=== PATIENT | male | born 1955 | race Caucasian/White ===

== ENCOUNTER 2022-06-20 06:06 | Day surgery (SDC) | payer OTHER, SELFPAY ==
[2022-06-07 12:28] VITALS: BP 114/60; PULSE 78; RESP 20; O2SAT 97; BMI 40.2
--- NOTE | 2022-06-07 12:41 | P.CONAN_ITS ---
Documented by User: Erin Bolden NP 06/19/22 09:32 HPI - Anesthesia Eval Consult details Narrative: 66yo M for Left AV Fistula Creation No dialysis yet Congenital singular kidney PMFSH Past Medical History Medical History Arthritis CKD (chronic kidney disease) Congenital single kidney COVID-19 vaccine series completed Diabetes Elevated cholesterol History of anesthesia complications HTN (hypertension) Localized edema Macular edema Peripheral neuropathy RBBB Family History Family history of problems with anesthesia: No Surgical History Surgical History H/O colonoscopy History of lumbar laminectomy Hx of cataract extraction Hx of cervical spine surgery History of Problems with Anesthesia: Yes (Long to wake even with IV sedation) Social History Social History Are you a primary home health care respiratory therapist to a significant other at home: No Do you presently have visiting nurse or other home services: No Patient Tobacco Use Status: Former Tobacco user Quit Date: 35 yr ago-smoked for only 1 year Tobacco use type: Cigarette Use of substances other than those prescribed or required for medical reasons: No Have you been hit, kicked, punched, or otherwise hurt by someone within the past year? If so, by whom?: No Are you DNR?: No Advance Directives Information Provided: Yes (will bring copy DOS) Advance Directives on File: No Recently lost weight without trying: No Nutrition Risks: No Nutritional Risk Poor oral hygiene: No (dental crowns) Narrative Narrative: No recent illness No CP. Mild EVANS r/t deconditioning. (Weight increased by 20lbs in past 6 months. 1+ LE edema) Meds Allergies Allergy/AdvReac Type Severity Reaction Status Date / Time No Known Allergies Allergy Verified 06/06/22 09:17 Home Medications Medication Instructions Recorded Confirmed Last Taken Type amlodipine 5 mg tablet 5 mg PO DAILY 06/06/22 06/20/22 06/20/22 History atorvastatin 20 mg tablet 20 mg PO DAILY 06/06/22 06/06/22 Unknown History cholecalciferol (vitamin D3) 25 50 mcg PO DAILY 06/06/22 06/07/22 Unknown History mcg (1,000 unit) capsule (Vitamin D3) losartan 100 mg tablet 100 mg PO DAILY 06/06/22 06/07/22 Unknown History multivitamin 1 tab PO DAILY 06/06/22 06/06/22 Unknown History sitagliptin 100 mg tablet 100 mg PO DAILY 06/06/22 06/06/22 Unknown History torsemide 20 mg tablet 60 mg PO DAILY 06/06/22 06/06/22 Unknown History vitamin B complex 1 tab PO DAILY 06/06/22 06/06/22 Unknown History calcium carbonate 600 mg calcium tab PO TID 06/07/22 Unknown History (1,500 mg) tablet Exam Exam Date and Time: June 07, 2022 1241 Height,Weight and Vital Signs: Height 5 ft 6 in Weight 113.162 kg Last Vital Signs Pulse 78 06/07/22 12:28 Resp 20 06/07/22 12:28 BP 114/60 06/07/22 12:28 Pulse Ox 97 06/07/22 12:28 O2 Del Method 06/07/22 12:28 Pertinent Lab Results Pertinent Lab Results: Labs at outside facility 05/24/22 K 5.0 Na 135 CO2 19 (H) Cl 104 BUN 90 (H) Creat 4.0 (H) WBC 6.6 Hgb 8.8 (L) Hct 27.5 (L) Plt 142 (L) Narrative Narrative: EKG 05/31/22 SR @77 RBBB Airway Mallampati Class: III TM Dist: >3cm Neck ROM: Poor (Post cervical disc surgery) Loose/Missing/Broken Teeth: No (Crowned molars) Heart: RRR Lungs: CTAB Assessment and Plan Assessment Anesthesia Assessment: Anesthesia Plan Discussed and PAT Visit Final Anesthetic Review Family History of Problems with Anesthesia: No History of Problems with Anesthesia: Yes (Long to wake even with IV sedation) Documented by User: Marky Byrnes MD 06/20/22 07:24 [facility] Past Medical History Medical History Arthritis CKD (chronic kidney disease) Congenital single kidney COVID-19 vaccine series completed Diabetes Elevated cholesterol History of anesthesia complications HTN (hypertension) Localized edema Macular edema Peripheral neuropathy RBBB Surgical History Surgical History H/O colonoscopy History of lumbar laminectomy Hx of cataract extraction Hx of cervical spine surgery Social History Social History Are you a primary home health care respiratory therapist to a significant other at home: No Do you presently have visiting nurse or other home services: No Patient Tobacco Use Status: Former Tobacco user Quit Date: 35 yr ago-smoked for only 1 year Tobacco use type: Cigarette Use of substances other than those prescribed or required for medical reasons: No Have you been hit, kicked, punched, or otherwise hurt by someone within the past year? If so, by whom?: No Are you DNR?: No Advance Directives Information Provided: Yes (will bring copy DOS) Advance Directives on File: No Recently lost weight without trying: No Nutrition Risks: No Nutritional Risk Poor oral hygiene: No (dental crowns) Meds Allergies Allergy/AdvReac Type Severity Reaction Status Date / Time No Known Allergies Allergy Verified 06/06/22 09:17 Home Medications Medication Instructions Recorded Confirmed Last Taken Type amlodipine 5 mg tablet 5 mg PO DAILY 06/06/22 06/20/22 06/20/22 History atorvastatin 20 mg tablet 20 mg PO DAILY 06/06/22 06/06/22 Unknown History cholecalciferol (vitamin D3) 25 50 mcg PO DAILY 06/06/22 06/07/22 Unknown History mcg (1,000 unit) capsule (Vitamin D3) losartan 100 mg tablet 100 mg PO DAILY 06/06/22 06/07/22 Unknown History multivitamin 1 tab PO DAILY 06/06/22 06/06/22 Unknown History sitagliptin 100 mg tablet 100 mg PO DAILY 06/06/22 06/06/22 Unknown History torsemide 20 mg tablet 60 mg PO DAILY 06/06/22 06/06/22 Unknown History vitamin B complex 1 tab PO DAILY 06/06/22 06/06/22 Unknown History calcium carbonate 600 mg calcium tab PO TID 06/07/22 Unknown History (1,500 mg) tablet Assessment and Plan Final Anesthetic Review NPO: Yes ASA Class: III Final Preanesthetic Review: No Changes in Pt Med Stat, Meds/Allgs Chart Reviewed, Consent Obtained/Reviewed and Anes Risks/Benef Reviewed Patient Risk: Intermediate Procedure Risk: Low Anesthetic Plan Anesthetic Plan: MAC: Disposition: Standard PACU
[2022-06-20] VITALS (7 sets, daily range): BP systolic 97–126; BP diastolic 43–64; PULSE 67–84; RESP 15–18; TEMP 36.6–36.8; O2SAT 95–98
[2022-06-20 06:42] LABS: Glucose, Whole Blood 106 mg/dL (60-115)
[2022-06-20 07:10] LABS: Anion Gap 14 (12-20); Carbon Dioxide 19 mmol/L (22-29); Chloride 109 mmol/L (96-108); Potassium 4.9 mmol/L (3.3-5.1); Sodium 137 mmol/L (135-145)
--- NOTE | 2022-06-20 13:00 | W.PM.OPN ---
Operative Note Operative Note Date of Service: 06/20/22 Narrative: Pre-op Diagnosis: Stage 4 CKD Post-op Diagnosis: Stage 4 CKD Operation: Creation of left arm distal radiocephalic AV fistula Surgeon: Cris Quick Anesthesia: MAC/local Procedure: The patient was placed on the OR table in a supine position. The left arm was prepped and draped in a sterile fashion. The anesthesiologist administered the pre-operative antibiotic. A surgical timeout was performed. Local anesthetic was applied. An incision was made at the wrist. The Bovie electrocauterty was used to dissect through the subcutaneous tissues. The cephalic vein was skeletonized. Branches were ligated and divided with 4-0 silk ties. The radial artery was dissected, skeletonized and fine branches were ligated with 4-0 silk ties. The vein was distended with hep-saline. The radial artery was clamped and an arteriotomy was made. The vein was anastomosed to the artery with 6-0 Prolene suture. The clamps were released. Hemostasis was maintained. The incision was closed in layers and surgical glue was applied. All instrument, sponge and needle counts were correct at the end of the case. The hand was well perfused at the end of the operation. Findings: Wea pulsatile thrill at end of case; palpable radial pulse at end of case. The radial artery was very calcified.
== END 2022-06-20 12:42 | disposition home or self-care (01) ==
PROVIDERS: Nurse Practitioner; PCP Internal Medicine; Visit Provider Transplant Surgery
PROC: (CPT 36818; principal; 2022-06-20 07:30)
DX: E11.22 Type 2 diabetes mellitus with diabetic chronic kidney disease (principal); I12.9 Hypertensive chronic kidney disease with stage 1 through stage 4 chronic kidney disease, or unspecified chronic kidney disease; E11.21 Type 2 diabetes mellitus with diabetic nephropathy; N18.4 Chronic kidney disease, stage 4 (severe); D63.1 Anemia in chronic kidney disease; Z79.84 Long term (current) use of oral hypoglycemic drugs; Q60.0 Renal agenesis, unilateral; R80.9 Proteinuria, unspecified; R60.0 Localized edema; E55.9 Vitamin D deficiency, unspecified; Z79.899 Other long term (current) drug therapy; Z87.891 Personal history of nicotine dependence
CPT/HCPCS: 36818; 36415; 80051; 82947; J0690; J2250; J3010; J3370

== ENCOUNTER → 2022-06-27 10:22 | Outpatient (REF) | payer OTHER, SELFPAY ==
--- NOTE | 2022-06-27 10:26 | CA_ITS ---
Transthoracic Echocardiogram Patient (Last, First, Middle): Giovanni Mcmullen W Gender: Male Date of : 1955 Age: 66 Procedure Date: 06/27/2022 Procedure Type: Transthoracic Echocardiogram Location: OP Height: 167.64 cm Weight: 111.13 kg BSA: 2.18 m2 Heart Rate: bpm BP: 118 / 52 mmHg Mailer: TO Referring MD: Damon Orta MD Symptoms: I45,10 RBBB CRI Study Quality: Fair ECG Rhythm: Sinus Conclusions: - The left ventricular systolic function is normal. The calculated ejection fraction is 62% by biplane method. - There is mild calcification of the aortic valve. - There is mild mitral annular calcification. - No obvious valvular pathology seen on this study. Findings Left Ventricle Normal left ventricular cavity size. The left ventricular systolic function is normal. The calculated ejection fraction is 62% by biplane method. There is no evidence of regional wall motion abnormalities. Diastolic function is normal for age. There is moderate septal and moderate basal asymmetric hypertrophy. Right Ventricle Mildly increased right ventricular cavity size. There is normal right ventricular systolic function. Atria Both atria are normal in size. Aortic Valve There is a normal trileaflet aortic valve. There is mild calcification of the aortic valve. There is no aortic valve stenosis. There is no aortic valve regurgitation. Mitral Valve There is mild mitral annular calcification. There is trace mitral valve regurgitation. There is no mitral valve stenosis. Pulmonic Valve The pulmonic valve is likely normal. Tricuspid Valve Normal tricuspid valve structure. There is trace tricuspid valve regurgitation. There is no evidence of pulmonary hypertension. Great Vessels The asc aorta is normal in size. Venous The inferior vena cava is normal in size and collapses greater than 50% with inspiration. Pericardium/Pleural There is no evidence of pericardial effusion. Prior Study Comparison No prior study available for comparison. Recommendations, Care & Conclusions No obvious valvular pathology seen on this study. Measurements 2D Linear Measurements IVSd: 1.33 0.6-0.9/0.6-1.0 cm LVIDd: 3.66 3.9-5.3/4.2-5.9 cm LVIDd Index: 1.68 2.4-3.2/2.2-3.1 cm/m2 LVIDs: 2.82 2.0-3.6 cm LVPWd: 1.29 0.7-1.1 cm LA Diam: 3.50 2.7-3.8/3.0-4.0 cm LAIDs Index: 1.61 1.5-2.3 cm/m2 LV Mass: 206.59 67-162/88-224 g LV Mass Index: 94.77 43-95/49-115 g/m2 LVOT Diam: 2.00 3.0+(-)1.3 cm 2D Systolic Function EF 4C: 63.10 >55% EF 2C: 59.60 >55% EF BiP: 61.90 >55% Mitral Valve MV Pk E: 0.90 MV PK A: 1.12 MV Decel Time: 199.00 E/A: 0.80 E'Lateral: 8.92 E'Medial: 6.42 E/E' Med: 14.00 E/E' Lat: 10.10 PHT: 58.00 MVA PHT: 3.79 Decel [place]: 4.53 Aortic Valve AoV Pk Floyd: 1.71 AoV Mn Floyd: 1.14 AoV VTI: 0.33 AoV Pk Grad: 12.00 Aov Mn Grad: 6.00 HONORIO Cont.VTI: 2.89 LVOT LVOT Pk Floyd: 1.32 LVOT Mn Floyd: 0.97 LVOT VTI: 0.30 LVOT Pk Grad: 7.00 LVOT Mn Grad: 4.00 LVOT Diam: 2.00 LVOT Area: 3.14 Diastolic Function MV Pk E: 0.90 MV Pk A: 1.12 E/A: 0.80 E'Medial: 6.42 E/E' Med: 14.00 E' Laterial: 8.92 E/E' Lat: 10.10 Right Ventricle TAPSE (mm): 29.50 TVS' Floyd: 13.10 Tricuspid Valve RA Press: 3.00 Great Vessels Aorta Sinus of Valsalva: 3.20 2.0-3.[address] [place]: 2.55 1.7-3.4 cm Ao Asc: 3.60 2.1-3.4 cm Updated in Other Vendor System with Status of Final Doug Weathers MD electronically signed on 06/28/2022 2:23:30 PM with status of Final
== END ==
LOC: HO.CARD 10:22
PROVIDERS: PCP Internal Medicine; Visit Provider Internal Medicine
DX: I45.10 Unspecified right bundle-branch block (principal)
CPT/HCPCS: 93306

== ENCOUNTER 2022-09-19 10:13 | Outpatient (REF) | payer OTHER, SELFPAY ==
[2022-09-19 13:37] LABS: MANUAL DIFF FLAG NO
[2022-09-19 13:40] LABS: Basophils Absolute Auto 0.1 X10*3/uL (0.0-0.2); Basophils Percent Auto 0.8 % (0-2); Eosinophils Absolute Auto 0.2 X10*3/uL (0.0-0.4); Eosinophils Percent Auto 3.2 % (0-4); Hematocrit 37.6 % (42.0-52.0); Imm Gran Abs Auto 0.06 X10*3/uL (0.00-0.03); Imm Gran Pct Auto 0.8 % (0.0-0.4); Lymphocytes Absolute Auto 1.6 X10*3/uL (1.2-4.9); Mean Corpuscular HGB Conc 31.9 g/dl (31.0-36.0); Mean Corpuscular Hemoglobin 29.1 pg (27.0-33.0); Mean Platelet Volume 10.5 fL (9.4-12.4); Monocytes Absolute Auto 0.6 X10*3/uL (0.1-1.2); Monocytes Percent Auto 8.1 % (2-11); Neutrophils Absolute Auto 4.8 x10*3/uL (2.0-8.3); Neutrophils Percent Auto 65.1 % (45-73); Platelet Count 187 X10*3/uL (160-400); Red Blood Count 4.13 X10*6/uL (4.60-5.80); Red Cell Distribution Width 13.8 % (11.0-16.0); White Blood Count 7.4 X10*3/uL (4.8-10.8)
[2022-09-19 13:50] LABS: Estimated Average Glucose 123 mg/dL; Hemoglobin A1c % 5.9 %
[2022-09-19 14:12] LABS: Alanine Aminotransferase 26 U/L (0-40); Alkaline Phosphatase 140 U/L (39-117); Anion Gap 15 (12-20); Aspartate Amino Transferase 32 U/L (5-37); Blood Urea Nitrogen 74 mg/dL (9-16); Calcium 8.8 mg/dL (8.4-10.2); Carbon Dioxide 23 mmol/L (22-29); Chloride 104 mmol/L (96-108); Cholesterol 139 mg/dL; Estimated Glomerular Filt Rate 17; Glucose Fasting 126 mg/dL (60-99); Potassium 5.3 mmol/L (3.3-5.1); Sodium 137 mmol/L (135-145); Total Protein 7.3 g/dL (6.5-8.0)
[2022-09-19 14:25] LABS: Free T4 (Free Thyroxine) 0.49 ng/dL (0.71-1.85); Prostate Specific Antigen Scr 0.63 ng/mL (<0.05-4.0)
[2022-09-19 14:26] LABS: Bilirubin Total 0.6 mg/dL (0.0-1.0)
[2022-09-19 14:28] LABS: Vitamin B12 1349 pg/mL (200-900)
[2022-09-19 15:01] LABS: Thyroid Stimulating Hormone > 100.00 uIU/mL (0.32-4.0)
== END 2022-09-19 10:14 | disposition home or self-care (01) ==
LOC: HO.10HDL 10:13
PROVIDERS: Visit Provider Internal Medicine
DX: E11.22 Type 2 diabetes mellitus with diabetic chronic kidney disease (principal); I12.9 Hypertensive chronic kidney disease with stage 1 through stage 4 chronic kidney disease, or unspecified chronic kidney disease; N18.9 Chronic kidney disease, unspecified; D63.1 Anemia in chronic kidney disease; Z12.5 Encounter for screening for malignant neoplasm of prostate
CPT/HCPCS: 36415; 80053; 82465; 82607; 83036; 84153; 84439; 84443; 85025

== ENCOUNTER 2022-11-19 16:15 | Outpatient (REF) | payer MEDICARE, SELFPAY ==
[2022-11-19 17:07] LABS: Influenza A PCR NEGATIVE (Negative); Influenza B PCR NEGATIVE (Negative); Resp Syncy Virus RNA Qual PCR NEGATIVE (Negative); SARS COV2 PCR INHOUSE NEGATIVE (Negative)
== END 2022-11-19 16:16 | disposition home or self-care (01) ==
LOC: HO.LNP 16:15
PROVIDERS: Visit Provider Internal Medicine
DX: Z20.822 Contact with and (suspected) exposure to COVID-19 (principal); R05.9 Cough, unspecified
CPT/HCPCS: 0241U; C9803

== ENCOUNTER 2022-11-19 16:20 | Outpatient (REF) | payer MEDICARE, OTHER, SELFPAY ==
--- NOTE | ~2022-11-19 | XR_ITS ---
EXAMINATION: XR CHEST CLINICAL INFORMATION: Cough. COMPARISON: None TECHNIQUE: 2 views of the chest were obtained. FINDINGS: The lungs are well-expanded and clear. The heart size and pulmonary vascularity is normal. There is mild spondylosis of dorsal spine. No aggressive lytic or sclerotic process seen. XR/XR chest 2V IMPRESSION: Unremarkable chest examination.
== END 2022-11-19 16:21 | disposition home or self-care (01) ==
LOC: HO.XRAY 16:20
PROVIDERS: PCP Internal Medicine; Visit Provider Internal Medicine
DX: R05.9 Cough, unspecified (principal); R09.89 Other specified symptoms and signs involving the circulatory and respiratory systems
CPT/HCPCS: 71046

== ENCOUNTER 2023-02-24 10:23 | Outpatient (REF) | payer MEDICARE, SELFPAY ==
[2023-02-24 14:10] LABS: Estimated Average Glucose 117 mg/dL; Hemoglobin A1c % 5.7 %
[2023-02-24 14:22] LABS: Iron 91 mcg/dL (45-160); Percent Iron Saturation 40 % (15-50); Total Iron Binding Capacity 226 mcg/dL (228-428); Unsaturated Iron Binding 135 ug/dL
[2023-02-24 14:42] LABS: Free T4 (Free Thyroxine) 1.04 ng/dL (0.71-1.85); Thyroid Stimulating Hormone 3.94 uIU/mL (0.32-4.0)
== END 2023-02-24 10:24 | disposition home or self-care (01) ==
LOC: HO.10HDL 10:23
PROVIDERS: Visit Provider Internal Medicine
DX: E11.22 Type 2 diabetes mellitus with diabetic chronic kidney disease (principal); E03.9 Hypothyroidism, unspecified; N18.9 Chronic kidney disease, unspecified
CPT/HCPCS: 36415; 83036; 83540; 84439; 84443

== ENCOUNTER 2023-05-22 10:51 | Outpatient (REF) | payer MEDICARE, SELFPAY ==
[2023-05-22 14:18] LABS: Anion Gap 12 (12-20); Blood Urea Nitrogen 89 mg/dL (9-16); Calcium 8.6 mg/dL (8.4-10.2); Carbon Dioxide 20 mmol/L (22-29); Chloride 111 mmol/L (96-108); Estimated Glomerular Filt Rate 14; Glucose Random 142 mg/dL (60-115); Potassium 4.9 mmol/L (3.3-5.1); Sodium 138 mmol/L (135-145)
== END 2023-05-22 10:52 | disposition home or self-care (01) ==
LOC: HO.10HDL 10:51
PROVIDERS: Visit Provider Internal Medicine
DX: I12.9 Hypertensive chronic kidney disease with stage 1 through stage 4 chronic kidney disease, or unspecified chronic kidney disease (principal); E11.22 Type 2 diabetes mellitus with diabetic chronic kidney disease; N18.9 Chronic kidney disease, unspecified; D64.9 Anemia, unspecified
CPT/HCPCS: 36415; 80048

== ENCOUNTER 2023-10-08 12:21 | Outpatient (REF) | payer MEDICARE, OTHER, SELFPAY ==
--- NOTE | ~2023-10-08 | XR_ITS ---
EXAMINATION: XR CHEST CLINICAL INFORMATION: Cough, shortness of breath COMPARISON: 11/27/2022 TECHNIQUE: 2 views of the chest were obtained. FINDINGS: There is no gross pneumothorax. Lung volumes are low. Heart size is normal. No pleural effusion. No new focal consolidation to suggest pneumonia. Advanced degenerative changes in the thoracic spine. XR/XR chest 2V IMPRESSION: No evidence of pneumonia.
== END 2023-10-08 12:22 | disposition home or self-care (01) ==
LOC: HO.XRAY 12:21
PROVIDERS: PCP Internal Medicine; Visit Provider Internal Medicine
DX: R05.9 Cough, unspecified (principal); R06.02 Shortness of breath
CPT/HCPCS: 71046

== ENCOUNTER → 2023-10-27 12:43 | Outpatient (REF) | payer MEDICARE, MEDICAID, SELFPAY ==
--- NOTE | 2023-10-27 12:52 | CA_ITS ---
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 Normal LV ejection fraction of 65-70% with mild LVH with impaired relaxation filling pattern 2. Moderately dilated left atrium 3. Moderate to severe aortic stenosis with mean gradient of 35 mmHg 4. No gross pericardial effusion Findings Left Ventricle Normal left ventricular size and systolic function. There is mildly increased left ventricular wall thickness. The visually estimated ejection fraction is between 65-70%. Spectral Doppler is indicative of an impaired relaxation filling pattern. E/E prime ratio is between 8 and 15 consistent with indeterminate filling pressures. Right Ventricle Normal right ventricular cavity size and systolic function. Atria The left atrium is moderately dilated. There is no evidence of interatrial shunt. The right atrium is normal in size. Aortic Valve The aortic valve was not well visualized. There is moderate calcification of the aortic valve. There is moderate to severe aortic valve stenosis. The peak aortic gradient is 57 mmHg.The mean gradient is 35 mmHg. The aortic valve area is 1.16 cm2. There is no aortic valve regurgitation. Mitral Valve There is mild anterior and moderate posterior mitral leaflet thickening. There is moderate mitral annular calcification. There is no mitral valve regurgitation. There is mild mitral valve stenosis. Tricuspid Valve Likely normal tricuspid valve structure and function. Tricuspid regurgitation envelope is inadequate for calculation of right ventricular systolic pressure. Normal right atrial pressure. Great Vessels All visible segments of the aorta are normal in size. The pulmonary artery was not well visualized. Venous The inferior vena cava is normal in size. Pericardium/Pleural There is no evidence of pericardial effusion. Prior Study Comparison Changes noted compared to prior study dated: 06/27/2022. moderately severe aortic stenosis is present Measurements 2D Linear Measurements IVSd: 1.35 0.6-0.9/0.6-1.0 cm LVIDd: 3.96 3.9-5.3/4.2-5.9 cm LVIDd Index: 1.87 2.4-3.2/2.2-3.1 cm/m2 LVIDs: 2.22 2.0-3.6 cm LVPWd: 1.31 0.7-1.1 cm LA Diam: 4.10 2.7-3.8/3.0-4.0 cm LAIDs Index: 1.93 1.5-2.3 cm/m2 LV Mass: 237.14 67-162/88-224 g LV Mass Index: 111.86 43-95/49-115 g/m2 LVOT Diam: 2.00 3.0+(-)1.3 cm 2D Systolic Function EF 4C: 69.10 >55% EF 2C: 71.00 >55% EF BiP: 70.50 >55% Mitral Valve MV VTI: 0.49 MV Pk Floyd: 1.73 MV Mn Floyd: 1.05 MV Pk Grad: 12.00 MV Mn Grad: 5.00 MV Pk E: 1.18 MV PK A: 1.55 MV Decel Time: 296.00 E/A: 0.80 E'Lateral: 6.09 E'Medial: 7.40 E/E' Med: 15.90 E/E' Lat: 19.40 PHT: 87.00 MVA PHT: 2.53 MVA Continuity: 2.08 Decel [place]: 3.98 Aortic Valve AoV Pk Floyd: 3.77 AoV Mn Floyd: 2.82 AoV VTI: 0.88 AoV Pk Grad: 57.00 Aov Mn Grad: 35.00 HONORIO Cont.VTI: 1.16 LVOT LVOT Pk Floyd: 1.40 LVOT Mn Floyd: 1.08 LVOT VTI: 0.33 LVOT Pk Grad: 8.00 LVOT Mn Grad: 5.00 LVOT Diam: 2.00 LVOT Area: 3.14 Diastolic Function MV Pk E: 1.18 MV Pk A: 1.55 E/A: 0.80 E'Medial: 7.40 E/E' Med: 15.90 E' Laterial: 6.09 E/E' Lat: 19.40 Right Ventricle TAPSE (mm): 32.00 TVS' Floyd: 17.50 Tricuspid Valve RA Press: 3.00 Great Vessels Aorta Sinus of Valsalva: 3.30 2.0-3.5 cm Updated in Other Vendor System with Status of Final Tahir Sejal MD electronically signed on 10/27/2023 2:44:44 PM with status of Final
== END ==
LOC: HO.CARD 12:43
PROVIDERS: PCP Internal Medicine; Visit Provider Internal Medicine Cardiovascular Disease
DX: I51.7 Cardiomegaly (principal)
CPT/HCPCS: 93306

== ENCOUNTER → 2023-10-27 12:52 | Outpatient (BNV) | payer MEDICARE, MEDICAID, SELFPAY | PROVIDERS: PCP Internal Medicine; Visit Provider Internal Medicine Cardiovascular Disease | DX: I35.0 Nonrheumatic aortic (valve) stenosis (principal); I34.81 Nonrheumatic mitral (valve) annulus calcification | CPT/HCPCS: 93306 ==

== ENCOUNTER 2024-07-29 14:27 | Outpatient (REF) | payer MEDICARE, MEDICAID, SELFPAY ==
--- NOTE | ~2024-07-29 | XR_ITS ---
EXAMINATION: XR CHEST CLINICAL INFORMATION: Diminished breath sounds on auscultation COMPARISON: Chest x-ray on 10/08/2030 TECHNIQUE: 2 views of the chest were obtained. FINDINGS: HEART & VASCULARITY: There are normal cardiac size and pulmonary vascularity. LUNGS: Lungs are hypoinflated. There is marked asymmetric elevation of left hemidiaphragm with underlying subdiaphragmatic air distended gastric fundus and splenic flexure. There is posterior left lung base compression plate like atelectasis. No pneumothorax is seen. BONES: Bony skeleton is intact. XR/XR chest 2V IMPRESSION: 1. Interval development of marked asymmetric elevation of left hemidiaphragm compatible with diaphragmatic eventration or paralysis. 2. Interval development of posterior left lung base compression atelectasis. Electronically signed by: Janeth Alcaraz MD 07/29/2024 04:44 PM EDT
== END 2024-07-29 14:28 | disposition home or self-care (01) ==
LOC: HO.XRAY 14:27
PROVIDERS: PCP Internal Medicine; Visit Provider Internal Medicine
DX: R06.89 Other abnormalities of breathing (principal)
CPT/HCPCS: 71046

== ENCOUNTER 2024-08-04 14:03 | Outpatient (AMB) | payer MEDICARE, MEDICAID, SELFPAY ==
--- NOTE | 2024-08-04 14:36 | A.OFFVIS_ITS ---
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 He was referred by PCP for preoperative pulmonary evaluation for upcoming cervical surgery with Dr. Maguire at [facility]. Patient was recently sent to CXR which revealed newly developed elevation of left hemidiaphragm compared to CXR 10/2023. He denies significant trauma although noted multiple falls due to BLE neuropathy. He currently ambulates with two canes. He denies any respiratory symptoms at this time. He does note fatiguing easily but attributes this to BLE weakness, not labored breathing. He denies prior h/o asthma. He has never required supplemental oxygen outpatient. He denies any respiratory infections in the last 3 months. He denies any occupational exposures. He denies any pertinent family history. Per chart, patient with noted h/o anesthesia complications however patient was not aware of any complications. 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 Recently stopped due to neuropathy. COUNTS INCLUDE 234 BEDS AT THE [facility] Medical History Arthritis CKD (chronic kidney disease) Congenital single kidney COVID-19 vaccine series completed Diabetes Elevated cholesterol History of anesthesia complications HTN (hypertension) Localized edema Macular edema Peripheral neuropathy RBBB Surgical History H/O colonoscopy History of lumbar laminectomy Hx of cataract extraction Hx of cervical spine surgery Social History Are you a primary palliative care nurse practitioner to a significant other at home: No Do you presently have visiting nurse or other home services: No Patient Tobacco Use Status: Former Tobacco user Tobacco use type: Cigarette Review of Systems Const Denies chills, Denies excessive sweating, Denies fever(s), Denies headache(s) and Denies night sweats Eyes Denies dry eyes, Denies irritation and Denies itchy eyes ENT Reports Normal hearing present and Denies headache(s) Card Denies chest pain, Denies chest pain at rest, Denies chest pain with activity, Denies claudication, Denies dyspnea, Denies dyspnea on exertion, Denies orthopnea and Denies paroxysmal nocturnal dyspnea Resp Denies chest congestion, Denies cough, Denies excessive phlegm production, Denies pain on inspiration, Denies pain with cough, Denies dyspnea, Denies dyspnea on exertion, Denies stridor and Denies wheezing Musc Denies myalgias Neuro Reports Normal hearing present and Denies headache(s) Endo Denies excessive sweating Rex/Lymph Denies lymphadenopathy Aller/Immun Denies itchy eyes, Denies seasonal rhinorrhea and Denies wheezing Physical Exam Vital Signs: Last Vital Signs Pulse 79 08/04/24 14:39 BP 104/70 08/04/24 14:39 Pulse Ox 98 08/04/24 14:39 Oxygen Delivery Method Room Air 08/04/24 14:39 BMI result Body Mass Index 37.0 Const General: cooperative, healthy appearing, comfortable, no acute distress, well developed and alert Nutritional Appearance: obese Orientation/consciousness: patient oriented x3 Limitations: ambulation with cane HEENT Head: Yes normal to inspection, Yes normocephalic and Yes atraumatic Ears: hearing grossly normal bilaterally and external ears normal Eyes General: appearance normal, both eyes and all related structures Eyelids: Yes eyelids normal Sclerae: sclerae normal EOM: EOMs intact bilaterally Neck Neck: Yes normal visual inspection and Yes no lymphadenopathy Lymphatic: no lymphadenopathy noted Chest Chest palpation & inspection: normal inspection of the chest Resp Effort & Inspection: normal respiratory effort, able to speak in complete sentences, no audible wheezes, no cough, no stridor, not tachypneic, no tripod positioning and no use of accessory muscles Auscultation: clear to auscultation bilaterally Cardio Jugular venous distension: no JVD Rate: regular rate Rhythm: regular rhythm Skin Other: warm, dry General skin exam: no rashes or lesions noted Neuro General: patient oriented x3 Cranial nerves: Yes Normal hearing present Cognition (Neuro): normal cognition Gait exam (Neuro): Assisted gait required Extrem General: Yes normal to inspection, Yes capillary refill normal, Yes no clubbing, cyanosis or edema and Yes no pedal edema Psych Appearance: grossly normal and well kempt Speech and movement: Normal speech and movement present and Clear speech present Affect: normal affect Attitude: cooperative Thought process: Normal thought process present Thought content: Normal thought content present Insight: Good insight present (Psych) Judgement: Good judgement present (Psych) Results Reviewed Results Reviewed: [address] [address] XRay Report Signed Patient: Giovanni Mcmullen Jr MR#: [id number] : 1955 Acct:[id number] Age/Sex: 68 / M ADM Date: 07/29/24 Loc: HO.XRAY Attending Dr: Damon Orta MD Ordering Physician: Damon Orta MD Date of Service: 07/29/24 Procedure(s): XR chest 2V Accession Number(s): [id number] cc: Damon Orta MD~ EXAMINATION: XR CHEST CLINICAL INFORMATION: Diminished breath sounds on auscultation COMPARISON: Chest x-ray on 10/08/2030 TECHNIQUE: 2 views of the chest were obtained. FINDINGS: HEART & VASCULARITY: There are normal cardiac size and pulmonary vascularity. LUNGS: Lungs are hypoinflated. There is marked asymmetric elevation of left hemidiaphragm with underlying subdiaphragmatic air distended gastric fundus and splenic flexure. There is posterior left lung base compression plate like atelectasis. No pneumothorax is seen. BONES: Bony skeleton is intact. XR/XR chest 2V IMPRESSION: 1. Interval development of marked asymmetric elevation of left hemidiaphragm compatible with diaphragmatic eventration or paralysis. 2. Interval development of posterior left lung base compression atelectasis. Electronically signed by: Janeth Alcaraz MD 07/29/2024 04:44 PM EDT RP Dictated By: Janeth Alcaraz Signed By: <Electronically signed by Janeth Alcaraz in OV> 07/29/24 1644 DD/ 1437 TD/TT: 07/29/24 1508 Dexigraph Operator: Assessment & Plan Assessment & Plan (1) Elevated hemidiaphragm: Code(s): J98.6 - Disorders of diaphragm Category: Medical (2) Abnormal chest xray: Code(s): R93.89 - Abnormal findings on diagnostic imaging of other specified body st ructures Category: Medical (3) Encounter for preoperative pulmonary examination: Code(s): Z01.811 - Encounter for preprocedural respiratory examination Category: Medical Plan Giovanni presents for preoperative pulmonary evaluation for proposed cervical surgery which was scheduled for tomorrow through [facility] with Dr. Maguire. Will need to further risk stratify with chest CT, PFT and SNIFF test. Once resulted, will review with patient and determine risk for perioperative pulmonary complications. All questions were answered and patient is in agreement of plan. Orders: Orders PFT pulmonary function test Today J98.6 - Disorders of diaphragm, Z01.811 - Encounter for preprocedural respiratory examination CT chest wo IV con Today J98.6 - Disorders of diaphragm, R93.89 - Abnormal findings on diagnostic imaging of other specified body structures Referrals Interventional Radiology Referral J98.6 - Disorders of diaphragm Coding Level of Care Code New Pt Level 4 (24310) Diagnoses Elevated hemidiaphragm J98.6 Abnormal chest xray R93.89 Encounter for preoperative pulmonary examination Z01.811
[2024-08-04 14:39] VITALS: BP 104/70; PULSE 79; O2SAT 98; BMI 37.0
== END 2024-08-04 15:35 | disposition home or self-care (01) ==
PROVIDERS: PCP Internal Medicine; Visit Provider Nurse Practitioner Family
DX: J98.6 Disorders of diaphragm (principal); R93.89 Abnormal findings on diagnostic imaging of other specified body structures; Z01.811 Encounter for preprocedural respiratory examination
CPT/HCPCS: 99204

== ENCOUNTER → 2024-08-04 14:03 | Outpatient (BNVA) | payer MEDICARE, OTHER, SELFPAY | PROVIDERS: PCP Internal Medicine; Visit Provider Nurse Practitioner Family | DX: Z01.811 Encounter for preprocedural respiratory examination (principal); J98.6 Disorders of diaphragm; R93.89 Abnormal findings on diagnostic imaging of other specified body structures | CPT/HCPCS: 99202 ==

== ENCOUNTER 2024-08-09 12:50 | Outpatient (REF) | payer MEDICARE, OTHER, SELFPAY ==
--- NOTE | ~2024-08-09 | FL_ITS ---
EXAMINATION: FL SNIFF TEST CLINICAL INFORMATION: Elevated left hemidiaphragm COMPARISON: Chest x-ray July 2024 TECHNIQUE: Cine loops were recorded during normal respirations and rapid inspirations (sniff) FINDINGS: There is an elevated left hemidiaphragm. With normal respiration and there is minimal movement of the left hemidiaphragm. Paradoxical motion is seen during the rapid inspirations (sniff) FLUOROSCOPY TIME: 0.3 minutes DOSE AREA PRODUCT: 553.2 uGy-m2 (microgray-meter squared) FL/FL fluoroscopy <1hr IMPRESSION: 1. Elevated left hemidiaphragm with paradoxical motion seen during sniff test. These findings are consistent with a left phrenic nerve dysfunction/paralyzed left hemidiaphragm. This procedure was performed by Larry Santos PA-C, and supervised by Dr. Piña Electronically signed by: Darvin Piña MD 08/11/2024 08:53 AM EDT
== END 2024-08-09 12:51 | disposition home or self-care (01) ==
LOC: HO.XRAY 12:50
PROVIDERS: PCP Internal Medicine; Visit Provider Nurse Practitioner Family
DX: J98.6 Disorders of diaphragm (principal)
CPT/HCPCS: 76000

== ENCOUNTER → 2024-08-09 14:00 | Outpatient (BNV) | payer MEDICARE, OTHER, SELFPAY | PROVIDERS: PCP Internal Medicine; Visit Provider Radiology Diagnostic Radiology | DX: J98.6 Disorders of diaphragm (principal) | CPT/HCPCS: 76000 ==

== ENCOUNTER 2024-08-27 15:00 | Outpatient (REF) | payer MEDICARE, OTHER, SELFPAY ==
--- NOTE | ~2024-08-27 | CT_ITS ---
EXAMINATION: CT CHEST WITHOUT CONTRAST CLINICAL INFORMATION: Follow-up elevated hemidiaphragm on the left and paradoxical motion during fluoroscopic evaluation left phrenic nerve dysfunction COMPARISON: CT abdomen from December 18, 2020 TECHNIQUE: Multidetector volumetric CT imaging of the chest was done. Axial MIP volume rendering provided. Sagittal and coronal reformatted images were obtained. This CT examination was performed using dose optimization techniques as appropriate, variously including the following: *Automated exposure control *Adjustment of mA and/or kV according to patient size (this includes techniques or standardized protocols for targeted exams where dose is matched to indication/reason for exam; i.e. extremities or head) *Use of iterative reconstruction technique DLP: 342 mGy-cm FINDINGS: PERMIT TECHNICIAN: There is elevation of left hemidiaphragm LUNGS: There is atelectasis at the left lung base air bronchogram. Lungs are clear, no evidence of nodules or mass. Central airways are patent MEDIASTINUM: Is no mediastinal or hilar lymphadenopathy. There is calcification of aortic valve and mitral valve. Is no pericardial effusion. CORONARY ARTERY CALCIFICATION: Coronary arteries are heavily calcified. PLEURA: There is no pleural effusion. No pleural mass or thickening. AXILLA: No lymphadenopathy. UPPER ABDOMEN: Visualized portions of liver, gallbladder, pancreas, spleen, adrenal glands and right kidney are unremarkable. OSSEOUS STRUCTURES: Mild changes of degenerative spondylosis in the thoracic spine and mild dextroscoliosis. CT/CT chest wo IV con IMPRESSION: Elevation of left hemidiaphragm with atelectasis at the left lung base. Fleischner guidelines were followed. Electronically signed by: Salavdor Nation MD 08/29/2024 01:08 PM EDT
== END 2024-08-27 15:01 | disposition home or self-care (01) ==
LOC: HO.CT 15:00
PROVIDERS: PCP Internal Medicine; Visit Provider Nurse Practitioner Family
DX: J98.6 Disorders of diaphragm (principal); R93.89 Abnormal findings on diagnostic imaging of other specified body structures
CPT/HCPCS: 71250

== ENCOUNTER 2024-09-01 13:50 | Outpatient (REF) | payer MEDICARE, OTHER, SELFPAY ==
--- NOTE | 2024-09-01 14:00 | PFT_ITS ---
Flows: FEV1: 73 % of predicted at 2.07 L FVC: 62 % of predicted at 2.26 L FEV1/FVC: 92 % Bronchodilator response: Present in small to medium airways only Volumes: Total lung capacity: 62 % of predicted at 3.77 L Residual volume: 64 % of predicted at 1.3 to L Slow vital capacity: 61 % of predicted at 2.45 L Expiratory reserve volume: 62 % of predicted at 0.60 L Diffusion capacity: Mildly decreased, corrects to normal after adjustment for alveolar ventilation. Impression: Moderate restrictive ventilatory defect with bronchodilator response in small to medium airways only. Combination of decreased diffusion capacity and restrictive ventilatory defect suggests underlying pulmonary parenchymal disease. MTDD
== END 2024-09-01 13:51 | disposition home or self-care (01) ==
LOC: HO.RESP 13:50
PROVIDERS: PCP Internal Medicine; Visit Provider Nurse Practitioner Family
DX: Z01.811 Encounter for preprocedural respiratory examination (principal); J98.6 Disorders of diaphragm
CPT/HCPCS: 94010; 94640; 94727; 94729

== ENCOUNTER → 2024-09-01 13:50 | Outpatient (BNV) | payer MEDICARE, OTHER, SELFPAY | PROVIDERS: PCP Internal Medicine; Visit Provider Internal Medicine Pulmonary Disease | DX: J98.4 Other disorders of lung (principal); J98.6 Disorders of diaphragm | CPT/HCPCS: 94060; 94727; 94729 ==

== ENCOUNTER 2024-09-10 10:56 | Outpatient (AMB) | payer MEDICARE, OTHER, SELFPAY ==
--- NOTE | 2024-09-10 11:00 | A.OFFVIS_ITS ---
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 He was referred by PCP after recent CXR revealed newly developed elevation of left hemidiaphragm compared to CXR 10/2023. He denies significant trauma although noted multiple falls due to BLE neuropathy. He currently ambulates with two canes. He continues to deny any respiratory symptoms. Today he presents to review results of SNIFF test, PFT and chest CT. [facility] Medical History Arthritis CKD (chronic kidney disease) Congenital single kidney COVID-19 vaccine series completed Diabetes Elevated cholesterol History of anesthesia complications HTN (hypertension) Localized edema Macular edema Peripheral neuropathy RBBB Surgical History H/O colonoscopy History of lumbar laminectomy Hx of cataract extraction Hx of cervical spine surgery Social History Are you a primary healthcare social worker to a significant other at home: No Do you presently have visiting nurse or other home services: No Patient Tobacco Use Status: Former Tobacco user Tobacco use type: Cigarette Review of Systems Const Denies chills, Denies excessive sweating, Denies fever(s), Denies headache(s) and Denies night sweats Eyes Denies dry eyes, Denies irritation and Denies itchy eyes ENT Reports Normal hearing present and Denies headache(s) Card Denies chest pain, Denies chest pain at rest, Denies chest pain with activity, Denies claudication, Denies dyspnea, Denies dyspnea on exertion, Denies orthopnea and Denies paroxysmal nocturnal dyspnea Resp Denies chest congestion, Denies cough, Denies excessive phlegm production, Denies pain on inspiration, Denies pain with cough, Denies dyspnea, Denies dyspnea on exertion, Denies stridor and Denies wheezing Musc Denies myalgias Neuro Reports Normal hearing present and Denies headache(s) Endo Denies excessive sweating Rex/Lymph Denies lymphadenopathy Aller/Immun Denies itchy eyes, Denies seasonal rhinorrhea and Denies wheezing Physical Exam Vital Signs: Last Vital Signs Pulse 83 09/10/24 11:01 BP 110/62 09/10/24 11:01 Pulse Ox 95 09/10/24 11:01 Oxygen Delivery Method Room Air 09/10/24 11:01 BMI result Body Mass Index 37.9 Const General: cooperative, healthy appearing, comfortable, no acute distress, well developed and alert Nutritional Appearance: obese Orientation/consciousness: patient oriented x3 Limitations: ambulation with cane HEENT Head: Yes normal to inspection, Yes normocephalic and Yes atraumatic Ears: hearing grossly normal bilaterally and external ears normal Eyes General: appearance normal, both eyes and all related structures Eyelids: Yes eyelids normal Sclerae: sclerae normal EOM: EOMs intact bilaterally Neck Neck: Yes normal visual inspection and Yes no lymphadenopathy Lymphatic: no lymphadenopathy noted Chest Chest palpation & inspection: normal inspection of the chest Resp Effort & Inspection: normal respiratory effort, able to speak in complete sentences, no audible wheezes, no cough, no stridor, not tachypneic, no tripod positioning and no use of accessory muscles Auscultation: clear to auscultation bilaterally Cardio Jugular venous distension: no JVD Rate: regular rate Rhythm: regular rhythm Skin Other: warm, dry General skin exam: no rashes or lesions noted Neuro General: patient oriented x3 Cranial nerves: Yes Normal hearing present Cognition (Neuro): normal cognition Gait exam (Neuro): Assisted gait required Extrem General: Yes normal to inspection, Yes capillary refill normal, Yes no clubbing, cyanosis or edema and Yes no pedal edema Psych Appearance: grossly normal and well kempt Speech and movement: Normal speech and movement present and Clear speech present Affect: normal affect Attitude: cooperative Thought process: Normal thought process present Thought content: Normal thought content present Insight: Good insight present (Psych) Judgement: Good judgement present (Psych) Office Procedures 6 Minute Walk Time:: 11:36 SPO2 % at rest: 98 Pulse at rest: 79 SPO2 % during excercise: 91 Pulse during excercise: 100 SPO2 % after excercise: 93 Pulse after excercise: 99 Henrik Score: 6 Performance Observations:: Patient walked on level ground using 2 canes slowly. Patient was able to complete the walk maintaining O2 saturation of 91% or greater with heart rate of 100. Patient reports he does have trouble with stairs. No respiratory distress. No supplemental O2 was required. [address] - 6 Minute Walk Results Reviewed Results Reviewed: [address] [address] Fluoroscopy Report Signed Patient: Giovanni Mcmullen Jr MR#: [id number] : 1955 Acct:[id number] Age/Sex: 68 / M ADM Date: 08/09/24 Loc: [facility] Attending Dr: Becky Jacob NP Ordering Physician: Becky Jacob NP Date of Service: 08/09/24 Procedure(s): FL fluoroscopy <1hr Accession Number(s): [id number] cc: Damon Orta MD; Becky Jacob NP~ EXAMINATION: FL SNIFF TEST CLINICAL INFORMATION: Elevated left hemidiaphragm COMPARISON: Chest x-ray July 2024 TECHNIQUE: Cine loops were recorded during normal respirations and rapid inspirations (sniff) FINDINGS: There is an elevated left hemidiaphragm. With normal respiration and there is minimal movement of the left hemidiaphragm. Paradoxical motion is seen during the rapid inspirations (sniff) FLUOROSCOPY TIME: 0.3 minutes DOSE AREA PRODUCT: 553.2 uGy-m2 (microgray-meter squared) FL/FL fluoroscopy <1hr IMPRESSION: 1. Elevated left hemidiaphragm with paradoxical motion seen during sniff test. These findings are consistent with a left phrenic nerve dysfunction/paralyzed left hemidiaphragm. This procedure was performed by Larry Santos PA-C, and supervised by Dr. Piña Electronically signed by: Darvin Piña MD 08/11/2024 08:53 AM EDT Dictated By: Darvin Piña MD Signed By: <Electronically signed by Larry Santos in OV> 08/11/24 0853 DD/ 1400 TD/TT: 08/09/24 1423 Skiver Machine: [address] [address] [address] Scan Report Signed Patient: Giovanni Mcmullen Jr MR#: [id number] : 1955 Acct:[id number] Age/Sex: 68 / M ADM Date: 08/27/24 Loc: .CT Attending Dr: Becky Jacob NP Ordering Physician: Becky Jacob NP Date of Service: 08/27/24 Procedure(s): CT chest wo IV con Accession Number(s): [id number] cc: Damon Orta MD; Becky Jacob NP~ EXAMINATION: CT CHEST WITHOUT CONTRAST CLINICAL INFORMATION: Follow-up elevated hemidiaphragm on the left and paradoxical motion during fluoroscopic evaluation left phrenic nerve dysfunction COMPARISON: CT abdomen from December 18, 2020 TECHNIQUE: Multidetector volumetric CT imaging of the chest was done. Axial MIP volume rendering provided. Sagittal and coronal reformatted images were obtained. This CT examination was performed using dose optimization techniques as appropriate, variously including the following: *Automated exposure control *Adjustment of mA and/or kV according to patient size (this includes techniques or standardized protocols for targeted exams where dose is matched to indication/reason for exam; i.e. extremities or head) *Use of iterative reconstruction technique DLP: 342 mGy-cm FINDINGS: FINANCE BUSINESS MANAGER: There is elevation of left hemidiaphragm LUNGS: There is atelectasis at the left lung base air bronchogram. Lungs are clear, no evidence of nodules or mass. Central airways are patent MEDIASTINUM: Is no mediastinal or hilar lymphadenopathy. There is calcification of aortic valve and mitral valve. Is no pericardial effusion. CORONARY ARTERY CALCIFICATION: Coronary arteries are heavily calcified. PLEURA: There is no pleural effusion. No pleural mass or thickening. AXILLA: No lymphadenopathy. UPPER ABDOMEN: Visualized portions of liver, gallbladder, pancreas, spleen, adrenal glands and right kidney are unremarkable. OSSEOUS STRUCTURES: Mild changes of degenerative spondylosis in the thoracic spine and mild dextroscoliosis. CT/CT chest wo IV con IMPRESSION: Elevation of left hemidiaphragm with atelectasis at the left lung base. Fleischner guidelines were followed. Electronically signed by: Salvador Nation MD 08/29/2024 01:08 PM EDT RP Dictated By: Salvador Nation MD Signed By: <Electronically signed by Salvador Nation MD in OV> 08/29/24 1308 DD/ 1543 TD/TT: 08/27/24 1553 Skiver Machine: Assessment & Plan Assessment & Plan (1) Restrictive ventilatory defect: Code(s): R94.2 - Abnormal results of pulmonary function studies Category: Medical (2) Elevated hemidiaphragm: Code(s): J98.6 - Disorders of diaphragm Category: Medical (3) Hemidiaphragm paralysis: Code(s): J98.6 - Disorders of diaphragm Category: Medical Plan PFT revealed moderate restrictive ventilatory defect with bronchodilator response in small to medium airways only. Combination of decreased diffusion capacity and restrictive ventilatory defect suggests underlying pulmonary parenchymal disease. Reviewed chest CT which revealed compressive atelectasis likely secondary to left hemidiaphragm dysfunction, which was confirmed with SNIFF test. However will send for repeat chest CT in 6 months to assess stability. We discussed a possible referral to thoracic surgery to discuss plication, however he declined at this time. We reviewed importance of weight loss contributing to restrictive defect. At this time, he denies any respiratory symptoms and is not interested in albuterol PRN. He denies any recent exacerbations and does not require supplemental oxygen, 6MWT performed today. Given findings, he would be considered intermediate risk for perioperative complications for proposed cervical surgery with Dr. Maguire. Consider bronchodilators in the perioperative period. All questions were answered and patient is in agreement of plan. Will follow up PRN. Orders: Orders AMB 6 minute walk 09/10/24 Z01.811 - Encounter for preprocedural respiratory examination CT chest wo IV con 6 Months J98.11 - Atelectasis Coding Level of Care Code Est Pt Level 4 (31399) Diagnoses Restrictive ventilatory defect R94.2 Elevated hemidiaphragm J98.6 Hemidiaphragm paralysis J98.6 CPT Codes Coding ([id number])
[2024-09-10 11:01] VITALS: BP 110/62; PULSE 83; O2SAT 95; BMI 37.9
[2024-09-10 12:03] VITALS: PULSE 79; O2SAT 98
== END 2024-09-10 12:07 | disposition home or self-care (01) ==
PROVIDERS: PCP Internal Medicine; Visit Provider Nurse Practitioner Family
DX: R94.2 Abnormal results of pulmonary function studies (principal); J98.6 Disorders of diaphragm
CPT/HCPCS: 94618; 99214

== ENCOUNTER → 2024-09-10 10:56 | Outpatient (BNVA) | payer MEDICARE, OTHER, SELFPAY | PROVIDERS: PCP Internal Medicine; Visit Provider Nurse Practitioner Family | DX: Z01.811 Encounter for preprocedural respiratory examination (principal); J98.11 Atelectasis; J98.6 Disorders of diaphragm; R94.2 Abnormal results of pulmonary function studies; Z87.891 Personal history of nicotine dependence | CPT/HCPCS: 94618; 99212 ==

== ENCOUNTER 2024-12-21 13:25 | Outpatient (AMB) | payer MEDICARE, OTHER, SELFPAY ==
[2024-12-21 13:37] VITALS: BP 112/64; PULSE 88; O2SAT 99
--- NOTE | 2024-12-21 13:37 | A.OFFVIS_ITS ---
Vital Signs 12/21/24 13:37 Height 5 ft 6 in BP 112/64 Blood Pressure Location Rt brachial Position Sitting Pulse 88 Pulse Source Pulse Oximeter Pulse Oximetry (%) 99 Oxygen Delivery Method Room Air Intake Visit Reasons: Elevated diaphragam/post-op visit Dowel Pin Man Required: No Accounting Analyst: Accounting Analyst offered & declined Accompanied by: Self / Same As Patient Allergies No Known Allergies Allergy (Verified 12/21/24 13:46) Medication List - Last Reconciled 12/21/24 by Nuvia Moon LPN atorvastatin 20 mg PO DAILY calcium carbonate tabs PO TID cholecalciferol (vitamin D3) (Vitamin D3) 50 mcg PO DAILY gabapentin 100 mg PO BEDTIME levothyroxine 100 mcg PO DAILY midodrine 5 mg PO ONCE midodrine 10 mg PO ONCE multivitamin 1 tab PO DAILY sitagliptin phosphate 100 mg PO DAILY torsemide 60 mg PO DAILY vitamin B complex 1 tab PO DAILY HPI HPI Elevated diaphragam/post-op visit: Details: Giovanni is a pleasant 69 year male, former minimal smoker with less than 5 pack year history, with underlying DMII, diabetic neuropathy, 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 At the last visit, he was seen for preoperative pulmonary evaluation and did undergo cervical surgery with Dr. Maguire with significant improvement in LUE paresthesias. He did for to SNF for 3 weeks post op, resulting in some deconditioning. He has also noted an increase in dry cough and dyspnea on exertion over the last few weeks. Prior PFT did reveal significant improvement in small to medium airways and is interested in trialing a daily inhaler. PFS Medical History Arthritis CKD (chronic kidney disease) Congenital single kidney COVID-19 vaccine series completed Diabetes Elevated cholesterol History of anesthesia complications HTN (hypertension) Localized edema Macular edema Peripheral neuropathy RBBB Surgical History H/O colonoscopy History of lumbar laminectomy Hx of cataract extraction Hx of cervical spine surgery Social History Are you a primary pediatric critical care nurse to a significant other at home: No Do you presently have visiting nurse or other home services: No Patient Tobacco Use Status: Former Tobacco user Tobacco use type: Cigarette Review of Systems Const Denies chills, Denies excessive sweating, Denies fever(s), Denies headache(s) and Denies night sweats Eyes Denies dry eyes, Denies irritation and Denies itchy eyes ENT Reports Normal hearing present and Denies headache(s) Card Denies chest pain, Denies chest pain at rest, Denies chest pain with activity, Denies claudication, Reports dyspnea, Reports dyspnea on exertion, Denies orthopnea and Denies paroxysmal nocturnal dyspnea Resp Denies chest congestion, Reports cough, Denies excessive phlegm production, Denies pain on inspiration, Denies pain with cough, Reports dyspnea, Reports dyspnea on exertion, Denies stridor and Denies wheezing Musc Denies myalgias Neuro Reports Normal hearing present and Denies headache(s) Endo Denies excessive sweating Rex/Lymph Denies lymphadenopathy Aller/Immun Denies itchy eyes, Denies seasonal rhinorrhea and Denies wheezing Physical Exam Vital Signs: Last Vital Signs Pulse 88 12/21/24 13:37 BP 112/64 12/21/24 13:37 Pulse Ox 99 12/21/24 13:37 Oxygen Delivery Method Room Air 12/21/24 13:37 Const General: cooperative, healthy appearing, comfortable, no acute distress, well developed and alert Nutritional Appearance: obese Orientation/consciousness: patient oriented x3 Limitations: ambulation with cane HEENT Head: Yes normal to inspection, Yes normocephalic and Yes atraumatic Ears: hearing grossly normal bilaterally and external ears normal Eyes General: appearance normal, both eyes and all related structures Eyelids: Yes eyelids normal Sclerae: sclerae normal EOM: EOMs intact bilaterally Neck Neck: Yes normal visual inspection and Yes no lymphadenopathy Lymphatic: no lymphadenopathy noted Chest Chest palpation & inspection: normal inspection of the chest Resp Effort & Inspection: normal respiratory effort, able to speak in complete sentences, no audible wheezes, no cough, no stridor, not tachypneic, no tripod positioning and no use of accessory muscles Auscultation: clear to auscultation bilaterally Cardio Jugular venous distension: no JVD Rate: regular rate Rhythm: regular rhythm Skin Other: warm, dry General skin exam: no rashes or lesions noted Neuro General: patient oriented x3 Cranial nerves: Yes Normal hearing present Cognition (Neuro): normal cognition Gait exam (Neuro): Assisted gait required Extrem General: Yes normal to inspection, Yes capillary refill normal, Yes no clubbing, cyanosis or edema and Yes no pedal edema Psych Appearance: grossly normal and well kempt Speech and movement: Normal speech and movement present and Clear speech present Affect: normal affect Attitude: cooperative Thought process: Normal thought process present Thought content: Normal thought content present Insight: Good insight present (Psych) Judgement: Good judgement present (Psych) Assessment & Plan Assessment & Plan (1) Restrictive ventilatory defect: Code(s): R94.2 - Abnormal results of pulmonary function studies Category: Medical (2) Elevated hemidiaphragm: Code(s): J98.6 - Disorders of diaphragm Category: Medical (3) Hemidiaphragm paralysis: Code(s): J98.6 - Disorders of diaphragm Category: Medical Plan Will empirically trial Breo, as patient with likely small airways disease. Discussed importance of good oral hygiene to prevent thrush. All questions were answered and patient is in agreement of plan. Will follow up in 6-8 weeks or sooner if needed. Coding Level of Care Code Est Pt Level 4 (17881) Diagnoses Restrictive ventilatory defect R94.2 Elevated hemidiaphragm J98.6 Hemidiaphragm paralysis J98.6
--- NOTE | 2024-12-21 13:50 | MHC.OFFVIS ---
Vital Signs 12/21/24 13:37 Height 5 ft 6 in BP 112/64 Blood Pressure Location Rt brachial Position Sitting Pulse 88 Pulse Source Pulse Oximeter Pulse Oximetry (%) 99 Oxygen Delivery Method Room Air Intake Visit Reasons: Elevated diaphragam/post-op visit Allergies No Known Allergies Allergy (Verified 12/21/24 13:46) Medication List - Last Reconciled 12/21/24 by Nuvia Moon LPN atorvastatin 20 mg PO DAILY calcium carbonate tabs PO TID cholecalciferol (vitamin D3) (Vitamin D3) 50 mcg PO DAILY gabapentin 100 mg PO BEDTIME levothyroxine 100 mcg PO DAILY midodrine 5 mg PO ONCE midodrine 10 mg PO ONCE multivitamin 1 tab PO DAILY sitagliptin phosphate 100 mg PO DAILY torsemide 60 mg PO DAILY vitamin B complex 1 tab PO DAILY PFSH Medical History Arthritis CKD (chronic kidney disease) Congenital single kidney COVID-19 vaccine series completed Diabetes Elevated cholesterol History of anesthesia complications HTN (hypertension) Localized edema Macular edema Peripheral neuropathy RBBB Surgical History H/O colonoscopy History of lumbar laminectomy Hx of cataract extraction Hx of cervical spine surgery Social History Are you a primary vehicle care specialist to a significant other at home: No Do you presently have visiting nurse or other home services: No Patient Tobacco Use Status: Former Tobacco user Tobacco use type: Cigarette Physical Exam Vital Signs: Last Vital Signs Pulse 88 12/21/24 13:37 BP 112/64 12/21/24 13:37 Pulse Ox 99 12/21/24 13:37 Oxygen Delivery Method Room Air 12/21/24 13:37 Assessment & Plan Assessment & Plan (1) Restrictive ventilatory defect: Code(s): R94.2 - Abnormal results of pulmonary function studies Category: Medical (2) Elevated hemidiaphragm: Code(s): J98.6 - Disorders of diaphragm Category: Medical (3) Hemidiaphragm paralysis: Code(s): J98.6 - Disorders of diaphragm Category: Medical Coding Diagnoses Restrictive ventilatory defect R94.2 Elevated hemidiaphragm J98.6 Hemidiaphragm paralysis J98.6
--- OUTSIDE RECORDS SUMMARY | 2024-12-21 15:10 | XMS_ITS | Continuity of Care Document ---
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 Role Phone Damon Orta MD Primary Care Physician Encounter [facility] Date(s): 11/24/24 - 11/25/[address] [address]- Encounter Diagnosis Forehead abrasion(Final) - 11/25/24 Fall(Final) - 11/25/24 Discharge Disposition: A-D/C Home Attending Physician: Bceky Hill DO Admitting Physician: Becky Hill DO Referring Physician: Not on Staff, Referring MD Encounter Type: Disch ES Allergies, Adverse Reactions, Alerts No Known Allergies Immunizations Given and Recorded Vaccine Date Status Refusal Reason SARS-CoV-2(COVID-19)mRNA-LNP vac([id number]) 08/21/24 Recorded SARS-CoV-2(COVID-19)mRNA-LNP vac([id number]) 09/05/23 Recorded zoster vaccine, inactivated 04/25/23 Recorded zoster vaccine, inactivated 08/23/22 Recorded [id number] bivalent booster vax 04/25/23 Recorded [id number] bivalent booster vax 08/23/22 Recorded hepatitis B adult vaccine 03/19/23 Given hepatitis B adult vaccine 02/19/23 Given tetanus/diphtheria/pertussis, acel(Tdap) 09/13/22 Recorded SARS-CoV-2 (COVID-19) mRNA-1273 vaccine 03/18/22 R ecorded SARS-CoV-2 (COVID-19) mRNA-1273 vaccine 10/31/21 R ecorded SARS-CoV-2 (COVID-19) mRNA-1273 vaccine 03/29/21 R ecorded SARS-CoV-2 (COVID-19) mRNA-1273 vaccine 03/01/21 R ecorded influenza virus vaccine, inactivated 09/30/20 Mazin rded influenza virus vaccine, inactivated 10/28/18 Mazin rded Medications atorvastatin 20 mg oral tablet 1 tablet = 20 mg, By Mouth, Daily, # 30 tablet, 0 Refills, Maintenance, 09/13/19 11:37:46 AM EDT, Tablet Start Date: 09/13/19 Status: Ordered Quantity: 30.0 Unit: tablet Repeat number: 1 B Complex 100 1 tablet, By Mouth, Daily in AM, 0 Refills, Maintenance, 09/13/19 11:38:36 AM EDT Start Date: 09/13/19 Status: Ordered Repeat number: 1 Calcium Carbonate 3 tablets, By Mouth, 3 times a day, with meals, 0 Refills, Maintenance, 01/01/23 2:26:00 PM EST, Partial fill upon patient request if the prescription is for a schedule II opioid drug. Start Date: 01/01/23 Status: Ordered Repeat number: 1 gabapentin 100 mg oral capsule 300 mg, 3, capsule, By Mouth, Daily, # 120 capsule, Refills 0, Maintenance, 04/22/24 12:46:00 PM EDT, Partial fill upon patient request if the prescription is for a schedule II opioid drug. Start Date: 04/22/24 Status: Ordered Quantity: 120.0 Unit: capsule Repeat number: 1 Januvia = 50 mg, By Mouth, Daily, 0 Refills, Maintenance, 09/13/19 11:22:13 AM EDT Start Date: 09/13/19 Status: Ordered Repeat number: 1 latanoprost 0.005% ophthalmic solution 1 drops, Eyes, Both, Daily at bedtime, 0 Refills, Maintenance, 08/03/24 1:08:00 PM EDT, Partial fill upon patient request if the prescription is for a schedule II opioid drug. Start Date: 08/03/24 Status: Ordered Repeat number: 1 levothyroxine 0.1 mg oral tablet 1 tablet = 100 mcg, By Mouth, sun, tues thurs and sat, # 30 tablet, 0 Refills, Maintenance, 10/11/22 7:57:00 AM EST, Tablet, Partial fill upon patient request if the prescription is for a schedule IIopioid drug. Start Date: 10/11/22 Status: Ordered Quantity: 30.0 Unit: tablet Repeat number: 1 midodrine 10 mg oral tablet 1 tablet = 10 mg, By Mouth, takes am mon, fri and fri, # 270 tablet, 0 Refills, Maintenance, 04/22/24 12:47:00 PM EDT, Tablet, Partial fill upon patient request if the prescription is for a schedule II opioid drug. Start Date: 04/22/24 Status: Ordered Quantity: 270.0 Unit: tablet Repeat number: 1 midodrine 5 mg oral tablet 5 mg, 1, tablet, By Mouth, sun, tues, thurs and sat am, Refills 0, Maintenance, 09/21/24 2:00:00 PMEDT, Partial fill upon patient request if the prescription is for a schedule II opioid drug. Start Date: 09/21/24 Status: Ordered Repeat number: 1 Multivitamin 1 tablet, By Mouth, Daily, 0 Refills, Maintenance, 09/13/19 11:39:01 AM EDT Start Date: 09/13/19 Status: Ordered Repeat number: 1 torsemide 20 mg oral tablet 3 tablet = 60 mg, By Mouth, Daily, 0 Refills, Maintenance, 10/17/23 3:46:00 PM EST, Partial fill upon patient request if the prescription is for a schedule II opioid drug. Start Date: 10/17/23 Status: Ordered Repeat number: 1 Vitamin D3 1000 intl units oral capsule 1 capsule = 25 mcg, By Mouth, Daily, # 100 capsule, 0 Refills, Maintenance, 01/01/23 2:26:00 PM EST, Capsule, Partial fill upon patient request if the prescription is for a schedule II opioid drug. Start Date: 01/01/23 Status: Ordered Quantity: 100.0 Unit: capsule Repeat number: 1 Problem List Condition Confirmation Course Effective Dates Status Health St atus Informant Obese class II Confirmed Active Results Radiology Reports * Exam Date Time Procedure Performing Provider Status 11/25/24 4:16 AM Chest 2 Views Frontal and Lat Rafiq Miranda; Auth (Verified) Notes: (Chest 2 Views Frontal and Lat) Reason For Exam: Chest Pain;Other: RESULT: Chest 2 Views Frontal and Lat Chest 2 Views Frontal and Lat Hx of Present Illness: Pt states he was putting things into his car when he slipped on an ice patchcausing him to fall and hit his head. Denies LOC. Bandage to forehead with bleeding controlled.; Reason: Other:; Chest Pain; Clinical Question(s): Other: COMPARISON: 09/28/2024 FINDINGS: LINES AND TUBES: None. LUNGS AND PLEURA: Chronic elevation left hemidiaphragm with chronic increased density overlying left hemidiaphragm inthe lower lung. Pulmonary vascularity appears increased, suggesting fluid overload or mild congestive heart failure. No pleural effusion. No pneumothorax. HEART, MEDIASTINUM AND SABINA: Heart is normal in size. Stable mediastinal and hilar contour. BONES AND SOFT TISSUES: No acute abnormality. Chronic kyphosis and loss of disc space at the thoracolumbar region. IMPRESSION: Chronic elevation left hemidiaphragm with chronic increased density overlying left hemidiaphragm inthe lower lung. Pulmonary vascularity appears increased, suggesting fluid overload or mild congestive heart failure. WSN: [id number] Ordering Physician: Joni Santiago Dictated By: Litzy Cruz MD, I Dictated Date/Time: 11/25/24 7:27 am Reviewed By: Litzy Cruz MD, I Signed By: Litzy Cruz MD, I Signed Date/Time: 11/25/24 7:27 am Transcribed By: ROSALINE Transcribed Date/Time: 11/25/24 7:23 am * Exam Date Time Procedure Performing Provider Status 11/25/24 6:[address] Cervical Spine W/O Contrast Natalie Roberson; Auth (Verified) Notes: (CT Cervical Spine W/O Contrast) Reason For Exam: Neck trauma, dangerous injury mechanism;Other: RESULT: CT Cervical Spine W/O Contrast CT Head/Brain W/O Contrast, CT Cervical Spine W/O Contrast INDICATION: Hx of Present Illness: Pt states he was putting things into his car when he slipped on an ice patch causing him to fall and hit his head. Denies LOC. Bandage to forehead with bleeding controlled.; Reason: Trauma; Clinical Question(s): Hematoma TECHNIQUE: Noncontrast head CT using axial technique was reconstructed in axial and coronal planes.Noncontrast spiral CT through the cervical spine was formatted in 3 planes. Automatic tube modulation was used for the cervical spine and iterative dose reconstruction was used for both the head and cervical spine to optimize scan parameters and image quality. CTDIvol Body: 29.92 mGy, DLP Body: 679 mGy*cm. CTDIvol Head: 50.61 mGy, DLP Head: 810 mGy*cm. 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 BRAIN AND EXTRA-AXIAL SPACES: No parenchymal hemorrhage, midline shift, or mass effect. Snyder-white matter differentiation is wellpreserved. No acute infarct. Negative insular ribbon sign. Atherosclerotic vascular calcification of the carotid arteries but negative hyperdense vessel sign. Mild prominence of the ventricles and sulci consistent with parenchymal volume loss. No white matter lesions. No subarachnoid hemorrhage. No subdural or epidural collection. CALVARIUM, SKULL BASE, AND SOFT TISSUES: No fractures or suspicious bony lesions. The paranasal sinuses and mastoid air cells are clear. Visualized orbits and globes are intact. The extracranial soft tissues are unremarkable. CERVICAL SPINE: Status post cervical decompression laminoplasty at C4-C7. Cervical hardware placed at the right laminectomy site with fracture at C4-C7 right lamina likely is related to surgery. Resection of C4-C7 spinous process. Status post ACDF at C4-C5 and C5-C6. Severe multilevel degenerative disc space narrowing and end plate irregularity. OTHER BONES: No acute abnormality. CERVICAL SOFT TISSUES AND LUNG APICES: Fluid density in the soft tissue posterior to C3-C7 vertebral body extending approximately 5.9 cm craniocaudally likely represents postsurgical seroma (series 608, image 34). Visualized lung apices are clear. Normal thyroid. IMPRESSION: 1. No acute traumatic injury in the head and cervical spine. 2. Postsurgical changes at C4-C7 level status post laminectomy and spinous process resection. 3. 2.1 cm soft tissue fluid collection adjacent to the resected spinous process extending approximately 5.9 cm craniocaudally from C3 to C7 level without surrounding inflammatory changes likely represents postsurgical seroma. I have personally reviewed the images and I agree with this report. WSN: [id number] Ordering Physician: Britt Little Dictated By: Cindi Mack MD Dictated Date/Time: 11/25/24 7:19 am Reviewed By: Darian Real MD Signed By: Darian Real MD Signed Date/Time: 11/25/24 7:24 am Transcribed By: ROSALINE Transcribed Date/Time: 11/25/24 7:15 am * Exam Date Time Procedure Performing Provider Status 11/25/24 6:[address] Head/Brain W/O Contrast Syd Roberson; Auth (Verified) Notes: (CT Head/Brain W/O Contrast) Reason For Exam: Trauma RESULT: CT Head/Brain W/O Contrast CT Head/Brain W/O Contrast, CT Cervical Spine W/O Contrast INDICATION: Hx of Present Illness: Pt states he was putting things into his car when he slipped on an ice patch causing him to fall and hit his head. Denies LOC. Bandage to forehead with bleeding controlled.; Reason: Trauma; Clinical Question(s): Hematoma TECHNIQUE: Noncontrast head CT using axial technique was reconstructed in axial and coronal planes.Noncontrast spiral CT through the cervical spine was formatted in 3 planes. Automatic tube modulation was used for the cervical spine and iterative dose reconstruction was used for both the head and cervical spine to optimize scan parameters and image quality. CTDIvol Body: 29.92 mGy, DLP Body: 679 mGy*cm. CTDIvol Head: 50.61 mGy, DLP Head: 810 mGy*cm. 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 BRAIN AND EXTRA-AXIAL SPACES: No parenchymal hemorrhage, midline shift, or mass effect. Snyder-white matter differentiation is wellpreserved. No acute infarct. Negative insular ribbon sign. Atherosclerotic vascular calcification of the carotid arteries but negative hyperdense vessel sign. Mild prominence of the ventricles and sulci consistent with parenchymal volume loss. No white matter lesions. No subarachnoid hemorrhage. No subdural or epidural collection. CALVARIUM, SKULL BASE, AND SOFT TISSUES: No fractures or suspicious bony lesions. The paranasal sinuses and mastoid air cells are clear. Visualized orbits and globes are intact. The extracranial soft tissues are unremarkable. CERVICAL SPINE: Status post cervical decompression laminoplasty at C4-C7. Cervical hardware placed at the right laminectomy site with fracture at C4-C7 right lamina likely is related to surgery. Resection of C4-C7 spinous process. Status post ACDF at C4-C5 and C5-C6. Severe multilevel degenerative disc space narrowing and end plate irregularity. OTHER BONES: No acute abnormality. CERVICAL SOFT TISSUES AND LUNG APICES: Fluid density in the soft tissue posterior to C3-C7 vertebral body extending approximately 5.9 cm craniocaudally likely represents postsurgical seroma (series 608, image 34). Visualized lung apices are clear. Normal thyroid. IMPRESSION: 1. No acute traumatic injury in the head and cervical spine. 2. Postsurgical changes at C4-C7 level status post laminectomy and spinous process resection. 3. 2.1 cm soft tissue fluid collection adjacent to the resected spinous process extending approximately 5.9 cm craniocaudally from C3 to C7 level without surrounding inflammatory changes likely represents postsurgical seroma. I have personally reviewed the images and I agree with this report. WSN: [id number] Ordering Physician: Britt Little Dictated By: Cindi Mack MD Dictated Date/Time: 11/25/24 7:19 am Reviewed By: Darian Real MD Signed By: Darian Real MD Signed Date/Time: 11/25/24 7:24 am Transcribed By: ROSALINE Transcribed Date/Time: 11/25/24 7:15 am Vital Signs Most recent to oldest [Reference Range]: 1 2 3 Height 165 cm (11/24/24 9:52 PM) Weight 102 kg (11/24/24 9:52 PM) Oxygen Saturation [94-100 %] 98 % (11/25/24 9:34 AM) 98 % (11/25/24 6:04 AM) 98 % (11/24/24 9:52 PM) Pulse Rate [55-90 bpm] 80 bpm (11/25/24 9:34 AM) 78 bpm (11/25/24 6:04 AM) 88 bpm (11/24/24 9:52 PM) Body Mass Index [18.5-24.99 kg/m2] 37.47 kg/m2 *>HHI* (11/24/24 9:52 PM) Blood Pressure [90-138/55-84 mm Hg] 135/81mm Hg (11/25/24 9:34 AM) 124/62mm Hg (11/25/24 6:04 AM) 137/62mm Hg (11/24/24 9:52 PM) Respiratory Rate [16-30 br/min] 18 br/min (11/25/24 9:34 AM) 17 br/min (11/25/24 6:04 AM) 17 br/min (11/24/24 9:52 PM) Temperature [96.8-100.4 DegF] 97.6 DegF (11/25/24 9:34 AM) 97.6 DegF (11/25/24 6:04 AM) 97.7 DegF (11/24/24 9:52 PM) Mode of Delivery (Oxygen) Room air (11/25/24 9:34 AM) Room air (11/25/24 6:04 AM) Room air (11/24/24 9:52 PM) Blood pressure sites Arm, left (11/25/24 9:34 AM) Arm, left (11/25/24 6:04 AM) Arm, left (11/24/24 9:52 PM) Temperature Route Oral (11/25/24 9:34 AM) Oral (11/25/24 6:04 AM) Oral (11/24/24 9:52 PM) Dry Weight 102 kg (11/24/24 9:52 PM) Weight Obtained Via Standing scale (11/24/24 9:52 PM) Dry Weight Obtained Via Standing scale (11/24/24 9:52 PM) Note * Juani Swann MD: PERFORM Event Display: Patient Education Leaflets Authored Date: [id number] Fall??Prevention ?? [id number] Fall??Prevention Falls often take place due to slipping, tripping, or losing your balance. Millions of people fall every year and injure themselves.??Among older adults in the [place] falls are the most common cause oftraumatic brain injuries. Every 20 minutes, an older adult dies from a fall. Here are ways to reduce your risk of falling again: ??? Think about your fall. Was there anything that caused your fall that can be fixed, removed, or replaced? Make your home safe by keeping walkways clear of objects you may trip over, such as electrical cords. ??? Use nonslip pads under rugs. Don't use area rugs orsmall throw rugs. ??? Use nonslip mats in bathtubs and showers. ??? Hang grab rails by the toilet and inside and outside the shower. ??? Install handrails and lights on staircases. The handrails should be on both sides of the stairs. ??? Use night lights. ??? Don't walk in poorly lit areas. ??? Don't stand on chairs or wobbly ladders. ??? Use care when reaching overhead or looking up.??This position can cause a loss of balance. ??? Be sure your shoes fit well, are in good condition, and have non slip bottoms.? Wear shoes both inside and outside of your home. Don't go barefoot or wear slippers. ??? Be cautious when going up and down stairs, curbs, and when walking on uneven sidewalks. ??? If your balance is poor, consider using a cane or walker. Talk with your healthcare provider abouthaving a balance assessment. ??? If your fall was related to alcohol use, stop or limit alcohol intake.??Ask your provider for help if you think you may overuse alcohol and can't stop. ??? If your fall was related to use of sleeping medicines, talk with your provider about this.??You may need to reduce your dosage at bedtime if you wake up during the night to go to the bathroom.? To reducethe need for nighttime bathroom trips: o Don't drink fluids for several hours before going to bed oEmpty your bladder before going to bed o Men can keep a urinal at the bedside ??? Stay as active asyou can. Balance, flexibility, strength, and endurance all come from exercise. They all play a rolein preventing falls. Ask your provider which types of activity are right for you. Try to do some type of exercise every day. ??? Get your eyes checked once a year or more often if your vision changes??? If you have pets, know where they are before you stand up or walk so you don't trip over them. ??? Go over all your medicines with a pharmacist or other provider. This is to see if any of them could make you more likely to fall. Have this type of medicine review at least once every year. ??? Ifyour provider advises a new medicine, ask if the side effects will affect your balance. ??? Don't move quickly from one position to another. For instance, don't stand up fast from sitting. This can cause dizziness and may lead to a fall. ??? Sit down when putting on pants, socks, and shoes. This will make you less likely to lose your balance and fall. ??? Always let your provider know if you havefallen since your last visit. ??? Contact your provider right away if you're having balance problems or falling more often. Last Reviewed Date: 2021 ?? [employer]. All rights reserved. This information is not intended as a substitute for professional medical care. Always follow your healthcare professional's instructions. ?? * Juani Swann MD: PERFORM Event Display: Patient Education Leaflets Authored Date: [id number] After a Fall ?? [id number] After a Fall You have had a fall today. That means that you slipped, tripped, or lost your balance. If your fallwas because of fainting or a seizure,??you might need other??tests. It is normal to feel sore and tight in your muscles and back the next day, and not just the musclesyou injured. Remember, all the parts of your body are connected, so while one area hurts now, the next day another may hurt. Also, when you injure yourself, it causes inflammation. This then causes the muscles to tighten up and hurt more. After the initial worsening symptoms, they should slowly improve over the next few days. Tell your healthcare provider if you have more severe pain. Even without a definite head injury, you can still get a concussion from your head suddenly jerkingforward, backward, or sideways when you fall. This is especially true if you have had concussions in the past. Concussions and even bleeding can still happen, especially if you had a recent injury ortake blood thinner medicine. It is not unusual to have a mild headache and feel tired and even nauseous or dizzy.?? Home care ??? Rest today and return to your normal activities when you are feeling back to normal. ??? If you were injured during the fall, follow the advice from your healthcare provider about how to care for your injury. ??? At first, don't try to stretch out the sore spots. If there is a strain,stretching may make it worse. Massage may help relax the muscles without stretching them. ??? Use an ice pack or cold compress on and off at the sore spots for 10 to 20 minutes at a time, as often asyou feel comfortable. This may help reduce the inflammation, swelling, and pain. ??? Know that if you have any scrapes (abrasions), they often heal within??10 days. Keep the scrapes clean while they start to heal. But an infection may happen even with correct care. So watch for early signs of infection (such as warmth, redness, or swelling). ?? Medicines ??? Talk with your healthcare provider before taking new medicines, especially if you have other health problems or are taking other medicines. ??? If you need anything for pain, use acetaminophen or ibuprofen, unless you were given a different pain medicine to use.??Talk with your healthcare provider before using these medicines if you: o Have chronic liver or kidney disease o Ever hada stomach ulcer or??gastrointestinal bleeding o Are taking blood-thinner medicines ??? Be careful if you are given prescription pain medicines, narcotics, or medicine for muscle spasms. They can makeyou sleepy and dizzy. And they can affect your coordination, reflexes, and judgment. Don't drive ordo work where you can hurt yourself when taking them. ?? Fall prevention ??? Fix, remove, or replace anything that caused your fall. ??? Make your home safeby keeping walkways clear of objects you could trip over. ??? Use nonslip pads under rugs. Don't use small??area rugs or throw rugs. ??? Don't walk in poorly lit areas. ??? Don't stand on chairs or wobbly ladders. ??? Be careful when reaching overhead or looking upward. This position can cause a loss of balance. ??? Be sure your shoes fit correctly, have nonslip bottoms, and are in good condition. ??? Be careful when going up and down curbs, and walking on uneven sidewalks. ??? If your balance is poor, think about using a cane or walker. ??? Stay as active as you can. Balance, flexibility, strength, and endurance all come from exercise. They all play a role in preventing falls. ??? If you have pets, know where they are before you stand up or walk so you don't trip over them. ??? Limit alcohol intake. Alcohol can cause balance problems and increase the risk for falls. ??? Use night-lights. ??? Have your eyes tested to be sure you are seeing well, even if you already wear glasses.? Follow-up Follow up with your healthcare provider, or as advised. If X-rays or CT scans were done, you will be told if there is a change in the reading, especially if it affects treatment. ?? Call 911 Call 911 if any of these happen: ??? Trouble breathing ??? Confusion ??? Trouble waking up ??? Fainting or loss of consciousness ??? Fast or very slow heart rate ??? Seizure ??? Trouble with speech or vision, weakness of an arm or leg ??? Trouble walking or talking, loss of balance, numbness or weakness on one side of your body, or facial droop ?? When to get medical advice Call your healthcare provider right away if any of these happen: ??? Repeated falls, including falls that seem to happen for no reason ??? Dizziness ??? Severe headache ??? Blood in vomit or stools (look black or red in color) ?? Last Reviewed Date: 2022 ?? 1978-1878 [employer]. All rights reserved. This information is not intended as a substitute for professional medical care. Always follow your healthcare professional's instructions. ?? Patient Care team information Care Team Personnel Name: Jaguar CORREA, Therese Santos Position: [facility] RN Member Role: Primary Care Nurse Name: Liberty Alaniz Position: [facility] Outreach Member Role: [employer] Consult[employer] Physician Name: Damon Orta MD Position: [facility] Outreach Member Role: PCP Address: [address] [place] [address]- [place] [employer]: Name: Mehnaz Carrero Position: [facility] Associate Professional Member Role: [employer] Provider Address: [address] [place] [address] [address] [place] [address]- Telecom: Name: Rusty Puentes MD Position: [facility] Renal MD Member Role: [employer]etime Consulting Physician Address: [address] [facility] [place] [place] [address]- [place] Tele[employer]: Name: Mignon Mcdonough RN Position: S RN Member Role: Lifetime Consulting Physician Name: Lilliana Vazquez NP Position: [facility] Associate Professional Member Role: Lifetime Consulting Provider Address: [address] [facility] [place] [place] [address]- [place] Tele[employer]: Name: Aysha Figueroa RN Position: [facility] RN Member Role: Primary Care Nurse Name: Maryam Martinez RN Position: [facility] RN Member Role: Primary Care Nurse Name: Maya Mcmahon RN Position: [facility] RN Member Role: Primary Care Nurse Name: Amarilis Colbert RN Position: [facility] RN Member Role: Primary Care Nurse Name: Fatou Brasher RN Position: [facility] RN Member Role: Primary Care Nurse Name: Fiorella Gusman RN Position: [facility] RN Member Role: Primary Care Nurse Name: Quentin Pineda RN Position: [facility] RN Member Role: Primary Care Nurse Care Team Related Persons Name: RENATO GHOTRA Insurance Providers Guarantor name: [employer] Health Plan Information #: 1 Payer: MEDICARE PART B OUTPT Member Number: [id number] Policy Number: NA Group Number: NA Health Plan Information #: 2 Payer: MEDICARE PART B OUTPT Member Number: [id number] Policy Number: NA Group Number: NA Health Plan Information #: 4 Payer: I10 MEDICARE SUPPL [id number] Member Number: [id number] Policy Number: NA Group Number: NA Health Plan Information #: 3 Payer: [facility] PLAN Member Number: [id number] Policy Number: NA Group Number: NA
--- OUTSIDE RECORDS SUMMARY | 2024-12-21 15:10 | XMS_ITS | Continuity of Care Document ---
Author Organization [facility] Address [address] [address]- Care Team Providers Care Improvement Leader Name Role Phone Damon Orta MD Primary Care Physician Encounter [facility] Date(s): 10/14/24 - 12/16/24 [facility] [address] [address]- Attending Physician: Arjun Murguia Admitting Physician: Arjun Murguia Referring Physician: Damon Orta MD Encounter Type: Pre Office Visit Allergies, Adverse Reactions, Alerts No Known Allergies Immunizations Given and Recorded Vaccine Date Status Refusal Reason SARS-CoV-2(COVID-19)mRNA-LNP vac([id number]) 08/21/24 Recorded SARS-CoV-2(COVID-19)mRNA-LNP vac([id number]) 09/05/23 Recorded zoster vaccine, inactivated 04/25/23 Recorded zoster vaccine, inactivated 08/23/22 Recorded [id number] bivalent booster vax 04/25/23 Recorded [id number] bivalent booster vax 08/23/22 Recorded hepatitis B [...] atus Informant Obese class II Confirmed Active Patient Care team information Care Team Personnel Name: Jaguar RN, Therese Santos Position: [facility] RN Member Role: Primary Care Nurse Name: Liberty Alaniz Position: [facility] Outreach Member Role: Lifetime Consulting Physician Name: Damon Orta MD Position: [facility] Outreach Member Role: PCP Address: [address] [place] [address]- Telecom: Name: Mehnaz Carrero Position: [facility] Associate Professional Member Role: Lifetime Consulting Provider Address: [address] [place] [address] [address] [facility] [place] [address]- Telecom: Name: Rusty Puentes MD Position: [facility] Renal MD Member Role: Lifetime Consulting Physician Address: [address] [facility] [place] [address]- [place] Telecom: Name: Mignon Mcdonough RN Position: S RN Member Role: Lifetime Consulting Physician Name: Lilliana Vazquez NP Position: [facility] Associate Professional Member Role: Lifetime Consulting Provider Address: [address] [facility] [place] [address]- Telecom: Name: Aysha Figueroa RN Position: [facility] RN Member Role: Primary Care Nurse Name: Maryam Martinez RN Position: [facility] RN Member Role: Primary Care Nurse Name: Maya Mcmahon RN Position: S RN Member Role: Primary Care Nurse Name: Amarilis Colbert RN Position: [facility] RN Member Role: Primary Care Nurse Name: Fatou Brasher RN Position: [facility] RN Member Role: Primary Care Nurse Name: Fiorella Gusman RN Position: [facility] RN Member Role: Primary Care Nurse Name: Quentin Pineda RN Position: [facility] RN Member Role: Primary Care Nurse Care Team Related Persons Name: RENATO GHOTRA Insurance Providers Guarantor name: [employer] [facility] Plan Information #: 3 Payer: [employer] PL[employer] Member Number: [id number] Policy Number: NA Group Number: NA Health Plan Information #: 1 Payer: MEDICARE PART B OUTPT Member Number: [id number] Policy Number: NA Group Number: NA Health Plan Information #: 2 Payer: I10 MEDICARE SUPPL [id number] Member Number: [id number] Policy Number: NA Group Number: NA
--- OUTSIDE RECORDS SUMMARY | 2024-12-21 15:11 | XMS_ITS | Clinical Summary ---
Author Organization [facility] Address [address] [place] [address] Phone Care Team Providers Care Technical Clerk Name Role Phone Damon Orta MD Primary Care Provider [phone] Allergies No known active allergies Medications Dexamethasone (Ozurdex) 0.7 MG implant Active losartan (COZAAR) 100 MG tablet Take 1 tablet by mouth 1 (one) time each day Active SITagliptin (JANUVIA) 100 MG tablet Take 50 mg by mouth 1 (one) time each day Active B Complex-Biotin -FA (Super B-100) tablet Take by mouth Active Multiple Vitamin (MULTIVITAMIN ADULT PO) Take by mouth Active atorvastatin (LIPITOR) 20 MG tablet Take 1 tablet (20 mg total) by mouth 1 (one) time each day 90 tablet 3 1 Active levothyroxine (SYNTHROID, LEVOTHROID) 100 MCG tablet Take 100 mcg by mouth 1 (one) time each day 2 Active Epoetin Rah-epbx (Retacrit) 48908 UNIT/ML solution Inject as directed Active amLODIPine (NORVASC) 5 MG tablet Take 1 tablet (5 mg total) by mouth 1 (one) time each day 90 tablet 3 3 Active torsemide (DEMADEX) 20 MG tablet Take 3 tablets (60 mg total) by mouth 1 (one) time each day 270 tablet 5 3 Active midodrine (PROAMATINE) 5 MG tablet Take 1 tablet (5 mg total) by mouth 4 (four) times a week: Tues, Thurs, Sat, Sun 48 tablet 3 4 Active calcium carbonate 1500 (600 Ca) MG tablet TAKE 2 TABLETS BY MOUTH 3 TIMES A DAY WITH MEALS 540 tablet 3 4 Active gabapentin (NEURONTIN) 300 MG capsule Take 1 capsule (300 mg total) by mouth 1 (one) time each day 90 capsule 2 4 025 Active D3-1000 25 MCG (1000 UT) capsule TAKE 2 CAPSULES (2,000 UNITS TOTAL) BY MOUTH 1 (ONE) TIME EACH DAY 60 capsule 11 5 Active cholecalcifero l (VITAMIN D-3) 250 MCG (91500 UT) capsule Take 1 capsule (10,000 Units total) by mouth in the morning and 1 capsule (10,000 Units total) in the evening. 180 capsule 3 4 Active cholecalcifero l (D3-1000) 25 MCG (1000 UT) capsule Take 2 capsules (2,000 Units total) by mouth 1 (one) time each day 180 capsule 3 3 025 Discontinued Hospital, Clinic, or Other Facility Administered Medication Ordered Dose Route Frequency Start Date End Date Status Epoetin Rah-epbx solution 10,000 UnitsIndications:Anemia in chronic kidney disease 42081 Units IJ Once 07/16/2022 A ctive Epoetin Rah-epbx solution 20,000 UnitsIndications:Chronic kidney disease, stage 4 (severe) ([facility]),Anemia in chronic kidney disease 48511 Units IJ Once 06/26/2023 A ctive Epoetin Rah-epbx solution 40,000 UnitsIndications:Chronic kidney disease, not otherwise specified,Anemia in chronic kidney disease 26011 Units IJ Once 07/31/2023 Active Active Problems Problem Noted Date Diagnosed Date Anemia in chronic kidney disease 08/28/2022 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 Vitamin D deficiency, not otherwise specified Dyslipidemia 05/01/2021 Localized edema 02/01/2021 Stage 5 chronic kidney disease 02/01/2021 Hypertension 01/31/2021 Proteinuria 01/31/2021 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 Resolved Problems Problem Noted Date Diagnosed Date Resolved Date Acute nontraumatic kidney injury 01/31/2021 02/01/2021 Chronic kidney disease stage 3 01/31/2021 02/01/2021 Decreased renal function 01/31/202103/2021 Encounters Date Type Department Care Team Description 12/15/2024 Treatment [facility] [address] [address] Emil Bauer MD 12/08/2024 Treatment [facility] [address] [address] Emil Bauer MD 11/23/2024 Treatment [facility] [address] [address] Emil Bauer MD 11/19/2024 Refill [facility] [address] [facility] [address] [place] [address] Rusty Milian MD 11/17/2024 Treatment [facility] [address] [address] Emil Bauer MD 11/10/2024 Treatment [facility] [address] [address] Emil Bauer MD 11/01/2024 Treatment [facility] [address] [address] Emil Bauer MD 09/22/2024 Treatment [facility] [address] [address] Emil Bauer MD from Last 3 Months Immunizations Name Administration Dates Next Due Hepatitis B 03/19/2023,02/19/2023 Influenza, Quadrivalent, Preservative Free 09/30 Shingrix 04/25/2023,08/23/2022 Tdap 09/13/2022 Family History Medical History Relation Comments Cancer Father esophageal Cancer Mother Diabetes Mother Heart disease Mother Hypertension Mother Kidney disease Mother mom had CKD from DM Kidney disease Sibling 1 bro has ESRD Diabetes Sibling 2 brother Hypertension Sibling 3 brother Relation Status Comments Father Mother Sibling 1 Sibling 2 Sibling 3 Social History Tobacco Use Types Packs/Day Years Used Date Smoking Tobacco: Never Smokeless Tobacco: Never Alcohol Use Standard Drinks/Week Comments No 0 (1 standard drink = 0.6 oz pur e alcohol) Sex and Gender Information Value Date Recorded Sex Assigned at Not on file Legal Sex Male 4:58 PM EST Gender Identity Not on file Sexual Orientation Not on file Last Filed Vital Signs Vital Sign Reading Time Taken Comments Blood Pressure 118/62 12/18/2023 3:21 PM EST Pulse 70 12/18/2023 8:35 AM EST Temperature 37.2 ??C (99 ??F) 07/16/2022 8:40 AM EDT Respiratory Rate 22 12/04/2023 9:00 AM EST Oxygen Saturation 99% 12/04/2023 9:00 AM EST Inhaled Oxygen Concentration - - Weight 103 kg (228 lb) 12/18/2023 8:33 AM EST Height 167.6 cm (5' 6 ) 09/01/2023 8:25 AM EDT Body Mass Index 36.8 09/01/2023 8:25 AM EDT Plan of Treatment Health Maintenance Due Date Last Done Comments Pneumococcal Vaccine: 65+ Ye ars (1 of 2 - PCV) 1963 Hepatitis B Vaccine (1 of 5 - Risk Dialysis 4-dose series) 1977 03/19/2023, 02/19/2023 Colorectal Cancer Screening: Annual FOBT 2006 Colorectal Cancer Screening: Colonoscopy 2006 Colorectal Cancer Screening: Sigmoidoscopy 2006 Diabetes: Ophthalmology Exam 12/31/2020 Diabetes: Pedal Pulse Checked 12/31/2020 Diabetes: Sensory Foot Exam 12/31/2020 Diabetes: Visual Foot Exam 12/31/2020 Influenza Vaccine (#1) 2024 09/30/2020 Diabetes: Hemoglobin A1C 03/08/2025 025, 05/15/2023, 11/14/2022, Additional history exists Procedures Procedure Name Priority Date/Time Associated Diagnosis Comments ALUMINUM LEVEL Routine 12/08/2024 3:00 AM EST CONFIRMATION TEST HCV Routine 12/08/2024 3:00 AM EST HEPATITIS C ABS W/REFLEX RNA DETECTR Routine 12/08/2024 3:00 AM EST HEPATITIS B SURFACE ANTIGEN W/REFL CONFIRM Routine 12/08/2024 3:00 AM EST URIC ACID Routine 12/08/2024 3:00 AM EST PROTEIN, TOTAL, SERUM Routine 12/08/2024 3:00 AM EST TRANSFERRIN SATURATION Routine 3:00 AM EST LIPID PANEL Routine 12/08/2024 3:00 AM EST MAGNESIUM Routine 12/08/2024 3:00 AM EST ELECTROLYTE PANEL Routine 12/08/2024 3:0 0 AM EST LIH (HC) Routine 12/08/2024 3:00 AM EST LACTATE DEHYDROGENASE Routine 12/08/2024 3:00 AM EST GLUCOSE, RANDOM Routine 12/08/2024 3:00 AM EST CREATININE, SERUM Routine 12/08/2024 3:0 0 AM EST AST Routine 12/08/2024 3:00 AM EST BILIRUBIN, TOTAL Routine 12/08/2024 3:00 AM EST ALT Routine 12/08/2024 3:00 AM EST CALCIUM PHOSPHORUS PRODUCT, ADJUSTED (HC) Routine 12/08/2024 3:00 AM EST ALKALINE PHOSPHATASE Routine 12/08/2024 3:00 AM EST FERRITIN Routine 12/08/2024 3:00 AM EST PTH, INTACT Routine 12/08/2024 3:00 AM EST HEPATITIS B SURFACE ANTIBODY QUANT Routine 12/08/2024 3:00 AM EST HEMOGLOBIN A1C Routine 12/08/2024 3:00 AM EST CBC AND DIFFERENTIAL Routine 12/08/2024 3:00 AM EST KT/V NATURAL LOG, URR (HC) Routine 12/08/2024 3:00 AM EST HEMOGLOBIN Routine 11/17/2024 3:00 AM EST HEPATITIS B SURFACE ANTIGEN W/REFL CONFIRM Routine 11/03/2024 3:00 AM EST TRANSFERRIN SATURATION Routine 3:00 AM EST PROTEIN, TOTAL, SERUM Routine 11/03/2024 3:00 AM EST MAGNESIUM Routine 11/03/2024 3:00 AM EST ELECTROLYTE PANEL Routine 11/03/2024 3:0 0 AM EST LIH (HC) Routine 11/03/2024 3:00 AM EST GLUCOSE, RANDOM Routine 11/03/2024 3:00 AM EST LACTATE DEHYDROGENASE Routine 11/03/2024 3:00 AM EST CREATININE, SERUM Routine 11/03/2024 3:0 0 AM EST BILIRUBIN, TOTAL Routine 11/03/2024 3:00 AM EST AST Routine 11/03/2024 3:00 AM EST ALT Routine 11/03/2024 3:00 AM EST ALKALINE PHOSPHATASE Routine 11/03/2024 3:00 AM EST CALCIUM PHOSPHORUS PRODUCT, ADJUSTED (HC) Routine 11/03/2024 3:00 AM EST FERRITIN Routine 11/03/2024 3:00 AM EST KT/V NATURAL LOG, URR (HC) Routine 11/03/2024 3:00 AM EST CBC AND DIFFERENTIAL Routine 11/03/2024 3:00 AM EST HEPATITIS B SURFACE ANTIGEN W/REFL CONFIRM Routine 2024 3:00 AM EST TRANSFERRIN SATURATION Routine 3:00 AM EST PROTEIN, TOTAL, SERUM Routine 2024 3:00 AM EST MAGNESIUM Routine 2024 3:00 AM EST KT/V NATURAL LOG, URR (HC) Routine 2024 3:00 AM EST LIH (HC) Routine 2024 3:00 AM EST ELECTROLYTE PANEL Routine 2024 3:0 0 AM EST LACTATE DEHYDROGENASE Routine 2024 3:00 AM EST GLUCOSE, RANDOM Routine 2024 3:00 AM EST CREATININE, SERUM Routine 2024 3:0 0 AM EST BILIRUBIN, TOTAL Routine 2024 3:00 AM EST ALT Routine 2024 3:00 AM EST AST Routine 2024 3:00 AM EST ALKALINE PHOSPHATASE Routine 2024 3:00 AM EST CALCIUM PHOSPHORUS PRODUCT, ADJUSTED (HC) Routine 2024 3:00 AM EST HEPATITIS B SURFACE ANTIBODY QUANT Routine 2024 3:00 AM EST FERRITIN Routine 2024 3:00 AM EST CBC AND DIFFERENTIAL Routine 2024 3:00 AM EST from Last 3 Months Results * Confirmation Test HCV (12/08/2024 3:00 AM EST) Pathologist [facility] Hep C Ab Confirmation Not needed [facility] 12/08/2024 3:00 AM EST 12/09/2024 3:52 PM EST us Emil Bauer MD LAB BLOOD ORDERABLES Final Resul t Performing Organization Address City/[facility]/ZIP Co de Phone Number [facility]PS [facility] [address] [place] [address] * LIH (12/08/2024 3:00 AM EST) Only the most recent of3 resultswithin the time period is included. [facility] Lipemia Normal Normal [facility] Icterus Normal Normal [facility] Hemolysis Normal Normal [facility] 12/08/2024 3:00 AM EST 12/09/2024 4:03 PM EST us Emil Bauer MD LAB [id number] ICITED RESULTS Final Result Performing Organization Address City/[facility] Co de Phone Number [facility] [address] [place] [address] * (ABNORMAL) Kt/V Natural Log, URR (12/08/2024 3:00 AM EST) Only the most recent of3 resultswithin the time period is included. Pathologist [facility] Treatment Time 220 min [facility] Pre-Weight, lb 103.8 kg [facility] Post-Weight, lb 102.3 kg [facility] Ultrafiltration Rate 4 <=13 mL/kg/hr [facility] Comment: Recommend achieving Ultrafiltration Rate (UFR) <=10 mL/kg/hr References: Eliu CALIX et al. Kidney Int. 2010; 79(2):250-257 BUN 52(H) 7 - 25 mg/dL [facility] BUN Post Dialysis 17 7 - 25 mg/dL [facility] UREA REDUCTION RATIO (%) 67 >=65 % [facility] Kt/V Natural Log 1.25 >=1.2 [facility] 12/08/2024 3:00 AM EST 12/09/2024 3:45 PM EST Emil Bauer MD LAB [id number] ICITED RESULTS Final Result Performing Organization Address City/[facility]/ZIP Co de Phone Number [facility] [address] [place] [address] * (ABNORMAL) Calcium Phosphorus Product, Adjusted (12/08/2024 3:00 AM EST) Only the most recent of3 resultswithin the time period is included. Pathologist [facility] Albumin 4.1 3.6 - 5.4 g/dL [facility] Calcium 9.1 8.6 - 10.3 mg/dL [facility] Phosphorus, Serum 5.5(H) 2.5 - 5.0 mg/dL [facility] Ca*PO4 50.0 <55.0 mg2/dL2 [facility] Calcium, Adjusted Total 9.1 8.6 - 10.3 mg/dL [facility] CA*PO4 CORRCTD 50.0 <55.0 mg2/dL2 [facility] 12/08/2024 3:00 AM EST 12/09/2024 4:03 PM EST Emil Bauer MD LAB [id number] ICITED RESULTS Final Result Performing Organization Address City/[facility]/ZIP Co de Phone Number [facility] [address] [place] [address] * HEPATITIS C ABS W/REFLEX RNA DETECTR (12/08/2024 3:00 AM EST) Hep C Virus Ab Non-Reacti ve Non-Reacti ve [facility] 12/08/2024 3:00 AM EST 12/09/2024 4:03 PM EST us Emil Bauer MD LAB [id number] ICITED RESULTS Final Result Performing Organization Address City/[facility] Co de Phone Number [facility] [address] [place] [address] * Hepatitis B Surface Ag w/Reflex Confirmation (12/08/2024 3:00 AM EST) Only the most recent of3 resultswithin the time period is included. Hep B Surface Antigen Negative Negative [facility] 12/08/2024 3:00 AM EST 12/09/2024 4:03 PM EST Emil Bauer MD LAB BLOOD ORDERABLES Final Resul t Performing Organization Address [facility] de Phone Number [facility] [address] [place] [address] * (ABNORMAL) TSAT (12/08/2024 3:00 AM EST) Only the most recent of3 resultswithin the time period is included. Iron 41(L) 65 - 175 ug/dL [facility] Transferrin 150(L) 215 - 365 mg/dL [facility] TIBC 210(L) 211 - 406 ug/dL [facility] Iron Saturation (TSat) 20(L) 22 - 52 % [facility] 12/08/2024 3:00 AM EST 12/09/2024 4:03 PM EST Emil Bauer MD LAB BLOOD ORDERABLES Final Resul t Performing Organization Address [facility] Co de Phone Number [facility] [address] [place] [address] * Aluminum level (12/08/2024 3:00 AM EST) Aluminum 4 1 - 20 ug/L [facility] 12/08/2024 3:00 AM EST 12/09/2024 4:05 PM EST Emil Bauer MD LAB BLOOD ORDERABLES Final Resul t Performing Organization Address City/[facility]/ZIP Co de Phone Number [facility] [address] [place] [address] * Hepatitis B Surface Antibody (12/08/2024 3:00 AM EST) Only the most recent of2 resultswithin the time period is included. [facility] Hep B Surface Antibody 83 mIU/mL [facility] Comment: Interpretation: <10: No Immunity >=10: Probable Immunity 12/08/2024 3:00 AM EST 12/09/2024 4:03 PM EST Emil Bauer MD LAB BLOOD ORDERABLES Final Resul t Performing Organization Address [facility] Co de Phone Number [facility] [address] [place] [address] * (ABNORMAL) CBC and Differential (12/08/2024 3:00 AM EST) Only the most recent of3 resultswithin the time period is included. [facility] DIFFERENTIAL MANUAL, 2 Not Indicated [facility] White Blood Cells 7.1 4.2 - 9.1 K/uL [facility] RBC 3.49(L) 4.63 - 6.08 M/uL [facility] Hgb 11.1(L) 13.7 - 17.5 g/dL [facility] Hemoglobin x 3 33.3(L) 41.1 - 52.5 g/dL [facility] Hematocrit 34.1(L) 40.1 - 51.0 % [facility] MCV 97.7(H) 79.0 - 92.2 fL [facility] MCH 31.8 25.7 - 32.2 pg [facility] MCHC 32.6 32.3 - 36.5 g/dL [facility] Platelets 159(L) 163 - 337 K/uL [facility] RDW 13.8 11.6 - 14.4 % [facility] Neutrophils Relative 70.3(H) 34.0 - 67.9 % [facility] Lymphocytes Relative 16.1(L) 21.8 - 53.1 % [facility] Monocytes 9.9 5.3 - 12.2 % [facility] Eosinophils Relative 2.9 0.8 - 7.0 % [facility] Basophils Relative 0.4 0.2 - 1.2 % [facility] Immature Granulocytes 0.4 0.0 - 1.0 % [facility] 12/08/2024 3:00 AM EST 12/09/2024 3:52 PM EST us Emil Bauer MD LAB BLOOD ORDERABLES Final Resul t Performing Organization Address [facility] de Phone Number [facility] [address] [place] [address] * Uric Acid (12/08/2024 3:00 AM EST) Uric Acid 5.3 4.4 - 7.6 mg/dL [facility] 12/08/2024 3:00 AM EST 12/09/2024 4:03 PM EST us Emil Bauer MD LAB BLOOD ORDERABLES Final Resul t Performing Organization Address [facility] Phone Number [facility] [address] [place] [address] * ALT (12/08/2024 3:00 AM EST) Only the most recent of3 resultswithin the time period is included. ALT (SGPT) 25 10 - 49 U/L [facility] 12/08/2024 3:00 AM EST 12/09/2024 4:03 PM EST us Emil Bauer MD LAB BLOOD ORDERABLES Final Resul t Performing Organization Address [facility] de Phone Number [facility] [address] [place] [address] * AST (12/08/2024 3:00 AM EST) Only the most recent of3 resultswithin the time period is included. AST (SGOT) 28 <34 U/L [facility] 12/08/2024 3:00 AM EST 12/09/2024 4:03 PM EST us Emil Bauer MD LAB BLOOD ORDERABLES Final Resul t Performing Organization Address [facility] de Phone Number [facility] [address] [place] [address] * Protein, total (12/08/2024 3:00 AM EST) Only the most recent of3 resultswithin the time period is included. Total Protein 7.1 6.4 - 8.9 g/dL [facility] 12/08/2024 3:00 AM EST 12/09/2024 4:03 PM EST us Emil Bauer MD LAB BLOOD ORDERABLES Final Resul t Performing Organization Address [facility] de Phone Number [facility] [address] [place] [address] * (ABNORMAL) Alkaline phosphatase (12/08/2024 3:00 AM EST) Only the most recent of3 resultswithin the time period is included. Alkaline Phosphatase 241(H) 46 - 116 U/L [facility] 12/08/2024 3:00 AM EST 12/09/2024 4:03 PM EST us Emil Bauer MD LAB BLOOD ORDERABLES Final Resul t Performing Organization Address [facility] de Phone Number [facility] [address] [place] [address] * (ABNORMAL) PTH, Intact (12/08/2024 3:00 AM EST) PTH, Intact 122(L) 160 - 721 pg/mL [facility] Comment: Suggested (KDIGO) ESRD maintenance range is two to nine times the upper normal limit (80.1 pg/mL) for the laboratory. 12/08/2024 3:00 AM EST 12/09/2024 4:03 PM EST us Emil Bauer MD LAB BLOOD ORDERABLES Final Resul t Performing Organization Address [facility] de Phone Number [facility] [address] [place] [address] * Magnesium (12/08/2024 3:00 AM EST) Only the most recent of3 resultswithin the time period is included. Magnesium 2.1 1.9 - 2.7 mg/dL [facility] 12/08/2024 3:00 AM EST 12/09/2024 4:03 PM EST us Emil Bauer MD LAB BLOOD ORDERABLES Final Resul t Performing Organization Address [facility] Phone Number [facility] [address] [place] [address] * Lactate dehydrogenase (12/08/2024 3:00 AM EST) Only the most recent of3 resultswithin the time period is included. LDH 242 120 - 246 U/L [facility] 12/08/2024 3:00 AM EST 12/09/2024 4:03 PM EST us Emil Bauer MD LAB BLOOD ORDERABLES Final Resul t Performing Organization Address [facility] Phone Number [address] [address] * Hemoglobin A1c (12/08/2024 3:00 AM EST) Hemoglobin A1C 5.2 <5.7 % [facility] Comment: Methodology: Enzymatic HbA1c (NGSP %) ?Suggested Diagnosis >6.4% ? Diabetic 5.7-6.4% ?Pre-Diabetic <5.7% ? Non-Diabetic Diabetic Glucose Control Evaluation: Therapeutic action suggested at >8.0% ADA recommends a glycemic goal of <7.0% 12/08/2024 3:00 AM EST 12/09/2024 3:52 PM EST us Emil Bauer MD LAB BLOOD ORDERABLES Final Resul t Performing Organization Address [facility] Phone Number [address] [address] * (ABNORMAL) Glucose, random (12/08/2024 3:00 AM EST) Only the most recent of3 resultswithin the time period is included. Glucose 149(H) 74 - 109 mg/dL [facility] 12/08/2024 3:00 AM EST 12/09/2024 4:03 PM EST us Emil Bauer MD LAB BLOOD ORDERABLES Final Resul t Performing Organization Address City/[facility] Co de Phone Number [facility] [address] [place] [address] * (ABNORMAL) Ferritin (12/08/2024 3:00 AM EST) Only the most recent of3 resultswithin the time period is included. Ferritin 890(H) 22 - 322 ng/mL [facility] 12/08/2024 3:00 AM EST 12/09/2024 4:03 PM EST us Emil Bauer MD LAB BLOOD ORDERABLES Final Resul t Performing Organization Address [facility] de Phone Number [facility] [address] [place] [address] * (ABNORMAL) Creatinine, serum (12/08/2024 3:00 AM EST) Only the most recent of3 resultswithin the time period is included. Creatinine 4.26(H) 0.70 - 1.30 mg/dL [facility] 12/08/2024 3:00 AM EST 12/09/2024 4:03 PM EST us Emil Bauer MD LAB BLOOD ORDERABLES Final Resul t Performing Organization Address [facility] de Phone Number [facility] [address] [place] [address] * Bilirubin, total (12/08/2024 3:00 AM EST) Only the most recent of3 resultswithin the time period is included. Total Bilirubin 0.5 0.3 - 1.2 mg/dL [facility] 12/08/2024 3:00 AM EST 12/09/2024 4:03 PM EST Emil Bauer MD LAB BLOOD ORDERABLES Final Resul t [facility] [address] [place] [address] * (ABNORMAL) Lipid panel (12/08/2024 3:00 AM EST) Cholesterol 117 <200 mg/dL [facility] Comment: Optimal: ?<200 Borderline: ? 200-239 Higher Risk: ?>239 Triglycerides 114 <150 mg/dL [facility] Comment: Optimal: ?<150 Borderline High: ??150-199 High: ? 200-499 Very High: ?>499 HDL 46(A) >59 mg/dL [facility] Comment: Desirable: ?>59 Higher Risk: ?<40 LDL-Calc 48 <100 mg/dL [facility] Comment: Optimal: ?<100 Above Optimal: ?100-129 Borderline High: ??130-159 High: ? 160-189 Very High: ?>189 VLDL Cholesterol Radhames 23 <30 mg/dL [facility] Comment: Optimal: ?<30 Borderline High: ??30-39 High: ? 40-99 Very High: ?>99 Chol/HDL Ratio 2.5 <3.3 [facility] Comment: Optimal: ?<3.3 Higher Risk: ?>6.2 12/08/2024 3:00 AM EST 12/09/2024 4:03 PM EST us Emil Fares MD LAB BLOOD ORDERABLES Final Resul t Performing Organization Address [facility] de Phone Number [facility] [address] [place] [address] * (ABNORMAL) Electrolyte panel (12/08/2024 3:00 AM EST) Only the most recent of3 resultswithin the time period is included. Sodium 134(L) 136 - 145 mEq/L [facility] Potassium 4.6 3.4 - 5.0 mEq/L [facility] Chloride 102 98 - 107 mEq/L [facility] Bicarbonate (CO2) 21 21 - 31 mEq/L [facility] Anion Gap 11 3 - 14 mEq/L [facility] 12/08/2024 3:00 AM EST 12/09/2024 4:03 PM EST us Emil Bauer MD LAB BLOOD ORDERABLES Final Resul t Performing Organization Address [facility] de Phone Number [facility] [address] [place] [address] * (ABNORMAL) Hemoglobin (11/17/2024 3:00 AM EST) Hgb 11.0(L) 13.7 - 17.5 g/dL [facility] Hemoglobin x 3 33.0(L) 41.1 - 52.5 g/dL [facility] 11/17/2024 3:00 AM EST 11/18/2024 2:07 PM EST us Emil Bauer MD LAB BLOOD ORDERABLES Final Resul t Performing Organization Address [facility] de Phone Number [facility] [address] [place] [address] from Last 3 Months Insurance MEDICARE [place] [phone] MEDICARE [facility] [place] [phone] MEDICARE [employer] Care Teams Technical Clerk Relationship Specialty Start Date End Date Damon Orta MD [address] [place] [address] DR[address] [place] PCP - General Internal Medicine 12/31/21
--- OUTSIDE RECORDS SUMMARY | 2024-12-21 15:11 | XMS_ITS | Encounter Summary ---
Author Organization [facility] Address [address] [address] Phone Care Team Providers Care Capital Project Engineer Name Role Phone Damon Orta MD Primary Care Provider [phone] Encounter Details Date Type Department Care Team ([facility] st Contact Info) Description 12/15/2024 Treatment [facility]. [address] [phone] Sebastián Franco MD [address] [phone] Social History Tobacco Use Types Packs/Day Years [...] on file documented as of this encounter Miscellaneous Notes * Dialysis Note - Sebastián Franco MD - 12/15/2024 12:00 AM EST Patient: Giovanni Mcmullen Jr : 1955 Note Type: Dialysis Rounds-Basic Service Date: 12/15/2024 This patient was personally seen for a basic visit as part of routine monthly dialysis care for end stage renal disease. Attending Director Of Media: SEBASTIÁN FRANCO MD Dialysis Location: [facility] Schedule: Shift: 1 HOME MEDICATIONS Current [facility] Outpatient Medications amLODIPine (NORVASC) 5 MG tablet Take 1 tablet (5 mg total) by mouth 1 (one) time each day Start Date: 11/20/2023 atorvastatin (LIPITOR) 20 MG tablet Take 1 tablet (20 mg total) by mouth 1 (one) time each day Start Date: 09/26/2021 calcium carbonate 1500 (600 Ca) MG tablet TAKE 2 TABLETS BY MOUTH 3 TIMES A DAY WITH MEALS Start Date: 08/11/2024 cholecalciferol (VITAMIN D-3) 250 MCG (55754 UT) capsule Take 1 capsule (10,000 Units total) by mouth in the morning and 1 capsule (10,000 Units total) in the evening. Start Date: 11/26/2024 D3-1000 25 MCG (1000 UT) capsule TAKE 2 CAPSULES (2,000 UNITS TOTAL) BY MOUTH 1 (ONE) TIME EACH DAY Start Date: 12/05/2024 gabapentin (NEURONTIN) 300 MG capsule Take 1 capsule (300 mg total) by mouth 1 (one) time each day Start Date: 09/16/2024 levothyroxine (SYNTHROID, LEVOTHROID) tablet Take 100 mcg by mouth 1 (one) time each day Start Date: 09/23/2022 losartan (COZAAR) tablet Take 1 tablet by mouth 1 (one) time each day Start Date: midodrine (PROAMATINE) 5 MG tablet Take 1 tablet (5 mg total) by mouth 4 (four) times a week: Jeremiah, Jessica, Ethan, Sun Start Date: 05/29/2024 MULTIVITAMIN ADULT PO Take by mouth Start Date: OZURDEX 0.7 MG IZ IMPL Start Date: RETACRIT 57705 UNIT/ML IJ SOLN Inject as directed Start Date: SITagliptin (JANUVIA) tablet Take 50 mg by mouth 1 (one) time each day Start Date: SUPER B-100 PO TABS Take by mouth Start Date: torsemide (DEMADEX) 20 MG tablet Take 3 tablets (60 mg total) by mouth 1 (one) time each day Start Date: 11/20/2023 Current [facility] Epic Allergies Allergen: No Known Allergies ADEQUACY ASSESSMENT Kt/V, Natural Log 1.25 (12/08/24) 1.42 (11/03/24) 1.27 (10/25/24) UREA REDUCTION RATIO (%) 67 (12/08/24) 70 (11/03/24) 68 (10/25/24) BUN 52 (12/08/24) 30 (11/03/24) 47 (10/25/24) BUN Post Dialysis 17 (12/08/24) 9 (11/03/24) 15 (10/25/24) Creatinine 4.26 (12/08/24) 3.85 (11/03/24) 4.52 (10/25/24) Bicarbonate (CO2) 21 (12/08/24) 26 (11/03/24) 21 (10/25/24) Sodium 134 (12/08/24) 130 (11/03/24) 136 (10/25/24) ANEMIA ASSESSMENT Hgb 11.1 (12/08/24) 11.0 (11/17/24) 9.9 (11/03/24) Iron Saturation (TSat) 20 (12/08/24) 22 (11/03/24) 18 (10/25/24) Ferritin 890 (12/08/24) 804 (11/03/24) 997 (10/25/24) Iron 41 (12/08/24) 54 (11/03/24) 45 (10/25/24) TIBC 210 (12/08/24) 241 (11/03/24) 245 (10/25/24) MCV 97.7 (12/08/24) 100.7 (11/03/24) 101.9 (10/25/24) Platelets 159 (12/08/24) 138 (11/03/24) 143 (10/25/24) BMM ASSESSMENT Calcium, Adjusted Total 9.1 12/08/24 9.0 11/03/24 9.0 10/25/24 Calcium 9.1 12/08/24 9.0 11/03/24 9.0 10/25/24 Phosphorus, Serum 5.5 12/08/24 3.7 11/03/24 3.8 10/25/24 Ca*PO4 50.0 12/08/24 33.3 11/03/24 34.2 10/25/24 PTH, Intact 122 12/08/24 229 12/16/23 Vitamin D, 25-Hydroxy 31.4 12/16/23 Magnesium 2.1 12/08/24 2.2 11/03/24 2.2 10/25/24 Alkaline Phosphatase 241 12/08/24 165 11/03/24 176 10/25/24 Aluminum 4 12/08/24 NUTRITION ASSESSMENT Albumin 4.1 12/08/24 4.1 11/03/24 4.0 10/25/24 Potassium 4.6 12/08/24 4.3 11/03/24 4.7 10/25/24 Hemoglobin A1C 5.2 12/08/24 ADDITIONAL LABS White Blood Cells 7.1 (12/08/24) 5.0 (11/03/24) 5.4 (10/25/24) Cholesterol 117 (12/08/24) HDL 46 (12/08/24) LDL-Calc 48 (12/08/24) Triglycerides 114 (12/08/24) Hep B Surface Antibody 83 (12/08/24) <4 (10/25/24) Uric Acid 5.3 (12/08/24) 7.3 (12/16/23) Signed by: SEBASTIÁN FRANCO MD on 12/15/2024 at 10:23:56 AM Transcribed by: SEBASTIÁN FRANCO MD on 12/15/2024 at 10:23:56 AM documented in this encounter Plan of Treatment Not on file documented as of this encounter Visit Diagnoses Not on filedocumented in this encounter Care Teams Capital Project Engineer Relationship Specialty Start Date End Date Damon Orta MD [address] [place] PCP - General Internal Medicine 12/31/21 documented as of this encounter
--- OUTSIDE RECORDS SUMMARY | 2024-12-21 15:11 | XMS_ITS | Encounter Summary ---
Author Organization [facility] Address [address] [address] Care Team Providers Care Customer Service Rep Name Role Phone Damon Orta MD Primary Care Provider [phone] Encounter Details Date Type Department Care Team (Latest Contact Info) Description 08/04/2024 Treatment Sebastián Franco MD [address] [phone] Social History Tobacco Use Types Packs/Day Years [...] Dialysis Note - Sebastián Franco MD - 08/04/2024 12:00 AM EDT Patient: Giovanni Mcmullen Jr : 1955 Note Type: Dialysis Rounds-Comp Service Date: 08/04/2024 This patient was personally seen for a complete visit as part of routine monthly dialysis care for end stage renal disease. Attending Tech Brazer Tester: SEBASTIÁN FRANCO MD Dialysis Location: [facility] Schedule: Shift: 1 OVERVIEW Patient is stable. HOME MEDICATIONS [facility]ations reviewed. [facility] Medications amLODIPine (NORVASC) 5 MG tablet Take 1 tablet (5 mg total) by mouth 1 (one) time each day Start Date: 11/20/2023 atorvastatin (LIPITOR) 20 MG tablet Take 1 tablet (20 mg total) by mouth 1 (one) time each day Start Date: 09/26/2021 calcium carbonate 1500 (600 Ca) MG tablet 2 tablets po tid with meals Start Date: 11/20/2023 cholecalciferol (D3-1000) 25 MCG (1000 UT) capsule Take 2 capsules (2,000 Units total) by mouth 1 (one) time each day Start Date: 11/20/2023 gabapentin (Neurontin) 100 MG capsule Take 1 capsule (100 mg total) by mouth 1 (one) time each day Start Date: 02/20/2024 levothyroxine (SYNTHROID, LEVOTHROID) tablet Take 100 mcg by mouth 1 (one) time each day Start Date: 09/23/2022 losartan (COZAAR) tablet Take 1 tablet by mouth 1 (one) time each day Start Date: midodrine (PROAMATINE) 5 MG tablet Take 1 tablet (5 mg total) by mouth 4 (four) times a week: Tues, Thurs, Sat, Sun Start Date: 05/29/2024 MULTIVITAMIN ADULT PO Take by mouth Start Date: OZURDEX 0.7 MG IZ IMPL Start Date: RETACRIT 30882 UNIT/ML IJ SOLN Inject as directed Start Date: SITagliptin (JANUVIA) tablet Take 50 mg by mouth 1 (one) time each day Start Date: SUPER B-100 PO TABS Take by mouth Start Date: torsemide (DEMADEX) 20 MG tablet Take 3 tablets (60 mg total) by mouth 1 (one) time each day Start Date: 11/20/2023 Current [facility] Allergies Allergen: No Known Allergies BP AND FLUID ASSESSMENT Acceptable blood pressure. Fluid status acceptable. ADEQUACY ASSESSMENT Target met. Prescription compliance acceptable. Continue with greater than 3x more frequent dialysis prescription. BUN 109 (12/16/23) 126 (11/12/23) 94 (08/25/23) Creatinine 4.8 (12/16/23) 5.4 (11/12/23) 4.4 (08/25/23) Sodium 140 (12/16/23) 140 (11/12/23) 141 (08/25/23) ACCESS ASSESSMENT Vascular access examined. ANEMIA ASSESSMENT JAZMÍN adjusted per protocol. Iron adjusted per protocol. Hgb 10.4 (12/16/23) 8.8 (11/12/23) 10.1 (08/25/23) Iron Saturation (TSat) 16 (11/12/23) Ferritin 443 (11/12/23) Iron 34 (11/12/23) TIBC 214 (11/12/23) MCV 97.5 (12/16/23) 95.9 (11/12/23) 94.4 (08/25/23) Platelets 195 (12/16/23) 172 (11/12/23) 160 (08/25/23) BMM ASSESSMENT Bone and mineral metabolism parameters reviewed. Calcium 8.6 12/16/23 8.5 11/12/23 9.4 08/25/23 Phosphorus, Serum 8.3 12/16/23 8.4 11/12/23 6.5 08/25/23 PTH, Intact 229 12/16/23 219 11/12/23 136 08/25/23 Vitamin D, 25-Hydroxy 31.4 12/16/23 24.9 11/12/23 32.5 08/25/23 Magnesium 2.1 12/16/23 2.0 11/12/23 2.2 08/25/23 Alkaline Phosphatase 188 12/16/23 175 11/12/23 173 08/25/23 NUTRITION ASSESSMENT Albumin at goal. Albumin 4.0 12/16/23 3.9 11/12/23 4.1 08/25/23 Potassium 5.5 12/16/23 5.2 11/12/23 5.3 08/25/23 PHYSICAL EXAM Exam performed. Vital Signs Reviewed. Lungs - Clear. CV - Blood pressure noted. CV - RRR. No edema. EXT - No ulcers. ADDITIONAL LABS White Blood Cells 7.7 (12/16/23) 10.7 (11/12/23) 8.1 (08/25/23) Cholesterol, Total 117 (08/25/23) HDL 51 (08/25/23) LDL Calculated 47 (08/25/23) Triglycerides 94 (08/25/23) Uric Acid 7.3 (12/16/23) 6.0 (11/12/23) 6.6 (08/25/23) Signed by: Sebastián Franco on 08/04/2024 at 12:24:21 PM Transcribed by: Sebastián Franco on 08/04/2024 at 12:24:21 PM documented in this encounter Plan of Treatment Not on file documented as of this encounter Visit Diagnoses Not on filedocumented in this encounter Care Teams Customer Service Rep Relationship Specialty Start Date End Date Damon Orta MD [address] [place] [address] [address] [place] PCP - General Internal Medicine 12/31/21 documented as of this encounter
--- OUTSIDE RECORDS SUMMARY | 2024-12-21 15:11 | XMS_ITS | Encounter Summary ---
Author Organization [facility] Address [address] [address] Phone Care Team Providers Care Corn Husker Machine Operator Name Role Phone Damon Orta MD Primary Care Provider [phone] Encounter Details Date Type Department Care Team ([facility] st Contact Info) Description 12/08/2024 Treatment [facility]. [address] [phone] Sebastián Franco MD [address] [phone] Social History Tobacco Use Types Packs/Day Years [...] Dialysis Note - Sebastián Franco MD - 12/08/2024 12:00 AM EST Patient: Giovanni Mcmullen Jr : 1955 Note Type: Dialysis Rounds-Comp Service Date: 12/08/2024 This patient was personally seen for a complete visit as part of routine monthly dialysis care for end stage renal disease. Attending Dean Of Admissions: SEBASTIÁN FRANCO MD Dialysis Location: [facility] Schedule: - Shift: 1 OVERVIEW Patient is stable. HOME MEDICATIONS Medications reviewed. Current [facility] Outpatient Medications amLODIPine (NORVASC) 5 [...] Date: 08/11/2024 cholecalciferol (VITAMIN D-3) 250 MCG (96023 UT) capsule Take 1 capsule (10,000 Units [...] by mouth 4 (four) times a week: , Thmonica, Sat, Sun Start Date: 05/29/2024 MULTIVITAMIN ADULT PO Take by mouth Start Date: OZURDEX 0.7 MG IZ IMPL Start Date: RETACRIT 95208 UNIT/ML IJ SOLN Inject as directed Start [...] greater than 3x more frequent dialysis prescription. Kt/V, Natural Log 1.42 (11/03/24) 1.27 (10/25/24) UREA REDUCTION RATIO (%) 70 (11/03/24) 68 (10/25/24) BUN 30 (11/03/24) 47 (10/25/24) 109 (12/16/23) BUN Post Dialysis 9 (11/03/24) 15 (10/25/24) Creatinine 3.85 (11/03/24) 4.52 (10/25/24) 4.8 (12/16/23) Bicarbonate (CO2) 26 (11/03/24) 21 (10/25/24) Sodium 130 (11/03/24) 136 (10/25/24) 140 (12/16/23) ACCESS ASSESSMENT Vascular access examined. ANEMIA ASSESSMENT JAZMÍN adjusted per protocol. Iron adjusted per protocol. Hgb 11.0 (11/17/24) 9.9 (11/03/24) 8.7 (10/25/24) Iron Saturation (TSat) 22 (11/03/24) 18 (10/25/24) Ferritin 804 (11/03/24) 997 (10/25/24) Iron 54 (11/03/24) 45 (10/25/24) TIBC 241 (11/03/24) 245 (10/25/24) MCV 100.7 (11/03/24) 101.9 (10/25/24) 97.5 (12/16/23) Platelets 138 (11/03/24) 143 (10/25/24) 195 (12/16/23) BMM ASSESSMENT Bone and mineral metabolism parameters reviewed. Calcium, Adjusted Total 9.0 11/03/24 9.0 10/25/24 Calcium 9.0 11/03/24 9.0 10/25/24 8.6 12/16/23 Phosphorus, Serum 3.7 11/03/24 3.8 10/25/24 8.3 12/16/23 Ca*PO4 33.3 11/03/24 34.2 10/25/24 PTH, Intact 229 12/16/23 Vitamin D, 25-Hydroxy 31.4 12/16/23 Magnesium 2.2 11/03/24 2.2 10/25/24 2.1 12/16/23 Alkaline Phosphatase 165 11/03/24 176 10/25/24 188 12/16/23 NUTRITION ASSESSMENT Albumin at goal. Albumin 4.1 11/03/24 4.0 10/25/24 4.0 12/16/23 Potassium 4.3 11/03/24 4.7 10/25/24 5.5 12/16/23 PHYSICAL EXAM Exam performed. Vital Signs Reviewed. Lungs - Clear. CV - Blood pressure noted. CV - RRR. No edema. EXT - No ulcers. ADDITIONAL LABS White Blood Cells 5.0 (11/03/24) 5.4 (10/25/24) 7.7 (12/16/23) Hep B Surface Antibody <4 (10/25/24) Uric Acid 7.3 (12/16/23) Signed by: SEBASTIÁN FRANCO MD on 12/08/2024 at 11:36:11 AM Transcribed by: SEBASTIÁN FRANCO MD on 12/08/2024 at 11:36:11 AM documented in this encounter Plan of Treatment Not on file documented as of this encounter Visit Diagnoses Not on filedocumented in this encounter Care Teams Corn Husker Machine Operator Relationship Specialty Start Date End Date Damon Orta MD [address] [place] [address] [address] [place], [place] PCP - General Internal Medicine 12/31/21 documented as of this encounter
--- OUTSIDE RECORDS SUMMARY | 2024-12-21 15:11 | XMS_ITS | Encounter Summary ---
Author Organization [facility] Address [address] [facility] [address] [place] [address] Phone Care Team Providers Care Trim Die Maker Name Role Phone Damno Orta MD Primary Care Provider [phone] Reason for Visit * Reason Comments Med Refill Encounter Details Date Type Department Care Team (Late st Contact Info) Description 11/19/2024 Refill [facility] [address] [facility] [address] [place] [phone] Rusty Milian MD [address] [facility] [address] [place] [phone] Social History Tobacco Use Types Packs/Day Years [...] Procedure Name Priority Date/Time Associated Diagnosis Comments HEMOGLOBIN Routine 11/17/2024 3:00 AM EST documented in this encounter Results * (ABNORMAL) Hemoglobin (11/17/2024 3:00 AM EST) Hgb 11.0(L) 13.7 - 17.5 g/dL [facility] Hemoglobin x 3 33.0(L) 41.1 - 52.5 g/dL [facility] 11/17/2024 3:00 AM EST 11/18/2024 2:07 PM EST us Emil Bauer MD LAB BLOOD ORDERABLES Final Resul t APS [facility] [address] [place] [address] documented in this encounter Visit Diagnoses Not on filedocumented in this encounter Care Teams Trim Die Maker Relationship Specialty Start Date End Date Damon Orta MD [address] [place] [address] DR[address] [place] PCP - General Internal Medicine 12/31/21 documented as of this encounter
--- OUTSIDE RECORDS SUMMARY | 2024-12-21 15:11 | XMS_ITS | Encounter Summary ---
Author Organization [facility] Address [address] [place] [address] Care Team Providers Care Habilitative Interventionist Name Role Phone Jim Lundberg MD Primary Care Provider [phone] Encounter Details Date Type Department Care Team (Late st Contact Info) Description 10/04/2024 Lab Requisition [facility] Lab [address] [facility] [place] [address] Logan Bautista MD [address] [place] [id number] Wedge compression fracture of unspecified thoracic vertebra, initial encounter for closed fracture (CMS/HCC); Spinal stenosis, site unspecified Social History Tobacco Use Types Packs/Day Years Used Date Smoking Tobacco: Never Assessed Sex and Gender Information Value Date Recorded Sex Assigned at Not on file Gender Identity Not on file Sexual Orientation Not on file documented as of this encounter Plan of Treatment Not on file documented as of this encounter Procedures Procedure Name Priority Date/Time Associated Diagnosis Comments COMPLETE BLOOD COUNT Routine 10/04/2024 6:35 AM EST Wedge compression fracture of unspecified thoracic vertebra, initial encounter for closed fracture (CMS/HCC) PHOSPHORUS Routine 10/04/2024 6:35 AM EST Wedge compression fracture of unspecified thoracic vertebra, initial encounter for closed fracture (CMS/HCC) Spinal stenosis, site unspecified BASIC METABOLIC PANEL Routine 10/04/2024 6:35 AM EST Wedge compression fracture of unspecified thoracic vertebra, initial encounter for closed fracture (CMS/HCC) documented in this encounter Results * Phosphorus (10/04/2024 6:35 AM EST) [facility] [address] Phosphorus 4.4 2.5 - 4.5 mg/dL LAB CHEMISTRY METHOD 10/04/2024 4:52 PM [facility] Blood Venous blood specimen / Unknown Venipuncture / Unknown 10/04/2024 6:35 AM EST 10/04/2024 12:01 PM EST Logan Bautista MD LAB BLOOD ORDERABLES [facility] [address] [place] [address], * (ABNORMAL) Complete blood count (10/04/2024 6:35 AM EST) [facility] [address] WBC 6.4 4.8 - 10.8 K/mcL LAB HEMETOLOGY METHOD 10/04/2024 12:48 PM [facility] RBC 2.40(L) 4.50 - 5.50 M/mcL LAB HEMETOLOGY METHOD 10/04/2024 12:48 PM [facility] Hemoglobin 7.8(L) 13.5 - 17.5 g/dL LAB HEMETOLOGY METHOD 10/04/2024 12:48 PM [facility] Hematocrit 24.6(L) 42.0 - 54.0 % LAB HEMETOLOGY METHOD 10/04/2024 12:48 PM [facility] MCV 100.8(H) 79.0 - 98.0 FL LAB HEMETOLOGY METHOD 10/04/2024 12:48 PM [facility] MCH 32.0 27.0 - 32.0 pcg LAB HEMETOLOGY METHOD 10/04/2024 12:48 PM [facility] MCHC 31.7(L) 32.0 - 37.0 g/dL LAB HEMETOLOGY METHOD 10/04/2024 12:48 PM [facility] RDW 13.2 11.0 - 15.0 % LAB HEMETOLOGY METHOD 10/04/2024 12:48 PM [facility] Platelets 256 130 - 400 K/mcL LAB HEMETOLOGY METHOD 10/04/2024 12:48 PM [facility] MPV 10.3 7.0 - 11.0 FL LAB HEMETOLOGY METHOD 10/04/2024 12:48 PM [facility] NRBC 0.0 <1.0 % LAB HEMETOLOGY METHOD 10/04/2024 12:48 PM [facility] NRBC Absolute 0.00 <0.10 K/mcL LAB HEMETOLOGY METHOD 10/04/2024 12:48 PM [facility] Blood Venous blood specimen / Unknown Venipuncture / Unknown 10/04/2024 6:35 AM EST 10/04/2024 12:01 PM EST Logan Bautista MD LAB BLOOD ORDERABLES [facility] [address] [place] [address], * (ABNORMAL) Basic metabolic panel (10/04/2024 6:35 AM EST) Sodium 129(L) 133 - 145 mmol/L LAB CHEMISTRY METHOD 10/04/2024 1:48 PM [facility] Potassium 4.0 3.5 - 5.5 mmol/L LAB CHEMISTRY METHOD 10/04/2024 1:48 PM [facility] Chloride 91(L) 96 - 110 mmol/L LAB CHEMISTRY METHOD 10/04/2024 1:48 PM [facility] CO2 28 21 - 32 mmol/L LAB CHEMISTRY METHOD 10/04/2024 1:48 PM [facility] Anion Gap 10 3 - 11 LAB CHEMISTRY METHOD 10/04/2024 1:48 PM [facility] Glucose 103(H) 70 - 100 mg/dL LAB CHEMISTRY METHOD 10/04/2024 1:[address] [facility] BUN 56(H) 5 - 25 mg/dL LAB CHEMISTRY METHOD 10/04/2024 1:48 PM [facility] Creatinine 5.64(H) 0.70 - 1.30 mg/dL LAB CHEMISTRY METHOD 10/04/2024 1:48 PM [facility] eGFR 10(L) >=60 mL/min/1. 73m2 LAB CHEMISTRY METHOD 10/04/2024 1:48 PM [facility] Comment:Calculation based on the??Chronic Kidney Disease Epidemiology Collaboration (CKD-EPI) equation refit??without adjustment for race. BUN/Creatinine Ratio 9.9 LAB CHEMISTRY METHOD 10/04/2024 1:48 PM [facility] Calcium 9.6 8.5 - 10.5 mg/dL LAB CHEMISTRY METHOD 10/04/2024 1:48 PM [facility] Blood Venous blood specimen / Unknown Venipuncture / Unknown 10/04/2024 6:35 AM EST 10/04/2024 12:01 PM EST Logan Bautista MD LAB BLOOD ORDERABLES [facility] [address] [place], [place] [address] [phone] documented in this encounter Visit Diagnoses Diagnosis Wedge compression fracture of unspecified thoracic vertebra, initial encounter for closed fracture (CMS/HCC) Spinal stenosis, site unspecified documented in this encounter Care Teams Habilitative Interventionist Relationship Specialty Start Date End Date Jim Lundberg MD [address] [facility] [address] [place], [place] PCP - General Pulmonary Disease 02/26/19 documented as of this encounter
--- OUTSIDE RECORDS SUMMARY | 2024-12-21 15:11 | XMS_ITS | Encounter Summary ---
Author Organization [facility] Address [address] [place] [address] Care Team Providers Care Child Nutrition Assistant Name Role Phone Jim Lundberg MD Primary Care Provider [phone] Encounter Details Date Type Department Care Team (Latest Contact Info) Description 10/08/2024 Lab Requisition [facility] - Main Lab [address] [place] [address] Logan Bautista MD [address] [place] [phone] Other cervical disc displacement, cervicothoracic region Social History Tobacco Use Types Packs/Day Years [...] Associated Diagnosis Comments COMPLETE BLOOD COUNT Routine 10/08/2024 5:46 AM EST Other cervical disc displacement, cervicothoracic region BASIC METABOLIC PANEL Routine 10/08/2024 5:46 AM EST Other cervical disc displacement, cervicothoracic region documented in this encounter Results * (ABNORMAL) Complete blood count (10/08/2024 5:46 AM EST) WBC 4.8 4.8 - 10.8 K/[facility] LAB HEMETOLOGY METHOD 10/08/2024 9:21 AM EST [facility] ([facility] LAB RBC 2.40(L) 4.50 - 5.50 M/[facility] LAB HEMETOLOGY METHOD 10/08/2024 9:21 AM [facility] LAB Hemoglobin 7.5(L) 13.5 - 17.5 g/dL LAB HEMETOLOGY METHOD 10/08/2024 9:21 AM [facility] LAB Hematocrit 23.5(L) 42.0 - 54.0 % LAB HEMETOLOGY METHOD 10/08/2024 9:21 AM [facility] LAB MCV 99.6(H) 79.0 - 98.0 FL LAB HEMETOLOGY METHOD 10/08/2024 9:21 AM [facility] LAB MCH 31.8 27.0 - 32.0 pcg LAB HEMETOLOGY METHOD 10/08/2024 9:21 AM [facility] LAB MCHC 31.9(L) 32.0 - 37.0 g/dL LAB HEMETOLOGY METHOD 10/08/2024 9:21 AM [facility] LAB RDW 13.3 11.0 - 15.0 % LAB HEMETOLOGY METHOD 10/08/2024 9:21 AM [facility] LAB Platelets 228 130 - 400 K/mcL LAB HEMETOLOGY METHOD 10/08/2024 9:21 AM [facility] LAB MPV 10.1 7.0 - 11.0 FL LAB HEMETOLOGY METHOD 10/08/2024 9:21 AM [facility] LAB NRBC 0.0 <1.0 % LAB HEMETOLOGY METHOD 10/08/2024 9:21 AM [facility] LAB NRBC Absolute 0.00 <0.10 K/mcL LAB HEMETOLOGY METHOD 10/08/2024 9:21 AM [facility] LAB Blood Venous blood specimen / Unknown Venipuncture / Unknown 10/08/2024 5:46 AM EST 10/08/2024 8:29 AM EST Logan Bautista MD LAB BLOOD ORDERABLES [facility] LAB [address] [place] [address], * (ABNORMAL) Basic metabolic panel (10/08/2024 5:46 AM EST) Sodium 130(L) 133 - 145 mmol/L LAB CHEMISTRY METHOD 10/08/2024 9:45 AM [facility] LAB Potassium 4.3 3.5 - 5.5 mmol/L LAB CHEMISTRY METHOD 10/08/2024 9:45 AM [facility] LAB Chloride 94(L) 96 - 110 mmol/L LAB CHEMISTRY METHOD 10/08/2024 9:45 AM [facility] LAB CO2 27 21 - 32 mmol/L LAB CHEMISTRY METHOD 10/08/2024 9:45 AM [facility] LAB Anion Gap 9 3 - 11 LAB CHEMISTRY METHOD 10/08/2024 9:45 AM [facility] LAB Glucose 98 70 - 100 mg/dL LAB CHEMISTRY METHOD 10/08/2024 9:45 AM [facility] LAB BUN 37(H) 5 - 25 mg/dL LAB CHEMISTRY METHOD 10/08/2024 9:45 AM [facility] LAB Creatinine 4.60(H) 0.70 - 1.30 mg/dL LAB CHEMISTRY METHOD 10/08/2024 9:45 AM [facility] LAB eGFR 13(L) >=60 mL/min/1. 73m2 LAB CHEMISTRY METHOD 10/08/2024 9:45 AM [facility] LAB Comment:Calculation based on the??Chronic Kidney Disease Epidemiology Collaboration (CKD-EPI) equation refit??without adjustment for race. BUN/Creatinine Ratio 8.0 LAB CHEMISTRY METHOD 10/08/2024 9:45 AM [facility] LAB Calcium 10.2 8.5 - 10.5 mg/dL LAB CHEMISTRY METHOD 10/08/2024 9:45 AM [facility] LAB Blood Venous blood specimen / Unknown Venipuncture / Unknown 10/08/2024 5:46 AM EST 10/08/2024 8:29 AM EST Logan Bautista MD LAB BLOOD ORDERABLES [facility] ([facility]) [facility] LAB [address] [place] [address], documented in this encounter Visit Diagnoses Diagnosis Other cervical disc displacement, cervicothoracic region documented in this encounter Care Teams Child Nutrition Assistant Relationship Specialty Start Date End Date Jim Lundberg MD [address] [facility] [address] Floor [place], [place] PCP - General Pulmonary Disease 02/26/19 documented as of this encounter
--- OUTSIDE RECORDS SUMMARY | 2024-12-21 15:11 | XMS_ITS | Encounter Summary ---
Author Organization [facility] Address [address] [facility] [address] [place] [address] Phone Care Team Providers Care Apple Picker Name Role Phone Damon Orta MD Primary Care Provider [phone] Encounter Details Date Type Department Care Team (Latest Contact Info) Description 05/04/2021 Orders Only [facility] [address] [facility] [address] [place] [phone] Rusty Milian MD [address] [facility] [address] [place] [phone] Chronic kidney disease, stage 4 (severe) (HCC); Diabetic glomerulonephritis (HCC); Localized edema; Proteinuria, not otherwise specified Social History Tobacco Use Types Packs/Day Years Used Date Smoking Tobacco: Never Smokeless Tobacco: Never Alcohol Use Standard Drinks/Week Comments No 0 (1 standard drink = 0.6 oz pur e alcohol) Sex and Gender Information Value Date Recorded Sex Assigned at Not on file Legal Sex Male 4:58 PM EST Gender Identity Not on file Sexual Orientation Not on file COVID-19 Exposure Response Date Recorded In the last month, have you been in contact with someone who was confirmed or suspected to have Coronavirus / COVID-19? No / Unsure 05/02/2021 11:00 AM EDT documented as of this encounter Plan of Treatment Not on file documented as of this encounter Procedures Procedure Name Priority Date/Time Associated Diagnosis Comments PROTEIN / CREATININE RATIO, URINE Routine 04/26/2021 10:01 AM EDT Chronic kidney disease, stage 4 (severe) (HCC) Diabetic glomerulonephritis (HCC) Localized edema Proteinuria, not otherwise specified VITAMIN D 25 HYDROXY Routine 04/26/2021 10:01 AM EDT Chronic kidney disease, stage 4 (severe) (HCC) Diabetic glomerulonephritis (HCC) Localized edema Proteinuria, not otherwise specified CBC AND DIFFERENTIAL Routine 04/26/2021 10:01 AM EDT Chronic kidney disease, stage 4 (severe) (HCC) Diabetic glomerulonephritis (HCC) Localized edema Proteinuria, not otherwise specified URIC ACID Routine 04/26/2021 10:01 AM EDT Chronic kidney disease, stage 4 (severe) (HCC) Diabetic glomerulonephritis (HCC) Localized edema Proteinuria, not otherwise specified PTH, INTACT Routine 04/26/2021 10:01 AM EDT Chronic kidney disease, stage 4 (severe) (HCC) Diabetic glomerulonephritis (HCC) Localized edema Proteinuria, not otherwise specified MAGNESIUM Routine 04/26/2021 10:01 AM EDT Chronic kidney disease, stage 4 (severe) (HCC) Diabetic glomerulonephritis (HCC) Localized edema Proteinuria, not otherwise specified HEMOGLOBIN A1C Routine 04/26/2021 10:01 AM EDT Chronic kidney disease, stage 4 (severe) (HCC) Diabetic glomerulonephritis (HCC) Localized edema Proteinuria, not otherwise specified RENAL FUNCTION PANEL Routine 04/26/2021 10:01 AM EDT Chronic kidney disease, stage 4 (severe) (HCC) Diabetic glomerulonephritis (HCC) Localized edema Proteinuria, not otherwise specified documented in this encounter Results * (ABNORMAL) Hemoglobin A1c (04/26/2021 10:01 AM EDT) Hemoglobin A1C 5.8(H) (4.0-5.6) % [facility] Comment: MONITORING: In known diabetic patients, hemoglobin A1c targets should be discussed with health care provider. DIAGNOSTIC USE: ??The [place] Diabetes Association (ADA) and the World Health Organization (WHO) recommend the use of HbA1c to diagnose diabetes using a threshold of 6.5%. Patients who have an HbA1c between 5.7% and 6.4% are considered at increased risk for developing diabetes in the future. CAUTION: Falsely low HbA1c results may be observed in patients with hemolytic anemia, homozygous forms of abnormal hemoglobin (e.g. SS, CC, SC), , recent blood loss or hemoglobin F greater than 7%. Fructosamine may be used as an alternate test in these cases. REFERENCE: ADA: Standards of Medical Care in Diabetes 2020, The Journal of Clinical and Applied Research and Education Volume 43, Supplement 1 Testing performed or reported by [facility], a Service of [address] [address] Melisa Lutz MD, Marketing Recruiter Blood (Blood, Venous) 04/26/2021 10:01 AM EDT 04/26/2021 10:03 AM EDT Rusty Milian MD LAB BLOOD ORDERABLES Final Re sult Performing Organization Address [facility] de Phone Number [facility] * Vitamin D 25 Hydroxy (04/26/2021 10:01 AM EDT) Vitamin D, 25-Hydroxy 24.4 (20-50) NG/ML [facility] Comment: Testing performed or reported by [facility], a Service of [address] [address] Melisa Lutz MD, Marketing Recruiter Blood (Blood, Venous) 04/26/2021 10:01 AM EDT 04/26/2021 10:03 AM EDT Rusty Milian MD LAB BLOOD ORDERABLES Final Re sult Performing Organization Address [facility] de Phone Number [facility] * (ABNORMAL) Protein, Total, Random Urine w/Creatinine (Protein/Creat Ratio) (04/26/2021 10:01 AM EDT) Protein/Creati ne Ratio 4.19(H) (0-0.2) [facility] Protein, Urine 136 MG/DL [facility] Creatinine, Urine 32.4 MG/DL [facility] Comment: Testing performed or reported by [facility], a Service of [facility] [address] [place] [id number] Melisa Lutz MD, Marketing Recruiter Urine (Urine, Clean Catch) 04/26/2021 10:01 AM EDT 04/26/2021 10:03 AM EDT Rusty Milian MD LAB URINE ORDERABLES Final Re sult Performing Organization Address [facility] de Phone Number [facility] * Uric Acid (04/26/2021 10:01 AM EDT) Uric Acid 6.7 (2.6-8.7) MG/DL [facility] Comment: Testing performed or reported by [facility], a Service of [facility], [address] [place] [phone] Melisa Lutz MD, Marketing Recruiter Blood (Blood, Venous) 04/26/2021 10:01 AM EDT 04/26/2021 10:03 AM EDT Rusty Milian MD LAB BLOOD ORDERABLES Final Re sult Performing Organization Address [facility] de Phone Number [facility] * (ABNORMAL) Renal Function Panel (04/26/2021 10:01 AM EDT) Glucose 105(H) (70-99) MG/DL [facility] BUN 56(H) (8-23) MG/DL [facility] Creatinine 2.5(H) (0.7-1.2) MG/DL [facility] Sodium 137 (133-145) MMOL/L [facility] Potassium 5.2 (3.6-5.2) MMOL/L [facility] Chloride 104 (98-107) MMOL/L [facility] Bicarbonate (CO2) 24 (22-29) MMOL/L [facility] Anion Gap 9 (4-17) [facility] Albumin 3.8 (3.4-4.8) GM/DL [facility] Calcium 8.9 (8.6-10.5) MG/DL [facility] Phosphorus, Serum 4.2 (2.5-4.5) MG/DL [facility] Est GFR Non 26 ML/MIN/1.7 3 M2 [facility] Comment: Creatinine based estimated glomerular filtration rate (eGFR) is calculated using the Chronic Kidney Disease Epidemiology Collaboration (CKD-EPI). The CKD-EPI creatinine equation has not been validated in children (<18 years), women or in some racial or ethnic subgroups other than Caucasians and Americans. EST GFR 30 ML/MIN/1.7 3 M2 [facility] Comment: Creatinine based estimated glomerular filtration rate (eGFR) is calculated using the Chronic Kidney Disease Epidemiology Collaboration (CKD-EPI). The CKD-EPI creatinine equation has not been validated in children (<18 years), women or in some racial or ethnic subgroups other than Caucasians and Americans. Testing performed or reported by [facility], a Service of [facility], [address] [place] [phone] Melisa Lutz MD, Marketing Recruiter Blood (Blood, Venous) 04/26/2021 10:01 AM EDT 04/26/2021 10:03 AM EDT Rusty Milian MD LAB BLOOD ORDERABLES Final Re sult Performing Organization Address [facility] de Phone Number [facility] * PTH, Intact (04/26/2021 10:01 AM EDT) PTH, Intact 54 (15-65) PG/ML [facility] Comment: Testing performed or reported by [facility], a Service of [facility], [address] [place] [phone] Melisa Lutz MD, Marketing Recruiter Blood (Blood, Venous) 04/26/2021 10:01 AM EDT 04/26/2021 10:03 AM EDT Rusty Milian MD LAB BLOOD ORDERABLES Final Re sult Performing Organization Address [facility] de Phone Number [facility] * Magnesium (04/26/2021 10:01 AM EDT) Magnesium 2.0 (1.6-2.3) mg/dL [facility] Comment: Testing performed or reported by [facility], a Service of [address] [place] [address] Melisa Lutz MD, Marketing Recruiter Blood (Blood, Venous) 04/26/2021 10:01 AM EDT 04/26/2021 10:03 AM EDT us Rusty Milian MD LAB BLOOD ORDERABLES Final Re sult [facility] * (ABNORMAL) CBC and Differential (04/26/2021 10:01 AM EDT) White Blood Cells 5.4 (4.0-11.0) K/MM3 [facility] RBC 3.51(L) (4.70-6.10 ) M/MM3 [facility] Hgb 10.6(L) (13.7-17.1 ) GM/DL [facility] Hematocrit 32.3(L) (40.5-50.0 ) % [facility] MCV 92.0 (80.0-94.0 ) FL [facility] MCH 30.2 (27.0-34.0 ) PG [facility] MCHC 32.8(L) (33.0-37.0 ) g/dL [facility] Platelets 157 (150-460) K/MM3 [facility] RDW-SD 44.7 (<47.0) FL [facility] MPV 10.2 (9.4-12.4) FL [facility] nRBC Count 0.0 #/100 WBC'S [facility] NRBC Absolute 0.0 K/MM3 [facility] Neutrophils Abs Auto 3.2 (1.3-7.0) K/MM3 [facility] Lymphocytes Relative 1.4 (0.8-3.1) K/MM3 [facility] Monocytes 0.5 (0.4-1.3) K/MM3 [facility] Eosinophils Relative 0.2 (0.0-0.4) K/MM3 [facility] Basophil ABS 0.0 (0.0-0.1) K/MM3 [facility] Granulocytes Absolute 0.1 K/MM3 [facility] Neutrophils % Auto 59.0 (44-76) % [facility] Lymphs 26.3 (15-43) % [facility] Monocytes Absolute 8.5 (4.5-10.5) % [facility] Eosinophils 4.4 (0-6) % [facility] Basophils Relative 0.7 (0-2) % [facility] Immature Granulocytes 1.1 % [facility] Comment: Testing performed or reported by [facility], a Service of [facility], [address] [place] [phone] Melisa Lutz MD, Marketing Recruiter Blood (Blood, Venous) 04/26/2021 10:01 AM EDT 04/26/2021 10:03 AM EDT us Rusty Milian MD LAB BLOOD ORDERABLES Final Re sult [facility] documented in this encounter Visit Diagnoses Diagnosis Chronic kidney disease, stage 4 (severe) (HCC) Diabetic glomerulonephritis (HCC) Localized edema Proteinuria, not otherwise specified documented in this encounter Care Teams Apple Picker Relationship Specialty Start Date End Date Damon Orta MD [address] [place], [place] PCP - General Internal Medicine 12/31/21 documented as of this encounter
--- OUTSIDE RECORDS SUMMARY | 2024-12-21 15:11 | XMS_ITS | Encounter Summary ---
Author Organization [facility] Address [address] [place] [address] Care Team Providers Care Fast Food Cashier Name Role Phone Jim Lundberg MD Primary Care Provider [phone] Encounter Details Date Type Department Care Team (Late st Contact Info) Description 10/15/2024 Lab Requisition [facility] - Main Lab [address] [place] [address] Logan Bautista MD [address] [place] [id number] Anemia, unspecified Social History Tobacco Use Types Packs/Day Years Used Date Smoking Tobacco: Never Assessed Sex and Gender Information Value Date Recorded Sex Assigned at Not on file Gender Identity Not on file Sexual Orientation Not on file documented as of this encounter Plan of Treatment Not on file documented as of this encounter Procedures Procedure Name Priority Date/Time Associated Diagnosis Comments CBC WITH AUTO DIFFERENTIAL Routine 10/15/2024 5:54 AM EST Anemia, unspecified CBC AND DIFFERENTIAL Routine 10/15/2024 5:54 AM EST Anemia, unspecified BASIC METABOLIC PANEL Routine 10/15/2024 5:54 AM EST Anemia, unspecified documented in this encounter Results * (ABNORMAL) CBC auto differential (10/15/2024 5:54 AM EST) WBC 4.6(L) 4.8 - 10.8 K/[facility] LAB HEMETOLOGY METHOD 10/15/2024 12:18 PM EST [facility] RBC 2.60(L) 4.50 - 5.50 M/mcL LAB HEMETOLOGY METHOD 10/15/2024 12:[address] [facility] Hemoglobin 8.1(L) 13.5 - 17.5 g/dL LAB HEMETOLOGY METHOD 10/15/2024 12:[address] [facility] Hematocrit 26.7(L) 42.0 - 54.0 % LAB HEMETOLOGY METHOD 10/15/2024 12:[address] [facility] MCV 104.3(H) 79.0 - 98.0 FL LAB HEMETOLOGY METHOD 10/15/2024 12:[address] [facility] MCH 31.6 27.0 - 32.0 pcg LAB HEMETOLOGY METHOD 10/15/2024 12:[address] [facility] MCHC 30.3(L) 32.0 - 37.0 g/dL LAB HEMETOLOGY METHOD 10/15/2024 12:[address] [facility] RDW 13.7 11.0 - 15.0 % LAB HEMETOLOGY METHOD 10/15/2024 12:[address] [facility] Platelets 185 130 - 400 K/mcL LAB HEMETOLOGY METHOD 10/15/2024 12:[address] [facility] LAB MPV 10.5 7.0 - 11.0 FL LAB HEMETOLOGY METHOD 10/15/2024 12:[address] [facility] NRBC 0.0 <1.0 % LAB HEMETOLOGY METHOD 10/15/2024 12:[address] [facility] NRBC Absolute 0.00 <0.10 K/mcL LAB HEMETOLOGY METHOD 10/15/2024 12:[address] [facility] Neutrophils Relative 64.8 % LAB HEMETOLOGY METHOD 10/15/2024 12:[address] [facility] Lymphocytes Relative 20.3 % LAB HEMETOLOGY METHOD 10/15/2024 12:[address] [facility] Monocytes Relative 9.3 % LAB HEMETOLOGY METHOD 10/15/2024 12:[address] [facility] Eosinophils Relative 3.7 % LAB HEMETOLOGY METHOD 10/15/2024 12:[address] [facility] Basophils Relative 0.6 % LAB HEMETOLOGY METHOD 10/15/2024 12:[address] [facility] Immature Granulocytes Relative 1.3 % LAB HEMETOLOGY METHOD 10/15/2024 12:[address] [facility] Neutrophils Absolute 3.00 1.50 - 7.00 K/mcL LAB HEMETOLOGY METHOD 10/15/2024 12:[address] [facility] Lymphocytes Absolute 0.94(L) 1.00 - 5.00 K/mcL LAB HEMETOLOGY METHOD 10/15/2024 12:[address] [facility] Monocytes Absolute 0.43 0.20 - 1.00 K/mcL LAB HEMETOLOGY METHOD 10/15/2024 12:[address] [facility] Eosinophils Absolute 0.17 0.00 - 0.50 K/mcL LAB HEMETOLOGY METHOD 10/15/2024 12:[address] [facility] Basophils Absolute 0.03 0.00 - 0.20 K/mcL LAB HEMETOLOGY METHOD 10/15/2024 12:[address] [facility] Immature Granulocytes Absolute 0.06(H) 0.00 - 0.03 K/mcL LAB HEMETOLOGY METHOD 10/15/2024 12:[address] [facility] Blood Venous blood specimen / Unknown 10/15/2024 5:54 AM EST 10/15/2024 12:02 PM EST Logan Bautista MD LAB BLOOD ORDERABLES [facility] [address] [place] [address], [place] [phone] * (ABNORMAL) Basic metabolic panel (10/15/2024 5:54 AM EST) Sodium 132(L) 133 - 145 mmol/L LAB CHEMISTRY METHOD 10/15/2024 12:[address] [facility] Potassium 3.9 3.5 - 5.5 mmol/L LAB CHEMISTRY METHOD 10/15/2024 12:[address] [facility] Chloride 96 96 - 110 mmol/L LAB CHEMISTRY METHOD 10/15/2024 12:[address] [facility] CO2 28 21 - 32 mmol/L LAB CHEMISTRY METHOD 10/15/2024 12:[address] [facility] Anion Gap 8 3 - 11 LAB CHEMISTRY METHOD 10/15/2024 12:[address] [facility] Glucose 119(H) 70 - 100 mg/dL LAB CHEMISTRY METHOD 10/15/2024 12:[address] [facility] BUN 42(H) 5 - 25 mg/dL LAB CHEMISTRY METHOD 10/15/2024 12:[address] [facility] Creatinine 5.06(H) 0.70 - 1.30 mg/dL LAB CHEMISTRY METHOD 10/15/2024 12:[address] [facility] LAB eGFR 12(L) >=60 mL/min/1. 73m2 LAB CHEMISTRY METHOD 10/15/2024 12:[address] [facility] Comment:Calculation based on the??Chronic Kidney Disease Epidemiology Collaboration (CKD-EPI) equation refit??without adjustment for race. BUN/Creatinine Ratio 8.3 LAB CHEMISTRY METHOD 10/15/2024 12:[address] [facility] Calcium 9.8 8.5 - 10.5 mg/dL LAB CHEMISTRY METHOD 10/15/2024 12:[address] [facility] Blood Venous blood specimen / Unknown Venipuncture / Unknown 10/15/2024 5:54 AM EST 10/15/2024 9:59 AM EST Logan Bautista MD LAB BLOOD ORDERABLES [facility] [address] [place] [address], documented in this encounter Visit Diagnoses Diagnosis Anemia, unspecified documented in this encounter Care Teams Fast Food Cashier Relationship Specialty Start Date End Date Jim Lundberg MD [address] [facility] 2Nd Floor [place], [place] PCP - General Pulmonary Disease 02/26/19 documented as of this encounter
--- OUTSIDE RECORDS SUMMARY | 2024-12-21 15:11 | XMS_ITS | Encounter Summary ---
Author Organization [facility] Address [address] [place] [address] Phone Care Team Providers Care Crew Dispatcher Name Role Phone Damon Orta MD Primary Care Provider [phone] Encounter Details Date Type Department Care Team (Late st Contact Info) Description 08/29/2022 Office Communication [facility] [address] [place] [id number] Sherry Villagomez Social History Tobacco Use Types Packs/Day Years [...] Exposure Response Date Recorded In the last 10 days, have yo u been in contact with someone who was confirmed or suspected to have Coronavirus/COVID-19? No / Unsure 08/12/2022 9:50 PM EDT documented as of this encounter Miscellaneous Notes * Telephone Encounter - Sherry Villagomez - 08/29/2022 9:28 AM EDT Pt wonders if you can add A1C test to bloodwork you ordered for him to do before next appt. documented in this encounter Plan of Treatment Not on file documented as of this encounter Visit Diagnoses Not on filedocumented in this encounter Care Teams Crew Dispatcher Relationship Specialty Start Date End Date Damon Orta MD [address] [place] PCP - General Internal Medicine 12/31/21 documented as of this encounter
--- OUTSIDE RECORDS SUMMARY | 2024-12-21 15:11 | XMS_ITS | Encounter Summary ---
Author Organization [facility] Address [address] [address] Phone Care Team Providers Care Commodity Trader Name Role Phone Damon Orta MD Primary Care Provider [phone] Encounter Details Date Type Department Care Team ([facility] st Contact Info) Description 11/23/2024 Treatment [facility]. [address] [phone] Sebastián Franco MD [address] [phone] Social History Tobacco Use Types Packs/Day Years [...] Dialysis Note - Sebastián Franco MD - 11/23/2024 12:00 AM EST Patient: Giovanni Mcmullen Jr : 1955 Note Type: Dialysis Rounds-Basic Service Date: 11/23/2024 This patient was personally seen for a basic visit as part of routine monthly dialysis care for end stage renal disease. Attending Machine Former: SEBASTIÁN FRANCO MD Dialysis Location: [facility] Schedule: Shift: 1 HOME MEDICATIONS Current [facility] Outpatient Medications amLODIPine (NORVASC) 5 [...] DAY WITH MEALS Start Date: 08/11/2024 cholecalciferol (D3-1000) 25 MCG (1000 UT) capsule Take 2 capsules (2,000 Units total) by mouth 1 (one) time each day Start Date: 11/20/2023 gabapentin (NEURONTIN) 300 MG capsule Take 1 [...] mouth 4 (four) times a week: , , Sat, Sun Start Date: 05/29/2024 MULTIVITAMIN ADULT PO Take by mouth Start Date: OZURDEX 0.7 MG IZ IMPL Start Date: RETACRIT 00004 UNIT/ML IJ SOLN Inject as directed Start [...] Known Allergies ADEQUACY ASSESSMENT Kt/V, Natural Log 1.42 (11/03/24) 1.27 (10/25/24) UREA REDUCTION RATIO (%) 70 (11/03/24) 68 (10/25/24) BUN 30 (11/03/24) 47 (10/25/24) 109 (12/16/23) BUN Post Dialysis 9 (11/03/24) 15 (10/25/24) Creatinine 3.85 (11/03/24) 4.52 (10/25/24) 4.8 (12/16/23) Bicarbonate (CO2) 26 (11/03/24) 21 (10/25/24) Sodium 130 (11/03/24) 136 (10/25/24) 140 (12/16/23) ANEMIA ASSESSMENT Hgb 11.0 (11/17/24) 9.9 (11/03/24) 8.7 (10/25/24) Iron Saturation (TSat) 22 (11/03/24) 18 (10/25/24) Ferritin 804 (11/03/24) 997 (10/25/24) Iron 54 (11/03/24) 45 (10/25/24) TIBC 241 (11/03/24) 245 (10/25/24) MCV 100.7 (11/03/24) 101.9 (10/25/24) 97.5 (12/16/23) Platelets 138 (11/03/24) 143 (10/25/24) 195 (12/16/23) BMM ASSESSMENT Calcium, Adjusted Total 9.0 11/03/24 9.0 10/25/24 Calcium 9.0 11/03/24 9.0 10/25/24 8.6 12/16/23 Phosphorus, Serum 3.7 11/03/24 3.8 10/25/24 8.3 12/16/23 Ca*PO4 33.3 11/03/24 34.2 10/25/24 PTH, Intact 229 12/16/23 Vitamin D, 25-Hydroxy 31.4 12/16/23 Magnesium 2.2 11/03/24 2.2 10/25/24 2.1 12/16/23 Alkaline Phosphatase 165 11/03/24 176 10/25/24 188 12/16/23 NUTRITION ASSESSMENT Albumin 4.1 11/03/24 4.0 10/25/24 4.0 12/16/23 Potassium 4.3 11/03/24 4.7 10/25/24 5.5 12/16/23 ADDITIONAL LABS White Blood Cells 5.0 (11/03/24) 5.4 (10/25/24) 7.7 (12/16/23) Hep B Surface Antibody <4 (10/25/24) Uric Acid 7.3 (12/16/23) Signed by: SEBASTIÁN FRANCO MD on 11/23/2024 at 08:36:23 AM Transcribed by: SEBASTIÁN FRANCO MD on 11/23/2024 at 08:36:23 AM documented in this encounter Plan of Treatment Not on file documented as of this encounter Visit Diagnoses Not on filedocumented in this encounter Care Teams Commodity Trader Relationship Specialty Start Date End Date Damon Orta MD [address] [place] [address] DR[address] JOSHJESSI [place] PCP - General Internal Medicine 12/31/21 documented as of this encounter
--- OUTSIDE RECORDS SUMMARY | 2024-12-21 15:11 | XMS_ITS | Encounter Summary ---
Author Organization [facility] Address [address] [facility] [address] [place] [address] Phone Care Team Providers Care Manufacturing Management Associate Name Role Phone Damon Orta MD Primary Care Provider [phone] Encounter Details Date Type Department Care Team (Late st Contact Info) Description 10/10/2022 Telephone [facility] [address] [facility] [address] [place] [phone] Rusty Milian MD [address] [facility] [address] [place] [phone] Social History Tobacco Use Types Packs/Day Years [...] encounter Miscellaneous Notes * Telephone Encounter - Lisa Huynh - 10/10/2022 1:55 PM EST [facility] called pts insurance in inactive and he will be listed as self pay for his upcoming appt. If he has any other active insurances please call them back at [phone]. Thank you documented in this encounter Plan of Treatment Not on file documented as of this encounter Visit Diagnoses Not on filedocumented in this encounter Care Teams Manufacturing Management Associate Relationship Specialty Start Date End Date Damon Orta MD [address] JOSE JAIMES PCP - General Internal Medicine 12/31/21 documented as of this encounter
--- OUTSIDE RECORDS SUMMARY | 2024-12-21 15:11 | XMS_ITS | Encounter Summary ---
Author Organization [facility] Address [address] [place] [address] Phone Care Team Providers Care Recorder Of Deeds Name Role Phone Damon Orta MD Primary Care Provider [phone] Encounter Details Date Type Department Care Team (Late st Contact Info) Description 12/18/2023 Office Communication [facility] [address] [place] [phone] Sherry Schuster, RN [address] [place] [phone] Social History Tobacco Use Types Packs/Day Years [...] on filedocumented in this encounter Care Teams Recorder Of Deeds Relationship Specialty Start Date End Date Damon Orta MD [address] [facility] P[facility] - General Internal Medicine 12/31/21 documented as of this encounter
--- OUTSIDE RECORDS SUMMARY | 2024-12-21 15:11 | XMS_ITS | Encounter Summary ---
Author Organization [facility] Address [address] [place] [address] Care Team Providers Care Plate Painter Apprentice Name Role Phone Jim Lundberg MD Primary Care Provider [phone] Encounter Details Date Type Department Care Team (Late st Contact Info) Description 10/02/2024 Lab Requisition [facility] - Main Lab [address] [place] [address] Logan Bautista MD [address] [place] [phone] Fusion of spine, cervical region Social History Tobacco Use Types Packs/Day Years Used Date Smoking Tobacco: Never Assessed Sex and Gender Information Value Date Recorded Sex Assigned at Not on file Gender Identity Not on file Sexual Orientation Not on file documented as of this encounter Plan of Treatment Not on file documented as of this encounter Procedures Procedure Name Priority Date/Time Associated Diagnosis Comments IRON Routine 10/02/2024 5:15 AM EDT Fusion of spine, cervical region FERRITIN Routine 10/02/2024 5:15 AM EDT Fusion of spine, cervical region BASIC METABOLIC PANEL Routine 10/02/2024 5:15 AM EDT Fusion of spine, cervical region documented in this encounter Results * (ABNORMAL) Iron (10/02/2024 5:15 AM EDT) Iron 31(L) 50 - 160 mcg/dL LAB CHEMISTRY METHOD 10/02/2024 11:20 AM EDT [facility] ([facility]) [facility] Blood Venous blood specimen / Unknown Venipuncture / Unknown 10/02/2024 5:15 AM EDT 10/02/2024 9:59 AM EDT Logan Bautista MD LAB BLOOD ORDERABLES [facility] [address] [place] [address], [place] [phone] * (ABNORMAL) Ferritin (10/02/2024 5:15 AM EDT) Pathologist [facility] Ferritin 965(H) 26 - 388 ng/mL LAB CHEMISTRY METHOD 10/02/2024 11:22 AM EDT [facility] Blood Venous blood specimen / Unknown Venipuncture / Unknown 10/02/2024 5:15 AM EDT 10/02/2024 9:59 AM EDT Logan Bautista MD LAB BLOOD ORDERABLES Performing Organization Address City/[facility]/ZIP Co de Phone Number [facility] [address] [place] [address], [place] [phone] * (ABNORMAL) Basic metabolic panel (10/02/2024 5:15 AM EDT) [facility] Sodium 131(L) 133 - 145 mmol/L LAB CHEMISTRY METHOD 10/02/2024 11:52 AM T [facility] Potassium 3.8 3.5 - 5.5 mmol/L LAB CHEMISTRY METHOD 10/02/2024 11:52 AM EDT [facility] Chloride 93(L) 96 - 110 mmol/L LAB CHEMISTRY METHOD 10/02/2024 11:52 AM EDT [facility] CO2 28 21 - 32 mmol/L LAB CHEMISTRY METHOD 10/02/2024 11:52 AM EDT [facility] Anion Gap 10 3 - 11 LAB CHEMISTRY METHOD 10/02/2024 11:52 AM EDT [facility] Glucose 80 70 - 100 mg/dL LAB CHEMISTRY METHOD 10/02/2024 11:52 AM EDT [facility] BUN 41(H) 5 - 25 mg/dL LAB CHEMISTRY METHOD 10/02/2024 11:52 AM [facility] Creatinine 3.97(H) 0.70 - 1.30 mg/dL LAB CHEMISTRY METHOD 10/02/2024 11:52 AM [facility] Comment:Results verified by repeat testing eGFR 16(L) >=60 mL/min/1. 73m2 LAB CHEMISTRY METHOD 10/02/2024 11:52 AM T [facility] Comment:Calculation based on the??Chronic Kidney Disease Epidemiology Collaboration (CKD-EPI) equation refit??without adjustment for race. BUN/Creatinine Ratio 10.3 LAB CHEMISTRY METHOD 10/02/2024 11:52 AM [facility] Calcium 9.0 8.5 - 10.5 mg/dL LAB CHEMISTRY METHOD 10/02/2024 11:52 AM T [facility] Blood Venous blood specimen / Unknown Venipuncture / Unknown 10/02/2024 5:15 AM EDT 10/02/2024 9:59 AM EDT Logan Bautista MD LAB BLOOD ORDERABLES [facility] [address] [place] [phone], documented in this encounter Visit Diagnoses Diagnosis Fusion of spine, cervical region documented in this encounter Care Teams Plate Painter Apprentice Relationship Specialty Start Date End Date Jim Lundberg MD [address] [facility] [address] [place], [place] PCP - General Pulmonary Disease 02/26/19 documented as of this encounter
--- OUTSIDE RECORDS SUMMARY | 2024-12-21 15:11 | XMS_ITS | Clinical Summary ---
Author Organization [address] Address [address] [place] [address] Phone Care Team Providers Care Car Lubricator Name Role Phone Jim Lundberg MD Primary Care Provider [phone] Encounters Date Type Department Care Team Description 10/21/2024 Lab Requisition [facility] Lab [address] [place] [phone] Logan Bautista MD Caisson disease (decompression sickness), initial encounter 10/18/2024 Lab Requisition [facility] [address] [place] [phone] Logan Bautista MD Type 2 diabetes mellitus without complications ([facility]/HCC) 10/15/2024 Lab Requisition [facility] Lab [address] [place] [phone] Logan Bautista MD Anemia, unspecified 10/11/2024 Lab Requisition [facility] Lab [address] [place] [phone] Logan Bautista MD Fusion of spine, cervical region 10/08/2024 Lab Requisition [facility] [address] [place] [phone] Logan Bautista MD Other cervical disc displacement, cervicothoracic region 10/04/2024 Lab Requisition [facility] [address] [place] [phone] Logan Bautista MD Wedge compression fracture of unspecified thoracic vertebra, initial encounter for closed fracture ([facility]); Spinal stenosis, site unspecified 10/02/2024 Lab Requisition [facility] - Main Lab [address] [place] [address] Logan Bautista MD Fusion of spine, cervical region from Last 3 Months Social History Tobacco Use Types Packs/Day Years Used Date Smoking Tobacco: Never Assessed Sex and Gender Information Value Date Recorded Sex Assigned at Not on file Gender Identity Not on file Sexual Orientation Not on file Plan of Treatment Health Maintenance Due Date Last Done Comments Pneumococcal Vaccine: 65+ Years (1 of 1 - PCV) 2022 Hepatitis B Vaccines (3 of 3 - 19+ 3-dose series) 08/22/2023 03/19/2023, 02/19/2023 COVID-19 Vaccine ( - 2023-2 5 season) 2024 Influenza Vaccine (#1) 2024 , 10/28/2018 DTaP,Tdap,and Td Vaccines (2 - Td or Tdap) 09/13/2032 09/13/2022 RSV Immunization Patients 60 + Years Old (1 - 1-dose 75+ series) 2032 Zoster Vaccines Completed 04/25/2023, 08/23/2022 HIB Vaccines Aged Out No longer eligi ble based on patient's age to complete this topic HPV Vaccines Aged Out No longer eligi ble based on patient's age to complete this topic Hepatitis A Vaccines Aged Out No long er eligible based on patient's age to complete this topic IPV Vaccines Aged Out No longer eligi ble based on patient's age to complete this topic MMR Vaccines Aged Out No longer eligi ble based on patient's age to complete this topic Meningococcal ACWY Vaccine Aged Out N o longer eligible based on patient's age to complete this topic RSV Immunization Patients Under 20 months Aged Out No longer eligible b ased on patient's age to complete this topic Varicella Vaccines Aged Out No longer eligible based on patient's age to complete this topic Procedures Procedure Name Priority Date/Time Associated Diagnosis Comments CBC WITH AUTO DIFFERENTIAL Routine 10/21/2024 6:38 AM EST Caisson disease (decompression sickness), initial encounter CBC AND DIFFERENTIAL Routine 10/21/2024 6:38 AM EST Caisson disease (decompression sickness), initial encounter BASIC METABOLIC PANEL Routine 10/21/2024 6:38 AM EST Caisson disease (decompression sickness), initial encounter CBC WITH AUTO DIFFERENTIAL Routine 10/18/2024 6:04 AM EST Type 2 diabetes mellitus without complications (CMS/HCC) CBC AND DIFFERENTIAL Routine 10/18/2024 6:04 AM EST Type 2 diabetes mellitus without complications (CMS/HCC) BASIC METABOLIC PANEL Routine 10/18/2024 6:04 AM EST Type 2 diabetes mellitus without complications (CMS/HCC) CBC WITH AUTO DIFFERENTIAL Routine 10/15/2024 5:54 AM EST Anemia, unspecified CBC AND DIFFERENTIAL Routine 10/15/2024 5:54 AM EST Anemia, unspecified BASIC METABOLIC PANEL Routine 10/15/2024 5:54 AM EST Anemia, unspecified CBC WITH AUTO DIFFERENTIAL Routine 10/11/2024 7:02 AM EST Fusion of spine, cervical region CBC AND DIFFERENTIAL Routine 10/11/2024 7:02 AM EST Fusion of spine, cervical region BASIC METABOLIC PANEL Routine 10/11/2024 7:02 AM EST Fusion of spine, cervical region COMPLETE BLOOD COUNT Routine 10/08/2024 5:46 AM EST Other cervical disc displacement, cervicothoracic region BASIC METABOLIC PANEL Routine 10/08/2024 5:46 AM EST Other cervical disc displacement, cervicothoracic region PHOSPHORUS Routine 10/04/2024 6:35 AM EST Wedge compression fracture of unspecified thoracic vertebra, initial encounter for closed fracture (CMS/HCC) Spinal stenosis, site unspecified COMPLETE BLOOD COUNT Routine 10/04/2024 6:35 AM EST Wedge compression fracture of unspecified thoracic vertebra, initial encounter for closed fracture (CMS/HCC) BASIC METABOLIC PANEL Routine 10/04/2024 6:35 AM EST Wedge compression fracture of unspecified thoracic vertebra, initial encounter for closed fracture (CMS/HCC) IRON Routine 10/02/2024 5:15 AM EDT Fusion of spine, cervical region FERRITIN Routine 10/02/2024 5:15 AM EDT Fusion of spine, cervical region BASIC METABOLIC PANEL Routine 10/02/2024 5:15 AM EDT Fusion of spine, cervical region from Last 3 Months Results * (ABNORMAL) CBC auto differential (10/21/2024 6:38 AM EST) Only the most recent of4 resultswithin the time period is included. WBC 4.7(L) 4.8 - 10.8 K/mcL LAB HEMETOLOGY METHOD 10/21/2024 10:02 AM [facility] RBC 2.50(L) 4.50 - 5.50 M/mcL LAB HEMETOLOGY METHOD 10/21/2024 10:02 AM [facility] Hemoglobin 7.8(L) 13.5 - 17.5 g/dL LAB HEMETOLOGY METHOD 10/21/2024 10:02 AM [facility] Hematocrit 25.0(L) 42.0 - 54.0 % LAB HEMETOLOGY METHOD 10/21/2024 10:02 AM [facility] MCV 101.2(H) 79.0 - 98.0 FL LAB HEMETOLOGY METHOD 10/21/2024 10:02 AM [facility] MCH 31.6 27.0 - 32.0 pcg LAB HEMETOLOGY METHOD 10/21/2024 10:02 AM [facility] MCHC 31.2(L) 32.0 - 37.0 g/dL LAB HEMETOLOGY METHOD 10/21/2024 10:02 AM [facility] RDW 13.9 11.0 - 15.0 % LAB HEMETOLOGY METHOD 10/21/2024 10:02 AM [facility] Platelets 133 130 - 400 K/mcL LAB HEMETOLOGY METHOD 10/21/2024 10:02 AM [facility] MPV 10.6 7.0 - 11.0 FL LAB HEMETOLOGY METHOD 10/21/2024 10:02 AM [facility] NRBC 0.0 <1.0 % LAB HEMETOLOGY METHOD 10/21/2024 10:02 AM [facility] NRBC Absolute 0.00 <0.10 K/mcL LAB HEMETOLOGY METHOD 10/21/2024 10:02 AM [facility] Neutrophils Relative 63.8 % LAB HEMETOLOGY METHOD 10/21/2024 10:02 AM [facility] Lymphocytes Relative 19.9 % LAB HEMETOLOGY METHOD 10/21/2024 10:02 AM [facility] Monocytes Relative 9.9 % LAB HEMETOLOGY METHOD 10/21/2024 10:02 AM [facility] Eosinophils Relative 4.9 % LAB HEMETOLOGY METHOD 10/21/2024 10:02 AM [facility] Basophils Relative 0.4 % LAB HEMETOLOGY METHOD 10/21/2024 10:02 AM [facility] Immature Granulocytes Relative 1.1 % LAB HEMETOLOGY METHOD 10/21/2024 10:02 AM [facility] Neutrophils Absolute 2.98 1.50 - 7.00 K/mcL LAB HEMETOLOGY METHOD 10/21/2024 10:02 AM [facility] Lymphocytes Absolute 0.93(L) 1.00 - 5.00 K/mcL LAB HEMETOLOGY METHOD 10/21/2024 10:02 AM EST [facility] Monocytes Absolute 0.46 0.20 - 1.00 K/mcL LAB HEMETOLOGY METHOD 10/21/2024 10:02 AM [facility] Eosinophils Absolute 0.23 0.00 - 0.50 K/[facility] LAB HEMETOLOGY METHOD 10/21/2024 10:02 AM EST [facility] Basophils Absolute 0.02 0.00 - 0.20 K/[facility] LAB HEMETOLOGY METHOD 10/21/2024 10:02 AM [facility] Immature Granulocytes Absolute 0.05(H) 0.00 - 0.03 K/mcL LAB HEMETOLOGY METHOD 10/21/2024 10:02 AM [facility] Blood Venous blood specimen / Unknown Venipuncture / Unknown 10/21/2024 6:38 AM EST 10/21/2024 8:43 AM EST Logan Bautista MD LAB BLOOD ORDERABLES [facility] [address] [place] [address], * (ABNORMAL) Basic metabolic panel (10/21/2024 6:38 AM EST) Only the most recent of7 resultswithin the time period is included. Sodium 133 133 - 145 mmol/L LAB CHEMISTRY METHOD 10/21/2024 10:38 AM EST [facility] Potassium 4.2 3.5 - 5.5 mmol/L LAB CHEMISTRY METHOD 10/21/2024 10:38 AM [facility] Chloride 101 96 - 110 mmol/L LAB CHEMISTRY METHOD 10/21/2024 10:38 AM EST [facility] CO2 24 21 - 32 mmol/L LAB CHEMISTRY METHOD 10/21/2024 10:38 AM [facility] Anion Gap 8 3 - 11 LAB CHEMISTRY METHOD 10/21/2024 10:38 AM [facility] Glucose 101(H) 70 - 100 mg/dL LAB CHEMISTRY METHOD 10/21/2024 10:38 AM [facility] BUN 47(H) 5 - 25 mg/dL LAB CHEMISTRY METHOD 10/21/2024 10:38 AM [facility] Creatinine 4.73(H) 0.70 - 1.30 mg/dL LAB CHEMISTRY METHOD 10/21/2024 10:38 AM [facility] eGFR 13(L) >=60 mL/min/1. 73m2 LAB CHEMISTRY METHOD 10/21/2024 10:38 AM [facility] Comment:Calculation based on the??Chronic Kidney Disease Epidemiology Collaboration (CKD-EPI) equation refit??without adjustment for race. BUN/Creatinine Ratio 9.9 LAB CHEMISTRY METHOD 10/21/2024 10:38 AM [facility] Calcium 9.3 8.5 - 10.5 mg/dL LAB CHEMISTRY METHOD 10/21/2024 10:38 AM [facility] Blood Venous blood specimen / Unknown Venipuncture / Unknown 10/21/2024 6:38 AM EST 10/21/2024 8:43 AM EST Logan Bautista MD LAB BLOOD ORDERABLES [facility] [address] [place] [address], * (ABNORMAL) Complete blood count (10/08/2024 5:46 AM EST) Only the most recent of2 resultswithin the time period is included. WBC 4.8 4.8 - 10.8 K/mcL LAB HEMETOLOGY METHOD 10/08/2024 9:21 AM EST [facility] RBC 2.40(L) 4.50 - 5.50 M/mcL LAB HEMETOLOGY METHOD 10/08/2024 9:21 AM [facility] Hemoglobin 7.5(L) 13.5 - 17.5 g/dL LAB HEMETOLOGY METHOD 10/08/2024 9:21 AM [facility] Hematocrit 23.5(L) 42.0 - 54.0 % LAB HEMETOLOGY METHOD 10/08/2024 9:21 AM [facility] MCV 99.6(H) 79.0 - 98.0 FL LAB HEMETOLOGY METHOD 10/08/2024 9:21 AM [facility] MCH 31.8 27.0 - 32.0 pcg LAB HEMETOLOGY METHOD 10/08/2024 9:21 AM [facility] MCHC 31.9(L) 32.0 - 37.0 g/dL LAB HEMETOLOGY METHOD 10/08/2024 9:21 AM [facility] RDW 13.3 11.0 - 15.0 % LAB HEMETOLOGY METHOD 10/08/2024 9:21 AM [facility] Platelets 228 130 - 400 K/mcL LAB HEMETOLOGY METHOD 10/08/2024 9:21 AM [facility] MPV 10.1 7.0 - 11.0 FL LAB HEMETOLOGY METHOD 10/08/2024 9:21 AM [facility] NRBC 0.0 <1.0 % LAB HEMETOLOGY METHOD 10/08/2024 9:21 AM [facility] NRBC Absolute 0.00 <0.10 K/mcL LAB HEMETOLOGY METHOD 10/08/2024 9:21 AM [facility] Blood Venous blood specimen / Unknown Venipuncture / Unknown 10/08/2024 5:46 AM EST 10/08/2024 8:29 AM EST Logan Bautista MD LAB BLOOD ORDERABLES Performing Organization Address [facility]/ZIP Co de Phone Number [facility] [address] [place] [address], * Phosphorus (10/04/2024 6:35 AM EST) Phosphorus 4.4 2.5 - 4.5 mg/dL LAB CHEMISTRY METHOD 10/04/2024 4:52 PM EST [facility] Blood Venous blood specimen / Unknown Venipuncture / Unknown 10/04/2024 6:35 AM EST 10/04/2024 12:01 PM EST Logan Bautista MD LAB BLOOD ORDERABLES Performing Organization Address [facility] de Phone Number [facility] [address] [place] [address], * (ABNORMAL) Iron (10/02/2024 5:15 AM EDT) Iron 31(L) 50 - 160 mcg/dL LAB CHEMISTRY METHOD 10/02/2024 11:20 AM EDT [facility] Blood Venous blood specimen / Unknown Venipuncture / Unknown 10/02/2024 5:15 AM EDT 10/02/2024 9:59 AM EDT Logan Bautista MD LAB BLOOD ORDERABLES Performing Organization Address City/[facility]/ZIP Co de Phone Number [facility] [address] [place] [address], [place] [phone] * (ABNORMAL) Ferritin (10/02/2024 5:15 AM EDT) Ferritin 965(H) 26 - 388 ng/mL LAB CHEMISTRY METHOD 10/02/2024 11:22 AM EDT [facility] Blood Venous blood specimen / Unknown Venipuncture / Unknown 10/02/2024 5:15 AM EDT 10/02/2024 9:59 AM EDT Logan Bautista MD LAB BLOOD ORDERABLES [facility] ([facility] H[facility] LAB [address] [place] [address], from Last 3 Months Care Teams Car Lubricator Relationship Specialty Start Date End Date Jim Lundberg MD [address] [facility] [address] [place], [place] PCP - General Pulmonary Disease 02/26/19
--- OUTSIDE RECORDS SUMMARY | 2024-12-21 15:11 | XMS_ITS | Encounter Summary ---
Author Organization [facility] Address [address] [place] [address] Care Team Providers Care Stope Miner Name Role Phone Jim Lundberg MD Primary Care Provider [phone] Encounter Details Date Type Department Care Team (Late st Contact Info) Description 10/21/2024 Lab Requisition [facility] - Main Lab [address] [place] [address] Logan Bautista MD [address] [place] [address] Caisson disease (decompression sickness), initial encounter Social History Tobacco Use Types Packs/Day Years [...] EST Caisson disease (decompression sickness), initial encounter documented in this encounter Results * (ABNORMAL) CBC auto differential (10/21/2024 6:38 AM EST) WBC 4.7(L) 4.8 - 10.8 K/mcL LAB HEMETOLOGY METHOD 10/21/2024 10:02 AM [facility] LAB RBC 2.50(L) 4.50 - 5.50 M/mcL LAB HEMETOLOGY METHOD 10/21/2024 10:02 AM [facility] LAB Hemoglobin 7.8(L) 13.5 - 17.5 g/dL LAB HEMETOLOGY METHOD 10/21/2024 10:02 AM [facility] LAB Hematocrit 25.0(L) 42.0 - 54.0 % LAB HEMETOLOGY METHOD 10/21/2024 10:02 AM [facility] LAB MCV 101.2(H) 79.0 - 98.0 FL LAB HEMETOLOGY METHOD 10/21/2024 10:02 AM [facility] LAB MCH 31.6 27.0 - 32.0 pcg LAB HEMETOLOGY METHOD 10/21/2024 10:02 AM [facility] LAB MCHC 31.2(L) 32.0 - 37.0 g/dL LAB HEMETOLOGY METHOD 10/21/2024 10:02 AM [facility] LAB RDW 13.9 11.0 - 15.0 % LAB HEMETOLOGY METHOD 10/21/2024 10:02 AM [facility] LAB Platelets 133 130 - 400 K/mcL LAB HEMETOLOGY METHOD 10/21/2024 10:02 AM [facility] LAB MPV 10.6 7.0 - 11.0 FL LAB HEMETOLOGY METHOD 10/21/2024 10:02 AM [facility] LAB NRBC 0.0 <1.0 % LAB HEMETOLOGY METHOD 10/21/2024 10:02 AM [facility] LAB NRBC Absolute 0.00 <0.10 K/mcL LAB HEMETOLOGY METHOD 10/21/2024 10:02 AM [facility] LAB Neutrophils Relative 63.8 % LAB HEMETOLOGY METHOD 10/21/2024 10:02 AM [facility] LAB Lymphocytes Relative 19.9 % LAB HEMETOLOGY METHOD 10/21/2024 10:02 AM [facility] LAB Monocytes Relative 9.9 % LAB HEMETOLOGY METHOD 10/21/2024 10:02 AM [facility] LAB Eosinophils Relative 4.9 % LAB HEMETOLOGY METHOD 10/21/2024 10:02 AM [facility] LAB Basophils Relative 0.4 % LAB HEMETOLOGY METHOD 10/21/2024 10:02 AM [facility] LAB Immature Granulocytes Relative 1.1 % LAB HEMETOLOGY METHOD 10/21/2024 10:02 AM [facility] LAB Neutrophils Absolute 2.98 1.50 - 7.00 K/mcL LAB HEMETOLOGY METHOD 10/21/2024 10:02 AM [facility] LAB Lymphocytes Absolute 0.93(L) 1.00 - 5.00 K/mcL LAB HEMETOLOGY METHOD 10/21/2024 10:02 AM [facility] LAB Monocytes Absolute 0.46 0.20 - 1.00 K/mcL LAB HEMETOLOGY METHOD 10/21/2024 10:02 AM [facility] LAB Eosinophils Absolute 0.23 0.00 - 0.50 K/mcL LAB HEMETOLOGY METHOD 10/21/2024 10:02 AM [facility] LAB Basophils Absolute 0.02 0.00 - 0.20 K/mcL LAB HEMETOLOGY METHOD 10/21/2024 10:02 AM [facility] LAB Immature Granulocytes Absolute 0.05(H) 0.00 - 0.03 K/mcL LAB HEMETOLOGY METHOD 10/21/2024 10:02 AM [facility] LAB Blood Venous blood specimen / Unknown Venipuncture / Unknown 10/21/2024 6:38 AM EST 10/21/2024 8:43 AM EST Logan Bautista MD LAB BLOOD ORDERABLES [facility] [address] [place] [address], * (ABNORMAL) Basic metabolic panel (10/21/2024 6:38 AM EST) Sodium 133 133 - 145 mmol/L LAB CHEMISTRY METHOD 10/21/2024 10:38 AM [facility] LAB Potassium 4.2 3.5 - 5.5 mmol/L LAB CHEMISTRY METHOD 10/21/2024 10:38 AM [facility] LAB Chloride 101 96 - 110 mmol/L LAB CHEMISTRY METHOD 10/21/2024 10:38 AM [facility] LAB CO2 24 21 - 32 mmol/L LAB CHEMISTRY METHOD 10/21/2024 10:38 AM [facility] LAB Anion Gap 8 3 - 11 LAB CHEMISTRY METHOD 10/21/2024 10:38 AM [facility] LAB Glucose 101(H) 70 - 100 mg/dL LAB CHEMISTRY METHOD 10/21/2024 10:38 AM [facility] LAB BUN 47(H) 5 - 25 mg/dL LAB CHEMISTRY METHOD 10/21/2024 10:38 AM [facility] LAB Creatinine 4.73(H) 0.70 - 1.30 mg/dL LAB CHEMISTRY METHOD 10/21/2024 10:38 AM [facility] LAB eGFR 13(L) >=60 mL/min/1. 73m2 LAB CHEMISTRY METHOD 10/21/2024 10:38 AM [facility] LAB Comment:Calculation based on the??Chronic Kidney Disease Epidemiology Collaboration (CKD-EPI) equation refit??without adjustment for race. BUN/Creatinine Ratio 9.9 LAB CHEMISTRY METHOD 10/21/2024 10:38 AM [facility] LAB Calcium 9.3 8.5 - 10.5 mg/dL LAB CHEMISTRY METHOD 10/21/2024 10:38 AM EST [facility] Blood Venous blood specimen / Unknown Venipuncture / Unknown 10/21/2024 6:38 AM EST 10/21/2024 8:43 AM EST Logan Bautista MD LAB BLOOD ORDERABLES Performing Organization Address City/State/[facility] Co de Phone Number [facility] [address] [place], [place] [address] [email or web address]] [phone] documented in this encounter Visit Diagnoses Diagnosis Caisson disease (decompression sickness), initial encounter documented in this encounter Care Teams Stope Miner Relationship Specialty Start Date End Date Jim Lundberg MD [address] [facility] [address] [place] [address] PCP - General Pulmonary Disease 02/26/19 documented as of this encounter
--- OUTSIDE RECORDS SUMMARY | 2024-12-21 15:11 | XMS_ITS | Encounter Summary ---
Author Organization [facility] Address [address] [place] [address] Care Team Providers Care Software Reverse Engineer Name Role Phone Jim Lundberg MD Primary Care Provider [phone] Encounter Details Date Type Department Care Team (Late st Contact Info) Description 10/11/2024 Lab Requisition [facility] - Main Lab [address] [place] [address] Logan Bautista MD [address] [place] [address] Fusion of spine, cervical region Social History [...] Diagnosis Comments CBC WITH AUTO DIFFERENTIAL Routine 10/11/2024 7:02 AM EST Fusion of spine, cervical region CBC AND DIFFERENTIAL Routine 10/11/2024 7:02 AM EST Fusion of spine, cervical region BASIC METABOLIC PANEL Routine 10/11/2024 7:02 AM EST Fusion of spine, cervical region documented in this encounter Results * (ABNORMAL) CBC auto differential (10/11/2024 7:02 AM EST) WBC 7.8 4.8 - 10.8 K/[facility] LAB HEMETOLOGY METHOD 10/11/2024 1:04 PM EST [facility] RBC 2.60(L) 4.50 - 5.50 M/mcL LAB HEMETOLOGY METHOD 10/11/2024 1:04 PM [facility] Hemoglobin 8.4(L) 13.5 - 17.5 g/dL LAB HEMETOLOGY METHOD 10/11/2024 1:04 PM [facility] LAB Hematocrit 26.5(L) 42.0 - 54.0 % LAB HEMETOLOGY METHOD 10/11/2024 1:04 PM [facility] LAB MCV 102.7(H) 79.0 - 98.0 FL LAB HEMETOLOGY METHOD 10/11/2024 1:04 PM [facility] LAB MCH 32.6(H) 27.0 - 32.0 pcg LAB HEMETOLOGY METHOD 10/11/2024 1:04 PM [facility] LAB MCHC 31.7(L) 32.0 - 37.0 g/dL LAB HEMETOLOGY METHOD 10/11/2024 1:04 PM [facility] LAB RDW 13.5 11.0 - 15.0 % LAB HEMETOLOGY METHOD 10/11/2024 1:04 PM [facility] LAB Platelets 234 130 - 400 K/mcL LAB HEMETOLOGY METHOD 10/11/2024 1:04 PM [facility] LAB MPV 10.0 7.0 - 11.0 FL LAB HEMETOLOGY METHOD 10/11/2024 1:04 PM [facility] LAB NRBC 0.0 <1.0 % LAB HEMETOLOGY METHOD 10/11/2024 1:04 PM [facility] LAB NRBC Absolute 0.00 <0.10 K/mcL LAB HEMETOLOGY METHOD 10/11/2024 1:04 PM [facility] LAB Neutrophils Relative 72.9 % LAB HEMETOLOGY METHOD 10/11/2024 1:04 PM [facility] LAB Lymphocytes Relative 14.0 % LAB HEMETOLOGY METHOD 10/11/2024 1:04 PM EST [facility] Monocytes Relative 9.0 % LAB HEMETOLOGY METHOD 10/11/2024 1:04 PM [facility] Eosinophils Relative 2.4 % LAB HEMETOLOGY METHOD 10/11/2024 1:04 PM [facility] LAB Basophils Relative 0.3 % LAB HEMETOLOGY METHOD 10/11/2024 1:04 PM [facility] LAB Immature Granulocytes Relative 1.4 % LAB HEMETOLOGY METHOD 10/11/2024 1:04 PM [facility] LAB Neutrophils Absolute 5.67 1.50 - 7.00 K/mcL LAB HEMETOLOGY METHOD 10/11/2024 1:04 PM [facility] LAB Lymphocytes Absolute 1.09 1.00 - 5.00 K/mcL LAB HEMETOLOGY METHOD 10/11/2024 1:04 PM [facility] LAB Monocytes Absolute 0.70 0.20 - 1.00 K/mcL LAB HEMETOLOGY METHOD 10/11/2024 1:04 PM [facility] LAB Eosinophils Absolute 0.19 0.00 - 0.50 K/mcL LAB HEMETOLOGY METHOD 10/11/2024 1:04 PM [facility] LAB Basophils Absolute 0.02 0.00 - 0.20 K/mcL LAB HEMETOLOGY METHOD 10/11/2024 1:04 PM [facility] LAB Immature Granulocytes Absolute 0.11(H) 0.00 - 0.03 K/mcL LAB HEMETOLOGY METHOD 10/11/2024 1:04 PM [facility] Blood Venous blood specimen / Unknown Venipuncture / Unknown 10/11/2024 7:02 AM EST 10/11/2024 12:28 PM EST Logan Bautista MD LAB BLOOD ORDERABLES [facility] [address] [place] [address], * (ABNORMAL) Basic metabolic panel (10/11/2024 7:02 AM EST) Sodium 129(L) 133 - 145 mmol/L LAB CHEMISTRY METHOD 10/11/2024 1:38 PM EST [facility] Potassium 4.2 3.5 - 5.5 mmol/L LAB CHEMISTRY METHOD 10/11/2024 1:38 PM [facility] Chloride 93(L) 96 - 110 mmol/L LAB CHEMISTRY METHOD 10/11/2024 1:38 PM [facility] LAB CO2 26 21 - 32 mmol/L LAB CHEMISTRY METHOD 10/11/2024 1:38 PM [facility] Anion Gap 10 3 - 11 LAB CHEMISTRY METHOD 10/11/2024 1:38 PM [facility] LAB Glucose 96 70 - 100 mg/dL LAB CHEMISTRY METHOD 10/11/2024 1:38 PM [facility] BUN 41(H) 5 - 25 mg/dL LAB CHEMISTRY METHOD 10/11/2024 1:38 PM [facility] LAB Creatinine 5.35(H) 0.70 - 1.30 mg/dL LAB CHEMISTRY METHOD 10/11/2024 1:38 PM [facility] LAB eGFR 11(L) >=60 mL/min/1. 73m2 LAB CHEMISTRY METHOD 10/11/2024 1:38 PM [facility] LAB Comment:Calculation based on the??Chronic Kidney Disease Epidemiology Collaboration (CKD-EPI) equation refit??without adjustment for race. BUN/Creatinine Ratio 7.7 LAB CHEMISTRY METHOD 10/11/2024 1:38 PM [facility] LAB Calcium 9.5 8.5 - 10.5 mg/dL LAB CHEMISTRY METHOD 10/11/2024 1:38 PM [facility] LAB Blood Venous blood specimen / Unknown Venipuncture / Unknown 10/11/2024 7:02 AM EST 10/11/2024 12:28 PM EST Logan Bautista MD LAB BLOOD ORDERABLES [facility] [address] [place] [address], documented in this encounter Visit Diagnoses Diagnosis Fusion of spine, cervical region documented in this encounter Care Teams Software Reverse Engineer Relationship Specialty Start Date End Date Jim Lundberg MD [address] [facility] [address] Floor [place], [place] PCP - General Pulmonary Disease 02/26/19 documented as of this encounter
--- OUTSIDE RECORDS SUMMARY | 2024-12-21 15:11 | XMS_ITS | Encounter Summary ---
Author Organization [facility] Address [address] [place] [address] Care Team Providers Care Tank Truck Driver Name Role Phone Jim Lundberg MD Primary Care Provider Encounter Details Date Type Department Care Team (Latest Contact Info) Description 10/18/2024 Lab Requisition [facility] - Main Lab [address] [facility] [place] [address] Logan Bautista MD [address] [place] [phone] Type 2 diabetes mellitus without complications (CMS/HCC) Social History Tobacco Use Types Packs/Day Years [...] Diagnosis Comments CBC WITH AUTO DIFFERENTIAL Routine 10/18/2024 6:04 AM EST Type 2 diabetes mellitus without complications (CMS/HCC) CBC AND DIFFERENTIAL Routine 10/18/2024 6:04 AM EST Type 2 diabetes mellitus without complications (CMS/HCC) BASIC METABOLIC PANEL Routine 10/18/2024 6:04 AM EST Type 2 diabetes mellitus without complications (CMS/HCC) documented in this encounter Results * (ABNORMAL) CBC auto differential (10/18/2024 6:04 AM EST) WBC 5.0 4.8 - 10.8 K/[facility] LAB HEMETOLOGY METHOD 10/18/2024 11:46 AM [facility] LAB RBC 2.50(L) 4.50 - 5.50 M/mcL LAB HEMETOLOGY METHOD 10/18/2024 11:46 AM [facility] LAB Hemoglobin 8.3(L) 13.5 - 17.5 g/dL LAB HEMETOLOGY METHOD 10/18/2024 11:46 AM [facility] LAB Hematocrit 26.2(L) 42.0 - 54.0 % LAB HEMETOLOGY METHOD 10/18/2024 11:46 AM [facility] LAB MCV 103.1(H) 79.0 - 98.0 FL LAB HEMETOLOGY METHOD 10/18/2024 11:46 AM [facility] LAB MCH 32.7(H) 27.0 - 32.0 pcg LAB HEMETOLOGY METHOD 10/18/2024 11:46 AM [facility] LAB MCHC 31.7(L) 32.0 - 37.0 g/dL LAB HEMETOLOGY METHOD 10/18/2024 11:46 AM [facility] LAB RDW 13.8 11.0 - 15.0 % LAB HEMETOLOGY METHOD 10/18/2024 11:46 AM [facility] LAB Platelets 152 130 - 400 K/mcL LAB HEMETOLOGY METHOD 10/18/2024 11:46 AM [facility] LAB MPV 10.5 7.0 - 11.0 FL LAB HEMETOLOGY METHOD 10/18/2024 11:46 AM [facility] LAB NRBC 0.0 <1.0 % LAB HEMETOLOGY METHOD 10/18/2024 11:46 AM [facility] LAB NRBC Absolute 0.00 <0.10 K/mcL LAB HEMETOLOGY METHOD 10/18/2024 11:46 AM [facility] LAB Neutrophils Relative 61.2 % LAB HEMETOLOGY METHOD 10/18/2024 11:46 AM [facility] LAB Lymphocytes Relative 22.1 % LAB HEMETOLOGY METHOD 10/18/2024 11:46 AM [facility] LAB Monocytes Relative 9.9 % LAB HEMETOLOGY METHOD 10/18/2024 11:46 AM [facility] LAB Eosinophils Relative 4.8 % LAB HEMETOLOGY METHOD 10/18/2024 11:46 AM [facility] LAB Basophils Relative 0.6 % LAB HEMETOLOGY METHOD 10/18/2024 11:46 AM [facility] LAB Immature Granulocytes Relative 1.4 % LAB HEMETOLOGY METHOD 10/18/2024 11:46 AM [facility] LAB Neutrophils Absolute 3.04 1.50 - 7.00 K/mcL LAB HEMETOLOGY METHOD 10/18/2024 11:46 AM [facility] LAB Lymphocytes Absolute 1.10 1.00 - 5.00 K/mcL LAB HEMETOLOGY METHOD 10/18/2024 11:46 AM [facility] LAB Monocytes Absolute 0.49 0.20 - 1.00 K/mcL LAB HEMETOLOGY METHOD 10/18/2024 11:46 AM [facility] LAB Eosinophils Absolute 0.24 0.00 - 0.50 K/mcL LAB HEMETOLOGY METHOD 10/18/2024 11:46 AM [facility] LAB Basophils Absolute 0.03 0.00 - 0.20 K/mcL LAB HEMETOLOGY METHOD 10/18/2024 11:46 AM [facility] LAB Immature Granulocytes Absolute 0.07(H) 0.00 - 0.03 K/mcL LAB HEMETOLOGY METHOD 10/18/2024 11:46 AM [facility] LAB Blood Venous blood specimen / Unknown Venipuncture / Unknown 10/18/2024 6:04 AM EST 10/18/2024 11:21 AM EST Logan Bautista MD LAB BLOOD ORDERABLES [facility] [address] [place] [address], * (ABNORMAL) Basic metabolic panel (10/18/2024 6:04 AM EST) Sodium 129(L) 133 - 145 mmol/L LAB CHEMISTRY METHOD 10/18/2024 3:22 PM [facility] Potassium 4.2 3.5 - 5.5 mmol/L LAB CHEMISTRY METHOD 10/18/2024 3:22 PM [facility] LAB Chloride 96 96 - 110 mmol/L LAB CHEMISTRY METHOD 10/18/2024 3:22 PM [facility] LAB CO2 25 21 - 32 mmol/L LAB CHEMISTRY METHOD 10/18/2024 3:22 PM [facility] LAB Anion Gap 8 3 - 11 LAB CHEMISTRY METHOD 10/18/2024 3:22 PM [facility] LAB Glucose 83 70 - 100 mg/dL LAB CHEMISTRY METHOD 10/18/2024 3:22 PM [facility] BUN 51(H) 5 - 25 mg/dL LAB CHEMISTRY METHOD 10/18/2024 3:22 PM [facility] LAB Creatinine 4.87(H) 0.70 - 1.30 mg/dL LAB CHEMISTRY METHOD 10/18/2024 3:22 PM [facility] LAB eGFR 12(L) >=60 mL/min/1. 73m2 LAB CHEMISTRY METHOD 10/18/2024 3:22 PM [facility] LAB Comment:Calculation based on the??Chronic Kidney Disease Epidemiology Collaboration (CKD-EPI) equation refit??without adjustment for race. BUN/Creatinine Ratio 10.5 LAB CHEMISTRY METHOD 10/18/2024 3:22 PM [facility] Calcium 9.7 8.5 - 10.5 mg/dL LAB CHEMISTRY METHOD 10/18/2024 3:22 PM [facility] Blood Venous blood specimen / Unknown Venipuncture / Unknown 10/18/2024 6:04 AM EST 10/18/2024 11:21 AM EST Logan Bautista MD LAB BLOOD ORDERABLES [facility] [address] [place], [place] [address] [phone] documented in this encounter Visit Diagnoses Diagnosis Type 2 diabetes mellitus without complications (CMS/HCC) documented in this encounter Care Teams Tank Truck Driver Relationship Specialty Start Date End Date Jim Lundberg MD 222 [facility] [address] [place], [place] PCP - General Pulmonary Disease 02/26/19 documented as of this encounter
== END 2024-12-21 14:33 | disposition home or self-care (01) ==
PROVIDERS: PCP Internal Medicine; Visit Provider Nurse Practitioner Family
DX: R94.2 Abnormal results of pulmonary function studies (principal); J98.6 Disorders of diaphragm
CPT/HCPCS: 99214

== ENCOUNTER → 2024-12-21 13:25 | Outpatient (BNVA) | payer MEDICARE, OTHER, SELFPAY | PROVIDERS: PCP Internal Medicine; Visit Provider Nurse Practitioner Family ==

== ENCOUNTER 2025-02-01 14:14 | Outpatient (AMB) | payer MEDICARE, OTHER, SELFPAY ==
[2025-02-01 14:26] VITALS: PULSE 76; O2SAT 99
--- NOTE | 2025-02-01 14:26 | MHC.OFFVIS ---
Vital Signs 02/01/25 14:26 Height 5 ft 6 in Pulse 76 Pulse Source Pulse Oximeter Pulse Oximetry (%) 99 Oxygen Delivery Method Room Air Intake Visit Reasons: Elevated diaphragam Popcorn Candy Maker Required: No Sales Training Representative: Sales Training Representative offered & declined Accompanied by: Self / Same As Patient Allergies No Known Allergies Allergy (Verified 02/01/25 14:29) Medication List - Last Reconciled 02/01/25 by Nuvia Moon LPN atorvastatin 20 mg PO DAILY budesonide-formoterol 80-4.5 mcg/actuation (Symbicort) 2 puffs inhalation Q12H calcium carbonate tabs PO TID cholecalciferol (vitamin D3) (Vitamin D3) 50 mcg PO DAILY gabapentin 100 mg PO BEDTIME levothyroxine 100 mcg PO DAILY midodrine 5 mg PO ONCE midodrine 10 mg PO ONCE multivitamin 1 tab PO DAILY sitagliptin phosphate 100 mg PO DAILY torsemide 60 mg PO DAILY vitamin B complex 1 tab PO DAILY HPI HPI Elevated diaphragam: Details: Giovanni is a pleasant 69 year male, former minimal smoker with less than 5 pack year history, with underlying DMII, diabetic neuropathy, 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 At the last visit, he noted an increase in dry cough and dyspnea on exertion Prior PFT did reveal significant improvement in small to medium airways suggestive of small airways disease and started on Breo. He reports improvement and complete resolution of previous coughing symptoms when the medication is regularly used. he denies dyspnea, chest tightness or wheezing. He does note affordability issues arose due to unmet insurance deductible and may need to consider an alternative to Breo. [facility] Medical History Arthritis CKD (chronic kidney disease) Congenital single kidney COVID-19 vaccine series completed Diabetes Elevated cholesterol History of anesthesia complications HTN (hypertension) Localized edema Macular edema Peripheral neuropathy RBBB Surgical History H/O colonoscopy History of lumbar laminectomy Hx of cataract extraction Hx of cervical spine surgery Social History Are you a primary medicare nurse to a significant other at home: No Do you presently have visiting nurse or other home services: No Patient Tobacco Use Status: Former Tobacco user Tobacco use type: Cigarette Review of Systems Const Denies chills, Denies excessive sweating, Denies fever(s), Denies headache(s) and Denies night sweats Eyes Denies dry eyes, Denies irritation and Denies itchy eyes ENT Reports Normal hearing present and Denies headache(s) Card Denies chest pain, Denies chest pain at rest, Denies chest pain with activity, Denies claudication, Denies dyspnea on exertion, Denies orthopnea and Denies paroxysmal nocturnal dyspnea Resp Denies chest congestion, Denies cough, Denies hemoptysis, Denies excessive phlegm production, Denies pain on inspiration, Denies pain with cough, Denies dyspnea on exertion, Denies stridor and Denies wheezing Musc Denies myalgias Neuro Reports Normal hearing present and Denies headache(s) Endo Denies excessive sweating Rex/Lymph Denies lymphadenopathy Aller/Immun Denies itchy eyes, Denies seasonal rhinorrhea and Denies wheezing Physical Exam Vital Signs: Last Vital Signs Pulse 76 02/01/25 14:26 Pulse Ox 99 02/01/25 14:26 Oxygen Delivery Method Room Air 02/01/25 14:26 Const General: cooperative, comfortable, no acute distress, well developed and alert Nutritional Appearance: obese Orientation/consciousness: patient oriented x3 Limitations: ambulation with cane and wheelchair HEENT Head: Yes normal to inspection, Yes normocephalic and Yes atraumatic Ears: hearing grossly normal bilaterally and external ears normal Eyes General: appearance normal, both eyes and all related structures Eyelids: Yes eyelids normal Sclerae: scleral abnormal (burst capillaries bilaterally s/p injection for macular edema) bilateral EOM: EOMs intact bilaterally Neck Neck: Yes normal visual inspection and Yes no lymphadenopathy Lymphatic: no lymphadenopathy noted Chest Chest palpation & inspection: normal inspection of the chest Resp Effort & Inspection: normal respiratory effort, able to speak in complete sentences, no audible wheezes, no cough, no stridor, not tachypneic, no tripod positioning and no use of accessory muscles Auscultation: clear to auscultation bilaterally Cardio Jugular venous distension: no JVD Rate: regular rate Rhythm: regular rhythm Skin Other: warm, dry General skin exam: no rashes or lesions noted Neuro General: patient oriented x3 Cranial nerves: Yes Normal hearing present Cognition (Neuro): normal cognition Gait exam (Neuro): Assisted gait required Extrem General: Yes normal to inspection, Yes capillary refill normal, Yes no clubbing, cyanosis or edema and Yes no pedal edema Psych Appearance: grossly normal and well kempt Speech and movement: Normal speech and movement present and Clear speech present Affect: normal affect Attitude: cooperative Thought process: Normal thought process present Thought content: Normal thought content present Insight: Good insight present (Psych) Judgement: Good judgement present (Psych) Assessment & Plan Assessment & Plan (1) Asthma: Code(s): J45.909 - Unspecified asthma, uncomplicated Category: Medical (2) Restrictive ventilatory defect: Code(s): R94.2 - Abnormal results of pulmonary function studies Category: Medical (3) Elevated hemidiaphragm: Code(s): J98.6 - Disorders of diaphragm Category: Medical (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 The patient expressed financial challenges, with unmet deductibles influencing medication access. We explored options between Breo and Symbicort and consent was given for Breo prescription continuation, with an invitation to revisit choices if Symbicort proves adequately affordable. All questions were answered and patient is in agreement of plan. Will follow up in 3-6 months or sooner if needed. Medications: Refilled fluticasone furoate-vilanterol 100-25 mcg/dose (Breo Ellipta) 1 inh inhalation DAILY 60 ea 3RF J45.909 - Unspecified asthma, uncomplicated Discontinued budesonide-formoterol 80-4.5 mcg/actuation (Symbicort) Discontinued Reason: Patient Completed Course 2 puffs inhalation Q12H 10.2 grams 3RF Coding Level of Care Code Est Pt Level 4 (13385) Diagnoses Asthma J45.909 Restrictive ventilatory defect R94.2 Elevated hemidiaphragm J98.6 Hemidiaphragm paralysis J98.6
--- OUTSIDE RECORDS SUMMARY | 2025-02-01 18:00 | XMS_ITS | Encounter Summary ---
Author Organization [facility] Address [address] [place] [address] Care Team Providers Care Physicians And Surgeons Name Role Phone Jim Lundberg MD Primary Care Provider [phone] Encounter Details Date Type Department Care Team (Late st Contact Info) Description 10/15/2024 Lab Requisition [facility] - Main Lab [address] [place] [address] Logan Bautista MD [address] [place] [address] Anemia, unspecified Social History Tobacco Use Types Packs/Day Years Used Date Smoking Tobacco: Never Assessed Sex and Gender Information Value Date Recorded Sex Assigned at Not on file Legal Sex Male 12:28 PM EST Gender Identity Not on file [...] AM EST) WBC 4.6(L) 4.8 - 10.8 K/mcL LAB HEMETOLOGY METHOD 10/15/2024 12:18 PM EST [facility] RBC 2.60(L) 4.50 - 5.50 M/mcL LAB HEMETOLOGY METHOD 10/15/2024 12:18 PM [facility] Hemoglobin 8.1(L) 13.5 - 17.5 g/dL LAB HEMETOLOGY METHOD 10/15/2024 12:18 PM [facility] LAB Hematocrit 26.7(L) 42.0 - 54.0 % LAB HEMETOLOGY METHOD 10/15/2024 12:18 PM [facility] LAB MCV 104.3(H) 79.0 - 98.0 FL LAB HEMETOLOGY METHOD 10/15/2024 12:18 PM [facility] LAB MCH 31.6 27.0 - 32.0 pcg LAB HEMETOLOGY METHOD 10/15/2024 12:18 PM [facility] LAB MCHC 30.3(L) 32.0 - 37.0 g/dL LAB HEMETOLOGY METHOD 10/15/2024 12:18 PM [facility] LAB RDW 13.7 11.0 - 15.0 % LAB HEMETOLOGY METHOD 10/15/2024 12:18 PM [facility] Platelets 185 130 - 400 K/mcL LAB HEMETOLOGY METHOD 10/15/2024 12:18 PM [facility] LAB MPV 10.5 7.0 - 11.0 FL LAB HEMETOLOGY METHOD 10/15/2024 12:18 PM [facility] LAB NRBC 0.0 <1.0 % LAB HEMETOLOGY METHOD 10/15/2024 12:18 PM [facility] LAB NRBC Absolute 0.00 <0.10 K/mcL LAB HEMETOLOGY METHOD 10/15/2024 12:18 PM [facility] Neutrophils Relative 64.8 % LAB HEMETOLOGY METHOD 10/15/2024 12:18 PM [facility] Lymphocytes Relative 20.3 % LAB HEMETOLOGY METHOD 10/15/2024 12:18 PM [facility] Monocytes Relative 9.3 % LAB HEMETOLOGY METHOD 10/15/2024 12:18 PM [facility] Eosinophils Relative 3.7 % LAB HEMETOLOGY METHOD 10/15/2024 12:18 PM [facility] Basophils Relative 0.6 % LAB HEMETOLOGY METHOD 10/15/2024 12:18 PM [facility] Immature Granulocytes Relative 1.3 % LAB HEMETOLOGY METHOD 10/15/2024 12:18 PM [facility] Neutrophils Absolute 3.00 1.50 - 7.00 K/mcL LAB HEMETOLOGY METHOD 10/15/2024 12:18 PM [facility] Lymphocytes Absolute 0.94(L) 1.00 - 5.00 K/mcL LAB HEMETOLOGY METHOD 10/15/2024 12:18 PM [facility] Monocytes Absolute 0.43 0.20 - 1.00 K/mcL LAB HEMETOLOGY METHOD 10/15/2024 12:18 PM [facility] Eosinophils Absolute 0.17 0.00 - 0.50 K/mcL LAB HEMETOLOGY METHOD 10/15/2024 12:18 PM [facility] Basophils Absolute 0.03 0.00 - 0.20 K/mcL LAB HEMETOLOGY METHOD 10/15/2024 12:18 PM [facility] Immature Granulocytes Absolute 0.06(H) 0.00 - 0.03 K/mcL LAB HEMETOLOGY METHOD 10/15/2024 12:18 PM [facility] Blood Venous blood specimen / Unknown 10/15/2024 5:54 AM EST 10/15/2024 12:02 PM EST us Logan Bautista MD LAB BLOOD ORDERABLES Final Res ult [facility] [address] [place] [address], * (ABNORMAL) Basic metabolic panel (10/15/2024 5:54 AM EST) Sodium 132(L) 133 - 145 mmol/L LAB CHEMISTRY METHOD 10/15/2024 12:38 PM EST [facility] Potassium 3.9 3.5 - 5.5 mmol/L LAB CHEMISTRY METHOD 10/15/2024 12:38 PM [facility] Chloride 96 96 - 110 mmol/L LAB CHEMISTRY METHOD 10/15/2024 12:38 PM [facility] CO2 28 21 - 32 mmol/L LAB CHEMISTRY METHOD 10/15/2024 12:38 PM [facility] Anion Gap 8 3 - 11 LAB CHEMISTRY METHOD 10/15/2024 12:38 PM [facility] Glucose 119(H) 70 - 100 mg/dL LAB CHEMISTRY METHOD 10/15/2024 12:38 PM [facility] BUN 42(H) 5 - 25 mg/dL LAB CHEMISTRY METHOD 10/15/2024 12:38 PM [facility] Creatinine 5.06(H) 0.70 - 1.30 mg/dL LAB CHEMISTRY METHOD 10/15/2024 12:38 PM [facility] eGFR 12(L) >=60 mL/min/1. 73m2 LAB CHEMISTRY METHOD 10/15/2024 12:38 PM [facility] Comment:Calculation based on the??Chronic Kidney Disease Epidemiology Collaboration (CKD-EPI) equation refit??without adjustment for race. BUN/Creatinine Ratio 8.3 LAB CHEMISTRY METHOD 10/15/2024 12:38 PM [facility] Calcium 9.8 8.5 - 10.5 mg/dL LAB CHEMISTRY METHOD 10/15/2024 12:38 PM EST [facility] Blood Venous blood specimen / Unknown Venipuncture / Unknown 10/15/2024 5:54 AM EST 10/15/2024 9:59 AM EST us Logan Bautista MD LAB BLOOD ORDERABLES Final Res ult Performing Organization Address City/State/RUST Co de Phone Number [facility] [address] [place] [address], documented in this encounter Visit Diagnoses Diagnosis Anemia, unspecified documented in this encounter Care Teams Physicians And Surgeons Relationship Specialty Start Date End Date Jim Lundberg MD [address] [facility] [address] Floor [place], [place] PCP - General Pulmonary Disease 02/26/19 documented as of this encounter
--- OUTSIDE RECORDS SUMMARY | 2025-02-01 18:00 | XMS_ITS | Encounter Summary ---
Author Organization [facility] Address [address] [address] Phone Care Team Providers Care Precision Lens Polisher Name Role Phone Damon Orta MD Primary Care Provider [phone] Encounter Details Date Type Department Care Team ([facility] st Contact Info) Description 01/31/2025 Treatment [facility] [address] [phone] Sebastián Franco MD [address] [phone] End stage renal disease; Dependence on renal dialysis Social History Tobacco Use Types Packs/Day Years [...] Dialysis Note - Sebastián Franco MD - 01/31/2025 12:00 AM EST Patient: Giovanni Mcmullen Jr : 1955 Note Type: Dialysis Rounds-Comp Service Date: 01/31/2025 This patient was personally seen for a complete visit as part of routine monthly dialysis care for end stage renal disease. Attending Composition Floor Setter: SEBASTIÁN FRANCO MD Dialysis Location: [facility] Schedule: Shift: 1 OVERVIEW Patient is stable. HOME MEDICATIONS Medications reviewed. Current [facility] Outpatient Medications amLODIPine (NORVASC) 5 MG tablet [...] Date: 08/11/2024 cholecalciferol (VITAMIN D-3) 250 MCG (88283 UT) capsule Take 1 capsule (10,000 Units [...] 0.7 MG IZ IMPL Start Date: RETACRIT [address]8360 UNIT/ML IJ SOLN Inject as directed Start [...] ADEQUACY ASSESSMENT Target met. Prescription compliance acceptable. Kt/V, Natural Log 1.23 (01/17/25) 1.25 (12/08/24) 1.42 (11/03/24) UREA REDUCTION RATIO (%) 66 (01/17/25) 67 (12/08/24) 70 (11/03/24) BUN 62 (01/17/25) 52 (12/08/24) 30 (11/03/24) BUN Post Dialysis 21 (01/17/25) 17 (12/08/24) 9 (11/03/24) Creatinine 5.05 (01/17/25) 4.26 (12/08/24) 3.85 (11/03/24) Bicarbonate (CO2) 23 (01/17/25) 21 (12/08/24) 26 (11/03/24) Sodium 138 (01/17/25) 134 (12/08/24) 130 (11/03/24) ACCESS ASSESSMENT Vascular access examined. ANEMIA ASSESSMENT JAZMÍN adjusted per protocol. Iron adjusted per protocol. Hgb 10.0 (01/17/25) 11.3 (12/22/24) 11.1 (12/08/24) Iron Saturation (TSat) 41 (01/17/25) 20 (12/08/24) 22 (11/03/24) Ferritin 1,587 (01/21/25) 890 (12/08/24) 804 (11/03/24) Iron 92 (01/17/25) 41 (12/08/24) 54 (11/03/24) TIBC 227 (01/17/25) 210 (12/08/24) 241 (11/03/24) MCV 96.6 (01/17/25) 97.7 (12/08/24) 100.7 (11/03/24) Platelets 174 (01/17/25) 159 (12/08/24) 138 (11/03/24) BMM ASSESSMENT Bone and mineral metabolism parameters reviewed. Calcium, Adjusted Total 9.1 01/17/25 9.1 12/08/24 9.0 11/03/24 Calcium 9.1 01/17/25 9.1 12/08/24 9.0 11/03/24 Phosphorus, Serum 5.4 01/17/25 5.5 12/08/24 3.7 11/03/24 Ca*PO4 49.1 01/17/25 50.0 12/08/24 33.3 11/03/24 PTH, Intact 93 01/17/25 122 12/08/24 Vitamin D, 25-Hydroxy 33 01/17/25 Magnesium 2.3 01/17/25 2.1 12/08/24 2.2 11/03/24 Alkaline Phosphatase 274 01/17/25 241 12/08/24 165 11/03/24 Aluminum 4 01/17/25 4 12/08/24 NUTRITION ASSESSMENT Albumin at goal. Albumin 4.1 01/17/25 4.1 12/08/24 4.1 11/03/24 Potassium 4.6 01/17/25 4.6 12/08/24 4.3 11/03/24 Hemoglobin A1C 5.6 01/17/25 5.2 12/08/24 PHYSICAL EXAM Exam not performed. ADDITIONAL LABS White Blood Cells 5.3 (01/17/25) 7.1 (12/08/24) 5.0 (11/03/24) Cholesterol 118 (01/17/25) 117 (12/08/24) HDL 51 (01/17/25) 46 (12/08/24) LDL-Calc 48 (01/17/25) 48 (12/08/24) Triglycerides 97 (01/17/25) 114 (12/08/24) Hep B Surface Antibody 164 (01/17/25) 83 (12/08/24) <4 (10/25/24) Uric Acid 6.2 (01/17/25) 5.3 (12/08/24) Signed by: SEBASTIÁN FRANCO MD on 01/31/2025 at 04:35:27 PM documented in this encounter Plan of Treatment Not on file documented as of this encounter Visit Diagnoses Diagnosis End stage renal disease Dependence on renal dialysis documented in this encounter Care Teams Precision Lens Polisher Relationship Specialty Start Date End Date Damon Orta MD [address] [place] [address] DR[address] [place], [place] PCP - General Internal Medicine 12/31/21 documented as of this encounter
--- OUTSIDE RECORDS SUMMARY | 2025-02-01 18:00 | XMS_ITS | Encounter Summary ---
Author Organization [facility] Address [address] [address] Phone Care Team Providers Care Appraiser Timber Name Role Phone Damon Orta MD Primary Care Provider [phone] Encounter Details Date Type Department Care Team ([facility] st Contact Info) Description 01/19/2025 Treatment [facility]. [address] [phone] Sebastián Franco MD [address] [phone] Social History Tobacco Use Types Packs/Day Years [...] Dialysis Note - Sebastián Franco MD - 01/19/2025 12:00 AM EST Patient: Giovanni Mcmullen Jr : 1955 Note Type: Dialysis Rounds-Comp Service Date: 01/19/2025 This patient was personally seen for a complete visit as part of routine monthly dialysis care for end stage renal disease. Attending Advisory Intern: SEBASTIÁN FRANCO MD Dialysis Location: [facility] Schedule: - Shift: 1 OVERVIEW Patient is stable. HOME MEDICATIONS Medications reviewed. Current [facility] Outpatient Medications amLODIPine (NORVASC) 5 MG tablet [...] Date: 08/11/2024 cholecalciferol (VITAMIN D-3) 250 MCG (50676 UT) capsule Take 1 capsule (10,000 Units [...] 0.7 MG IZ IMPL Start Date: RETACRIT 37761 UNIT/ML IJ SOLN Inject as directed Start [...] met. Prescription compliance acceptable. Kt/V, Natural Log 1.25 (12/08/24) 1.42 (11/03/24) 1.27 (10/25/24) UREA REDUCTION RATIO (%) 67 (12/08/24) 70 (11/03/24) 68 (10/25/24) BUN 52 (12/08/24) 30 (11/03/24) 47 (10/25/24) BUN Post Dialysis 17 (12/08/24) 9 (11/03/24) 15 (10/25/24) Creatinine 4.26 (12/08/24) 3.85 (11/03/24) 4.52 (10/25/24) Bicarbonate (CO2) 21 (12/08/24) 26 (11/03/24) 21 (10/25/24) Sodium 134 (12/08/24) 130 (11/03/24) 136 (10/25/24) ACCESS ASSESSMENT Vascular access examined. ANEMIA ASSESSMENT JAZMÍN adjusted per protocol. Iron adjusted per protocol. Hgb 11.3 (12/22/24) 11.1 (12/08/24) 11.0 (11/17/24) Iron Saturation (TSat) 20 (12/08/24) 22 (11/03/24) 18 (10/25/24) Ferritin 890 (12/08/24) 804 (11/03/24) 997 (10/25/24) Iron 41 (12/08/24) 54 (11/03/24) 45 (10/25/24) TIBC 210 (12/08/24) 241 (11/03/24) 245 (10/25/24) MCV 97.7 (12/08/24) 100.7 (11/03/24) 101.9 (10/25/24) Platelets 159 (12/08/24) 138 (11/03/24) 143 (10/25/24) BMM ASSESSMENT Bone and mineral metabolism parameters reviewed. Calcium, Adjusted Total 9.1 12/08/24 9.0 11/03/24 9.0 10/25/24 Calcium 9.1 12/08/24 9.0 11/03/24 9.0 10/25/24 Phosphorus, Serum 5.5 12/08/24 3.7 11/03/24 3.8 10/25/24 Ca*PO4 50.0 12/08/24 33.3 11/03/24 34.2 10/25/24 PTH, Intact 122 12/08/24 Magnesium 2.1 12/08/24 2.2 11/03/24 2.2 10/25/24 Alkaline Phosphatase 241 12/08/24 165 11/03/24 176 10/25/24 Aluminum 4 12/08/24 NUTRITION ASSESSMENT Albumin at goal. Albumin 4.1 12/08/24 4.1 11/03/24 4.0 10/25/24 Potassium 4.6 12/08/24 4.3 11/03/24 4.7 10/25/24 Hemoglobin A1C 5.2 12/08/24 PHYSICAL EXAM Exam performed. Vital Signs Reviewed. Lungs - Clear. CV - Blood pressure noted. CV - RRR. No edema. EXT - No ulcers. ADDITIONAL LABS White Blood Cells 7.1 (12/08/24) 5.0 (11/03/24) 5.4 (10/25/24) Cholesterol 117 (12/08/24) HDL 46 (12/08/24) LDL-Calc 48 (12/08/24) Triglycerides 114 (12/08/24) Hep B Surface Antibody 83 (12/08/24) <4 (10/25/24) Uric Acid 5.3 (12/08/24) Signed by: SEBASTIÁN FRANCO MD on 01/19/2025 at 09:19:14 AM documented in this encounter Plan of Treatment Not on file documented as of this encounter Visit Diagnoses Not on filedocumented in this encounter Care Teams Appraiser Timber Relationship Specialty Start Date End Date Damon Orta MD [address] JOSE JAIMES PCP - General Internal Medicine 12/31/21 documented as of this encounter
--- OUTSIDE RECORDS SUMMARY | 2025-02-01 18:00 | XMS_ITS | Encounter Summary ---
Author Organization [facility] Address [address] [place] [address] Care Team Providers Care Computer Science Instructor Name Role Phone Jim Lundberg MD Primary Care Provider [phone] Encounter Details Date Type Department Care Team (Late st Contact Info) Description 10/21/2024 Lab Requisition [facility] - Main Lab [address] [place] [address] Logan Bautista MD [address] [place] [address] Caisson disease (decompression sickness), initial encounter Social [...] AM EST) WBC 4.7(L) 4.8 - 10.8 K/[facility] LAB HEMETOLOGY METHOD 10/21/2024 10:[address] [facility] RBC 2.50(L) 4.50 - 5.50 M/mcL LAB HEMETOLOGY METHOD 10/21/2024 10:[address] [facility] Hemoglobin 7.8(L) 13.5 - 17.5 g/dL LAB HEMETOLOGY METHOD 10/21/2024 10:[address] [facility] Hematocrit 25.0(L) 42.0 - 54.0 % LAB HEMETOLOGY METHOD 10/21/2024 10:[address] [facility] MCV 101.2(H) 79.0 - 98.0 FL LAB HEMETOLOGY METHOD 10/21/2024 10:[address] [facility] MCH 31.6 27.0 - 32.0 pcg LAB HEMETOLOGY METHOD 10/21/2024 10:[address] [facility] MCHC 31.2(L) 32.0 - 37.0 g/dL LAB HEMETOLOGY METHOD 10/21/2024 10:[address] [facility] RDW 13.9 11.0 - 15.0 % LAB HEMETOLOGY METHOD 10/21/2024 10:[address] [facility] Platelets 133 130 - 400 K/mcL LAB HEMETOLOGY METHOD 10/21/2024 10:[address] [facility] MPV 10.6 7.0 - 11.0 FL LAB HEMETOLOGY METHOD 10/21/2024 10:[address] [facility] NRBC 0.0 <1.0 % LAB HEMETOLOGY METHOD 10/21/2024 10:[address] [facility] NRBC Absolute 0.00 <0.10 K/mcL LAB HEMETOLOGY METHOD 10/21/2024 10:[address] [facility] Neutrophils Relative 63.8 % LAB HEMETOLOGY METHOD 10/21/2024 10:[address] [facility] Lymphocytes Relative 19.9 % LAB HEMETOLOGY METHOD 10/21/2024 10:[address] [facility] Monocytes Relative 9.9 % LAB HEMETOLOGY METHOD 10/21/2024 10:[address] [facility] Eosinophils Relative 4.9 % LAB HEMETOLOGY METHOD 10/21/2024 10:[address] [facility] Basophils Relative 0.4 % LAB HEMETOLOGY METHOD 10/21/2024 10:[address] [facility] Immature Granulocytes Relative 1.1 % LAB HEMETOLOGY METHOD 10/21/2024 10:[address] [facility] Neutrophils Absolute 2.98 1.50 - 7.00 K/mcL LAB HEMETOLOGY METHOD 10/21/2024 10:[address] [facility] Lymphocytes Absolute 0.93(L) 1.00 - 5.00 K/mcL LAB HEMETOLOGY METHOD 10/21/2024 10:[address] [facility] Monocytes Absolute 0.46 0.20 - 1.00 K/mcL LAB HEMETOLOGY METHOD 10/21/2024 10:[address] [facility] Eosinophils Absolute 0.23 0.00 - 0.50 K/mcL LAB HEMETOLOGY METHOD 10/21/2024 10:[address] [facility] Basophils Absolute 0.02 0.00 - 0.20 K/mcL LAB HEMETOLOGY METHOD 10/21/2024 10:[address] [facility] Immature Granulocytes Absolute 0.05(H) 0.00 - 0.03 K/mcL LAB HEMETOLOGY METHOD 10/21/2024 10:[address] [facility] Blood Venous blood specimen / Unknown Venipuncture / Unknown 10/21/2024 6:38 AM EST 10/21/2024 8:43 AM EST us Logan Bautista MD LAB BLOOD ORDERABLES Final Res ult [facility] [address] [place] [address], * (ABNORMAL) Basic metabolic panel (10/21/2024 6:38 AM EST) Sodium 133 133 - 145 mmol/L LAB CHEMISTRY METHOD 10/21/2024 10:38 AM EST [facility] Potassium 4.2 3.5 - 5.5 mmol/L LAB CHEMISTRY METHOD 10/21/2024 10:[address] [facility] Chloride 101 96 - 110 mmol/L LAB CHEMISTRY METHOD 10/21/2024 10:[address] [facility] CO2 24 21 - 32 mmol/L LAB CHEMISTRY METHOD 10/21/2024 10:[address] [facility] Anion Gap 8 3 - 11 LAB CHEMISTRY METHOD 10/21/2024 10:[address] [facility] Glucose 101(H) 70 - 100 mg/dL LAB CHEMISTRY METHOD 10/21/2024 10:[address] [facility] BUN 47(H) 5 - 25 mg/dL LAB CHEMISTRY METHOD 10/21/2024 10:[address] [facility] Creatinine 4.73(H) 0.70 - 1.30 mg/dL LAB CHEMISTRY METHOD 10/21/2024 10:[address] [facility] eGFR 13(L) >=60 mL/min/1. 73m2 LAB CHEMISTRY METHOD 10/21/2024 10:[address] [facility] Comment:Calculation based on the??Chronic Kidney Disease Epidemiology Collaboration (CKD-EPI) equation refit??without adjustment for race. BUN/Creatinine Ratio 9.9 LAB CHEMISTRY METHOD 10/21/2024 10:[address] [facility] Calcium 9.3 8.5 - 10.5 mg/dL LAB CHEMISTRY METHOD 10/21/2024 10:38 AM EST [facility] Blood Venous blood specimen / Unknown Venipuncture / Unknown 10/21/2024 6:38 AM EST 10/21/2024 8:43 AM EST us Logan Bautista MD LAB BLOOD ORDERABLES Final Res ult [facility] [address] [place] [address], documented in this encounter Visit Diagnoses Diagnosis Caisson disease (decompression sickness), initial encounter documented in this encounter Care Teams Computer Science Instructor Relationship Specialty Start Date End Date Jim Lundberg MD [address] [facility] [address] [place], [place] PCP - General Pulmonary Disease 02/26/19 documented as of this encounter
--- OUTSIDE RECORDS SUMMARY | 2025-02-01 18:00 | XMS_ITS | Encounter Summary ---
Author Organization [facility] Address [address] [address] Phone Care Team Providers Care Aquatics Group Fitness Instructor Name Role Phone Damon Orta MD Primary Care Provider [phone] Encounter Details Date Type Department Care Team ([facility] st Contact Info) Description 01/26/2025 Treatment [facility]. [address] [phone] Sebastián Franco MD [address] [phone] Social History Tobacco Use Types Packs/Day Years [...] Dialysis Note - Sebastián Franco MD - 01/26/2025 12:00 AM EST Patient: Giovanni Mcmullen Jr : 1955 Note Type: Dialysis Rounds-Basic Service Date: 01/26/2025 This patient was personally seen for a basic visit as part of routine monthly dialysis care for end stage renal disease. Attending Chart Snatcher: SEBASTIÁN FRANCO MD Dialysis Location: [facility] Schedule: Shift: 1 HOME MEDICATIONS Current [...] Date: 08/11/2024 cholecalciferol (VITAMIN D-3) 250 MCG (28427 UT) capsule Take 1 capsule (10,000 Units [...] 0.7 MG IZ IMPL Start Date: RETACRIT [address]19 UNIT/ML IJ SOLN Inject as directed Start [...] Known Allergies ADEQUACY ASSESSMENT Kt/V, Natural Log 1.23 (01/17/25) 1.25 (12/08/24) 1.42 (11/03/24) UREA REDUCTION RATIO (%) 66 (01/17/25) 67 (12/08/24) 70 (11/03/24) BUN 62 (01/17/25) 52 (12/08/24) 30 (11/03/24) BUN Post Dialysis 21 (01/17/25) 17 (12/08/24) 9 (11/03/24) Creatinine 5.05 (01/17/25) 4.26 (12/08/24) 3.85 (11/03/24) Bicarbonate (CO2) 23 (01/17/25) 21 (12/08/24) 26 (11/03/24) Sodium 138 (01/17/25) 134 (12/08/24) 130 (11/03/24) ANEMIA ASSESSMENT Hgb 10.0 (01/17/25) 11.3 (12/22/24) 11.1 (12/08/24) Iron Saturation (TSat) 41 (01/17/25) 20 (12/08/24) 22 (11/03/24) Ferritin 1,587 (01/21/25) 890 (12/08/24) 804 (11/03/24) Iron 92 (01/17/25) 41 (12/08/24) 54 (11/03/24) TIBC 227 (01/17/25) 210 (12/08/24) 241 (11/03/24) MCV 96.6 (01/17/25) 97.7 (12/08/24) 100.7 (11/03/24) Platelets 174 (01/17/25) 159 (12/08/24) 138 (11/03/24) BMM ASSESSMENT Calcium, Adjusted Total 9.1 01/17/25 9.1 12/08/24 [...] 4 01/17/25 4 12/08/24 NUTRITION ASSESSMENT Albumin 4.1 01/17/25 4.1 12/08/24 4.1 11/03/24 Potassium 4.6 01/17/25 4.6 12/08/24 4.3 11/03/24 Hemoglobin A1C 5.6 01/17/25 5.2 12/08/24 ADDITIONAL LABS White Blood Cells 5.3 (01/17/25) 7.1 (12/08/24) 5.0 (11/03/24) Cholesterol 118 (01/17/25) 117 (12/08/24) HDL 51 (01/17/25) 46 (12/08/24) LDL-Calc 48 (01/17/25) 48 (12/08/24) Triglycerides 97 (01/17/25) 114 (12/08/24) Hep B Surface Antibody 164 (01/17/25) 83 (12/08/24) <4 (10/25/24) Uric Acid 6.2 (01/17/25) 5.3 (12/08/24) Signed by: SEBASTIÁN FRANCO MD on 01/26/2025 at 08:46:17 AM documented in this encounter Plan of Treatment Not on file documented as of this encounter Visit Diagnoses Not on filedocumented in this encounter Care Teams Aquatics Group Fitness Instructor Relationship Specialty Start Date End Date Damon Orta MD [address] [place] [address] [address] JOSE JAIMES PCP - General Internal Medicine 12/31/21 documented as of this encounter
--- OUTSIDE RECORDS SUMMARY | 2025-02-01 18:00 | XMS_ITS | Clinical Summary ---
Author Organization [facility] Address [address] [place] [address] Phone Care Team Providers Care Account Service Representative Name Role Phone Jim Lundberg MD Primary Care Provider [phone] Encounters Date Type Department Care Team Description 01/13/2025 Lab Requisition [facility] Lab [address] [place] [phone] Logan Bautista MD Encounter for other general examination 01/07/2025 Lab Requisition [facility] Lab [address] [place] [phone] Logan Bautista MD Encounter for other general examination 01/01/2025 Lab Requisition [facility] Lab [address] [place] [phone] Logan Bautista MD Encounter for other general examination from Last 3 Months Social History Tobacco Use Types Packs/Day Years Used Date Smoking Tobacco: Never Assessed Sex and Gender Information Value Date Recorded Sex Assigned at Not on file Legal Sex Male 12:28 PM EST Gender Identity Not on file Sexual Orientation Not on file Plan of Treatment Health Maintenance Due Date Last Done Comments Diabetes: Annual Foot Exam 1967 Diabetes: Annual Retina Eye Exam 1967 Pneumococcal Vaccine: 50+ Years (1 of 2 - PCV) 1976 RSV Immunization Patients 60+ Years Old (1 - Risk 60-74 years 1-dose series) 2017 Hepatitis B Vaccines (3 of 3 - 19+ 3-dose series) 08/22/2023 03/19/2023, 02/19/2023 Influenza Vaccine (#1) 2024 09/30/2020, 2017 Abdominal Aortic Aneurysm (AAA) Screen 01/01/2025 Colorectal Cancer Screening: Colonoscopy 01/01/2025 Depression Screening 01/01/2025 Diabetes: Annual Urine Albumin-Creatinine Ratio (uACR) 01/01/2025 Falls Risk Assessment 01/01/2025 Hepatitis C Screening 01/01/2025 Medicare Annual Wellness Visit 01/01/2025 Social Influencers of Health Screening 01/01/2025 Diabetes: Blood Sugar Control Test (HGBA1C) 06/07/2025 12/08/2024, 12/08/2024, 05/15/2023 Diabetes: Annual GFR (Glomerular Filtration Rate) 01/13/2026 01/13/2025, 01/07/2025, 01/01/2025, Additional history exists Hypertension/CHF/CAD Annual BMP Blood Test 01/13/2026 01/13/2025, 01/07/2025, 01/01/2025, Additional history exists Cholesterol Screening (Lipid Panel) 12/08/2029 12/08/2024 DTaP,Tdap,and Td Vaccines (2 - Td or Tdap) 09/13/2032 09/13/2022 Zoster Vaccines Completed 04/25/2023, 08/23/2022 COVID-19 Vaccine Completed 08/21/2024, 05/2023, 03/18/2022, Additional history exists HIB Vaccines Aged Out No longer eligi [...] patient's age to complete this topic Meningococcal B Vacine Aged Out No lo nger eligible based on patient's age to complete this topic RSV Immunization Patients Under 20 months Aged Out No longer eligible based on patient's age to complete this topic Varicella Vaccines Aged Out No longer eligible based on patient's age to complete this topic Procedures Procedure Name Priority Date/Time Associated Diagnosis Comments PHOSPHORUS Routine 01/13/2025 5:01 AM EST Encounter for other general examination COMPLETE BLOOD COUNT Routine 01/13/2025 5:01 AM EST Encounter for other general examination COMPREHENSIVE METABOLIC PANEL Routine 01/13/2025 5:01 AM EST Encounter for other general examination CBC WITH AUTO DIFFERENTIAL Routine 01/07/2025 4:45 AM EST Encounter for other general examination PHOSPHORUS Routine 01/07/2025 4:45 AM EST Encounter for other general examination CBC AND DIFFERENTIAL Routine 01/07/2025 4:45 AM EST Encounter for other general examination BASIC METABOLIC PANEL Routine 01/07/2025 4:45 AM EST Encounter for other general examination CBC WITH AUTO DIFFERENTIAL Routine 01/01/2025 5:42 AM EST Encounter for other general examination MAGNESIUM Routine 01/01/2025 5:42 AM EST Encounter for other general examination CBC AND DIFFERENTIAL Routine 01/01/2025 5:42 AM EST Encounter for other general examination COMPREHENSIVE METABOLIC PANEL Routine 01/01/2025 5:42 AM EST Encounter for other general examination from Last 3 Months Results * (ABNORMAL) Complete blood count (01/13/2025 5:01 AM EST) WBC 5.5 4.8 - 10.8 K/mcL LAB HEMETOLOGY METHOD 01/13/2025 8:02 AM EST [facility] RBC 3.10(L) 4.50 - 5.50 M/mcL LAB HEMETOLOGY METHOD 01/13/2025 8:02 AM EST [facility] Hemoglobin 9.6(L) 13.5 - 17.5 g/dL LAB HEMETOLOGY METHOD 01/13/2025 8:02 AM [facility] Hematocrit 30.3(L) 42.0 - 54.0 % LAB HEMETOLOGY METHOD 01/13/2025 8:02 AM [facility] MCV 96.8 79.0 - 98.0 FL LAB HEMETOLOGY METHOD 01/13/2025 8:02 AM [facility] MCH 30.7 27.0 - 32.0 pcg LAB HEMETOLOGY METHOD 01/13/2025 8:02 AM [facility] MCHC 31.7(L) 32.0 - 37.0 g/dL LAB HEMETOLOGY METHOD 01/13/2025 8:02 AM [facility] RDW 15.0 11.0 - 15.0 % LAB HEMETOLOGY METHOD 01/13/2025 8:02 AM [facility] Platelets 161 130 - 400 K/mcL LAB HEMETOLOGY METHOD 01/13/2025 8:02 AM [facility] MPV 10.2 7.0 - 11.0 FL LAB HEMETOLOGY METHOD 01/13/2025 8:02 AM [facility] NRBC 0.0 <1.0 % LAB HEMETOLOGY METHOD 01/13/2025 8:02 AM [facility] NRBC Absolute 0.00 <0.10 K/mcL LAB HEMETOLOGY METHOD 01/13/2025 8:02 AM [facility] Blood Venous blood specimen / Unknown Venipuncture / Unknown 01/13/2025 5:01 AM EST 01/13/2025 7:22 AM EST us Logan Bautista MD LAB BLOOD ORDERABLES Final Res ult [facility] [address] [place] [address], * Phosphorus (01/13/2025 5:01 AM EST) Only the most recent of2 resultswithin the time period is included. [facility] Phosphorus 4.2 2.5 - 4.5 mg/dL LAB CHEMISTRY METHOD 01/13/2025 8:35 AM [facility] Blood Venous blood specimen / Unknown Venipuncture / Unknown 01/13/2025 5:01 AM EST 01/13/2025 7:22 AM EST us Logan Bautista MD LAB BLOOD ORDERABLES Final Res ult [facility] [address] [place] [address], [place] [phone] * (ABNORMAL) Comprehensive metabolic panel (01/13/2025 5:01 AM EST) Only the most recent of2 resultswithin the time period is included. [facility] Sodium 134 133 - 145 mmol/L LAB CHEMISTRY METHOD 01/13/2025 8:35 AM [facility] Potassium 3.6 3.5 - 5.5 mmol/L LAB CHEMISTRY METHOD 01/13/2025 8:35 AM [facility] Chloride 97 96 - 110 mmol/L LAB CHEMISTRY METHOD 01/13/2025 8:35 AM [facility] CO2 29 21 - 32 mmol/L LAB CHEMISTRY METHOD 01/13/2025 8:35 AM [facility] Anion Gap 8 3 - 11 LAB CHEMISTRY METHOD 01/13/2025 8:35 AM [facility] Glucose 86 70 - 100 mg/dL LAB CHEMISTRY METHOD 01/13/2025 8:35 AM [facility] BUN 38(H) 5 - 25 mg/dL LAB CHEMISTRY METHOD 01/13/2025 8:35 AM [facility] Creatinine 3.35(H) 0.70 - 1.30 mg/dL LAB CHEMISTRY METHOD 01/13/2025 8:35 AM [facility] eGFR 19(L) >=60 mL/min/1. 73m2 LAB CHEMISTRY METHOD 01/13/2025 8:35 AM [facility] Comment:Calculation based on the??Chronic Kidney Disease Epidemiology Collaboration (CKD-EPI) equation refit??without adjustment for race. BUN/Creatinine Ratio 11.3 LAB CHEMISTRY METHOD 01/13/2025 8:35 AM [facility] Calcium 8.7 8.5 - 10.5 mg/dL LAB CHEMISTRY METHOD 01/13/2025 8:35 AM [facility] AST (SGOT) 22 10 - 42 unit/L LAB CHEMISTRY METHOD 01/13/2025 8:35 AM [facility] ALT (SGPT) 21 10 - 60 unit/L LAB CHEMISTRY METHOD 01/13/2025 8:35 AM [facility] Alkaline Phosphatase 260(H) 42 - 121 unit/L LAB CHEMISTRY METHOD 01/13/2025 8:35 AM [facility] Total Protein 6.8 6.0 - 8.0 g/dL LAB CHEMISTRY METHOD 01/13/2025 8:35 AM [facility] Albumin 3.0(L) 3.2 - 5.0 g/dL LAB CHEMISTRY METHOD 01/13/2025 8:35 AM [facility] Total Bilirubin 0.5 0.0 - 1.4 mg/dL LAB CHEMISTRY METHOD 01/13/2025 8:35 AM [facility] Blood Venous blood specimen / Unknown Venipuncture / Unknown 01/13/2025 5:01 AM EST 01/13/2025 7:22 AM EST us Logan Bautista MD LAB BLOOD ORDERABLES Final Res ult [facility] [address] [place] [address], [place] [phone] * (ABNORMAL) CBC auto differential (01/07/2025 4:45 AM EST) Only the most recent of2 resultswithin the time period is included. [facility] WBC 8.0 4.8 - 10.8 K/mcL LAB HEMETOLOGY METHOD 01/07/2025 11:37 AM [facility] RBC 3.30(L) 4.50 - 5.50 M/mcL LAB HEMETOLOGY METHOD 01/07/2025 11:37 AM [facility] Hemoglobin 10.2(L) 13.5 - 17.5 g/dL LAB HEMETOLOGY METHOD 01/07/2025 11:37 AM [facility] Hematocrit 32.0(L) 42.0 - 54.0 % LAB HEMETOLOGY METHOD 01/07/2025 11:37 AM [facility] MCV 98.5(H) 79.0 - 98.0 FL LAB HEMETOLOGY METHOD 01/07/2025 11:37 AM [facility] MCH 31.4 27.0 - 32.0 pcg LAB HEMETOLOGY METHOD 01/07/2025 11:37 AM [facility] MCHC 31.9(L) 32.0 - 37.0 g/dL LAB HEMETOLOGY METHOD 01/07/2025 11:37 AM [facility] RDW 15.0 11.0 - 15.0 % LAB HEMETOLOGY METHOD 01/07/2025 11:37 AM [facility] Platelets 178 130 - 400 K/mcL LAB HEMETOLOGY METHOD 01/07/2025 11:37 AM [facility] MPV 10.5 7.0 - 11.0 FL LAB HEMETOLOGY METHOD 01/07/2025 11:37 AM [facility] NRBC 0.0 <1.0 % LAB HEMETOLOGY METHOD 01/07/2025 11:37 AM [facility] NRBC Absolute 0.00 <0.10 K/mcL LAB HEMETOLOGY METHOD 01/07/2025 11:37 AM [facility] Neutrophils Relative 67.2 % LAB HEMETOLOGY METHOD 01/07/2025 11:37 AM [facility] Lymphocytes Relative 18.4 % LAB HEMETOLOGY METHOD 01/07/2025 11:37 AM [facility] Monocytes Relative 10.4 % LAB HEMETOLOGY METHOD 01/07/2025 11:37 AM [facility] Eosinophils Relative 2.4 % LAB HEMETOLOGY METHOD 01/07/2025 11:37 AM [facility] Basophils Relative 0.5 % LAB HEMETOLOGY METHOD 01/07/2025 11:37 AM [facility] Immature Granulocytes Relative 1.1 % LAB HEMETOLOGY METHOD 01/07/2025 11:37 AM [facility] Neutrophils Absolute 5.40 1.50 - 7.00 K/mcL LAB HEMETOLOGY METHOD 01/07/2025 11:37 AM [facility] Lymphocytes Absolute 1.48 1.00 - 5.00 K/mcL LAB HEMETOLOGY METHOD 01/07/2025 11:37 AM [facility] Monocytes Absolute 0.84 0.20 - 1.00 K/mcL LAB HEMETOLOGY METHOD 01/07/2025 11:37 AM [facility] Eosinophils Absolute 0.19 0.00 - 0.50 K/mcL LAB HEMETOLOGY METHOD 01/07/2025 11:37 AM [facility] Basophils Absolute 0.04 0.00 - 0.20 K/mcL LAB HEMETOLOGY METHOD 01/07/2025 11:37 AM [facility] Immature Granulocytes Absolute 0.09(H) 0.00 - 0.03 K/mcL LAB HEMETOLOGY METHOD 01/07/2025 11:37 AM [facility] Blood Venous blood specimen / Unknown Venipuncture / Unknown 01/07/2025 4:45 AM EST 01/07/2025 10:35 AM EST us Logan Bautista MD LAB BLOOD ORDERABLES Final Res ult [facility] [address] [place] [address], [place] [phone] * (ABNORMAL) Basic metabolic panel (01/07/2025 4:45 AM EST) Sodium 131(L) 133 - 145 mmol/L LAB CHEMISTRY METHOD 01/07/2025 11:57 AM [facility] Potassium 3.8 3.5 - 5.5 mmol/L LAB CHEMISTRY METHOD 01/07/2025 11:57 AM [facility] Chloride 96 96 - 110 mmol/L LAB CHEMISTRY METHOD 01/07/2025 11:57 AM [facility] CO2 24 21 - 32 mmol/L LAB CHEMISTRY METHOD 01/07/2025 11:57 AM [facility] Anion Gap 11 3 - 11 LAB CHEMISTRY METHOD 01/07/2025 11:57 AM [facility] Glucose 105(H) 70 - 100 mg/dL LAB CHEMISTRY METHOD 01/07/2025 11:57 AM [facility] BUN 59(H) 5 - 25 mg/dL LAB CHEMISTRY METHOD 01/07/2025 11:57 AM [facility] Creatinine 4.74(H) 0.70 - 1.30 mg/dL LAB CHEMISTRY METHOD 01/07/2025 11:57 AM [facility] eGFR 13(L) >=60 mL/min/1. 73m2 LAB CHEMISTRY METHOD 01/07/2025 11:57 AM [facility] Comment:Calculation based on the??Chronic Kidney Disease Epidemiology Collaboration (CKD-EPI) equation refit??without adjustment for race. BUN/Creatinine Ratio 12.4 LAB CHEMISTRY METHOD 01/07/2025 11:57 AM EST [facility] Calcium 9.0 8.5 - 10.5 mg/dL LAB CHEMISTRY METHOD 01/07/2025 11:57 AM EST [facility] Blood Venous blood specimen / Unknown Venipuncture / Unknown 01/07/2025 4:45 AM EST 01/07/2025 10:35 AM EST us Logan Bautista MD LAB BLOOD ORDERABLES Final Res ult Performing Organization Address City/[facility]/ZIP Co de Phone Number [facility] [address] [place] [address], [place] [phone] * Magnesium (01/01/2025 5:42 AM EST) Magnesium 2.3 1.9 - 2.6 mg/dL LAB CHEMISTRY METHOD 01/01/2025 11:55 AM EST [facility] Blood Venous blood specimen / Unknown Venipuncture / Unknown 01/01/2025 5:42 AM EST 01/01/2025 10:09 AM EST us Logan Bautista MD LAB BLOOD ORDERABLES Final Res ult Performing Organization Address City/[facility]/ZIP Co de Phone Number [facility] [address] [place] [address], [place] [phone] from Last 3 Months Insurance [employer] Care Teams Account Service Representative Relationship Specialty Start Date End Date Jim Lundberg MD [address] [facility] [address] [place], [place] PCP - General Pulmonary Disease 02/26/19
--- OUTSIDE RECORDS SUMMARY | 2025-02-01 18:00 | XMS_ITS | Encounter Summary ---
Author Organization [facility] Address [address] [place] [address] Care Team Providers Care Public Aid Eligibility Assistant Name Role Phone Jim Lundberg MD Primary Care Provider [phone] Encounter Details Date Type Department Care Team (Late st Contact Info) Description 10/11/[address] [facility] Lab [address] [place] [address] Logan Bautista MD [address] [place] [address] Fusion of spine, cervical region Social History [...] AM EST) WBC 7.8 4.8 - 10.8 K/[facility] LAB HEMETOLOGY METHOD 10/11/2024 1:04 PM EST [facility] RBC 2.60(L) 4.50 - 5.50 [...] 1:04 PM [facility] Monocytes Relative 9.0 % LAB [...] EST Logan Bautista MD LAB BLOOD ORDERABLES Final Res ult [facility] [address] [place] [address], * (ABNORMAL) Basic metabolic panel (10/11/2024 7:02 AM EST) Sodium 129(L) 133 - 145 mmol/L LAB CHEMISTRY METHOD 10/11/2024 1:38 PM EST [facility] Potassium 4.2 3.5 - 5.5 mmol/L LAB CHEMISTRY METHOD 10/11/2024 1:38 PM [facility] Chloride 93(L) 96 - 110 mmol/L LAB CHEMISTRY METHOD 10/11/2024 1:38 PM [facility] CO2 26 21 - 32 mmol/L LAB CHEMISTRY METHOD 10/11/2024 1:38 PM EST [facility] Anion Gap 10 3 - 11 [...] mg/dL LAB CHEMISTRY METHOD 10/11/2024 1:38 PM EST [facility] Blood Venous blood specimen / Unknown Venipuncture / Unknown 10/11/2024 7:02 AM EST 10/11/2024 12:28 PM EST us Logan Bautista MD LAB BLOOD ORDERABLES Final Res ult [facility] [address] [place] [address], documented in this encounter Visit Diagnoses Diagnosis Fusion of spine, cervical region documented in this encounter Care Teams Public Aid Eligibility Assistant Relationship Specialty Start Date End Date Jim Lundberg MD [address] [facility] [address] [place], [place] PCP - General Pulmonary Disease 02/26/19 documented as of this encounter
--- OUTSIDE RECORDS SUMMARY | 2025-02-01 18:00 | XMS_ITS | Encounter Summary ---
Author Organization [facility] Address [address] [place] [address] Care Team Providers Care Motion Picture Film Examiner Name Role Phone Jim Lundberg MD Primary Care Provider [phone] Encounter Details Date Type Department Care Team (Latest Contact Info) Description 10/18/2024 Lab Requisition [facility] - [facility] Lab [address] [facility] [place] [address] Logan Bautista MD [address] [place] [id number] Type 2 diabetes mellitus without complications (CMS/HCC) [...] AM EST) WBC 5.0 4.8 - 10.8 K/[facility] LAB HEMETOLOGY METHOD 10/18/2024 11:46 AM [facility] RBC 2.50(L) 4.50 - 5.50 M/[facility] LAB HEMETOLOGY METHOD 10/18/2024 11:46 AM [facility] Hemoglobin 8.3(L) 13.5 - 17.5 g/dL LAB HEMETOLOGY METHOD 10/18/2024 11:46 AM [facility] Hematocrit 26.2(L) 42.0 - 54.0 % LAB HEMETOLOGY METHOD 10/18/2024 11:46 AM [facility] MCV 103.1(H) 79.0 - 98.0 FL LAB HEMETOLOGY METHOD 10/18/2024 11:46 AM [facility] MCH 32.7(H) 27.0 - 32.0 pcg LAB HEMETOLOGY METHOD 10/18/2024 11:46 AM [facility] MCHC 31.7(L) 32.0 - 37.0 g/dL LAB HEMETOLOGY METHOD 10/18/2024 11:46 AM [facility] RDW 13.8 11.0 - 15.0 % LAB HEMETOLOGY METHOD 10/18/2024 11:46 AM [facility] Platelets 152 130 - 400 K/mcL LAB HEMETOLOGY METHOD 10/18/2024 11:46 AM [facility] MPV 10.5 7.0 - 11.0 FL LAB HEMETOLOGY METHOD 10/18/2024 11:46 AM [facility] NRBC 0.0 <1.0 % LAB HEMETOLOGY METHOD 10/18/2024 11:46 AM [facility] NRBC Absolute 0.00 <0.10 K/mcL LAB HEMETOLOGY METHOD 10/18/2024 11:46 AM [facility] Neutrophils Relative 61.2 % LAB HEMETOLOGY METHOD 10/18/2024 11:46 AM [facility] Lymphocytes Relative 22.1 % LAB HEMETOLOGY METHOD 10/18/2024 11:46 AM [facility] Monocytes Relative 9.9 % LAB HEMETOLOGY METHOD 10/18/2024 11:46 AM [facility] Eosinophils Relative 4.8 % LAB HEMETOLOGY METHOD 10/18/2024 11:46 AM [facility] Basophils Relative 0.6 % LAB HEMETOLOGY METHOD 10/18/2024 11:46 AM [facility] Immature Granulocytes Relative 1.4 % LAB HEMETOLOGY METHOD 10/18/2024 11:46 AM [facility] Neutrophils Absolute 3.04 1.50 - 7.00 K/mcL LAB HEMETOLOGY METHOD 10/18/2024 11:46 AM [facility] Lymphocytes Absolute 1.10 1.00 - 5.00 K/mcL LAB HEMETOLOGY METHOD 10/18/2024 11:46 AM [facility] Monocytes Absolute 0.49 0.20 - 1.00 K/mcL LAB HEMETOLOGY METHOD 10/18/2024 11:46 AM [facility] Eosinophils Absolute 0.24 0.00 - 0.50 K/mcL LAB HEMETOLOGY METHOD 10/18/2024 11:46 AM [facility] Basophils Absolute 0.03 0.00 - 0.20 K/mcL LAB HEMETOLOGY METHOD 10/18/2024 11:46 AM [facility] Immature Granulocytes Absolute 0.07(H) 0.00 - 0.03 K/mcL LAB HEMETOLOGY METHOD 10/18/2024 11:46 AM [facility] Blood Venous blood specimen / Unknown Venipuncture / Unknown 10/18/2024 6:04 AM EST 10/18/2024 11:21 AM EST us Logan Bautista MD LAB BLOOD ORDERABLES Final Res ult [facility] [address] [place] [address], * (ABNORMAL) Basic metabolic panel (10/18/2024 6:04 AM EST) Sodium 129(L) 133 - 145 mmol/L LAB CHEMISTRY METHOD 10/18/2024 3:22 PM EST [facility] Potassium 4.2 3.5 - 5.5 mmol/L LAB CHEMISTRY METHOD 10/18/2024 3:22 PM [facility] Chloride 96 96 - 110 mmol/L LAB CHEMISTRY METHOD 10/18/2024 3:22 PM [facility] CO2 25 21 - 32 mmol/L LAB CHEMISTRY METHOD 10/18/2024 3:22 PM [facility] Anion Gap 8 3 - 11 LAB CHEMISTRY METHOD 10/18/2024 3:22 PM [facility] Glucose 83 70 - 100 mg/dL LAB CHEMISTRY METHOD 10/18/2024 3:22 PM [facility] BUN 51(H) 5 - 25 mg/dL LAB CHEMISTRY METHOD 10/18/2024 3:22 PM [facility] Creatinine 4.87(H) 0.70 - 1.30 mg/dL LAB CHEMISTRY METHOD 10/18/2024 3:22 PM [facility] eGFR 12(L) >=60 mL/min/1. 73m2 LAB CHEMISTRY METHOD 10/18/2024 3:22 PM [facility] Comment:Calculation based on the??Chronic Kidney Disease Epidemiology Collaboration (CKD-EPI) equation refit??without adjustment for race. BUN/Creatinine Ratio 10.5 LAB CHEMISTRY METHOD 10/18/2024 3:22 PM [facility] Calcium 9.7 8.5 - 10.5 mg/dL LAB CHEMISTRY METHOD 10/18/2024 3:22 PM EST [facility] Blood Venous blood specimen / Unknown Venipuncture / Unknown 10/18/2024 6:04 AM EST 10/18/2024 11:21 AM EST us Logan Bautista MD LAB BLOOD ORDERABLES Final Res ult [facility] [address] [place] [address], documented in this encounter Visit Diagnoses Diagnosis Type 2 diabetes mellitus without complications (CMS/HCC) documented in this encounter Care Teams Motion Picture Film Examiner Relationship Specialty Start Date End Date Jim Lundberg MD [address] [facility] [address] [place], [place] PCP - General Pulmonary Disease 02/26/19 documented as of this encounter
--- OUTSIDE RECORDS SUMMARY | 2025-02-01 18:00 | XMS_ITS | Encounter Summary ---
Author Organization [facility] Address [address] [place] [address] Care Team Providers Care Pet Resort Concierge Name Role Phone Jim Lundberg MD Primary Care Provider [phone] Encounter Details Date Type Department Care Team (Late st Contact Info) Description 10/02/2024 Lab Requisition [facility] - Main Lab [address] [place] [address] Logan Bautista MD [address] [place] [address] Fusion of spine, cervical region Social History [...] LAB CHEMISTRY METHOD 10/02/2024 11:20 AM EDT [facility] ([facility] LAB Blood Venous blood specimen / Unknown Venipuncture / Unknown 10/02/2024 5:15 AM EDT 10/02/2024 9:59 AM EDT Logan Bautista MD LAB BLOOD ORDERABLES Final Res ult Performing Organization Address [facility]/ZIP Co de Phone Number [facility] [address] [place] [address], [place] [phone] * (ABNORMAL) Ferritin (10/02/2024 5:15 AM EDT) Ferritin 965(H) 26 - 388 ng/mL LAB CHEMISTRY METHOD 10/02/2024 11:22 AM EDT [facility] LAB Blood Venous blood specimen / Unknown Venipuncture / Unknown 10/02/2024 5:15 AM EDT 10/02/2024 9:59 AM EDT Logan Bautista MD LAB BLOOD ORDERABLES Final Res ult Performing Organization Address [facility] Co de Phone Number [facility] [address] [place] [address], [place] [phone] * (ABNORMAL) Basic metabolic panel (10/02/2024 5:15 AM EDT) Sodium 131(L) 133 - 145 mmol/L LAB CHEMISTRY METHOD 10/02/2024 11:52 AM EDT [facility] LAB Potassium 3.8 3.5 - 5.5 mmol/L LAB CHEMISTRY METHOD 10/02/2024 11:52 AM EDT [facility] LAB Chloride 93(L) 96 - 110 mmol/L LAB CHEMISTRY METHOD 10/02/2024 11:52 AM EDT [facility] LAB CO2 28 21 - 32 mmol/L LAB CHEMISTRY METHOD 10/02/2024 11:52 AM EDT [facility] LAB Anion Gap 10 3 - 11 LAB CHEMISTRY METHOD 10/02/2024 11:52 AM [facility] LAB Glucose 80 70 - 100 mg/dL LAB CHEMISTRY METHOD 10/02/2024 11:52 AM [facility] LAB BUN 41(H) 5 - 25 mg/dL LAB CHEMISTRY METHOD 10/02/2024 11:52 AM [facility] LAB Creatinine 3.97(H) 0.70 - 1.30 mg/dL LAB CHEMISTRY METHOD 10/02/2024 11:52 AM [facility] LAB Comment:Results verified by repeat testing eGFR 16(L) >=60 mL/min/1. 73m2 LAB CHEMISTRY METHOD 10/02/2024 11:52 AM [facility] LAB Comment:Calculation based on the??Chronic Kidney Disease Epidemiology Collaboration (CKD-EPI) equation refit??without adjustment for race. BUN/Creatinine Ratio 10.3 LAB CHEMISTRY METHOD 10/02/2024 11:52 AM [facility] LAB Calcium 9.0 8.5 - 10.5 mg/dL LAB CHEMISTRY METHOD 10/02/2024 11:52 AM [facility] LAB Blood Venous blood specimen / Unknown Venipuncture / Unknown 10/02/2024 5:15 AM EDT 10/02/2024 9:59 AM EDT us Logan Bautista MD LAB BLOOD ORDERABLES Final Res ult [facility] [address] [place] [address], [place] [phone] documented in this encounter Visit Diagnoses Diagnosis Fusion of spine, cervical region documented in this encounter Care Teams Pet Resort Concierge Relationship Specialty Start Date End Date Jim Lundberg MD [address] [facility] [address] [place], [place] PCP - General Pulmonary Disease 02/26/19 documented as of this encounter
--- OUTSIDE RECORDS SUMMARY | 2025-02-01 18:00 | XMS_ITS | Encounter Summary ---
Author Organization [facility] Address [address] [place] [address] Care Team Providers Care Computer Field Technician Name Role Phone Jim Lundberg MD Primary Care Provider [phone] Encounter Details Date Type Department Care Team (Latest Contact Info) Description 10/08/2024 Lab Requisition [facility] - Main Lab [address] [place] [address] Logan Bautista MD [address] [place] [address] Other cervical disc displacement, cervicothoracic region Social [...] AM EST) WBC 4.8 4.8 - 10.8 K/[facility] LAB HEMETOLOGY METHOD 10/08/2024 9:21 AM EST [facility] RBC 2.40(L) 4.50 - 5.50 M/mcL LAB HEMETOLOGY METHOD 10/08/2024 9:21 AM [facility] LAB Hemoglobin 7.5(L) 13.5 - 17.5 g/dL LAB HEMETOLOGY METHOD 10/08/2024 9:21 AM [facility] LAB Hematocrit 23.5(L) 42.0 - 54.0 % LAB HEMETOLOGY METHOD 10/08/2024 9:21 AM [facility] LAB MCV 99.6(H) 79.0 - 98.0 FL LAB HEMETOLOGY METHOD 10/08/2024 9:21 AM [facility] LAB MCH 31.8 27.0 - 32.0 pcg LAB HEMETOLOGY METHOD 10/08/2024 9:21 AM [facility] LAB MCHC 31.9(L) 32.0 - 37.0 g/dL LAB HEMETOLOGY METHOD 10/08/2024 9:21 AM [facility] LAB RDW 13.3 11.0 - 15.0 % LAB HEMETOLOGY METHOD 10/08/2024 9:21 AM [facility] LAB Platelets 228 130 - 400 K/mcL LAB HEMETOLOGY METHOD 10/08/2024 9:21 AM [facility] LAB MPV 10.1 7.0 - 11.0 FL LAB HEMETOLOGY METHOD 10/08/2024 9:21 AM [facility] LAB NRBC 0.0 <1.0 % LAB HEMETOLOGY METHOD 10/08/2024 9:21 AM [facility] LAB NRBC Absolute 0.00 <0.10 K/mcL LAB HEMETOLOGY METHOD 10/08/2024 9:21 AM [facility] LAB Blood Venous blood specimen / Unknown Venipuncture / Unknown 10/08/2024 5:46 AM EST 10/08/2024 8:29 AM EST Logan Bautista MD LAB BLOOD ORDERABLES Final Res ult [facility] [address] [place] [address], * (ABNORMAL) Basic metabolic panel (10/08/2024 5:46 AM EST) Sodium 130(L) 133 - 145 mmol/L LAB CHEMISTRY METHOD 10/08/2024 9:45 AM EST [facility] LAB Potassium 4.3 3.5 - 5.5 mmol/L LAB CHEMISTRY METHOD 10/08/2024 9:45 AM [facility] LAB Chloride 94(L) 96 - 110 mmol/L LAB CHEMISTRY METHOD 10/08/2024 9:45 AM [facility] LAB CO2 27 21 - 32 mmol/L LAB CHEMISTRY METHOD 10/08/2024 9:45 AM EST [facility] LAB Anion Gap 9 3 - 11 LAB CHEMISTRY METHOD 10/08/2024 9:45 AM [facility] LAB Glucose 98 70 - 100 mg/dL LAB CHEMISTRY METHOD 10/08/2024 9:45 AM [facility] LAB BUN 37(H) 5 - 25 mg/dL LAB CHEMISTRY METHOD 10/08/2024 9:45 AM [facility] LAB Creatinine 4.60(H) 0.70 - 1.30 mg/dL LAB CHEMISTRY METHOD 10/08/2024 9:45 AM EST [facility] LAB eGFR 13(L) >=60 mL/min/1. 73m2 LAB CHEMISTRY METHOD 10/08/2024 9:45 AM [facility] LAB Comment:Calculation based on the??Chronic Kidney Disease Epidemiology Collaboration (CKD-EPI) equation refit??without adjustment for race. BUN/Creatinine Ratio 8.0 LAB CHEMISTRY METHOD 10/08/2024 9:45 AM [facility] LAB Calcium 10.2 8.5 - 10.5 mg/dL LAB CHEMISTRY METHOD 10/08/2024 9:45 AM EST [facility] LAB Blood Venous blood specimen / Unknown Venipuncture / Unknown 10/08/2024 5:46 AM EST 10/08/2024 8:29 AM EST us Logan Bautista MD LAB BLOOD ORDERABLES Final Res ult [facility] [address] [place] [address], documented in this encounter Visit Diagnoses Diagnosis Other cervical disc displacement, cervicothoracic region documented in this encounter Care Teams Computer Field Technician Relationship Specialty Start Date End Date Jim Lundberg MD [address] [facility] [address] [place], [place] PCP - General Pulmonary Disease 02/26/19 documented as of this encounter
--- OUTSIDE RECORDS SUMMARY | 2025-02-01 18:00 | XMS_ITS | Encounter Summary ---
Author Organization [facility] Address [address] [place] [address] Care Team Providers Care Press Operator Assistant Name Role Phone Jim Lundberg MD Primary Care Provider [phone] Encounter Details Date Type Department Care Team (Late st Contact Info) Description 10/04/2024 Lab Requisition [facility] - Main Lab [address] [facility] [place] [address] Logan Bautista MD [address] [place] [address] Wedge compression fracture of unspecified thoracic vertebra, [...] Results * Phosphorus (10/04/2024 6:35 AM EST) Phosphorus 4.4 2.5 - 4.5 mg/dL LAB CHEMISTRY METHOD 10/04/2024 4:[address] [facility] LAB Blood Venous blood specimen / Unknown Venipuncture / Unknown 10/04/2024 6:35 AM EST 10/04/2024 12:01 PM EST us Logan Bautista MD LAB BLOOD ORDERABLES Final Res ult [facility] [address] [place] [address], * (ABNORMAL) Complete blood count (10/04/2024 6:35 AM EST) [facility] WBC 6.4 4.8 - 10.8 K/mcL LAB HEMETOLOGY METHOD 10/04/2024 12:[address] [facility] LAB RBC 2.40(L) 4.50 - 5.50 M/[facility] LAB HEMETOLOGY METHOD 10/04/2024 12:[address] [facility] LAB Hemoglobin 7.8(L) 13.5 - 17.5 g/dL LAB HEMETOLOGY METHOD 10/04/2024 12:[address] [facility] LAB Hematocrit 24.6(L) 42.0 - 54.0 % LAB HEMETOLOGY METHOD 10/04/2024 12:[address] [facility] LAB MCV 100.8(H) 79.0 - 98.0 FL LAB HEMETOLOGY METHOD 10/04/2024 12:[address] [facility] LAB MCH 32.0 27.0 - 32.0 pcg LAB HEMETOLOGY METHOD 10/04/2024 12:[address] [facility] LAB MCHC 31.7(L) 32.0 - 37.0 g/dL LAB HEMETOLOGY METHOD 10/04/2024 12:48 PM EST [facility] LAB RDW 13.2 11.0 - 15.0 % LAB HEMETOLOGY METHOD 10/04/2024 12:[address] [facility] LAB Platelets 256 130 - 400 K/mcL LAB HEMETOLOGY METHOD 10/04/2024 12:[address] [facility] LAB MPV 10.3 7.0 - 11.0 FL LAB HEMETOLOGY METHOD 10/04/2024 12:[address] [facility] LAB NRBC 0.0 <1.0 % LAB HEMETOLOGY METHOD 10/04/2024 12:[address] [facility] LAB NRBC Absolute 0.00 <0.10 K/mcL LAB HEMETOLOGY METHOD 10/04/2024 12:[address] [facility] LAB Blood Venous blood specimen / Unknown Venipuncture / Unknown 10/04/2024 6:35 AM EST 10/04/2024 12:01 PM EST us Logan Bautista MD LAB BLOOD ORDERABLES Final Res ult [facility] [address] [place] [address], * (ABNORMAL) Basic metabolic panel (10/04/2024 6:35 AM EST) Sodium 129(L) 133 - 145 mmol/L LAB CHEMISTRY METHOD 10/04/2024 1:[address] [facility] Potassium 4.0 3.5 - 5.5 mmol/L LAB CHEMISTRY METHOD 10/04/2024 1:[address] [facility] Chloride 91(L) 96 - 110 mmol/L LAB CHEMISTRY METHOD 10/04/2024 1:[address] [facility] CO2 28 21 - 32 mmol/L LAB CHEMISTRY METHOD 10/04/2024 1:[address] [facility] LAB Anion Gap 10 3 - 11 LAB CHEMISTRY METHOD 10/04/2024 1:[address] [facility] Glucose 103(H) 70 - 100 mg/dL LAB CHEMISTRY METHOD 10/04/2024 1:[address] [facility] BUN 56(H) 5 - 25 mg/dL LAB CHEMISTRY METHOD 10/04/2024 1:[address] [facility] LAB Creatinine 5.64(H) 0.70 - 1.30 mg/dL LAB CHEMISTRY METHOD 10/04/2024 1:[address] [facility] LAB eGFR 10(L) >=60 mL/min/1. 73m2 LAB CHEMISTRY METHOD 10/04/2024 1:[address] [facility] LAB Comment:Calculation based on the??Chronic Kidney Disease Epidemiology Collaboration (CKD-EPI) equation refit??without adjustment for race. BUN/Creatinine Ratio 9.9 LAB CHEMISTRY METHOD 10/04/2024 1:[address] [facility] LAB Calcium 9.6 8.5 - 10.5 mg/dL LAB CHEMISTRY METHOD 10/04/2024 1:[address] [facility] LAB Blood Venous blood specimen / Unknown Venipuncture / Unknown 10/04/2024 6:35 AM EST 10/04/2024 12:01 PM EST us Logan Bautista MD LAB BLOOD ORDERABLES Final Res ult [facility] [address] [place] [address], documented in this encounter Visit Diagnoses Diagnosis Wedge compression fracture of unspecified thoracic vertebra, initial encounter for closed fracture (CMS/HCC) Spinal stenosis, site unspecified documented in this encounter Care Teams Press Operator Assistant Relationship Specialty Start Date End Date Jim Lundberg MD [address] [facility] [address] [place], [place] PCP - General Pulmonary Disease 3/29/19 documented as of this encounter
--- OUTSIDE RECORDS SUMMARY | 2025-02-01 18:00 | XMS_ITS | Encounter Summary ---
Author Organization [facility] Address [address] [facility] [address] [place] [address] Phone Care Team Providers Care Sheet Pile Hammer Operator Name Role Phone Damon Orta MD Primary Care Provider [phone] Encounter Details Date Type Department Care Team (Late st Contact Info) Description 10/10/2022 Telephone [facility] [address] [place] [phone] Rusty Milian MD [address] [facility] [address] [place] [phone] Social History Tobacco Use Types Packs/Day Years [...] Lisa Huynh - 10/10/2022 1:55 PM EST [facility] called pts insurance in inactive and he will be listed as self pay for his upcoming appt. If he has any other active insurances please call them back at [phone]. Thank you documented in this encounter Plan of Treatment Not on file documented as of this encounter Visit Diagnoses Not on filedocumented in this encounter Care Teams Sheet Pile Hammer Operator Relationship Specialty Start Date End Date Damon Orta MD [address] [place] PCP - General Internal Medicine 12/31/21 documented as of this encounter
--- OUTSIDE RECORDS SUMMARY | 2025-02-01 18:00 | XMS_ITS | Encounter Summary ---
Author Organization [facility] Address [address] [address] Care Team Providers Care [place] Upholsterer Name Role Phone Damon Orta MD Primary Care Provider [phone] Encounter Details Date Type Department Care Team (Latest Contact Info) Description 08/04/2024 Treatment Sebastián Franco MD [address] [phone] Social History Tobacco Use Types Packs/Day Years [...] care for end stage renal disease. Attending Public Health Physician: SEBASTIÁN FRANCO MD Dialysis Location: [facility] Schedule: Shift: 1 OVERVIEW Patient is stable. HOME MEDICATIONS Medications reviewed. [facility] Outpatient Medications amLODIPine (NORVASC) 5 MG [...] 0.7 MG IZ IMPL Start Date: RETACRIT [id number] UNIT/ML IJ SOLN Inject as directed Start [...] on filedocumented in this encounter Care Teams [place] Upholsterer Relationship Specialty Start Date End Date Damon Orta MD [address] [place] [address] [address] [place] PCP - General Internal Medicine 12/31/21 documented as of this encounter
--- OUTSIDE RECORDS SUMMARY | 2025-02-01 18:01 | XMS_ITS | Encounter Summary ---
Author Organization [facility] Address [address] [place] [address] Phone Care Team Providers Care Ballaster Name Role Phone Damon Orta MD Primary Care Provider [phone] Encounter Details Date Type Department Care Team (Late st Contact Info) Description 12/18/2023 Office Communication [facility] [address] [place] [phone] Sherry Schuster, RN [address] [place] [address] Social History Tobacco Use Types Packs/Day Years [...] on filedocumented in this encounter Care Teams Ballaster Relationship Specialty Start Date End Date Damon Orta MD [address] [facility] - General Internal Medicine 12/31/21 documented as of this encounter
--- OUTSIDE RECORDS SUMMARY | 2025-02-01 18:01 | XMS_ITS | Encounter Summary ---
Author Organization [facility] Address [address] [place] [address] Care Team Providers Care Aperture Mask Etcher Name Role Phone Jim Lundberg MD Primary Care Provider [phone] Encounter Details Date Type Department Care Team (Late st Contact Info) Description 01/01/2025 Lab Requisition [facility] - Main Lab [address] [facility] [place] [address] Logan Bautista MD [address] [place] [address] Encounter for other general examination Social History Tobacco Use Types Packs/Day Years [...] Diagnosis Comments CBC WITH AUTO DIFFERENTIAL Routine 01/01/2025 5:42 AM EST Encounter for other general examination CBC AND DIFFERENTIAL Routine 01/01/2025 5:42 AM EST Encounter for other general examination MAGNESIUM Routine 01/01/2025 5:42 AM EST Encounter for other general examination COMPREHENSIVE METABOLIC PANEL Routine 01/01/2025 5:42 AM EST Encounter for other general examination documented in this encounter Results * (ABNORMAL) CBC auto differential (01/01/2025 5:42 AM EST) WBC 8.3 4.8 - 10.8 K/mcL LAB HEMETOLOGY METHOD 01/01/2025 11:46 AM [facility] RBC 3.50(L) 4.50 - 5.50 M/mcL LAB HEMETOLOGY METHOD 01/01/2025 11:46 AM [facility] LAB Hemoglobin 10.9(L) 13.5 - 17.5 g/dL LAB HEMETOLOGY METHOD 01/01/2025 11:46 AM [facility] LAB Hematocrit 33.6(L) 42.0 - 54.0 % LAB HEMETOLOGY METHOD 01/01/2025 11:46 AM [facility] LAB MCV 95.7 79.0 - 98.0 FL LAB HEMETOLOGY METHOD 01/01/2025 11:46 AM [facility] LAB MCH 31.1 27.0 - 32.0 pcg LAB HEMETOLOGY METHOD 01/01/2025 11:46 AM [facility] LAB MCHC 32.4 32.0 - 37.0 g/dL LAB HEMETOLOGY METHOD 01/01/2025 11:46 AM [facility] LAB RDW 14.5 11.0 - 15.0 % LAB HEMETOLOGY METHOD 01/01/2025 11:46 AM [facility] LAB Platelets 234 130 - 400 K/mcL LAB HEMETOLOGY METHOD 01/01/2025 11:46 AM [facility] LAB MPV 10.0 7.0 - 11.0 FL LAB HEMETOLOGY METHOD 01/01/2025 11:46 AM [facility] NRBC 0.0 <1.0 % LAB HEMETOLOGY METHOD 01/01/2025 11:46 AM [facility] NRBC Absolute 0.00 <0.10 K/mcL LAB HEMETOLOGY METHOD 01/01/2025 11:46 AM [facility] Neutrophils Relative 68.3 % LAB HEMETOLOGY METHOD 01/01/2025 11:46 AM [facility] Lymphocytes Relative 17.7 % LAB HEMETOLOGY METHOD 01/01/2025 11:46 AM [facility] Monocytes Relative 9.0 % LAB HEMETOLOGY METHOD 01/01/2025 11:46 AM [facility] Eosinophils Relative 2.5 % LAB HEMETOLOGY METHOD 01/01/2025 11:46 AM [facility] Basophils Relative 0.7 % LAB HEMETOLOGY METHOD 01/01/2025 11:46 AM [facility] Immature Granulocytes Relative 1.8 % LAB HEMETOLOGY METHOD 01/01/2025 11:46 AM [facility] Neutrophils Absolute 5.63 1.50 - 7.00 K/mcL LAB HEMETOLOGY METHOD 01/01/2025 11:46 AM [facility] Lymphocytes Absolute 1.46 1.00 - 5.00 K/mcL LAB HEMETOLOGY METHOD 01/01/2025 11:46 AM [facility] Monocytes Absolute 0.74 0.20 - 1.00 K/mcL LAB HEMETOLOGY METHOD 01/01/2025 11:46 AM [facility] Eosinophils Absolute 0.21 0.00 - 0.50 K/mcL LAB HEMETOLOGY METHOD 01/01/2025 11:46 AM [facility] Basophils Absolute 0.06 0.00 - 0.20 K/mcL LAB HEMETOLOGY METHOD 01/01/2025 11:46 AM [facility] Immature Granulocytes Absolute 0.15(H) 0.00 - 0.03 K/mcL LAB HEMETOLOGY METHOD 01/01/2025 11:46 AM [facility] Blood Venous blood specimen / Unknown Venipuncture / Unknown 01/01/2025 5:42 AM EST 01/01/2025 10:09 AM EST Logan Bautista MD LAB BLOOD ORDERABLES Final Res ult [facility] [address] [place] [address], [place] [phone] * Magnesium (01/01/2025 5:42 AM EST) Magnesium 2.3 1.9 - 2.6 mg/dL LAB CHEMISTRY METHOD 01/01/2025 11:55 AM EST [facility] Blood Venous blood specimen / Unknown Venipuncture / Unknown 01/01/2025 5:42 AM EST 01/01/2025 10:09 AM EST Logan Bautista MD LAB BLOOD ORDERABLES Final Res ult Performing Organization Address City/[facility]/ZIP Co de Phone Number [facility] [address] [place] [address], [place] [phone] * (ABNORMAL) Comprehensive metabolic panel (01/01/2025 5:42 AM EST) Pathologist [facility] Sodium 132(L) 133 - 145 mmol/L LAB CHEMISTRY METHOD 01/01/2025 11:55 AM [facility] Potassium 3.8 3.5 - 5.5 mmol/L LAB CHEMISTRY METHOD 01/01/2025 11:55 AM [facility] Chloride 93(L) 96 - 110 mmol/L LAB CHEMISTRY METHOD 01/01/2025 11:55 AM [facility] CO2 29 21 - 32 mmol/L LAB CHEMISTRY METHOD 01/01/2025 11:55 AM [facility] Anion Gap 10 3 - 11 LAB CHEMISTRY METHOD 01/01/2025 11:55 AM [facility] Glucose 107(H) 70 - 100 mg/dL LAB CHEMISTRY METHOD 01/01/2025 11:55 AM [facility] BUN 33(H) 5 - 25 mg/dL LAB CHEMISTRY METHOD 01/01/2025 11:55 AM [facility] Creatinine 3.93(H) 0.70 - 1.30 mg/dL LAB CHEMISTRY METHOD 01/01/2025 11:55 AM [facility] LAB eGFR 16(L) >=60 mL/min/1. 73m2 LAB CHEMISTRY METHOD 01/01/2025 11:55 AM [facility] LAB Comment:Calculation based on the??Chronic Kidney Disease Epidemiology Collaboration (CKD-EPI) equation refit??without adjustment for race. BUN/Creatinine Ratio 8.4 LAB CHEMISTRY METHOD 01/01/2025 11:55 AM [facility] Calcium 8.7 8.5 - 10.5 mg/dL LAB CHEMISTRY METHOD 01/01/2025 11:55 AM [facility] AST (SGOT) 20 10 - 42 unit/L LAB CHEMISTRY METHOD 01/01/2025 11:55 AM [facility] ALT (SGPT) 23 10 - 60 unit/L LAB CHEMISTRY METHOD 01/01/2025 11:55 AM [facility] Alkaline Phosphatase 291(H) 42 - 121 unit/L LAB CHEMISTRY METHOD 01/01/2025 11:55 AM [facility] Total Protein 6.9 6.0 - 8.0 g/dL LAB CHEMISTRY METHOD 01/01/2025 11:55 AM [facility] Albumin 3.0(L) 3.2 - 5.0 g/dL LAB CHEMISTRY METHOD 01/01/2025 11:55 AM [facility] Total Bilirubin 0.6 0.0 - 1.4 mg/dL LAB CHEMISTRY METHOD 01/01/2025 11:55 AM [facility] Blood Venous blood specimen / Unknown Venipuncture / Unknown 01/01/2025 5:42 AM EST 01/01/2025 10:09 AM EST Logan Bautista MD LAB BLOOD ORDERABLES Final Res ult [facility] LAB [address] [place] [address], documented in this encounter Visit Diagnoses Diagnosis Encounter for other general examination documented in this encounter Care Teams Aperture Mask Etcher Relationship Specialty Start Date End Date Jim Lundberg MD [address] [facility] [address] [place], [place] PCP - General Pulmonary Disease 02/26/19 documented as of this encounter
--- OUTSIDE RECORDS SUMMARY | 2025-02-01 18:01 | XMS_ITS | Continuity of Care Document ---
Author Organization [facility] Address [address] [place] [address]- Care Team Providers Care Faculty Administrator Name Role Phone Damon Orta MD Primary Care Physician Encounter [facility] – [place] Date(s): 01/12/25 - 01/19/25 [facility] [address] [place] [address] [[email or web address]] Attending Physician: Raimundo MONTEMAYOR, Carmelita Aggarwal Admitting Physician: Raimundo MONTEMAYOR, Carmelita Aggarwal Referring Physician: Damon Orta MD Encounter Type: Office Visit Allergies, Adverse Reactions, Alerts No Known Allergies Immunizations Given and Recorded Vaccine Date Status Refusal Reason SARS-CoV-2(COVID-19)mRNA-LNP vac([id number]) 08/21/24 Recorded SARS-CoV-2(COVID-19)mRNA-LNP vac([id number]) 09/05/23 Recorded zoster vaccine, inactivated 04/25/23 Recorded zoster vaccine, inactivated 08/23/22 Recorded [id number] bivalent booster vax 04/25/23 Recorded [id number] bivalent booster vax 08/23/22 Recorded hepatitis B [...] Quantity: 30.0 Unit: tablet Repeat number: 1 Breo Ellipta 100 mcg-25 mcg/inh inhalation powder 1 inhalation, Inhalation, Daily, at the same time every day, 0 Refills, Maintenance, 12/25/24 8:50:00 AM EST, Powder, Partial fill upon patient request if the prescription is for a schedule II opioid drug. Start Date: 12/25/24 Status: Ordered Repeat number: 1 Calcium Carbonate 3 tablets, By Mouth, 3 times a day, with meals, 0 Refills, Maintenance, 01/01/23 2:26:00 PM EST, Partial fill upon patient request if the prescription is for a schedule II opioid drug. Start Date: 01/01/23 Status: Ordered Repeat number: 1 gabapentin 300 mg oral capsule 300 mg, 1, capsule, By Mouth, Daily Start Date: 12/25/24 Status: Ordered Repeat number: 1 Januvia = 50 mg, [...] 5 mg, 1, tablet, By Mouth, sun, , th and sat am, Refills 0, Maintenance, 09/21/24 2:00:00 PMEDT, Partial fill upon patient request if the prescription is for a schedule II opioid drug. Start Date: 09/21/24 Status: Ordered Repeat number: 1 Multivitamin 1 tablet, By Mouth, Daily, 0 Refills, Maintenance, 09/13/19 11:39:01 AM EDT Start Date: 09/13/19 Status: Ordered Repeat number: 1 sevelamer carbonate 800 mg oral tablet = 800 mg, By Mouth, 3 times a day with meals, 0 Refills, Maintenance, 12/31/24 10:53:00 AM EST, Tablet, Partial fill upon patient request if the prescription is for a schedule II opioid drug. Start Date: 12/31/24 Status: Ordered Repeat number: 1 Vitamin D3 [...] List Condition Confirmation Course Effective Dates Status [facility] Informant End-stage renal disease Confirmed Active Hypotension Confirmed Active Diabetic neuropathy Confirmed Active Obese class I Confirmed Active Type 2 diabetes mellitus Confirmed Active Vital Signs Most recent to oldest [Reference Range]: 1 Height 167 cm (01/12/25 8:39 AM) Weight 97.6 kg (01/12/25 8:39 AM) Oxygen Saturation [94-100 %] 97 % (01/12/25 8:39 AM) Pulse Rate [55-90 bpm] 77 bpm (01/12/25 8:39 AM) Body Mass Index [18.5-24.99 kg/m2] 35 kg /m2 *>HHI* (01/12/25 8:39 AM) Blood Pressure [90-138/55-84 mm Hg] 90/6 6mm Hg (01/12/25 8:39 AM) Mode of Delivery (Oxygen) Room air (01/12/25 8:39 AM) Blood pressure sites Arm, right (01/12/25 8:39 AM) Weight Obtained Via Patient/family state d (01/12/25 8:39 AM) Patient Care team information Care Team Personnel Name: Therese Montesinos RN Position: S RN Member Role: Primary Care Nurse Name: Rebecca Kidd RN Position: S RN Member Role: Primary Care Nurse Name: Massiel Haas RN Position: S RN Member Role: Primary Care Nurse Name: Liberty Alaniz Position: [facility] Outreach Member Role: Lifetime Consulting Physician Name: Damon Orta MD Position: [facility] Outreach Member Role: PCP Address: [address] [place] [address] [place] [address]- [place] Telecom: Name: Mehnaz Carrero Position: [facility] Associate Professional Member Role: Lifetime Consulting Provider Address: [address] [facility] [address] [facility] [address] Telecom: Name: Rusty Puentes MD Position: [facility] Renal MD Member Role: Lifetime Consulting Physician Address: [address] [facility] [address] [facility] [place], [place] [address] Telecom: Name: Mignon Mcdonough RN Position: [facility] RN Member Role: Lifetime Consulting Physician Name: Lilliana Vazquez NP Position: [facility] Associate Professional Member Role: Lifetime Consulting Provider Address: [address] [place] [address] [address] [facility] [place] [address]- [place] Telecom: Name: Aysha Figueroa RN Position: S RN Member Role: Primary Care Nurse Name: Maryam Martinez RN Position: S RN Member Role: Primary Care Nurse Name: Maya Mcmahon RN Position: S RN Member Role: Primary Care Nurse Name: Amarilis Colbert RN Position: S RN Member Role: Primary Care Nurse Name: Cornelia CUEVAS, Jonathan Position: [facility] Renal MD Member Role: Lifetime Consulting Physician Address: [address] [facility] [address] [facility] [address] Telecom: Name: Fatou Brasher RN Position: S RN Member Role: Primary Care Nurse Name: Quin Rasmussen RN Position: S RN Member Role: Primary Care Nurse Name: Fiorella Gusman RN Position: S RN Member Role: Primary Care Nurse Name: Brittney Zuleta RN Position: S RN Member Role: Primary Care Nurse Name: Quentin Pineda RN Position: [facility] RN Member Role: Primary Care Nurse Care Team Related Persons Name: RENATO GHOTRA Insurance Providers Guarantor [facility] Information #: 2 Payer: [employer] - Private Location [employer] HE[employer] PLAN Member Number: [id number] Policy Number: NA Group Number: NA Health Plan Information #: 4 Payer: [facility] HEALTH PLAN Member Number: [id number] Policy Number: NA Group Number: NA Health Plan Information #: 3 Payer: [employer] MED[employer]ARE SUPPL [id number] Member Number: [id number] Policy Number: NA Group Number: NA Health Plan Information #: 1 Payer: MEDICARE PART B OUTPT Member Number: [id number] Policy Number: NA Group Number: NA
--- OUTSIDE RECORDS SUMMARY | 2025-02-01 18:01 | XMS_ITS | Encounter Summary ---
Author Organization [facility] Address [address] [place] [address] Care Team Providers Care Capsule Filler Name Role Phone Jim Lundberg MD Primary Care Provider [phone] Encounter Details Date Type Department Care Team (Late st Contact Info) Description 01/13/2025 Lab Requisition [facility] - Main Lab [address] [place] [address] Logan Bautista MD [address] [place] [address] Encounter for other general examination Social History [...] Associated Diagnosis Comments COMPLETE BLOOD COUNT Routine 01/13/2025 5:01 AM EST Encounter for other general examination PHOSPHORUS Routine 01/13/2025 5:01 AM EST Encounter for other general examination COMPREHENSIVE METABOLIC PANEL Routine 01/13/2025 5:01 AM EST Encounter for other general examination documented in this encounter Results * Phosphorus (01/13/2025 5:01 AM EST) Phosphorus 4.2 2.5 - 4.5 mg/dL LAB CHEMISTRY METHOD 01/13/2025 8:35 AM EST [facility] Blood Venous blood specimen / Unknown Venipuncture / Unknown 01/13/2025 5:01 AM EST 01/13/2025 7:22 AM EST us Logan Bautista MD LAB BLOOD ORDERABLES Final Res ult [facility] [address] [place] [address], * (ABNORMAL) Complete blood count (01/13/2025 5:01 AM EST) WBC 5.5 4.8 - 10.8 K/mcL LAB HEMETOLOGY METHOD 01/13/2025 8:02 AM [facility] RBC 3.10(L) 4.50 - 5.50 M/mcL LAB HEMETOLOGY METHOD 01/13/2025 8:02 AM [facility] Hemoglobin 9.6(L) 13.5 - 17.5 g/dL LAB HEMETOLOGY METHOD 01/13/2025 8:02 AM [facility] Hematocrit 30.3(L) 42.0 - 54.0 % LAB HEMETOLOGY METHOD 01/13/2025 8:02 AM [facility] MCV 96.8 79.0 - 98.0 FL LAB HEMETOLOGY METHOD 01/13/2025 8:02 AM [facility] MCH 30.7 27.0 - 32.0 pcg LAB HEMETOLOGY METHOD 01/13/2025 8:02 AM [facility] MCHC 31.7(L) 32.0 - 37.0 g/dL LAB HEMETOLOGY METHOD 01/13/2025 8:02 AM [facility] RDW 15.0 11.0 - 15.0 % LAB HEMETOLOGY METHOD 01/13/2025 8:02 AM [facility] Platelets 161 130 - 400 K/mcL LAB HEMETOLOGY METHOD 01/13/2025 8:[address] [facility] MPV 10.2 7.0 - 11.0 FL LAB HEMETOLOGY METHOD 01/13/2025 8:[address] [facility] NRBC 0.0 <1.0 % LAB HEMETOLOGY METHOD 01/13/2025 8:[address] [facility] NRBC Absolute 0.00 <0.10 K/mcL LAB HEMETOLOGY METHOD 01/13/2025 8:[address] [facility] Blood Venous blood specimen / Unknown Venipuncture / Unknown 01/13/2025 5:01 AM EST 01/13/2025 7:22 AM EST us Logan Bautista MD LAB BLOOD ORDERABLES Final Res ult [facility] [address] [place] [address], * (ABNORMAL) Comprehensive metabolic panel (01/13/2025 5:01 AM EST) Sodium 134 133 - 145 mmol/L LAB CHEMISTRY METHOD 01/13/2025 8:35 AM [facility] Potassium 3.6 3.5 - 5.5 mmol/L LAB CHEMISTRY METHOD 01/13/2025 8:35 AM [facility] Chloride 97 96 - 110 mmol/L LAB CHEMISTRY METHOD 01/13/2025 8:35 AM [facility] CO2 29 21 - 32 mmol/L LAB CHEMISTRY METHOD 01/13/2025 8:35 AM [facility] Anion Gap 8 3 - 11 LAB CHEMISTRY METHOD 01/13/2025 8:35 AM [facility] Glucose 86 70 - 100 mg/dL LAB CHEMISTRY METHOD 01/13/2025 8:35 AM [facility] BUN 38(H) 5 - 25 mg/dL LAB CHEMISTRY METHOD 01/13/2025 8:35 AM [facility] Creatinine 3.35(H) 0.70 - 1.30 mg/dL LAB CHEMISTRY METHOD 01/13/2025 8:35 AM [facility] eGFR 19(L) >=60 mL/min/1. 73m2 LAB CHEMISTRY METHOD 01/13/2025 8:35 AM [facility] Comment:Calculation based on the??Chronic Kidney Disease Epidemiology Collaboration (CKD-EPI) equation refit??without adjustment for race. BUN/Creatinine Ratio 11.3 LAB CHEMISTRY METHOD 01/13/2025 8:35 AM [facility] Calcium 8.7 8.5 - 10.5 mg/dL LAB CHEMISTRY METHOD 01/13/2025 8:35 AM [facility] AST (SGOT) 22 10 - 42 unit/L LAB CHEMISTRY METHOD 01/13/2025 8:35 AM [facility] ALT (SGPT) 21 10 - 60 unit/L LAB CHEMISTRY METHOD 01/13/2025 8:35 AM [facility] Alkaline Phosphatase 260(H) 42 - 121 unit/L LAB CHEMISTRY METHOD 01/13/2025 8:35 AM [facility] Total Protein 6.8 6.0 - 8.0 g/dL LAB CHEMISTRY METHOD 01/13/2025 8:35 AM [facility] Albumin 3.0(L) 3.2 - 5.0 g/dL LAB CHEMISTRY METHOD 01/13/2025 8:35 AM [facility] Total Bilirubin 0.5 0.0 - 1.4 mg/dL LAB CHEMISTRY METHOD 01/13/2025 8:35 AM [facility] Blood Venous blood specimen / Unknown Venipuncture / Unknown 01/13/2025 5:01 AM EST 01/13/2025 7:22 AM EST Logan Bautista MD LAB BLOOD ORDERABLES Final Res ult [facility] [address] [place] [address], documented in this encounter Visit Diagnoses Diagnosis Encounter for other general examination documented in this encounter Care Teams Capsule Filler Relationship Specialty Start Date End Date Jim Lundberg MD [address] [facility] [address] Floor [place], [place] PCP - General Pulmonary Disease 02/26/19 documented as of this encounter
--- OUTSIDE RECORDS SUMMARY | 2025-02-01 18:01 | XMS_ITS | Encounter Summary ---
Author Organization [facility] Address [address] [place] [address] Care Team Providers Care Ammonia Still Operator Name Role Phone Jim Lundberg MD Primary Care Provider [phone] Encounter Details Date Type Department Care Team (Late st Contact Info) Description 01/07/2025 Lab Requisition [facility] - Main Lab [address] [facility] [employer] [place] [address] Logan Bautista MD [address] [place] [address] Encounter for other general examination Social History [...] Diagnosis Comments CBC WITH AUTO DIFFERENTIAL Routine 01/07/2025 4:45 AM EST Encounter for other general examination CBC AND DIFFERENTIAL Routine 01/07/2025 4:45 AM EST Encounter for other general examination PHOSPHORUS Routine 01/07/2025 4:45 AM EST Encounter for other general examination BASIC METABOLIC PANEL Routine 01/07/2025 4:45 AM EST Encounter for other general examination documented in this encounter Results * (ABNORMAL) CBC auto differential (01/07/2025 4:45 AM EST) WBC 8.0 4.8 - 10.8 K/mcL LAB HEMETOLOGY METHOD 01/07/2025 11:37 AM [facility] RBC 3.30(L) 4.50 - 5.50 M/mcL LAB HEMETOLOGY METHOD 01/07/2025 11:37 AM [facility] Hemoglobin 10.2(L) 13.5 - 17.5 g/dL LAB HEMETOLOGY METHOD 01/07/2025 11:37 AM [facility] Hematocrit 32.0(L) 42.0 - 54.0 % LAB HEMETOLOGY METHOD 01/07/2025 11:37 AM [facility] MCV 98.5(H) 79.0 - 98.0 FL LAB HEMETOLOGY METHOD 01/07/2025 11:37 AM [facility] MCH 31.4 27.0 - 32.0 pcg LAB HEMETOLOGY METHOD 01/07/2025 11:37 AM [facility] MCHC 31.9(L) 32.0 - 37.0 g/dL LAB HEMETOLOGY METHOD 01/07/2025 11:37 AM [facility] RDW 15.0 11.0 - 15.0 % LAB HEMETOLOGY METHOD 01/07/2025 11:37 AM [facility] Platelets 178 130 - 400 K/mcL LAB HEMETOLOGY METHOD 01/07/2025 11:37 AM [facility] MPV 10.5 7.0 - 11.0 FL LAB HEMETOLOGY METHOD 01/07/2025 11:37 AM [facility] NRBC 0.0 <1.0 % LAB HEMETOLOGY METHOD 01/07/2025 11:37 AM [facility] NRBC Absolute 0.00 <0.10 K/mcL LAB HEMETOLOGY METHOD 01/07/2025 11:37 AM [facility] Neutrophils Relative 67.2 % LAB HEMETOLOGY METHOD 01/07/2025 11:37 AM [facility] Lymphocytes Relative 18.4 % LAB HEMETOLOGY METHOD 01/07/2025 11:37 AM [facility] Monocytes Relative 10.4 % LAB HEMETOLOGY METHOD 01/07/2025 11:37 AM [facility] Eosinophils Relative 2.4 % LAB HEMETOLOGY METHOD 01/07/2025 11:37 AM [facility] Basophils Relative 0.5 % LAB HEMETOLOGY METHOD 01/07/2025 11:37 AM [facility] Immature Granulocytes Relative 1.1 % LAB HEMETOLOGY METHOD 01/07/2025 11:37 AM [facility] Neutrophils Absolute 5.40 1.50 - 7.00 K/mcL LAB HEMETOLOGY METHOD 01/07/2025 11:37 AM [facility] Lymphocytes Absolute 1.48 1.00 - 5.00 K/mcL LAB HEMETOLOGY METHOD 01/07/2025 11:37 AM [facility] Monocytes Absolute 0.84 0.20 - 1.00 K/mcL LAB HEMETOLOGY METHOD 01/07/2025 11:37 AM [facility] Eosinophils Absolute 0.19 0.00 - 0.50 K/mcL LAB HEMETOLOGY METHOD 01/07/2025 11:37 AM [facility] Basophils Absolute 0.04 0.00 - 0.20 K/mcL LAB HEMETOLOGY METHOD 01/07/2025 11:37 AM [facility] Immature Granulocytes Absolute 0.09(H) 0.00 - 0.03 K/mcL LAB HEMETOLOGY METHOD 01/07/2025 11:37 AM [facility] Blood Venous blood specimen / Unknown Venipuncture / Unknown 01/07/2025 4:45 AM EST 01/07/2025 10:35 AM EST us Logan Bautista MD LAB BLOOD ORDERABLES Final Res ult Performing Organization Address [facility]/ZIP Co de Phone Number [facility] [address] [place] [address], [place] [phone] * (ABNORMAL) Phosphorus (01/07/2025 4:45 AM EST) Pathologist [facility] Phosphorus 5.1(H) 2.5 - 4.5 mg/dL LAB CHEMISTRY METHOD 01/07/2025 11:[address] [facility] Blood Venous blood specimen / Unknown Venipuncture / Unknown 01/07/2025 4:45 AM EST 01/07/2025 10:35 AM EST us Logan Bautista MD LAB BLOOD ORDERABLES Final Res ult Performing Organization Address [facility] Co de Phone Number [facility] [address] [place] [address], [place] [phone] * (ABNORMAL) Basic metabolic panel (01/07/2025 4:45 AM EST) [facility] Sodium 131(L) 133 - 145 mmol/L LAB CHEMISTRY METHOD 01/07/2025 11:57 AM [facility] Potassium 3.8 3.5 - 5.5 mmol/L LAB CHEMISTRY METHOD 01/07/2025 11:57 AM [facility] Chloride 96 96 - 110 mmol/L LAB CHEMISTRY METHOD 01/07/2025 11:57 AM [facility] CO2 24 21 - 32 mmol/L LAB CHEMISTRY METHOD 01/07/2025 11:57 AM [facility] Anion Gap 11 3 - 11 LAB CHEMISTRY METHOD 01/07/2025 11:57 AM [facility] Glucose 105(H) 70 - 100 mg/dL LAB CHEMISTRY METHOD 01/07/2025 11:57 AM [facility] BUN 59(H) 5 - 25 mg/dL LAB CHEMISTRY METHOD 01/07/2025 11:[address] [facility] Creatinine 4.74(H) 0.70 - 1.30 mg/dL LAB CHEMISTRY METHOD 01/07/2025 11:57 AM [facility] eGFR 13(L) >=60 mL/min/1. 73m2 LAB CHEMISTRY METHOD 01/07/2025 11:57 AM [facility] Comment:Calculation based on the??Chronic Kidney Disease Epidemiology Collaboration (CKD-EPI) equation refit??without adjustment for race. BUN/Creatinine Ratio 12.4 LAB CHEMISTRY METHOD 01/07/2025 11:57 AM [facility] Calcium 9.0 8.5 - 10.5 mg/dL LAB CHEMISTRY METHOD 01/07/2025 11:57 AM [facility] Blood Venous blood specimen / Unknown Venipuncture / Unknown 01/07/2025 4:45 AM EST 01/07/2025 10:35 AM EST us Logan Bautista MD LAB BLOOD ORDERABLES Final Res ult [facility] [address] [place] [address], documented in this encounter Visit Diagnoses Diagnosis Encounter for other general examination documented in this encounter Care Teams Ammonia Still Operator Relationship Specialty Start Date End Date Jim Lundberg MD [address] [facility] [address] [place], [place] PCP - General Pulmonary Disease 02/26/19 documented as of this encounter
--- OUTSIDE RECORDS SUMMARY | 2025-02-01 18:01 | XMS_ITS | Clinical Summary ---
Author Organization [facility] Address [address] [place] [address] Phone Care Team Providers Care Interlocking Pavement Installer Name Role Phone Damon Orta MD Primary Care Provider [phone] Allergies No known active allergies Medications Dexamethasone (Ozurdex) 0.7 MG implant Active losartan (COZAAR) 100 MG tablet Take 1 tablet by mouth 1 (one) time each day Active SITagliptin (JANUVIA) 100 MG tablet Take 50 mg by mouth 1 (one) time each day Active B Complex-Biotin- FA (Super B-100) tablet Take by mouth Ac tive Multiple Vitamin (MULTIVITAMIN ADULT PO) Take by mouth Active atorvastatin (LIPITOR) 20 MG tablet Take 1 tablet (20 mg total) by mouth 1 (one) time each day 90 tablet 3 09/26/2021 Active levothyroxine (SYNTHROID, LEVOTHROID) 100 MCG tablet Take 100 mcg by mouth 1 (one) time each day 09/23/2022 Active Epoetin Rah-epbx (Retacrit) 71445 UNIT/ML solution Inject as directed Active amLODIPine (NORVASC) 5 MG tablet Take 1 tablet (5 mg total) by mouth 1 (one) time each day 90 tablet 3 11/20/2023 Active torsemide (DEMADEX) 20 MG tablet Take 3 tablets (60 mg total) by mouth 1 (one) time each day 270 tablet 5 11/20/2023 Active midodrine (PROAMATINE) 5 MG tablet Take 1 tablet (5 mg total) by mouth 4 (four) times a week: Tues, Thurs, Sat, Sun 48 tablet 3 05/29/2024 Active calcium carbonate 1500 (600 Ca) MG tablet TAKE 2 TABLETS BY MOUTH 3 TIMES A DAY WITH MEALS 540 tablet 3 08/11/2024 Active gabapentin (NEURONTIN) 300 MG capsule Take 1 capsule (300 mg total) by mouth 1 (one) time each day 90 capsule 2 09/16/2024 06/13/20 25 Active D3-1000 25 MCG (1000 UT) capsule TAKE 2 CAPSULES (2,000 UNITS TOTAL) BY MOUTH 1 (ONE) TIME EACH DAY 60 capsule 11 12/05/2024 Active cholecalciferol (VITAMIN D-3) 250 MCG (52100 UT) capsule Take 1 capsule (10,000 Units total) by mouth in the morning and 1 capsule (10,000 Units total) in the evening. 180 capsule 3 11/26/2024 Active Hospital, Clinic, or Other Facility Administered Medication Ordered Dose Route Frequency Start Date End Date Status Epoetin Rah-epbx solution 10,000 UnitsIndications:Anemia in chronic kidney disease 09603 Units IJ Once 07/16/2022 A ctive Epoetin Rah-epbx solution 20,000 UnitsIndications:Chronic kidney disease, stage 4 (severe) ([facility]LY [facility]),Anemia in chronic kidney disease 31557 Units IJ Once 06/26/2023 A ctive Epoetin Rah-epbx solution 40,000 UnitsIndications:Chronic kidney disease, not otherwise specified,Anemia in chronic kidney disease 82140 Units IJ Once 07/31/2023 Active Active Problems [...] Encounters Date Type Department Care Team Description 01/31/2025 Treatment [facility] [address] [place] [phone] Emil Bauer MD End stage renal disease; Dependence on renal dialysis 01/26/2025 Treatment [facility] [address] [phone] Emil Bauer MD 01/19/2025 Treatment [facility] [address] [phone] Emil Bauer MD 12/22/2024 Treatment [facility] [address] [phone] Emil Bauer MD 12/15/2024 Treatment [facility] [address] [address] Emil Bauer MD 12/08/2024 Treatment [facility] [address] [phone] Emil Bauer MD 11/23/2024 Treatment [facility] [address] [phone] Emil Bauer MD 11/19/2024 Refill [facility] [address] [phone] Rusty Milian MD 11/17/2024 Treatment [facility] [address] [phone] Emil Bauer MD 11/10/2024 Treatment [facility] [address] [address] Emil Bauer MD from Last 3 Months [...] Vaccine (#1) 2024 09/30/2020 Diabetes: Hemoglobin A1C 04/16/2025 025, 12/08/2024, 05/15/2023, Additional history exists Procedures Procedure Name Priority Date/Time Associated Diagnosis Comments HEPATITIS B SURFACE ANTIGEN W/REFL CONFIRM Routine 01/21/2025 3:00 AM EST FERRITIN Routine 01/21/2025 3:00 AM EST ALUMINUM LEVEL Routine 01/17/2025 3:00 AM EST HEPATITIS C ABS W/REFLEX RNA DETECTR Routine 01/17/2025 3:00 AM EST HEPATITIS B CORE AB TOTAL Routine 01/17/2025 3:00 AM EST CONFIRMATION TEST HCV Routine 01/17/2025 3:00 AM EST HEMOGLOBIN A1C Routine 01/17/2025 3:00 AM EST TRANSFERRIN SATURATION Routine 3:00 AM EST URIC ACID Routine 01/17/2025 3:00 AM EST PROTEIN, TOTAL, SERUM Routine 01/17/2025 3:00 AM EST ELECTROLYTE PANEL Routine 01/17/2025 3:0 0 AM EST MAGNESIUM Routine 01/17/2025 3:00 AM EST LIPID PANEL Routine 01/17/2025 3:00 AM EST LIH (HC) Routine 01/17/2025 3:00 AM EST GLUCOSE, RANDOM Routine 01/17/2025 3:00 AM EST LACTATE DEHYDROGENASE Routine 01/17/2025 3:00 AM EST BILIRUBIN, TOTAL Routine 01/17/2025 3:00 AM EST CREATININE, SERUM Routine 01/17/2025 3:0 0 AM EST ALKALINE PHOSPHATASE Routine 01/17/2025 3:00 AM EST AST Routine 01/17/2025 3:00 AM EST ALT Routine 01/17/2025 3:00 AM EST CALCIUM PHOSPHORUS PRODUCT, ADJUSTED (HC) Routine 01/17/2025 3:00 AM EST CBC AND DIFFERENTIAL Routine 01/17/2025 3:00 AM EST VITAMIN D 25 HYDROXY Routine 01/17/2025 3:00 AM EST PTH, INTACT Routine 01/17/2025 3:00 AM EST HEPATITIS B SURFACE ANTIBODY QUANT Routine 01/17/2025 3:00 AM EST KT/V NATURAL LOG, URR (HC) Routine 01/17/2025 3:00 AM EST HEMOGLOBIN Routine 12/22/2024 3:00 AM EST ALUMINUM LEVEL Routine 12/08/2024 3:00 AM EST [...] AND DIFFERENTIAL Routine 11/03/2024 3:00 AM EST from Last 3 Months Results * Hepatitis B Surface Ag w/Reflex Confirmation (01/21/2025 3:00 AM EST) Only the most recent of3 resultswithin the time period is included. Pathologist [facility] Hep B Surface Antigen Negative Negative [facility] 01/21/2025 3:00 AM EST 01/22/2025 2:06 PM EST us Emil Bauer MD LAB BLOOD ORDERABLES Final Resul t Performing Organization Address [facility] de Phone Number [facility] [address] [place] [address] * (ABNORMAL) Ferritin (01/21/2025 3:00 AM EST) Only the most recent of3 resultswithin the time period is included. Pathologist [facility] Ferritin 1,587(H) 22 - 322 ng/mL [facility] 01/21/2025 3:00 AM EST 01/22/2025 2:06 PM EST us Emil Bauer MD LAB BLOOD ORDERABLES Final Resul t Performing Organization Address [facility] de Phone Number [facility] [address] [place] [address] * Confirmation Test HCV (01/17/2025 3:00 AM EST) Only the most recent of2 resultswithin the time period is included. Pathologist [facility] Hep C Ab Confirmation Not needed [facility] 01/17/2025 3:00 AM EST 01/19/2025 1:02 PM EST us Emil Bauer MD LAB BLOOD ORDERABLES Final Resul t Performing Organization Address [facility] de Phone Number [facility] [address] [place] [address] * LIH (01/17/2025 3:00 AM EST) Only the most recent of3 resultswithin the time period is included. Pathologist [facility] Lipemia Normal Normal [facility] Icterus Normal Normal [facility] Hemolysis Normal Normal [facility] 01/17/2025 3:00 AM EST 01/19/2025 12:36 PM EST us Emil Bauer MD LAB [id number] ICITED RESULTS Final Result Performing Organization Address [facility]/ZIP Co de Phone Number [facility] [address] [place] [address] * (ABNORMAL) Kt/V Natural Log, URR (01/17/2025 3:00 AM EST) Only the most recent of3 resultswithin the time period is included. Treatment Time 240 min [facility] Pre-Weight, lb 99.0 kg [facility] Post-Weight, lb 97.5 kg [facility] BUN Post Dialysis 21 7 - 25 mg/dL [facility] BUN 62(H) 7 - 25 mg/dL [facility] UREA REDUCTION RATIO (%) 66 >=65 % [facility] Kt/V Natural Log 1.23 >=1.2 [facility] Ultrafiltration Rate 4 <=13 mL/kg/hr [facility] Comment: Recommend achieving Ultrafiltration Rate (UFR) <=10 mL/kg/hr References: Eliu CALIX et al. Kidney Int. 2010; 79(2):250-257 01/17/2025 3:00 AM EST 01/19/2025 12:36 PM EST Emil Bauer MD LAB HISTORICAL-CONVE RSIONS-UNSOLICITED RESULTS Edited Result - Final Performing Organization Address [facility] de Phone Number [facility] [address] [place] [address] * (ABNORMAL) Calcium Phosphorus Product, Adjusted (01/17/2025 3:00 AM EST) Only the most recent of3 resultswithin the time period is included. Albumin 4.1 3.6 - 5.4 g/dL [facility] Calcium 9.1 8.6 - 10.3 mg/dL [facility] Phosphorus, Serum 5.4(H) 2.5 - 5.0 mg/dL [facility] Ca*PO4 49.1 <55.0 mg2/dL2 [facility] Calcium, Adjusted Total 9.1 8.6 - 10.3 mg/dL [facility] CA*PO4 CORRCTD 49.1 <55.0 mg2/dL2 [facility] 01/17/2025 3:00 AM EST 01/19/2025 12:36 PM EST us Emil Bauer MD LAB [id number] ICITED RESULTS Final Result Performing Organization Address [facility] de Phone Number [facility] [address] [place] [address] * HEPATITIS C ABS W/REFLEX RNA DETECTR (01/17/2025 3:00 AM EST) Only the most recent of2 resultswithin the time period is included. Pathologist [facility] Hep C Virus Ab Non-Reacti ve Non-Reacti ve [facility] 01/17/2025 3:00 AM EST 01/19/2025 12:36 PM EST Emil Bauer MD LAB [id number] ICITED RESULTS Final Result Performing Organization Address [facility] de Phone Number [facility] [address] [place] [address] * (ABNORMAL) TSAT (01/17/2025 3:00 AM EST) Only the most recent of3 resultswithin the time period is included. Pathologist [facility] Iron 92 65 - 175 ug/dL [facility] Transferrin 162(L) 215 - 365 mg/dL [facility] TIBC 227 211 - 406 ug/dL [facility] Iron Saturation (TSat) 41 22 - 52 % [facility] 01/17/2025 3:00 AM EST 01/19/2025 12:36 PM EST Emil Bauer MD LAB BLOOD ORDERABLES Final Resul t Performing Organization Address [facility] de Phone Number [facility] [address] [place] [address] * Hepatitis B Core Antibody, Total (01/17/2025 3:00 AM EST) Pathologist [facility] HBc Total Ab, S Negative Negative [facility] 01/17/2025 3:00 AM EST 01/19/2025 12:36 PM EST us Emil Bauer MD LAB BLOOD ORDERABLES Final Resul t Performing Organization Address [facility] de Phone Number [facility] [address] [place] [address] * Aluminum level (01/17/2025 3:00 AM EST) Only the most recent of2 resultswithin the time period is included. Aluminum 4 1 - 20 ug/L [facility] 01/17/2025 3:00 AM EST 01/19/2025 12:38 PM EST us Emil Bauer MD LAB BLOOD ORDERABLES Final Resul t Performing Organization Address [facility] de Phone Number [facility] [address] [place] [address] * Vitamin D 25 Hydroxy (01/17/2025 3:00 AM EST) Vitamin D, 25-Hydroxy 33 30 - 100 ng/mL [facility] Comment: Status ? Adult ?? Pediatric Deficient: ? <20 ? <15 Insufficient: ??20-29 ?? 15-19 Sufficient: ?30-100 ??20-100 01/17/2025 3:00 AM EST 01/19/2025 12:36 PM EST us Emil Bauer MD LAB BLOOD ORDERABLES Final Resul t Performing Organization Address [facility] de Phone Number [facility] [address] [place] [address] * Hepatitis B Surface Antibody (01/17/2025 3:00 AM EST) Only the most recent of2 resultswithin the time period is included. Hep B Surface Antibody 164 mIU/mL [facility] Comment: Interpretation: <10: No Immunity >=10: Probable Immunity 01/17/2025 3:00 AM EST 01/19/2025 12:36 PM EST us Emil Bauer MD LAB BLOOD ORDERABLES Final Resul t [facility] [address] [place] [address] * (ABNORMAL) CBC and Differential (01/17/2025 3:00 AM EST) Only the most recent of3 resultswithin the time period is included. DIFFERENTIAL MANUAL, 2 Not Indicated [facility] White Blood Cells 5.3 4.2 - 9.1 K/uL [facility] RBC 3.28(L) 4.63 - 6.08 M/uL [facility] Hgb 10.0(L) 13.7 - 17.5 g/dL [facility] Hemoglobin x 3 30.0(L) 41.1 - 52.5 g/dL [facility] Hematocrit 31.7(L) 40.1 - 51.0 % [facility] MCV 96.6(H) 79.0 - 92.2 fL [facility] MCH 30.5 25.7 - 32.2 pg [facility] MCHC 31.5(L) 32.3 - 36.5 g/dL [facility] Platelets 174 163 - 337 K/uL [facility] RDW 14.7(H) 11.6 - 14.4 % [facility] Neutrophils Relative 61.1 34.0 - 67.9 % [facility] Lymphocytes Relative 21.5(L) 21.8 - 53.1 % [facility] Monocytes 11.9 5.3 - 12.2 % [facility] Eosinophils Relative 3.8 0.8 - 7.0 % [facility] Basophils Relative 0.6 0.2 - 1.2 % [facility] Immature Granulocytes 1.1(H) 0.0 - 1.0 % [facility] 01/17/2025 3:00 AM EST 01/19/2025 1:02 PM EST Emil Bauer MD LAB BLOOD ORDERABLES Final Resul t [facility] [address] [place] [address] * Uric Acid (01/17/2025 3:00 AM EST) Only the most recent of2 resultswithin the time period is included. Uric Acid 6.2 4.4 - 7.6 mg/dL [facility] 01/17/2025 3:00 AM EST 01/19/2025 12:36 PM EST us Emil Bauer MD LAB BLOOD ORDERABLES Final Resul t Performing Organization Address [facility] Phone Number [facility] [address] [place] [address] * ALT (01/17/2025 3:00 AM EST) Only the most recent of3 resultswithin the time period is included. ALT (SGPT) 20 10 - 49 U/L [facility] 01/17/2025 3:00 AM EST 01/19/2025 12:36 PM EST us Emil Bauer MD LAB BLOOD ORDERABLES Final Resul t Performing Organization Address [facility] Phone Number [facility] [address] [place] [address] * (ABNORMAL) AST (01/17/2025 3:00 AM EST) Only the most recent of3 resultswithin the time period is included. AST (SGOT) 36(H) <34 U/L [facility] 01/17/2025 3:00 AM EST 01/19/2025 12:36 PM EST us Emil Bauer MD LAB BLOOD ORDERABLES Final Resul t Performing Organization Address [facility] Phone Number [facility] [address] [place] [address] * Protein, total (01/17/2025 3:00 AM EST) Only the most recent of3 resultswithin the time period is included. Total Protein 7.4 6.4 - 8.9 g/dL [facility] 01/17/2025 3:00 AM EST 01/19/2025 12:36 PM EST us Emil Bauer MD LAB BLOOD ORDERABLES Final Resul t [facility] [address] [place] [address] * (ABNORMAL) Alkaline phosphatase (01/17/2025 3:00 AM EST) Only the most recent of3 resultswithin the time period is included. Alkaline Phosphatase 274(H) 46 - 116 U/L [facility] 01/17/2025 3:00 AM EST 01/19/2025 12:36 PM EST us Emil Bauer MD LAB BLOOD ORDERABLES Final Resul t Performing Organization Address [facility] de Phone Number [facility] [address] [place] [address] * (ABNORMAL) PTH, Intact (01/17/2025 3:00 AM EST) Only the most recent of2 resultswithin the time period is included. PTH, Intact 93(L) 160 - 721 pg/mL [facility] Comment: Suggested (KDIGO) ESRD maintenance range is two to nine times the upper normal limit (80.1 pg/mL) for the laboratory. 01/17/2025 3:00 AM EST 01/19/2025 12:36 PM EST us Emil Bauer MD LAB BLOOD ORDERABLES Final Resul t Performing Organization Address [facility] Co de Phone Number [facility] [address] [place] [address] * Magnesium (01/17/2025 3:00 AM EST) Only the most recent of3 resultswithin the time period is included. Magnesium 2.3 1.9 - 2.7 mg/dL [facility] 01/17/2025 3:00 AM EST 01/19/2025 12:36 PM EST us Emil Bauer MD LAB BLOOD ORDERABLES Final Resul t Performing Organization Address [facility] Co de Phone Number [facility] [address] [place] [address] * (ABNORMAL) Lactate dehydrogenase (01/17/2025 3:00 AM EST) Only the most recent of3 resultswithin the time period is included. LDH 249(H) 120 - 246 U/L [facility] 01/17/2025 3:00 AM EST 01/19/2025 12:36 PM EST Emil Bauer MD LAB BLOOD ORDERABLES Final Resul t Performing Organization Address [facility] de Phone Number [facility] [address] [place] [address] * Hemoglobin A1c (01/17/2025 3:00 AM EST) Only the most recent of2 resultswithin the time period is included. Hemoglobin A1C 5.6 <5.7 % [facility] Comment: Methodology: Enzymatic HbA1c (NGSP %) ?Suggested Diagnosis >6.4% ? Diabetic 5.7-6.4% ?Pre-Diabetic <5.7% ? Non-Diabetic Diabetic Glucose Control Evaluation: Therapeutic action suggested at >8.0% ADA recommends a glycemic goal of <7.0% 01/17/2025 3:00 AM EST 01/19/2025 1:02 PM EST us Emil Bauer MD LAB BLOOD ORDERABLES Final Resul t Performing Organization Address [facility] de Phone Number [facility] [address] [place] [address] * (ABNORMAL) Glucose, random (01/17/2025 3:00 AM EST) Only the most recent of3 resultswithin the time period is included. Glucose 118(H) 74 - 109 mg/dL [facility] 01/17/2025 3:00 AM EST 01/19/2025 12:36 PM EST us Emil Bauer MD LAB BLOOD ORDERABLES Final Resul t Performing Organization Address [facility] de Phone Number [facility] [address] [place] [address] * (ABNORMAL) Creatinine, serum (01/17/2025 3:00 AM EST) Only the most recent of3 resultswithin the time period is included. Creatinine 5.05(H) 0.70 - 1.30 mg/dL [facility] 01/17/2025 3:0 0 AM EST 01/19/2025 12:36 PM EST us Emil Bauer MD LAB BLOOD ORDERABLES Final Resul t Performing Organization Address [facility] de Phone Number [facility] [address] [place] [address] * Bilirubin, total (01/17/2025 3:00 AM EST) Only the most recent of3 resultswithin the time period is included. Total Bilirubin 0.3 0.3 - 1.2 mg/dL [facility] 01/17/2025 3:00 AM EST 01/19/2025 12:36 PM EST us Emil Bauer MD LAB BLOOD ORDERABLES Final Resul t Performing Organization Address [facility] de Phone Number [facility] [address] [place] [address] * (ABNORMAL) Lipid panel (01/17/2025 3:00 AM EST) Only the most recent of2 resultswithin the time period is included. Cholesterol 118 <200 mg/dL [facility] Comment: Optimal: ?<200 Borderline: ? 200-239 Higher Risk: ?>239 Triglycerides 97 <150 mg/dL [facility] Comment: Optimal: ?<150 Borderline High: ??150-199 High: ? 200-499 Very High: ?>499 HDL 51(A) >59 mg/dL [facility] Comment: Desirable: ?>59 Higher Risk: ?<40 LDL-Calc 48 <100 mg/dL [facility] Comment: Optimal: ?<100 Above Optimal: ?100-129 Borderline High: ??130-159 High: ? 160-189 Very High: ?>189 VLDL Cholesterol Radhames 19 <30 mg/dL [facility] Comment: Optimal: ?<30 Borderline High: ??30-39 High: ? 40-99 Very High: ?>99 Chol/HDL Ratio 2.3 <3.3 [facility] Comment: Optimal: ?<3.3 Higher Risk: ?>6.2 01/17/2025 3:00 AM EST 01/19/2025 12:36 PM EST Emil Bauer MD LAB BLOOD ORDERABLES Final Resul t Performing Organization Address [facility] de Phone Number [facility] [address] [place] [address] * Electrolyte panel (01/17/2025 3:00 AM EST) Only the most recent of3 resultswithin the time period is included. Sodium 138 136 - 145 mEq/L [facility] Potassium 4.6 3.4 - 5.0 mEq/L [facility] Chloride 104 98 - 107 mEq/L [facility] Bicarbonate (CO2) 23 21 - 31 mEq/L [facility] Anion Gap 11 3 - 14 mEq/L [facility] 01/17/2025 3:00 AM EST 01/19/2025 12:36 PM EST Emil Bauer MD LAB BLOOD ORDERABLES Final Resul t Performing Organization Address [facility] de Phone Number [facility] [address] [place] [address] * (ABNORMAL) Hemoglobin (12/22/2024 3:00 AM EST) Only the most recent of2 resultswithin the time period is included. Hgb 11.3(L) 13.7 - 17.5 g/dL [facility] Hemoglobin x 3 33.9(L) 41.1 - 52.5 g/dL [facility] 12/22/2024 3:00 AM EST 12/23/2024 2:26 PM EST Emil Bauer MD LAB BLOOD ORDERABLES Final Resul t [facility] [address] [place] [address] from Last 3 Months Insurance MEDICARE [place]ARE [place] Care Teams Interlocking Pavement Installer Relationship Specialty Start Date End Date Damon Orta MD [address] [place] [address] DR[address] [place], [place] PCP - General Internal Medicine 12/31/21
--- OUTSIDE RECORDS SUMMARY | 2025-02-01 18:01 | XMS_ITS | Encounter Summary ---
Author Organization [facility] Address [address] [facility] [address] [place] [address] Phone Care Team Providers Care Core Sucker Name Role Phone Damon Orta MD Primary Care Provider [phone] Encounter Details Date Type Department Care Team (Latest Contact Info) Description 05/04/2021 Orders Only [facility] [address] [facility] [address] [place] [phone] Rusty Milian MD [address] [facility] [address] [place] [phone] Chronic kidney disease, stage 4 (severe) (HCC); [...] AM EDT) Hemoglobin A1C 5.8(H) (4.0-5.6) % [facility] Comment: MONITORING: In known diabetic patients, hemoglobin A1c targets should be discussed with health care provider. DIAGNOSTIC USE: ??The [place] Diabetes Association (ADA) and the World Health [...] Supplement 1 Testing performed or reported by [facility], a Service of [address] [address] Melisa Lutz MD, Roll Threader Operator Blood (Blood, Venous) 04/26/2021 10:01 AM EDT 04/26/2021 10:03 AM EDT Rusty Milian MD LAB BLOOD ORDERABLES Final Re sult Performing Organization Address [facility] de Phone Number [facility] * Vitamin D 25 Hydroxy (04/26/2021 10:01 AM EDT) Vitamin D, 25-Hydroxy 24.4 (20-50) NG/ML [facility] Comment: Testing performed or reported by [facility], a Service of [address] [address] Melisa Lutz MD, Roll Threader Operator Blood (Blood, Venous) 04/26/2021 10:01 AM EDT 04/26/2021 10:03 AM EDT Rusty Milian MD LAB BLOOD ORDERABLES Final Re sult Performing Organization Address [facility] de Phone Number [facility] * (ABNORMAL) Protein, Total, Random Urine w/Creatinine (Protein/Creat Ratio) (04/26/2021 10:01 AM EDT) Protein/Creati ne Ratio 4.19(H) (0-0.2) [facility] Protein, Urine 136 MG/DL [facility] Creatinine, Urine 32.4 MG/DL [facility] Comment: Testing performed or reported by [facility], a Service of [facility] [address] [place] [address] Melisa Lutz MD, Roll Threader Operator Urine (Urine, Clean Catch) 04/26/2021 10:01 AM EDT 04/26/2021 10:03 AM EDT Rusty Milian MD LAB URINE ORDERABLES Final Re sult Performing Organization Address [facility] de Phone Number [facility] * Uric Acid (04/26/2021 10:01 AM EDT) Uric Acid 6.7 (2.6-8.7) MG/DL [facility] Comment: Testing performed or reported by [facility], a Service of [facility], [address] [place] [id number] Melisa Lutz MD, Roll Threader Operator Blood (Blood, Venous) 04/26/2021 10:01 AM EDT 04/26/2021 10:03 AM EDT Rusty Milina MD LAB BLOOD ORDERABLES Final Re sult Performing Organization Address [facility] de Phone Number [facility] * (ABNORMAL) Renal Function Panel (04/26/2021 10:01 AM EDT) Glucose 105(H) (70-99) MG/DL [facility] BUN 56(H) (8-23) MG/DL [facility] Creatinine 2.5(H) (0.7-1.2) MG/DL [facility] Sodium 137 (133-145) MMOL/L [facility] Potassium 5.2 (3.6-5.2) MMOL/L [facility] Chloride 104 (98-107) MMOL/L [facility] Bicarbonate (CO2) 24 (22-29) MMOL/L [facility] Anion Gap 9 (4-17) [facility] Albumin 3.8 (3.4-4.8) GM/DL [facility] Calcium 8.9 (8.6-10.5) MG/DL [facility] Phosphorus, Serum 4.2 (2.5-4.5) MG/DL [facility] Est GFR Non 26 ML/MIN/1.7 3 M2 [facility] Comment: Creatinine based estimated glomerular filtration rate (eGFR) is calculated using the Chronic Kidney Disease Epidemiology Collaboration (CKD-EPI). The CKD-EPI creatinine equation has not been validated in children (<18 years), women or in some racial or ethnic subgroups other than Caucasians and Americans. EST GFR 30 ML/MIN/1.7 3 M2 [facility] Comment: Creatinine based estimated glomerular filtration rate (eGFR) is calculated using the Chronic Kidney Disease Epidemiology Collaboration (CKD-EPI). The CKD-EPI creatinine equation has not been validated in children (<18 years), women or in some racial or ethnic subgroups other than Caucasians and Americans. Testing performed or reported by [facility], a Service of [facility], [address] [place] [id number] Melisa Lutz MD, Roll Threader Operator Blood (Blood, Venous) 04/26/2021 10:01 AM EDT 04/26/2021 10:03 AM EDT Rusty Milian MD LAB BLOOD ORDERABLES Final Re sult Performing Organization Address [facility] de Phone Number [facility] * PTH, Intact (04/26/2021 10:01 AM EDT) PTH, Intact 54 (15-65) PG/ML [facility] Comment: Testing performed or reported by [facility], a Service of [facility], [address] [place] [id number] Melisa Lutz MD, Roll Threader Operator Blood (Blood, Venous) 04/26/2021 10:01 AM EDT 04/26/2021 10:03 AM EDT Rusty Milian MD LAB BLOOD ORDERABLES Final Re sult Performing Organization Address [facility] de Phone Number [facility] * Magnesium (04/26/2021 10:01 AM EDT) Magnesium 2.0 (1.6-2.3) mg/dL [facility] Comment: Testing performed or reported by [facility], a Service of [address] [place] [address] Melisa Lutz MD, Roll Threader Operator Blood (Blood, Venous) 04/26/2021 10:01 AM EDT 04/26/2021 10:03 AM EDT us Rusty Milian MD LAB BLOOD ORDERABLES Final Re sult [facility] * (ABNORMAL) CBC and Differential (04/26/2021 10:01 AM EDT) White Blood Cells 5.4 (4.0-11.0) K/MM3 [facility] RBC 3.51(L) (4.70-6.10 ) M/MM3 [facility] Hgb 10.6(L) (13.7-17.1 ) GM/DL [facility] Hematocrit 32.3(L) (40.5-50.0 ) % [facility] MCV 92.0 (80.0-94.0 ) FL [facility] MCH 30.2 (27.0-34.0 ) PG [facility] MCHC 32.8(L) (33.0-37.0 ) g/dL [facility] Platelets 157 (150-460) K/MM3 [facility] RDW-SD 44.7 (<47.0) FL [facility] MPV 10.2 (9.4-12.4) [place] [facility] nRBC Count 0.0 #/100 WBC'S [facility] NRBC Absolute 0.0 K/MM3 [facility] Neutrophils Abs Auto 3.2 (1.3-7.0) K/MM3 [facility] Lymphocytes Relative 1.4 (0.8-3.1) K/MM3 [facility] Monocytes 0.5 (0.4-1.3) K/MM3 [facility] Eosinophils Relative 0.2 (0.0-0.4) K/MM3 [facility] Basophil ABS 0.0 (0.0-0.1) K/MM3 [facility] Granulocytes Absolute 0.1 K/MM3 [facility] Neutrophils % Auto 59.0 (44-76) % [facility] Lymphs 26.3 (15-43) % [facility] Monocytes Absolute 8.5 (4.5-10.5) % [facility] Eosinophils 4.4 (0-6) % [facility] Basophils Relative 0.7 (0-2) % [facility] Immature Granulocytes 1.1 % [facility] Comment: Testing performed or reported by [facility], a Service of [facility], [address] [place] [id number] Melisa Lutz MD, Roll Threader Operator Blood (Blood, Venous) 04/26/2021 10:01 AM EDT 04/26/2021 10:03 AM EDT us Rusty Milian MD LAB BLOOD ORDERABLES Final Re sult [facility] documented in this encounter Visit Diagnoses Diagnosis Chronic kidney disease, stage 4 (severe) (HCC) Diabetic glomerulonephritis (HCC) Localized edema Proteinuria, not otherwise specified documented in this encounter Care Teams Core Sucker Relationship Specialty Start Date End Date Damon Orta MD [address] [place], [place] PCP - General Internal Medicine 12/31/21 documented as of this encounter
--- OUTSIDE RECORDS SUMMARY | 2025-02-01 18:01 | XMS_ITS | Encounter Summary ---
Author Organization [facility] Address [address] [place] [address] Phone Care Team Providers Care Motor Lodge Clerk Name Role Phone Damon Orta MD Primary Care Provider [phone] Encounter Details Date Type Department Care Team (Late st Contact Info) Description 08/29/2022 Office Communication [facility] [address] [place] [phone] Sherry Villagomez Social History Tobacco Use Types [...] on filedocumented in this encounter Care Teams Motor Lodge Clerk Relationship Specialty Start Date End Date Damon Orta MD [address] [place] PCP - General Internal Medicine 12/31/21 documented as of this encounter
== END 2025-02-01 14:57 | disposition home or self-care (01) ==
PROVIDERS: PCP Internal Medicine; Visit Provider Nurse Practitioner Family
DX: J45.909 Unspecified asthma, uncomplicated (principal); R94.2 Abnormal results of pulmonary function studies; J98.6 Disorders of diaphragm
CPT/HCPCS: 99214

== ENCOUNTER → 2025-02-01 14:14 | Outpatient (BNVA) | payer MEDICARE, OTHER, SELFPAY | PROVIDERS: PCP Internal Medicine; Visit Provider Nurse Practitioner Family | DX: J45.909 Unspecified asthma, uncomplicated (principal); J98.6 Disorders of diaphragm; R94.2 Abnormal results of pulmonary function studies | CPT/HCPCS: 99212 ==

== ENCOUNTER 2025-02-21 13:51 | Outpatient (AMB) | payer MEDICARE, OTHER, SELFPAY ==
[2025-02-21 13:52] VITALS: BP 116/68; RESP 14; TEMP 36.4; BMI 33.9
--- NOTE | 2025-02-21 13:52 | A.OFFPC_ITS ---
Vital Signs 02/21/25 13:52 Height 5 ft 6 in Weight 209 lb 14.081 oz BMI 33.9 BP 116/68 Respiration 14 Temp 97.6 F Temp Source Temporal Artery Scan Oxygen Delivery Method Room Air Intake Visit Reasons: pt would like to discuss RXs Cooler Tender Required: No Accompanied by: Self / Same As Patient Allergies No Known Allergies Allergy (Verified 02/21/25 13:52) Tobacco use date assessed: 02/21/25 Fall risk assessment: 2 + Falls in past year Last assessed Fall Risk: 02/21/25 Dental Screening Dental Screen Date: 02/21/25 Did you have a dental visit in the last 12 months?: No Did you have a dental problem in the last 6 months where you did not have access to dental care?: No PFSH Medical History (Updated 02/21/25 @ 14:36 by Imtiaz Saxena MD) Macular edema COVID-19 vaccine series completed History of anesthesia complications Arthritis RBBB Congenital single kidney Localized edema Peripheral neuropathy Elevated cholesterol HTN (hypertension) Diabetes CKD (chronic kidney disease) Surgical History H/O colonoscopy History of lumbar laminectomy Hx of cervical spine surgery Hx of cataract extraction Family History (Updated 02/21/25 @ 14:06 by JERROD Juares) Mother Diabetes Kidney disease Ovarian cancer High blood pressure Father High blood pressure Esophageal cancer Social History (Updated 02/21/25 @ 14:07 by JERROD Juares) Housing: House Are you a primary manager intensive care unit to a significant other at home: No Do you presently have visiting nurse or other home services: No Alcohol intake: current Alcohol intake frequency: does not drink Patient Tobacco Use Status: Never used Tobacco service: No Current occupational status: retired and disabled Cognitive needs: Yes (cane, walker) Hearing needs: Yes (b/l ear hearing aids) Vision needs: Yes (rx glasses) Questionnaire PHQ-9 Over the last 2 weeks, how often have you been bothered by any of the following problems? 1. Little interest or pleasure in doing things: not at all 2. Feeling down, depressed, or hopeless: not at all 3. Trouble falling or staying asleep, or sleeping too much: not at all 4. Feeling tired or having little energy: not at all 5. Poor appetite or overeating: not at all 6. Feeling bad about yourself - or that you are a failure or have let yourself or your family down: not at all 7. Trouble concentrating on things, such as reading the newspaper or watching television: not at all 8. Moving or speaking so slowly that other people could have noticed. Or the opposite - being so fidgety or restless that you have been moving around a lot more than usual: not at all 9. Thoughts that you would be better off or of hurting yourself in some way: not at all Total score: 0 Source: Developed by Drs. Eduardo Miranda, Aiyana Menjivar, Antoine Law and colleagues, with an educational samantha from [employer]. Thrive Questionnaire Date Thrive assessed: 02/21/25 I am a: Patient What is your living situation today?: I have a steady place to live Within the past 12 months, did the food you bought not last and you didn't have the money to get more?: Never true Within the past 12 months, did you worry whether your food would run out before you got money to buy more?: Never true Do you have trouble paying for medicines?: No Do you have trouble getting transportation to medical appointments?: No Do you have trouble paying your heating and electricity bill?: No Do you have trouble taking care of your child, family member or friend?: No Do you have trouble with day-to-day activities such as bathing, preparing meals, shopping, managing finances, etc.?: No Are you currently unemployed and looking for a job?: No Are you interested in more education?: No Please select the resources that you would like help with: None THRIVE Score: 0 AUDIT C Alcohol Use Questionnaire (AUDIT-C) 1. How often do you have a drink containing alcohol?: Never 3. How often do you have six or more drinks on one occasion?: Never Total Score: 0 KERA-7 AMB Questionnaire KERA-7 Date KERA - 7 assessed: 02/21/25 Feeling nervous, anxious, or on edge: 0 = Not at all Not being able to stop or control worryin = Not at all Worrying too much about different things: 0 = Not at all Trouble relaxin = Not at all Being so restless that it is hard to sit still: 0 = Not at all Becoming easily annoyed or irritable: 0 = Not at all Feeling afraid as if something awful might happen: 0 = Not at all Total KERA-7 score (0-4 normal; 5-9 mild; 10-14 moderate; 15-21 severe): 0 Source: Developed by Drs. Eduardo Miranda, Aiyana Menjivar, Anotine Law and colleagues, with an educational samantha from [employer]. Physical exam (Primary Care) Vital Signs: Last Vital Signs Temp 97.6 F 02/21/25 13:52 Resp 14 02/21/25 13:52 BP 116/68 02/21/25 13:52 Oxygen Delivery Method Room Air 02/21/25 13:52 BMI result Body Mass Index 33.9 Tobacco/Smoking Status: Tobacco use Status Tobacco use date assessed 02/21/25 02/21/25 14:07 Patient Tobacco Use Status Never used Tobacco 02/21/25 14:07 Tobacco use type 02/21/25 14:07 PHQ-9: PHQ-9 Score PHQ-9: Total score 0 02/21/25 14:07 Thrive Assessment: Date of Thrive Assessment Date Thrive assessed 02/21/25 02/21/25 14:07 Coding Level of Care Code New Pt Level 4 (31841) Complex EM visit Add On G2211 Diagnoses CKD (chronic kidney disease) N18.9 Diabetes E11.9 Assessment & Plan Assessment & Plan (1) CKD (chronic kidney disease): Code(s): N18.9 - Chronic kidney disease, unspecified Category: Medical Plan: Patient is on hemodilaysis, awaiting a kidney transplant (2) Diabetes: Comment: type 2-dx 1989'-no meds for 10 years-2007 to 2018-does not check glucose at home due to neuropathy-has quarterly A1C's-last 5.9 on 02/22/22 Code(s): E11.9 - Type 2 diabetes mellitus without complications Category: Medical Plan: A1c ordered. Pt only on Januvia. Will add Jardiance after A1c results are available. Plan History of Present Illness The patient is a 69-year-old male presenting for medication management, blood work, and renewal of PT/OT prescriptions. He is undergoing management for ESRD with thrice-weekly dialysis and is supervised by a moid middle school teacher. His diabetes, initially uncontrolled, has improved on 50 mg of Januvia, but insulin was suggested unsuccessfully. A recent attempt to reduce Januvia dosage impacted glycemic control. His history includes complications from cervical stenosis surgery, including a prolonged recovery, and he has undergone a toe amputation for gangrene. Calcium and vitamin D levels are areas of concern, given the complexity associated with his condition and prior prescriptions. His hypothyroidism is treated with adjusted dosages of levothyroxine around his dialysis schedule. The patient moved his spouse to assisted living recently, affecting his own health routines. He experienced shoulder and arm issues initially investigated through physical therapy. 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 - Transportation: Does not drive; relies on others for transportation to appointments. - Family status: Spouse is in assisted living due to health issues. - Activity Level: Previously attended a gym for weight loss, currently limited in physical activities due to health constraints. - Functional Status: Difficulty reaching overhead; uses PT and OT assistance for daily activities like bathing. Review of Systems - Cardiovascular: Reports heart murmur. - Endocrine: Reports previously uncontrolled diabetes mellitus, hyperlipidemia, and hypothyroidism. - Musculoskeletal: Reports need for PT for balance and arm strength post- surgery. Physical Exam General: Cooperative and healthy appearing Nutritional Appearance: Well nourished Orientation/consciousness: Patient oriented x3 Limitations: No limitations Head: Normal to inspection General: Appearance normal, both eyes and all related structures Neck: Normal visual inspection Chest: Normal palpation of entire chest wall Respiratory: Normal respiratory effort Neurology: Patient oriented x3 Results Plan During today's visit, I addressed the patient's medication regimen and blood work needs related to his chronic conditions, including ESRD and diabetes. I will monitor glycemic control and explore adjusting therapy with Jardiance pending laboratory assessment. Managing vitamin D levels at 2000 units daily and adjusting the calcium-phosphorus regimen with nephrology input were discussed. I will order comprehensive labs, including A1c, thyroid, liver function, and lipid profile. His hypothyroidism treatment regimen will be maintained while monitoring TSH levels. I'll coordinate PT for strength and balance improvement and OT for functional assistance related to daily activities. The patient understands and agrees to the outlined plan. Patient was informed and verbally consented to the use of an ambient scribe for clinic note documentation during this visit. Discussion Notes We discussed the management of the patient's chronic conditions, focusing on maintaining his diabetic control and supporting renal function. The risk of altering his medication regimen was considered, and he prefers maintaining maximum Januvia unless further studies suggest otherwise. I recommended continuing vitamin D supplementation and monitoring calcium-related needs via his moid middle school teacher. The patient expressed apprehension about pill splitting, so we discussed alternative measures when possible. I emphasized the importance of lab work for tracking his progress with A1c, thyroid, liver function, and cholesterol. Prescriptions for PT and OT were renewed, addressing his balance and upper body needs, and ensuring functional support for day-to-day tasks. He is aware of upcoming echocardiography assessments and the need to revisit therapy after lab results are reviewed, with a follow-up visit in three months, to assess treatment efficacy and determine future steps. Patient Instructions - Continue Januvia 50 mg daily for diabetes management. - Take vitamin D at 2000 units per day, refill as directed. - Maintain current dosing of levothyroxine on non-dialysis days. - Attend ordered blood work for A1c, thyroid, liver enzymes, and cholesterol. - Follow through with prescribed PT for upper body and balance, and OT for daily tasks. - Consult moid middle school teacher regarding calcium and phosphorus binding. - Follow up in three months or as advised if new symptoms develop. Orders: Orders Basic Metabolic Panel Today E11.9 - Type 2 diabetes mellitus without complications, N18.9 - Chronic kidney disease, unspecified Complete Blood Count no Diff Today E11.9 - Type 2 diabetes mellitus without complications, N18.9 - Chronic kidney disease, unspecified Thyroid Stimulating Hormone Today E11.9 - Type 2 diabetes mellitus without complications, N18.9 - Chronic kidney disease, unspecified Hemoglobin A1c Today E11.9 - Type 2 diabetes mellitus without complications, N18.9 - Chronic kidney disease, unspecified Lipid Panel Today E11.9 - Type 2 diabetes mellitus without complications, N18.9 - Chronic kidney disease, unspecified Liver Panel Today E11.9 - Type 2 diabetes mellitus without complications, N18.9 - Chronic kidney disease, unspecified PT Evaluation and Treatment Today M54.9 - Dorsalgia, unspecified, N18.9 - Chronic kidney disease, unspecified OT Evaluation and Treatment Today M54.9 - Dorsalgia, unspecified Medications: New cholecalciferol (vitamin D3) 50 mcg (2 x 25 mcg (1,000 unit)) PO DAILY 180 caps 0RF
== END 2025-02-21 14:33 | disposition home or self-care (01) ==
LOC: HO.HMCHD 13:51
PROVIDERS: PCP Internal Medicine; Visit Provider Internal Medicine
DX: N18.9 Chronic kidney disease, unspecified (principal); E11.9 Type 2 diabetes mellitus without complications

== ENCOUNTER → 2025-02-21 13:51 | Outpatient (BNVA) | payer MEDICARE, OTHER, SELFPAY | PROVIDERS: PCP Internal Medicine; Visit Provider Internal Medicine | DX: N18.9 Chronic kidney disease, unspecified (principal); E11.9 Type 2 diabetes mellitus without complications | CPT/HCPCS: 99202 ==

== ENCOUNTER 2025-03-01 08:34 | Outpatient (REF) | payer MEDICARE, OTHER, SELFPAY ==
--- OUTSIDE RECORDS SUMMARY | 2025-03-01 08:54 | XMS_ITS | Encounter Summary ---
Author Organization [facility] Address [address] [place] [address] Care Team Providers Care Dioramist Name Role Phone Jim Lundberg MD Primary Care Provider [phone] Encounter Details Date Type Department Care Team (Latest Contact Info) Description 10/08/2024 Lab Requisition [facility] [address] [place] [address] Logan Bautista MD [address] [place] [id number] Other cervical disc displacement, cervicothoracic region Social [...] AM EST) WBC 4.8 4.8 - 10.8 K/[facility] LAB HEMETOLOGY METHOD 10/08/2024 9:21 AM EST [facility] RBC 2.40(L) 4.50 - 5.50 M/mcL LAB HEMETOLOGY METHOD 10/08/2024 9:21 AM [facility] Hemoglobin 7.5(L) 13.5 - 17.5 g/dL LAB HEMETOLOGY METHOD 10/08/2024 9:21 AM [facility] Hematocrit 23.5(L) 42.0 - 54.0 % LAB HEMETOLOGY METHOD 10/08/2024 9:21 AM [facility] MCV 99.6(H) 79.0 - 98.0 FL LAB HEMETOLOGY METHOD 10/08/2024 9:21 AM [facility] MCH 31.8 27.0 - 32.0 pcg LAB HEMETOLOGY METHOD 10/08/2024 9:21 AM [facility] MCHC 31.9(L) 32.0 - 37.0 g/dL LAB HEMETOLOGY METHOD 10/08/2024 9:21 AM [facility] RDW 13.3 11.0 - 15.0 % LAB HEMETOLOGY METHOD 10/08/2024 9:21 AM [facility] Platelets 228 130 - 400 K/mcL LAB HEMETOLOGY METHOD 10/08/2024 9:21 AM [facility] MPV 10.1 7.0 - 11.0 FL LAB HEMETOLOGY METHOD 10/08/2024 9:21 AM [facility] NRBC 0.0 <1.0 % LAB HEMETOLOGY METHOD 10/08/2024 9:21 AM [facility] NRBC Absolute 0.00 <0.10 K/mcL LAB HEMETOLOGY METHOD 10/08/2024 9:21 AM [facility] Blood Venous blood specimen / Unknown Venipuncture / Unknown 10/08/2024 5:46 AM EST 10/08/2024 8:29 AM EST Logan Bautista MD LAB BLOOD ORDERABLES Final Res ult [facility] [address] [place] [address], * (ABNORMAL) Basic metabolic panel (10/08/2024 5:46 AM EST) Sodium 130(L) 133 - 145 mmol/L LAB CHEMISTRY METHOD 10/08/2024 9:45 AM EST [facility] Potassium 4.3 3.5 - 5.5 mmol/L LAB CHEMISTRY METHOD 10/08/2024 9:45 AM [facility] Chloride 94(L) 96 - 110 mmol/L LAB CHEMISTRY METHOD 10/08/2024 9:45 AM [facility] CO2 27 21 - 32 mmol/L LAB CHEMISTRY METHOD 10/08/2024 9:45 AM EST [facility] Anion Gap 9 3 - 11 LAB CHEMISTRY METHOD 10/08/2024 9:45 AM [facility] Glucose 98 70 - 100 mg/dL LAB CHEMISTRY METHOD 10/08/2024 9:45 AM [facility] BUN 37(H) 5 - 25 mg/dL LAB CHEMISTRY METHOD 10/08/2024 9:45 AM [facility] Creatinine 4.60(H) 0.70 - 1.30 mg/dL LAB CHEMISTRY METHOD 10/08/2024 9:45 AM EST [facility] eGFR 13(L) >=60 mL/min/1. 73m2 LAB CHEMISTRY METHOD 10/08/2024 9:45 AM [facility] Comment:Calculation based on the??Chronic Kidney Disease Epidemiology Collaboration (CKD-EPI) equation refit??without adjustment for race. BUN/Creatinine Ratio 8.0 LAB CHEMISTRY METHOD 10/08/2024 9:45 AM [facility] Calcium 10.2 8.5 - 10.5 mg/dL LAB CHEMISTRY METHOD 10/08/2024 9:45 AM EST [facility] Blood Venous blood specimen / Unknown Venipuncture / Unknown 10/08/2024 5:46 AM EST 10/08/2024 8:29 AM EST us Logan Bautista MD LAB BLOOD ORDERABLES Final Res ult [facility] [address] [place] [address], documented in this encounter Visit Diagnoses Diagnosis Other cervical disc displacement, cervicothoracic region documented in this encounter Care Teams Dioramist Relationship Specialty Start Date End Date Jim Lundberg MD [address] [facility] [address] [place], [place] PCP - General Pulmonary Disease 02/26/19 documented as of this encounter
--- OUTSIDE RECORDS SUMMARY | 2025-03-01 08:54 | XMS_ITS | Clinical Summary ---
Author Organization 299 [facility] Address [address] [place] [address] Phone Care Team Providers Care Coal Miner Name Role Phone Jim Lundberg MD Primary Care Provider [phone] Encounters Date Type Department Care Team Description 01/13/[address] [facility] Lab [address] [place] [phone] Logan Bautista MD Encounter for other general examination 01/07/[address] [facility] Lab [address] [place] [phone] Logan Bautista MD Encounter for other general examination 01/01/[address] [facility] Lab [address] [place] [phone] Logan Bautista MD Encounter for other general [...] LAB HEMETOLOGY METHOD 01/13/2025 8:02 AM EST [facility] LAB RBC 3.10(L) 4.50 - 5.50 M/mcL LAB HEMETOLOGY METHOD 01/13/2025 8:02 AM EST [facility] LAB Hemoglobin 9.6(L) 13.5 - 17.5 g/dL LAB HEMETOLOGY METHOD 01/13/2025 8:02 AM [facility] LAB Hematocrit 30.3(L) 42.0 - 54.0 % LAB HEMETOLOGY METHOD 01/13/2025 8:02 AM [facility] LAB MCV 96.8 79.0 - 98.0 FL LAB HEMETOLOGY METHOD 01/13/2025 8:02 AM [facility] LAB MCH 30.7 27.0 - 32.0 pcg LAB HEMETOLOGY METHOD 01/13/2025 8:02 AM [facility] LAB MCHC 31.7(L) 32.0 - 37.0 g/dL LAB HEMETOLOGY METHOD 01/13/2025 8:02 AM [facility] LAB RDW 15.0 11.0 - 15.0 % LAB HEMETOLOGY METHOD 01/13/2025 8:02 AM [facility] LAB Platelets 161 130 - 400 K/mcL LAB HEMETOLOGY METHOD 01/13/2025 8:02 AM [facility] LAB MPV 10.2 7.0 - 11.0 FL LAB HEMETOLOGY METHOD 01/13/2025 8:02 AM [facility] LAB NRBC 0.0 <1.0 % LAB HEMETOLOGY METHOD 01/13/2025 8:02 AM [facility] LAB NRBC Absolute 0.00 <0.10 K/mcL LAB HEMETOLOGY METHOD 01/13/2025 8:02 AM [facility] LAB Blood Venous blood specimen / Unknown Venipuncture / Unknown 01/13/2025 5:01 AM EST 01/13/2025 7:22 AM EST us Loagn Bautista MD LAB BLOOD ORDERABLES Final Res ult [facility] LAB [address] [place] [address], * Phosphorus (01/13/2025 5:01 AM EST) Only the most recent of2 resultswithin the time period is included. [facility] Phosphorus 4.2 2.5 - 4.5 mg/dL LAB CHEMISTRY METHOD 01/13/2025 8:35 AM [facility] LAB Blood Venous blood specimen / Unknown Venipuncture / Unknown 01/13/2025 5:01 AM EST 01/13/2025 7:22 AM EST us Logan Bautista MD LAB BLOOD ORDERABLES Final Res ult [facility] [address] [place] [address], [place] [phone] * (ABNORMAL) Comprehensive metabolic panel (01/13/2025 5:01 AM EST) Only the most recent of2 resultswithin the time period is included. [facility] Sodium 134 133 - 145 mmol/L LAB CHEMISTRY METHOD 01/13/2025 8:35 AM [facility] LAB Potassium 3.6 3.5 - 5.5 mmol/L LAB CHEMISTRY METHOD 01/13/2025 8:35 AM [facility] LAB Chloride 97 96 - 110 mmol/L LAB CHEMISTRY METHOD 01/13/2025 8:35 AM [facility] LAB CO2 29 21 - 32 mmol/L LAB CHEMISTRY METHOD 01/13/2025 8:35 AM [facility] LAB Anion Gap 8 3 - 11 LAB CHEMISTRY METHOD 01/13/2025 8:35 AM [facility] LAB Glucose 86 70 - 100 mg/dL LAB CHEMISTRY METHOD 01/13/2025 8:35 AM [facility] LAB BUN 38(H) 5 - 25 mg/dL LAB CHEMISTRY METHOD 01/13/2025 8:35 AM [facility] LAB Creatinine 3.35(H) 0.70 - 1.30 mg/dL LAB CHEMISTRY METHOD 01/13/2025 8:35 AM [facility] LAB eGFR 19(L) >=60 mL/min/1. 73m2 LAB CHEMISTRY METHOD 01/13/2025 8:35 AM [facility] LAB Comment:Calculation based on the??Chronic Kidney Disease Epidemiology Collaboration (CKD-EPI) equation refit??without adjustment for race. BUN/Creatinine Ratio 11.3 LAB CHEMISTRY METHOD 01/13/2025 8:35 AM [facility] LAB Calcium 8.7 8.5 - 10.5 mg/dL LAB CHEMISTRY METHOD 01/13/2025 8:35 AM [facility] LAB AST (SGOT) 22 10 - 42 unit/L LAB CHEMISTRY METHOD 01/13/2025 8:35 AM [facility] LAB ALT (SGPT) 21 10 - 60 unit/L LAB CHEMISTRY METHOD 01/13/2025 8:35 AM [facility] LAB Alkaline Phosphatase 260(H) 42 - 121 unit/L LAB CHEMISTRY METHOD 01/13/2025 8:35 AM [facility] Total Protein 6.8 6.0 - 8.0 g/dL LAB CHEMISTRY METHOD 01/13/2025 8:35 AM [facility] Albumin 3.0(L) 3.2 - 5.0 g/dL LAB CHEMISTRY METHOD 01/13/2025 8:35 AM [facility] Total Bilirubin 0.5 0.0 - 1.4 mg/dL LAB CHEMISTRY METHOD 01/13/2025 8:35 AM [facility] LAB Blood Venous blood specimen / Unknown Venipuncture / Unknown 01/13/2025 5:01 AM EST 01/13/2025 7:22 AM EST us Logan Bautista MD LAB BLOOD ORDERABLES Final Res ult [facility] [address] [place] [address], [place] [phone] * (ABNORMAL) CBC auto differential (01/07/2025 4:45 AM EST) Only the most recent of2 resultswithin the time period is included. [facility] WBC 8.0 4.8 - 10.8 K/mcL LAB HEMETOLOGY METHOD 01/07/2025 11:37 AM [facility] LAB RBC 3.30(L) 4.50 - 5.50 M/mcL LAB HEMETOLOGY METHOD 01/07/2025 11:37 AM [facility] LAB Hemoglobin 10.2(L) 13.5 - 17.5 g/dL LAB HEMETOLOGY METHOD 01/07/2025 11:37 AM [facility] LAB Hematocrit 32.0(L) 42.0 - 54.0 % LAB HEMETOLOGY METHOD 01/07/2025 11:37 AM [facility] LAB MCV 98.5(H) 79.0 - 98.0 FL LAB HEMETOLOGY METHOD 01/07/2025 11:37 AM [facility] LAB MCH 31.4 27.0 - 32.0 pcg LAB HEMETOLOGY METHOD 01/07/2025 11:37 AM [facility] LAB MCHC 31.9(L) 32.0 - 37.0 g/dL LAB HEMETOLOGY METHOD 01/07/2025 11:37 AM [facility] LAB RDW 15.0 11.0 - 15.0 % LAB HEMETOLOGY METHOD 01/07/2025 11:37 AM [facility] LAB Platelets 178 130 - 400 K/mcL LAB HEMETOLOGY METHOD 01/07/2025 11:37 AM [facility] LAB MPV 10.5 7.0 - 11.0 FL LAB HEMETOLOGY METHOD 01/07/2025 11:37 AM [facility] LAB NRBC 0.0 <1.0 % LAB HEMETOLOGY METHOD 01/07/2025 11:37 AM [facility] LAB NRBC Absolute 0.00 <0.10 K/mcL LAB HEMETOLOGY METHOD 01/07/2025 11:37 AM [facility] LAB Neutrophils Relative 67.2 % LAB HEMETOLOGY METHOD 01/07/2025 11:37 AM [facility] LAB Lymphocytes Relative 18.4 % LAB HEMETOLOGY METHOD 01/07/2025 11:37 AM [facility] Monocytes Relative 10.4 % LAB HEMETOLOGY METHOD 01/07/2025 11:37 AM [facility] LAB Eosinophils Relative 2.4 % LAB HEMETOLOGY METHOD 01/07/2025 11:37 AM [facility] Basophils Relative 0.5 % LAB HEMETOLOGY METHOD 01/07/2025 11:37 AM [facility] LAB Immature Granulocytes Relative 1.1 % LAB HEMETOLOGY METHOD 01/07/2025 11:37 AM [facility] LAB Neutrophils Absolute 5.40 1.50 - 7.00 K/mcL LAB HEMETOLOGY METHOD 01/07/2025 11:37 AM [facility] LAB Lymphocytes Absolute 1.48 1.00 - 5.00 K/mcL LAB HEMETOLOGY METHOD 01/07/2025 11:37 AM [facility] LAB Monocytes Absolute 0.84 0.20 - 1.00 K/mcL LAB HEMETOLOGY METHOD 01/07/2025 11:37 AM [facility] LAB Eosinophils Absolute 0.19 0.00 - 0.50 K/mcL LAB HEMETOLOGY METHOD 01/07/2025 11:37 AM [facility] LAB Basophils Absolute 0.04 0.00 - 0.20 K/mcL LAB HEMETOLOGY METHOD 01/07/2025 11:37 AM [facility] LAB Immature Granulocytes Absolute 0.09(H) 0.00 - 0.03 K/mcL LAB HEMETOLOGY METHOD 01/07/2025 11:37 AM [facility] LAB Blood Venous blood specimen / Unknown Venipuncture / Unknown 01/07/2025 4:45 AM EST 01/07/2025 10:35 AM EST us Logan Bautista MD LAB BLOOD ORDERABLES Final Res ult [facility] [address] [place] [address], [place] [phone] * (ABNORMAL) Basic metabolic panel (01/07/2025 4:45 AM EST) Sodium 131(L) 133 - 145 mmol/L LAB CHEMISTRY METHOD 01/07/2025 11:57 AM [facility] LAB Potassium 3.8 3.5 - 5.5 mmol/L LAB CHEMISTRY METHOD 01/07/2025 11:57 AM [facility] LAB Chloride 96 96 - 110 mmol/L LAB CHEMISTRY METHOD 01/07/2025 11:57 AM [facility] LAB CO2 24 21 - 32 mmol/L LAB CHEMISTRY METHOD 01/07/2025 11:57 AM [facility] LAB Anion Gap 11 3 - 11 LAB CHEMISTRY METHOD 01/07/2025 11:57 AM [facility] Glucose 105(H) 70 - 100 mg/dL LAB CHEMISTRY METHOD 01/07/2025 11:57 AM [facility] BUN 59(H) 5 - 25 mg/dL LAB CHEMISTRY METHOD 01/07/2025 11:57 AM [facility] LAB Creatinine 4.74(H) 0.70 - 1.30 mg/dL LAB CHEMISTRY METHOD 01/07/2025 11:57 AM [facility] LAB eGFR 13(L) >=60 mL/min/1. 73m2 LAB CHEMISTRY METHOD 01/07/2025 11:57 AM [facility] LAB Comment:Calculation based on the??Chronic Kidney Disease Epidemiology Collaboration (CKD-EPI) equation refit??without adjustment for race. BUN/Creatinine Ratio 12.4 LAB CHEMISTRY METHOD 01/07/2025 11:57 AM EST [facility] Calcium 9.0 8.5 - 10.5 mg/dL LAB CHEMISTRY METHOD 01/07/2025 11:57 AM EST [facility] Blood Venous blood specimen / Unknown Venipuncture / Unknown 01/07/2025 4:45 AM EST 01/07/2025 10:35 AM EST us Logan Bautista MD LAB BLOOD ORDERABLES Final Res ult Performing Organization Address City/[facility]/ZIP Co de Phone Number [facility] [address] [place] [address], [place] [phone] * Magnesium (01/01/2025 5:42 AM EST) Magnesium 2.3 1.9 - 2.6 mg/dL LAB CHEMISTRY METHOD 01/01/2025 11:55 AM EST [facility] Blood Venous blood specimen / Unknown Venipuncture / Unknown 01/01/2025 5:42 AM EST 01/01/2025 10:09 AM EST us Logan Bautista MD LAB BLOOD ORDERABLES Final Res ult Performing Organization Address City/[facility]/ZIP Co de Phone Number [facility] [address] [place] [address], [place] [phone] from Last 3 Months Insurance [employer] Care Teams Coal Miner Relationship Specialty Start Date End Date Jim Lundberg MD [address] [facility] [address] Floor [place], [place] PCP - General Pulmonary Disease 02/26/19
--- OUTSIDE RECORDS SUMMARY | 2025-03-01 08:55 | XMS_ITS | Encounter Summary ---
Author Organization [facility] Address [address] [place] [address] Care Team Providers Care Web Merchant Name Role Phone Jim Lundberg MD Primary Care Provider [phone] Encounter Details Date Type Department Care Team (Late st Contact Info) Description 10/15/[address] [facility] [address] [place] [address] Logan Bautista MD [address] [place] [id number] Anemia, unspecified Social History Tobacco Use Types [...] LAB HEMETOLOGY METHOD 10/15/2024 12:18 PM EST [facility] RBC 2.60(L) 4.50 - 5.50 M/mcL LAB HEMETOLOGY METHOD 10/15/2024 12:18 PM [facility] LAB Hemoglobin 8.1(L) 13.5 - 17.5 g/dL LAB HEMETOLOGY METHOD 10/15/2024 12:18 PM [facility] LAB Hematocrit 26.7(L) 42.0 - 54.0 % LAB HEMETOLOGY METHOD 10/15/2024 12:18 PM [facility] LAB MCV 104.3(H) 79.0 - 98.0 FL LAB HEMETOLOGY METHOD 10/15/2024 12:18 PM [facility] LAB MCH 31.6 27.0 - 32.0 pcg LAB HEMETOLOGY METHOD 10/15/2024 12:18 PM [facility] LAB MCHC 30.3(L) 32.0 - 37.0 g/dL LAB HEMETOLOGY METHOD 10/15/2024 12:18 PM [facility] LAB RDW 13.7 11.0 - 15.0 % LAB HEMETOLOGY METHOD 10/15/2024 12:18 PM [facility] LAB Platelets 185 130 - 400 K/mcL LAB HEMETOLOGY METHOD 10/15/2024 12:18 PM [facility] LAB MPV 10.5 7.0 - 11.0 FL LAB HEMETOLOGY METHOD 10/15/2024 12:18 PM [facility] LAB NRBC 0.0 <1.0 % LAB HEMETOLOGY METHOD 10/15/2024 12:18 PM [facility] LAB NRBC Absolute 0.00 <0.10 K/mcL LAB HEMETOLOGY METHOD 10/15/2024 12:18 PM [facility] LAB Neutrophils Relative 64.8 % LAB HEMETOLOGY METHOD 10/15/2024 12:18 PM [facility] LAB Lymphocytes Relative 20.3 % LAB HEMETOLOGY METHOD 10/15/2024 12:18 PM [facility] LAB Monocytes Relative 9.3 % LAB HEMETOLOGY METHOD 10/15/2024 12:18 PM [facility] LAB Eosinophils Relative 3.7 % LAB HEMETOLOGY METHOD 10/15/2024 12:18 PM [facility] LAB Basophils Relative 0.6 % LAB HEMETOLOGY METHOD 10/15/2024 12:18 PM [facility] LAB Immature Granulocytes Relative 1.3 % LAB HEMETOLOGY METHOD 10/15/2024 12:18 PM [facility] LAB Neutrophils Absolute 3.00 1.50 - 7.00 K/mcL LAB HEMETOLOGY METHOD 10/15/2024 12:18 PM [facility] LAB Lymphocytes Absolute 0.94(L) 1.00 - 5.00 K/mcL LAB HEMETOLOGY METHOD 10/15/2024 12:18 PM [facility] LAB Monocytes Absolute 0.43 0.20 - 1.00 K/mcL LAB HEMETOLOGY METHOD 10/15/2024 12:18 PM [facility] LAB Eosinophils Absolute 0.17 0.00 - 0.50 K/mcL LAB HEMETOLOGY METHOD 10/15/2024 12:18 PM [facility] LAB Basophils Absolute 0.03 0.00 - 0.20 K/mcL LAB HEMETOLOGY METHOD 10/15/2024 12:18 PM [facility] LAB Immature Granulocytes Absolute 0.06(H) 0.00 - 0.03 K/mcL LAB HEMETOLOGY METHOD 10/15/2024 12:18 PM [facility] LAB Blood Venous blood specimen / Unknown 10/15/2024 5:54 AM EST 10/15/2024 12:02 PM EST us Logan Bautista MD LAB BLOOD ORDERABLES Final Res ult [facility] [address] [place] [address], * (ABNORMAL) Basic metabolic panel (10/15/2024 5:54 AM EST) Sodium 132(L) 133 - 145 mmol/L LAB CHEMISTRY METHOD 10/15/2024 12:38 PM EST [facility] Potassium 3.9 3.5 - 5.5 mmol/L LAB CHEMISTRY METHOD 10/15/2024 12:38 PM [facility] LAB Chloride 96 96 - 110 mmol/L LAB CHEMISTRY METHOD 10/15/2024 12:38 PM [facility] LAB CO2 28 21 - 32 mmol/L LAB CHEMISTRY METHOD 10/15/2024 12:38 PM [facility] LAB Anion Gap 8 3 - 11 LAB CHEMISTRY METHOD 10/15/2024 12:38 PM [facility] LAB Glucose 119(H) 70 - 100 mg/dL LAB CHEMISTRY METHOD 10/15/2024 12:38 PM [facility] LAB BUN 42(H) 5 - 25 mg/dL LAB CHEMISTRY METHOD 10/15/2024 12:38 PM [facility] LAB Creatinine 5.06(H) 0.70 - 1.30 mg/dL LAB CHEMISTRY METHOD 10/15/2024 12:38 PM [facility] LAB eGFR 12(L) >=60 mL/min/1. 73m2 LAB CHEMISTRY METHOD 10/15/2024 12:38 PM [facility] LAB Comment:Calculation based on the??Chronic Kidney Disease Epidemiology Collaboration (CKD-EPI) equation refit??without adjustment for race. BUN/Creatinine Ratio 8.3 LAB CHEMISTRY METHOD 10/15/2024 12:38 PM [facility] LAB Calcium 9.8 8.5 - 10.5 mg/dL LAB CHEMISTRY METHOD 10/15/2024 12:38 PM EST [facility] Blood Venous blood specimen / Unknown Venipuncture / Unknown 10/15/2024 5:54 AM EST 10/15/2024 9:59 AM EST us Logan Bautista MD LAB BLOOD ORDERABLES Final Res ult Performing Organization Address City/State/[facility] Co de Phone Number [facility] LAB [address] [place] [address], documented in this encounter Visit Diagnoses Diagnosis Anemia, unspecified documented in this encounter Care Teams Web Merchant Relationship Specialty Start Date End Date Jim Lundberg MD [address] [facility] 2Nd Floor [place], [place] PCP - General Pulmonary Disease 02/26/19 documented as of this encounter
--- OUTSIDE RECORDS SUMMARY | 2025-03-01 08:55 | XMS_ITS | Encounter Summary ---
Author Organization [facility] Address [address] [facility] [address] [place] [address] Phone Care Team Providers Care Stem Mounter Name Role Phone Damon Orta MD Primary Care Provider [phone] Encounter Details Date Type Department Care Team (Late st Contact Info) Description 10/10/2022 Telephone [facility] [address] [facility] [address] [place] [phone] Rusty Milian MD [address] [facility] [address] [place] [phone] Social History Tobacco Use Types Packs/Day Years [...] Lisa Huynh - 10/10/2022 1:55 PM EST [facility] called pts insurance in inactive and he will be listed as self pay for his upcoming appt. If he has any other active insurances please call them back at [phone]. Thank you documented in this encounter Plan of Treatment Not on file documented as of this encounter Visit Diagnoses Not on filedocumented in this encounter Care Teams Stem Mounter Relationship Specialty Start Date End Date Damon Orta MD [address] [place] PCP - General Internal Medicine 12/31/21 documented as of this encounter
--- OUTSIDE RECORDS SUMMARY | 2025-03-01 08:55 | XMS_ITS | Encounter Summary ---
Author Organization [facility] Address [address] [place] [address] Phone Care Team Providers Care Helper Steel [employer]rication Name Role Phone Damon Orta MD Primary Care Provider [phone] Encounter Details Date Type Department Care Team (Latest Contact Info) Description 05/04/2021 Orders Only [facility] [address] [facility] [address] [place] [phone] Rusty Milian MD [address] [place] [phone] Chronic kidney disease, stage 4 (severe) (HCC); [...] AM EDT) Hemoglobin A1C 5.8(H) (4.0-5.6) % [facility] Comment: MONITORING: In known diabetic patients, hemoglobin A1c targets should be discussed with health care provider. DIAGNOSTIC USE: ??The [place] Diabetes Association (ADA) and the World Health [...] Supplement 1 Testing performed or reported by [facility], a Service of [address] [address] Melisa Lutz MD, Automation Mechanic Blood (Blood, Venous) 04/26/2021 10:01 AM EDT 04/26/2021 10:03 AM EDT Rusty Milian MD LAB BLOOD ORDERABLES Final Re sult Performing Organization Address [facility] [[email or web address]] de Phone Number [facility] * Vitamin D 25 Hydroxy (04/26/2021 10:01 AM EDT) Vitamin D, 25-Hydroxy 24.4 (20-50) NG/ML [facility] Comment: Testing performed or reported by [facility], a Service of [address] [address] Melisa Lutz MD, Automation Mechanic Blood (Blood, Venous) 04/26/2021 10:01 AM EDT 04/26/2021 10:03 AM EDT Rusty Milian MD LAB BLOOD ORDERABLES Final Re sult Performing Organization Address [facility] [[email or web address]] de Phone Number [facility] * (ABNORMAL) Protein, Total, Random Urine w/Creatinine (Protein/Creat Ratio) (04/26/2021 10:01 AM EDT) Protein/Creati ne Ratio 4.19(H) (0-0.2) [facility] Protein, Urine 136 MG/DL [facility] Creatinine, Urine 32.4 MG/DL [facility] Comment: Testing performed or reported by [facility], a Service of [facility] [address] [place] [address] Melisa Lutz MD, Automation Mechanic Urine (Urine, Clean Catch) 04/26/2021 10:01 AM EDT 04/26/2021 10:03 AM EDT Rusty Milian MD LAB URINE ORDERABLES Final Re sult Performing Organization Address [facility] [[email or web address]] de Phone Number [facility] * Uric Acid (04/26/2021 10:01 AM EDT) Uric Acid 6.7 (2.6-8.7) MG/DL [facility] Comment: Testing performed or reported by [facility], a Service of [facility], [address] [place] [address] Melisa Lutz MD, Automation Mechanic Blood (Blood, Venous) 04/26/2021 10:01 AM EDT 04/26/2021 10:03 AM EDT Rusty Milian MD LAB BLOOD ORDERABLES Final Re sult Performing Organization Address [email or web address] de Phone Number [facility] * (ABNORMAL) Renal Function Panel (04/26/2021 10:01 AM EDT) Glucose 105(H) (70-99) MG/DL [facility] BUN 56(H) (8-23) MG/DL [facility] Creatinine 2.5(H) (0.7-1.2) MG/DL [facility] Sodium 137 (133-145) MMOL/L [facility] Potassium 5.2 (3.6-5.2) MMOL/L [facility] Chloride 104 (98-107) MMOL/L [facility] Bicarbonate (CO2) 24 (22-29) MMOL/L [facility] Anion Gap 9 (4-17) [facility] Albumin 3.8 (3.4-4.8) GM/DL [facility] Calcium 8.9 (8.6-10.5) MG/DL [facility] Phosphorus, Serum 4.2 (2.5-4.5) MG/DL [facility] Est GFR Non 26 ML/MIN/1.7 3 M2 [facility] Comment: Creatinine based estimated glomerular filtration rate (eGFR) is calculated using the Chronic Kidney Disease Epidemiology Collaboration (CKD-EPI). The CKD-EPI creatinine equation has not been validated in children (<18 years), women or in some racial or ethnic subgroups other than Caucasians and Americans. EST GFR 30 ML/MIN/1.7 3 M2 [facility] Comment: Creatinine based estimated glomerular filtration rate (eGFR) is calculated using the Chronic Kidney Disease Epidemiology Collaboration (CKD-EPI). The CKD-EPI creatinine equation has not been validated in children (<18 years), women or in some racial or ethnic subgroups other than Caucasians and Americans. Testing performed or reported by [facility], a Service of [facility], [address] [place] [id number] Melisa Lutz MD, Automation Mechanic Blood (Blood, Venous) 04/26/2021 10:01 AM EDT 04/26/2021 10:03 AM EDT Rusty Milian MD LAB BLOOD ORDERABLES Final Re sult Performing Organization Address [email or web address] de Phone Number [facility] * PTH, Intact (04/26/2021 10:01 AM EDT) PTH, Intact 54 (15-65) PG/ML [facility] Comment: Testing performed or reported by [facility], a Service of [facility], [address] [place] [address] Melisa Lutz MD, Automation Mechanic Blood (Blood, Venous) 04/26/2021 10:01 AM EDT 04/26/2021 10:03 AM EDT Rusty Milian MD LAB BLOOD ORDERABLES Final Re sult Performing Organization Address [email or web address] de Phone Number [facility] * Magnesium (04/26/2021 10:01 AM EDT) Magnesium 2.0 (1.6-2.3) mg/dL [facility] Comment: Testing performed or reported by [facility], a Service of [address] [place] [address] Melisa Lutz MD, Automation Mechanic Blood (Blood, Venous) 04/26/2021 10:01 AM EDT 04/26/2021 10:03 AM EDT us Rusty Milian MD LAB BLOOD ORDERABLES Final Re sult [facility] * (ABNORMAL) CBC and Differential (04/26/2021 10:01 AM EDT) White Blood Cells 5.4 (4.0-11.0) K/MM3 [facility] RBC 3.51(L) (4.70-6.10 ) M/MM3 [facility] Hgb 10.6(L) (13.7-17.1 ) GM/DL [facility] Hematocrit 32.3(L) (40.5-50.0 ) % [facility] MCV 92.0 (80.0-94.0 ) FL [facility] MCH 30.2 (27.0-34.0 ) PG [facility] MCHC 32.8(L) (33.0-37.0 ) g/dL [facility] Platelets 157 (150-460) K/MM3 [facility] RDW-SD 44.7 (<47.0) FL [facility] MPV 10.2 (9.4-12.4) FL [facility] nRBC Count 0.0 #/100 WBC'S [facility] NRBC Absolute 0.0 K/MM3 [facility] Neutrophils Abs Auto 3.2 (1.3-7.0) K/MM3 [facility] Lymphocytes Relative 1.4 (0.8-3.1) K/MM3 [facility] Monocytes 0.5 (0.4-1.3) K/MM3 [facility] Eosinophils Relative 0.2 (0.0-0.4) K/MM3 [facility] Basophil ABS 0.0 (0.0-0.1) K/MM3 [facility] Granulocytes Absolute 0.1 K/MM3 [facility] Neutrophils % Auto 59.0 (44-76) % [facility] Lymphs 26.3 (15-43) % [facility] Monocytes Absolute 8.5 (4.5-10.5) % [facility] Eosinophils 4.4 (0-6) % [facility] Basophils Relative 0.7 (0-2) % [facility] Immature Granulocytes 1.1 % [facility] Comment: Testing performed or reported by [facility], a Service of [facility], [address] [place] [id number] Melisa Lutz MD, Automation Mechanic Blood (Blood, Venous) 04/26/2021 10:01 AM EDT 04/26/2021 10:03 AM EDT us Rusty Milian MD LAB BLOOD ORDERABLES Final Re sult [facility] documented in this encounter Visit Diagnoses Diagnosis Chronic kidney disease, stage 4 (severe) (HCC) Diabetic glomerulonephritis (HCC) Localized edema Proteinuria, not otherwise specified documented in this encounter Care Teams [employer] Relationship Specialty Start Date End Date Damon Orta MD [address] [place], [place] PCP - General Internal Medicine 12/31/21 documented as of this encounter
--- OUTSIDE RECORDS SUMMARY | 2025-03-01 08:55 | XMS_ITS | Encounter Summary ---
Author Organization [facility] Address [address] [place] [address] Care Team Providers Care Strip Feeder Name Role Phone Jim Lundberg MD Primary Care Provider [phone] Encounter Details Date Type Department Care Team (Late st Contact Info) Description 01/13/2025 Lab Requisition [facility] - Main Lab [address] [place] [address] Logan Bautista MD [address] [place] [address] Encounter for other general examination Social History [...] LAB CHEMISTRY METHOD 01/13/2025 8:35 AM EST [facility] ([facility]) [facility] Blood Venous blood specimen / Unknown Venipuncture / Unknown 01/13/2025 5:01 AM EST 01/13/2025 7:22 AM EST us Logan Bautista MD LAB BLOOD ORDERABLES Final Res ult [facility] [address] [place] [address], * (ABNORMAL) Complete blood count (01/13/2025 5:01 [...] LAB HEMETOLOGY METHOD 01/13/2025 8:02 AM EST [facility] MPV 10.2 7.0 - 11.0 FL LAB HEMETOLOGY METHOD 01/13/2025 8:02 AM EST [facility] NRBC 0.0 <1.0 % LAB HEMETOLOGY METHOD 01/13/2025 8:02 AM EST [facility] NRBC Absolute 0.00 <0.10 K/mcL LAB HEMETOLOGY METHOD 01/13/2025 8:02 AM EST [facility] LAB Blood Venous blood specimen / Unknown Venipuncture / Unknown 01/13/2025 5:01 AM EST 01/13/2025 7:22 AM EST us Logan Bautista MD LAB BLOOD ORDERABLES Final Res ult [facility] [address] [place] [address], * (ABNORMAL) Comprehensive metabolic panel (01/13/2025 5:01 [...] MD LAB BLOOD ORDERABLES Final Res ult [facility] ([facility]) HOSPITAL LAB [address] [place] [address], documented in this encounter Visit Diagnoses Diagnosis Encounter for other general examination documented in this encounter Care Teams Strip Feeder Relationship Specialty Start Date End Date Jim Lundberg MD [address] [facility] [address] [place], [place] PCP - General Pulmonary Disease 02/26/19 documented as of this encounter
--- OUTSIDE RECORDS SUMMARY | 2025-03-01 08:55 | XMS_ITS | Encounter Summary ---
Author Organization [facility] Address [address] [place] [address] Care Team Providers Care Letterpress Printing Machinist Name Role Phone Jim Lundberg MD Primary Care Provider [phone] Encounter Details Date Type Department Care Team (Late st Contact Info) Description 10/04/2024 Lab Requisition [facility] - Main Lab [address] [facility] [place] [address] Logan Bautista MD [address] [place] [id number] Wedge compression fracture of unspecified thoracic vertebra, [...] Final Res ult [facility] [address] [place] [address], * (ABNORMAL) Complete blood count (10/04/2024 6:35 AM EST) [facility] WBC 6.4 4.8 - 10.8 K/mcL LAB HEMETOLOGY METHOD 10/04/2024 12:[address] [facility] RBC 2.40(L) 4.50 - 5.50 M/[facility] LAB HEMETOLOGY METHOD 10/04/2024 12:[address] [...] LAB HEMETOLOGY METHOD 10/04/2024 12:48 PM EST [facility] RDW 13.2 11.0 - 15.0 [...] Final Res ult [facility] [address] [place] [address], * (ABNORMAL) Basic metabolic panel (10/04/2024 6:35 [...] Final Res ult [facility] [address] [place] [address], documented in this encounter Visit Diagnoses Diagnosis Wedge compression fracture of unspecified thoracic vertebra, initial encounter for closed fracture (CMS/HCC) Spinal stenosis, site unspecified documented in this encounter Care Teams Letterpress Printing Machinist Relationship Specialty Start Date End Date Jim Lundberg MD [address] [facility] [address] Floor [place], [place] PCP - General Pulmonary Disease 3/29/19 documented as of this encounter
--- OUTSIDE RECORDS SUMMARY | 2025-03-01 08:55 | XMS_ITS | Encounter Summary ---
Author Organization [facility] Address [address] [place] [address] Care Team Providers Care Neon Sign Mechanic Name Role Phone Jim Lundberg MD Primary Care Provider [phone] Encounter Details Date Type Department Care Team (Late st Contact Info) Description 01/01/2025 Lab Requisition [facility] - Main Lab [address] [facility] [place] [address] Logan Bautista MD [address] [place] [address] Encounter for other general examination Social History [...] K/mcL LAB HEMETOLOGY METHOD 01/01/2025 11:46 AM [facility] LAB RBC 3.50(L) 4.50 - 5.50 M/mcL LAB HEMETOLOGY METHOD 01/01/2025 11:46 AM [facility] LAB Hemoglobin 10.9(L) 13.5 - 17.5 g/dL LAB HEMETOLOGY METHOD 01/01/2025 11:46 AM [facility] LAB Hematocrit 33.6(L) 42.0 - 54.0 % LAB HEMETOLOGY METHOD 01/01/2025 11:46 AM [facility] LAB MCV 95.7 79.0 - 98.0 FL LAB HEMETOLOGY METHOD 01/01/2025 11:46 AM [facility] LAB MCH 31.1 27.0 - 32.0 pcg LAB HEMETOLOGY METHOD 01/01/2025 11:46 AM [facility] LAB MCHC 32.4 32.0 - 37.0 g/dL LAB HEMETOLOGY METHOD 01/01/2025 11:46 AM [facility] LAB RDW 14.5 11.0 - 15.0 % LAB HEMETOLOGY METHOD 01/01/2025 11:46 AM [facility] LAB Platelets 234 130 - 400 K/mcL LAB HEMETOLOGY METHOD 01/01/2025 11:46 AM [facility] LAB MPV 10.0 7.0 - 11.0 FL LAB HEMETOLOGY METHOD 01/01/2025 11:46 AM [facility] LAB NRBC 0.0 <1.0 % LAB HEMETOLOGY METHOD 01/01/2025 11:46 AM [facility] LAB NRBC Absolute 0.00 <0.10 K/mcL LAB HEMETOLOGY METHOD 01/01/2025 11:46 AM [facility] LAB Neutrophils Relative 68.3 % LAB HEMETOLOGY METHOD 01/01/2025 11:46 AM [facility] LAB Lymphocytes Relative 17.7 % LAB HEMETOLOGY METHOD 01/01/2025 11:46 AM [facility] Monocytes Relative 9.0 % LAB HEMETOLOGY METHOD 01/01/2025 11:46 AM [facility] LAB Eosinophils Relative 2.5 % LAB HEMETOLOGY METHOD 01/01/2025 11:46 AM [facility] Basophils Relative 0.7 % LAB HEMETOLOGY METHOD 01/01/2025 11:46 AM [facility] LAB Immature Granulocytes Relative 1.8 % LAB HEMETOLOGY METHOD 01/01/2025 11:46 AM [facility] LAB Neutrophils Absolute 5.63 1.50 - 7.00 K/mcL LAB HEMETOLOGY METHOD 01/01/2025 11:46 AM [facility] LAB Lymphocytes Absolute 1.46 1.00 - 5.00 K/mcL LAB HEMETOLOGY METHOD 01/01/2025 11:46 AM [facility] LAB Monocytes Absolute 0.74 0.20 - 1.00 K/mcL LAB HEMETOLOGY METHOD 01/01/2025 11:46 AM [facility] LAB Eosinophils Absolute 0.21 0.00 - 0.50 K/mcL LAB HEMETOLOGY METHOD 01/01/2025 11:46 AM [facility] Basophils Absolute 0.06 0.00 - 0.20 K/mcL LAB HEMETOLOGY METHOD 01/01/2025 11:46 AM [facility] LAB Immature Granulocytes Absolute 0.15(H) 0.00 - 0.03 K/mcL LAB HEMETOLOGY METHOD 01/01/2025 11:46 AM [facility] LAB Blood Venous blood specimen / Unknown Venipuncture / Unknown 01/01/2025 5:42 AM EST 01/01/2025 10:09 AM EST Logan Bautista MD LAB BLOOD ORDERABLES Final Res ult [facility] [address] [place] [address], [place] [phone] * Magnesium (01/01/2025 5:42 AM EST) Magnesium 2.3 1.9 - 2.6 mg/dL LAB CHEMISTRY METHOD 01/01/2025 11:55 AM EST [facility] Blood Venous blood specimen / Unknown Venipuncture / Unknown 01/01/2025 5:42 AM EST 01/01/2025 10:09 AM EST Logan Bautista MD LAB BLOOD ORDERABLES Final Res ult Performing Organization Address City/[facility]/ZIP Co de Phone Number [facility] [address] [place] [address], [place] [phone] * (ABNORMAL) Comprehensive metabolic panel (01/01/2025 5:42 AM EST) Pathologist [facility] Sodium 132(L) 133 - 145 mmol/L LAB CHEMISTRY METHOD 01/01/2025 11:55 AM [facility] LAB Potassium 3.8 3.5 - 5.5 mmol/L LAB CHEMISTRY METHOD 01/01/2025 11:55 AM [facility] LAB Chloride 93(L) 96 - 110 mmol/L LAB CHEMISTRY METHOD 01/01/2025 11:55 AM [facility] LAB CO2 29 21 - 32 mmol/L LAB CHEMISTRY METHOD 01/01/2025 11:55 AM [facility] LAB Anion Gap 10 3 - 11 LAB CHEMISTRY METHOD 01/01/2025 11:55 AM [facility] LAB Glucose 107(H) 70 - 100 mg/dL LAB CHEMISTRY METHOD 01/01/2025 11:55 AM [facility] BUN 33(H) 5 - 25 mg/dL LAB CHEMISTRY METHOD 01/01/2025 11:55 AM [facility] LAB Creatinine 3.93(H) 0.70 - 1.30 mg/dL LAB CHEMISTRY METHOD 01/01/2025 11:55 AM [facility] LAB eGFR 16(L) >=60 mL/min/1. 73m2 LAB CHEMISTRY METHOD 01/01/2025 11:55 AM [facility] Comment:Calculation based on the??Chronic Kidney Disease Epidemiology Collaboration (CKD-EPI) equation refit??without adjustment for race. BUN/Creatinine Ratio 8.4 LAB CHEMISTRY METHOD 01/01/2025 11:55 AM [facility] LAB Calcium 8.7 8.5 - 10.5 mg/dL LAB CHEMISTRY METHOD 01/01/2025 11:55 AM [facility] AST (SGOT) 20 10 - 42 unit/L LAB CHEMISTRY METHOD 01/01/2025 11:55 AM [facility] ALT (SGPT) 23 10 - 60 unit/L LAB CHEMISTRY METHOD 01/01/2025 11:55 AM [facility] Alkaline Phosphatase 291(H) 42 - 121 unit/L LAB CHEMISTRY METHOD 01/01/2025 11:55 AM [facility] Total Protein 6.9 6.0 - 8.0 g/dL LAB CHEMISTRY METHOD 01/01/2025 11:55 AM [facility] Albumin 3.0(L) 3.2 - 5.0 g/dL LAB CHEMISTRY METHOD 01/01/2025 11:55 AM [facility] Total Bilirubin 0.6 0.0 - 1.4 mg/dL LAB CHEMISTRY METHOD 01/01/2025 11:55 AM [facility] LAB Blood Venous blood specimen / Unknown Venipuncture / Unknown 01/01/2025 5:42 AM EST 01/01/2025 10:09 AM EST Logan Bautista MD LAB BLOOD ORDERABLES Final Res ult [facility] ([facility]) HOSPITAL LAB [address] [place] [address], documented in this encounter Visit Diagnoses Diagnosis Encounter for other general examination documented in this encounter Care Teams Neon Sign Mechanic Relationship Specialty Start Date End Date Jim Lundberg MD [address] [facility] [address] [place], [place] PCP - General Pulmonary Disease 02/26/19 documented as of this encounter
--- OUTSIDE RECORDS SUMMARY | 2025-03-01 08:55 | XMS_ITS | Encounter Summary ---
Author Organization [facility] Address [address] [place] [address] Care Team Providers Care Professor Of Political Science Name Role Phone Jim Lundberg MD Primary Care Provider [phone] Encounter Details Date Type Department Care Team (Late st Contact Info) Description 01/07/2025 Lab Requisition [facility] - Main Lab [address] [facility] [place] [address] Logan Bautista MD [address] [place] [id number] Encounter for other general examination Social History [...] K/mcL LAB HEMETOLOGY METHOD 01/07/2025 11:37 AM [facility] RBC 3.30(L) 4.50 - 5.50 M/mcL LAB HEMETOLOGY METHOD 01/07/2025 11:37 AM [facility] Hemoglobin 10.2(L) 13.5 - 17.5 g/dL LAB HEMETOLOGY METHOD 01/07/2025 11:37 AM [facility] Hematocrit 32.0(L) 42.0 - 54.0 % LAB HEMETOLOGY METHOD 01/07/2025 11:37 AM [facility] MCV 98.5(H) 79.0 - 98.0 FL LAB HEMETOLOGY METHOD 01/07/2025 11:37 AM [facility] MCH 31.4 27.0 - 32.0 pcg LAB HEMETOLOGY METHOD 01/07/2025 11:37 AM [facility] MCHC 31.9(L) 32.0 - 37.0 g/dL LAB HEMETOLOGY METHOD 01/07/2025 11:37 AM [facility] RDW 15.0 11.0 - 15.0 % LAB HEMETOLOGY METHOD 01/07/2025 11:37 AM [facility] Platelets 178 130 - 400 K/mcL LAB HEMETOLOGY METHOD 01/07/2025 11:37 AM [facility] MPV 10.5 7.0 - 11.0 FL LAB HEMETOLOGY METHOD 01/07/2025 11:37 AM [facility] NRBC 0.0 <1.0 % LAB HEMETOLOGY METHOD 01/07/2025 11:37 AM [facility] NRBC Absolute 0.00 <0.10 K/mcL LAB HEMETOLOGY METHOD 01/07/2025 11:37 AM [facility] Neutrophils Relative 67.2 % LAB HEMETOLOGY METHOD 01/07/2025 11:37 AM [facility] Lymphocytes Relative 18.4 % LAB HEMETOLOGY METHOD 01/07/2025 11:37 AM [facility] Monocytes Relative 10.4 % LAB HEMETOLOGY METHOD 01/07/2025 11:37 AM [facility] Eosinophils Relative 2.4 % LAB HEMETOLOGY METHOD 01/07/2025 11:37 AM [facility] Basophils Relative 0.5 % LAB HEMETOLOGY METHOD 01/07/2025 11:37 AM [facility] Immature Granulocytes Relative 1.1 % LAB HEMETOLOGY METHOD 01/07/2025 11:37 AM [facility] Neutrophils Absolute 5.40 1.50 - 7.00 K/mcL LAB HEMETOLOGY METHOD 01/07/2025 11:37 AM [facility] Lymphocytes Absolute 1.48 1.00 - 5.00 K/mcL LAB HEMETOLOGY METHOD 01/07/2025 11:37 AM [facility] Monocytes Absolute 0.84 0.20 - 1.00 K/mcL LAB HEMETOLOGY METHOD 01/07/2025 11:37 AM [facility] Eosinophils Absolute 0.19 0.00 - 0.50 K/mcL LAB HEMETOLOGY METHOD 01/07/2025 11:37 AM [facility] Basophils Absolute 0.04 0.00 - 0.20 K/mcL LAB HEMETOLOGY METHOD 01/07/2025 11:37 AM [facility] Immature Granulocytes Absolute 0.09(H) 0.00 - 0.03 K/mcL LAB HEMETOLOGY METHOD 01/07/2025 11:37 AM [facility] Blood Venous blood specimen / Unknown Venipuncture / Unknown 01/07/2025 4:45 AM EST 01/07/2025 10:35 AM EST us Logan Bautista MD LAB BLOOD ORDERABLES Final Res ult Performing Organization Address [facility]/ZIP Co de Phone Number [facility] [address] [place] [address], [place] [phone] * (ABNORMAL) Phosphorus (01/07/2025 4:45 AM EST) Pathologist [facility] Phosphorus 5.1(H) 2.5 - 4.5 mg/dL LAB CHEMISTRY METHOD 01/07/2025 11:55 AM EST [facility] Blood Venous blood specimen / Unknown Venipuncture / Unknown 01/07/2025 4:45 AM EST 01/07/2025 10:35 AM EST us Logan Bautista MD LAB BLOOD ORDERABLES Final Res ult Performing Organization Address [facility] Co de Phone Number [facility] [address] [place] [address], [place] [phone] * (ABNORMAL) Basic metabolic panel (01/07/2025 4:45 AM EST) [facility] Sodium 131(L) 133 - 145 mmol/L LAB CHEMISTRY METHOD 01/07/2025 11:57 AM [facility] Potassium 3.8 3.5 - 5.5 mmol/L LAB CHEMISTRY METHOD 01/07/2025 11:57 AM [facility] Chloride 96 96 - 110 mmol/L LAB CHEMISTRY METHOD 01/07/2025 11:57 AM [facility] CO2 24 21 - 32 mmol/L LAB CHEMISTRY METHOD 01/07/2025 11:57 AM [facility] Anion Gap 11 3 - 11 LAB CHEMISTRY METHOD 01/07/2025 11:57 AM [facility] Glucose 105(H) 70 - 100 mg/dL LAB CHEMISTRY METHOD 01/07/2025 11:57 AM [facility] BUN 59(H) 5 - 25 mg/dL LAB CHEMISTRY METHOD 01/07/2025 11:57 AM EST [facility] Creatinine 4.74(H) 0.70 - 1.30 mg/dL LAB CHEMISTRY METHOD 01/07/2025 11:57 AM [facility] eGFR 13(L) >=60 mL/min/1. 73m2 LAB CHEMISTRY METHOD 01/07/2025 11:57 AM [facility] Comment:Calculation based on the??Chronic Kidney Disease Epidemiology Collaboration (CKD-EPI) equation refit??without adjustment for race. BUN/Creatinine Ratio 12.4 LAB CHEMISTRY METHOD 01/07/2025 11:57 AM [facility] Calcium 9.0 8.5 - 10.5 mg/dL LAB CHEMISTRY METHOD 01/07/2025 11:57 AM [facility] Blood Venous blood specimen / Unknown Venipuncture / Unknown 01/07/2025 4:45 AM EST 01/07/2025 10:35 AM EST us Logan Bautista MD LAB BLOOD ORDERABLES Final Res ult [facility] [address] [place] [address], documented in this encounter Visit Diagnoses Diagnosis Encounter for other general examination documented in this encounter Care Teams Professor Of Political Science Relationship Specialty Start Date End Date Jim Lundberg MD [address] [facility] [address] [place], [place] PCP - General Pulmonary Disease 02/26/19 documented as of this encounter
--- OUTSIDE RECORDS SUMMARY | 2025-03-01 08:55 | XMS_ITS | Encounter Summary ---
Author Organization [facility] Address [address] [place] [address] Phone Care Team Providers Care Braille Transcriber Name Role Phone Damon Orta MD Primary Care Provider [phone] Encounter Details Date Type Department Care Team (Late st Contact Info) Description 12/18/2023 Office Communication [facility] [address] [place] [id number] Sherry Schuster, RN [address] [place] [address] Social History Tobacco Use Types Packs/Day Years [...] on filedocumented in this encounter Care Teams Braille Transcriber Relationship Specialty Start Date End Date Damon Orta MD [address] [facility] - [facility] 12/31/21 documented as of this encounter
--- OUTSIDE RECORDS SUMMARY | 2025-03-01 08:55 | XMS_ITS | Clinical Summary ---
Author Organization [facility] Address [address] [place] [address] Phone Care Team Providers Care Retirement Village Manager Name Role Phone Damon Orta MD Primary Care Provider [phone] Allergies No known active allergies Medications Dexamethasone [...] each day 09/23/2022 Active Epoetin Rah-epbx (Retacrit) 03968 UNIT/ML solution Inject as directed Active amLODIPine [...] 12/05/2024 Active cholecalciferol (VITAMIN D-3) 250 MCG (67478 UT) capsule Take 1 capsule (10,000 Units total) by mouth in the morning and 1 capsule (10,000 Units total) in the evening. 180 capsule 3 11/26/2024 Active Hospital, Clinic, or Other Facility Administered Medication Ordered Dose Route Frequency Start Date End Date Status Epoetin Rah-epbx solution 10,000 UnitsIndications:Anemia in chronic kidney disease 28428 Units IJ Once 07/16/2022 A ctive Epoetin Rah-epbx solution 20,000 UnitsIndications:Chronic kidney disease, stage 4 (severe) ([facility]),Anemia in chronic kidney disease 51062 Units IJ Once 06/26/2023 A ctive Epoetin Rah-epbx solution 40,000 UnitsIndications:Chronic kidney disease, not otherwise specified,Anemia in chronic kidney disease 73697 Units IJ Once 07/31/2023 Active Active Problems [...] Encounters Date Type Department Care Team Description 02/14/2025 Treatment [facility] [address] [place] [phone] Emil Bauer MD End stage renal disease; Dependence on renal dialysis 02/11/2025 Treatment [facility] [address] [phone] Emil Bauer MD End stage renal disease; Dependence on renal dialysis 02/02/2025 Treatment [facility] [address] [phone] Emil Bauer MD End stage renal disease; Dependence on renal dialysis 01/31/2025 Treatment [facility] [address] [phone] Emil Bauer MD End stage renal disease; Dependence on renal dialysis 01/26/2025 Treatment [facility] [address] [phone] Emil Bauer MD 01/19/2025 Treatment [facility] [address] [phone] Emil Bauer MD 12/22/2024 Treatment [facility] [address] [phone] Emil Bauer MD 12/15/2024 Treatment [facility] [address] [phone] Emil Bauer MD 12/08/2024 Treatment [facility] [address] [phone] Emil Bauer MD from Last 3 Months [...] Name Priority Date/Time Associated Diagnosis Comments HEMOGLOBIN AND HEMATOCRIT, BLOOD Routine 02/16/2025 3:00 AM EDT FERRITIN Routine 02/02/2025 3:00 AM EST HEPATITIS B SURFACE ANTIGEN W/REFL CONFIRM Routine 02/02/2025 3:00 AM EST TRANSFERRIN SATURATION Routine 3:00 AM EST PROTEIN, TOTAL, SERUM Routine 02/02/2025 3:00 AM EST ELECTROLYTE PANEL Routine 02/02/2025 3:0 0 AM EST LIH (HC) Routine 02/02/2025 3:00 AM EST MAGNESIUM Routine 02/02/2025 3:00 AM EST LACTATE DEHYDROGENASE Routine 02/02/2025 3:00 AM EST GLUCOSE, RANDOM Routine 02/02/2025 3:00 AM EST CREATININE, SERUM Routine 02/02/2025 3:0 0 AM EST BILIRUBIN, TOTAL Routine 02/02/2025 3:00 AM EST ALT Routine 02/02/2025 3:00 AM EST AST Routine 02/02/2025 3:00 AM EST ALKALINE PHOSPHATASE Routine 02/02/2025 3:00 AM EST CALCIUM PHOSPHORUS PRODUCT, ADJUSTED (HC) Routine 02/02/2025 3:00 AM EST CBC AND DIFFERENTIAL Routine 02/02/2025 3:00 AM EST KT/V NATURAL LOG, URR (HC) Routine 02/02/2025 3:00 AM EST HEPATITIS B SURFACE ANTIGEN [...] URR (HC) Routine 12/08/2024 3:00 AM EST from Last 3 Months Results * (ABNORMAL) Hemoglobin and hematocrit (02/16/2025 3:00 AM EDT) Hgb 10.8(L) 13.7 - 17.5 g/dL [facility] Hematocrit 35.0(L) 40.1 - 51.0 % [facility] Hemoglobin x 3 32.4(L) 41.1 - 52.5 g/dL [facility] 02/16/2025 3:00 AM EDT 02/17/2025 12:37 PM EDT us Emil Bauer MD LAB BLOOD ORDERABLES Final Resul t Performing Organization Address City/[facility]/ZIP Co de Phone Number [facility] [address] [place] [address] * LIH (02/02/2025 3:00 AM EST) Only the most recent of3 resultswithin the time period is included. Lipemia Normal Normal [facility] Icterus Normal Normal [facility] Hemolysis Normal Normal [facility] 02/02/2025 3:00 AM EST 02/03/2025 2:49 PM EST us Emil Bauer MD LAB [id number] ICITED RESULTS Final Result Performing Organization Address [facility] de Phone Number [facility] [address] [place] [address] * (ABNORMAL) Kt/V Natural Log, URR (02/02/2025 3:00 AM EST) Only the most recent of3 resultswithin the time period is included. Treatment Time 234 min [facility] Pre-Weight, lb 96.8 kg [facility] Post-Weight, lb 94.7 kg [facility] Ultrafiltration Rate 6 <=13 mL/kg/hr [facility] Comment: Recommend achieving Ultrafiltration Rate (UFR) <=10 mL/kg/hr References: Eliu CALIX et al. Kidney Int. 2010; 79(2):250-257 BUN 46(H) 7 - 25 mg/dL [facility] BUN Post Dialysis 11 7 - 25 mg/dL [facility] UREA REDUCTION RATIO (%) 76 >=65 % [facility] Kt/V Natural Log 1.64 >=1.2 [facility] 02/02/2025 3:00 AM EST 02/03/2025 2:23 PM EST us Emil Bauer MD LAB [id number] ICITED RESULTS Final Result Performing Organization Address City/[facility]/ZIP Co de Phone Number [facility] [address] [place] [address] * (ABNORMAL) Calcium Phosphorus Product, Adjusted (02/02/2025 3:00 AM EST) Only the most recent of3 resultswithin the time period is included. Albumin 3.8 3.6 - 5.4 g/dL [facility] Calcium 8.3(L) 8.6 - 10.3 mg/dL [facility] Phosphorus, Serum 4.1 2.5 - 5.0 mg/dL [facility] Ca*PO4 34.0 <55.0 mg2/dL2 [facility] Calcium, Adjusted Total 8.5(L) 8.6 - 10.3 mg/dL [facility] CA*PO4 CORRCTD 34.8 <55.0 mg2/dL2 [facility] 02/02/2025 3:00 AM EST 02/03/2025 2:49 PM EST us Emil Bauer MD LAB [id number] ICITED RESULTS Final Result Performing Organization Address [facility] de Phone Number [facility] [address] [place] [address] * Hepatitis B Surface Ag w/Reflex Confirmation (02/02/2025 3:00 AM EST) Only the most recent of3 resultswithin the time period is included. Hep B Surface Antigen Negative Negative [facility] 02/02/2025 3:00 AM EST 02/03/2025 2:49 PM EST us Emil Bauer MD LAB BLOOD ORDERABLES Final Resul t Performing Organization Address City/[facility] Co de Phone Number [facility] [address] [place] [address] * (ABNORMAL) TSAT (02/02/2025 3:00 AM EST) Only the most recent of3 resultswithin the time period is included. Iron 64(L) 65 - 175 ug/dL [facility] Transferrin 140(L) 215 - 365 mg/dL [facility] TIBC 196(L) 211 - 406 ug/dL [facility] Iron Saturation (TSat) 33 22 - 52 % [facility] 02/02/2025 3:00 AM EST 02/03/2025 2:49 PM EST Emil Bauer MD LAB BLOOD ORDERABLES Final Resul t [facility] [address] [place] [address] * (ABNORMAL) CBC and Differential (02/02/2025 3:00 AM EST) Only the most recent of3 resultswithin the time period is included. [facility] DIFFERENTIAL MANUAL, 2 Not Indicated [facility] White Blood Cells 4.6 4.2 - 9.1 K/uL [facility] RBC 3.48(L) 4.63 - 6.08 M/uL [facility] Hgb 10.6(L) 13.7 - 17.5 g/dL [facility] Hemoglobin x 3 31.8(L) 41.1 - 52.5 g/dL [facility] Hematocrit 33.9(L) 40.1 - 51.0 % [facility] MCV 97.4(H) 79.0 - 92.2 fL [facility] MCH 30.5 25.7 - 32.2 pg [facility] MCHC 31.3(L) 32.3 - 36.5 g/dL [facility] Platelets 103(L) 163 - 337 K/uL [facility] RDW 15.5(H) 11.6 - 14.4 % [facility] Neutrophils Relative 52.7 34.0 - 67.9 % [facility] Lymphocytes Relative 35.2 21.8 - 53.1 % [facility] Monocytes 9.1 5.3 - 12.2 % [facility] Eosinophils Relative 2.2 0.8 - 7.0 % [facility] Basophils Relative 0.4 0.2 - 1.2 % [facility] Immature Granulocytes 0.4 0.0 - 1.0 % [facility] 02/02/2025 3:00 AM EST 02/03/2025 2:53 PM EST us Emil Bauer MD LAB BLOOD ORDERABLES Final Resul t Performing Organization Address [facility] Co de Phone Number [facility] [address] [place] [address] * ALT (02/02/2025 3:00 AM EST) Only the most recent of3 resultswithin the time period is included. ALT (SGPT) 29 10 - 49 U/L [facility] 02/02/2025 3:00 AM EST 02/03/2025 2:49 PM EST us Emil Bauer MD LAB BLOOD ORDERABLES Final Resul t Performing Organization Address [facility] Phone Number [facility] [address] [place] [address] * (ABNORMAL) AST (02/02/2025 3:00 AM EST) Only the most recent of3 resultswithin the time period is included. AST (SGOT) 51(H) <34 U/L [facility] 02/02/2025 3:00 AM EST 02/03/2025 2:49 PM EST us Emil Bauer MD LAB BLOOD ORDERABLES Final Resul t Performing Organization Address [facility] de Phone Number [facility] [address] [place] [address] * Protein, total (02/02/2025 3:00 AM EST) Only the most recent of3 resultswithin the time period is included. Total Protein 6.9 6.4 - 8.9 g/dL [facility] 02/02/2025 3:00 AM EST 02/03/2025 2:49 PM EST us Emil Bauer MD LAB BLOOD ORDERABLES Final Resul t Performing Organization Address [facility] Co de Phone Number [facility] [address] [place] [address] * (ABNORMAL) Alkaline phosphatase (02/02/2025 3:00 AM EST) Only the most recent of3 resultswithin the time period is included. Alkaline Phosphatase 276(H) 46 - 116 U/L [facility] 02/02/2025 3:00 AM EST 02/03/2025 2:49 PM EST us Emil Bauer MD LAB BLOOD ORDERABLES Final Resul t Performing Organization Address City/[facility] de Phone Number [facility] [address] [place] [address] * Magnesium (02/02/2025 3:00 AM EST) Only the most recent of3 resultswithin the time period is included. Magnesium 2.2 1.9 - 2.7 mg/dL [facility] 02/02/2025 3:00 AM EST 02/03/2025 2:49 PM EST us Emil Bauer MD LAB BLOOD ORDERABLES Final Resul t Performing Organization Address [facility] de Phone Number [facility] [address] [place] [address] * Lactate dehydrogenase (02/02/2025 3:00 AM EST) Only the most recent of3 resultswithin the time period is included. LDH 236 120 - 246 U/L [facility] 02/02/2025 3:00 AM EST 02/03/2025 2:49 PM EST us Emil Bauer MD LAB BLOOD ORDERABLES Final Resul t Performing Organization Address [facility] de Phone Number [facility] [address] [place] [address] * (ABNORMAL) Glucose, random (02/02/2025 3:00 AM EST) Only the most recent of3 resultswithin the time period is included. Glucose 165(H) 74 - 109 mg/dL [facility] 02/02/2025 3:00 AM EST 02/03/2025 2:49 PM EST us Emil Bauer MD LAB BLOOD ORDERABLES Final Resul t Performing Organization Address [facility] de Phone Number [facility] [address] [place] [address] * (ABNORMAL) Ferritin (02/02/2025 3:00 AM EST) Only the most recent of3 resultswithin the time period is included. Ferritin 1,883(H) 22 - 322 ng/mL [facility] 02/02/2025 3:00 AM EST 02/03/2025 2:49 PM EST us Emil Bauer MD LAB BLOOD ORDERABLES Final Resul t Performing Organization Address [facility] Phone Number [facility] [address] [place] [address] * (ABNORMAL) Creatinine, serum (02/02/2025 3:00 AM EST) Only the most recent of3 resultswithin the time period is included. Creatinine 4.38(H) 0.70 - 1.30 mg/dL [facility] 02/02/2025 3:00 AM EST 02/03/2025 2:49 PM EST us Emil Bauer MD LAB BLOOD ORDERABLES Final Resul t Performing Organization Address [facility] Phone Number [facility] [address] [place] [address] * Bilirubin, total (02/02/2025 3:00 AM EST) Only the most recent of3 resultswithin the time period is included. Total Bilirubin 0.4 0.3 - 1.2 mg/dL [facility] 02/02/2025 3:00 AM EST 02/03/2025 2:49 PM EST us Emil Bauer MD LAB BLOOD ORDERABLES Final Resul t Performing Organization Address [facility] de Phone Number [facility] [address] [place] [address] * (ABNORMAL) Electrolyte panel (02/02/2025 3:00 AM EST) Only the most recent of3 resultswithin the time period is included. Sodium 135(L) 136 - 145 mEq/L [facility] Potassium 5.0 3.4 - 5.0 mEq/L [facility] Chloride 102 98 - 107 mEq/L [facility] Bicarbonate (CO2) 22 21 - 31 mEq/L [facility] Anion Gap 11 3 - 14 mEq/L [facility] 02/02/2025 3:00 AM EST 02/03/2025 2:49 PM EST us Emil Bauer MD LAB BLOOD ORDERABLES Final Resul t Performing Organization Address [facility] de Phone Number [facility] [address] [place] [address] * Confirmation Test HCV (01/17/2025 3:00 AM EST) Only the most recent of2 resultswithin the time period is included. Hep C Ab Confirmation Not needed [facility] 01/17/2025 3:00 AM EST 01/19/2025 1:02 PM EST us Emil Bauer MD LAB BLOOD ORDERABLES Final Resul t Performing Organization Address [facility] de Phone Number [facility] [address] [place] [address] * HEPATITIS C ABS W/REFLEX RNA DETECTR (01/17/2025 3:00 AM EST) Only the most recent of2 resultswithin the time period is included. Hep C Virus Ab Non-Reacti ve Non-Reacti ve [facility] 01/17/2025 3:00 AM EST 01/19/2025 12:36 PM EST us Emil Bauer MD LAB [id number] ICITED RESULTS Final Result Performing Organization Address [facility] de Phone Number [facility] [address] [place] [address] * Hepatitis B Core Antibody, Total (01/17/2025 3:00 AM EST) HBc Total Ab, S Negative Negative [facility] 01/17/2025 3:00 AM EST 01/19/2025 12:36 PM EST Emil Bauer MD LAB BLOOD ORDERABLES Final Resul t Performing Organization Address City/[facility] de Phone Number [facility] [address] [place] [address] * Aluminum level (01/17/2025 3:00 AM EST) Only the most recent of2 resultswithin the time period is included. Pathologist [facility] Aluminum 4 1 - 20 ug/L [facility] 01/17/2025 3:00 AM EST 01/19/2025 12:38 PM EST Emil Bauer MD LAB BLOOD ORDERABLES Final Resul t Performing Organization Address [facility] de Phone Number [facility] [address] [address] * Vitamin D 25 Hydroxy (01/17/2025 3:00 AM EST) Pathologist [facility] Vitamin D, 25-Hydroxy 33 30 - 100 ng/mL [facility] Comment: Status ? Adult ?? Pediatric Deficient: ? <20 ? <15 Insufficient: ??20-29 ?? 15-19 Sufficient: ?30-100 ??20-100 01/17/2025 3:00 AM EST 01/19/2025 12:36 PM EST us Emil Bauer MD LAB BLOOD ORDERABLES Final Resul t Performing Organization Address [facility] de Phone Number [facility] [address] [place] [address] * Hepatitis B Surface Antibody (01/17/2025 3:00 AM EST) Only the most recent of2 resultswithin the time period is included. Hep B Surface Antibody 164 mIU/mL [facility] Comment: Interpretation: <10: No Immunity >=10: Probable Immunity 01/17/2025 3:00 AM EST 01/19/2025 12:36 PM EST us Emil Bauer MD LAB BLOOD ORDERABLES Final Resul t Performing Organization Address [facility] Co de Phone Number [facility] [address] [place] [address] * Uric Acid (01/17/2025 3:00 AM EST) Only the most recent of2 resultswithin the time period is included. Uric Acid 6.2 4.4 - 7.6 mg/dL [facility] 01/17/2025 3:00 AM EST 01/19/2025 12:36 PM EST us Emil Bauer MD LAB BLOOD ORDERABLES Final Resul t Performing Organization Address [facility] Phone Number [facility] [address] [place] [address] * (ABNORMAL) PTH, Intact (01/17/2025 3:00 AM EST) Only the most recent of2 resultswithin the time period is included. Pathologist [facility] PTH, Intact 93(L) 160 - 721 pg/mL [facility] Comment: Suggested (KDIGO) ESRD maintenance range is two to nine times the upper normal limit (80.1 pg/mL) for the laboratory. 01/17/2025 3:00 AM EST 01/19/2025 12:36 PM EST us Emil Bauer MD LAB BLOOD ORDERABLES Final Resul t Performing Organization Address [facility] de Phone Number [facility] [address] [place] [address] * Hemoglobin A1c (01/17/2025 3:00 AM EST) [...] Final Resul t [facility] [address] [place] [address] * (ABNORMAL) Lipid panel (01/17/2025 3:00 AM [...] Resul t Performing Organization Address [facility] de Phone Number [facility] [address] [place] [address] * (ABNORMAL) Hemoglobin (12/22/2024 3:00 AM EST) Hgb 11.3(L) 13.7 - 17.5 g/dL [facility] Hemoglobin x 3 33.9(L) 41.1 - 52.5 g/dL [facility] 12/22/2024 3:00 AM EST 12/23/2024 2:26 PM EST us Emil Bauer MD LAB BLOOD ORDERABLES Final Resul t Performing Organization Address [facility] de Phone Number [facility] [address] [place] [address] from Last 3 Months Insurance MEDICARE [place] MEDICARE [facility] MEDICARE [place] Care Teams Retirement Village Manager Relationship Specialty Start Date End Date Damon Orta MD [address] [place] [address] DR[id number] [place] PCP - General Internal Medicine 12/31/21
--- OUTSIDE RECORDS SUMMARY | 2025-03-01 08:55 | XMS_ITS | Encounter Summary ---
Author Organization [facility] Facility Address [address] [address] Care Team Providers Care Grinder Chipper Name Role Phone Damon Orta MD Primary Care Provider Encounter Details Date Type Department Care Team (Latest Contact Info) Description 08/04/2024 Treatment Sebastián Franco MD [address] [phone] Social History Tobacco Use Types Packs/Day Years [...] care for end stage renal disease. Attending Oil Truck Driver: SEBASTIÁN FRANCO MD Dialysis Location: [facility] Schedule: Shift: 1 OVERVIEW Patient is stable. HOME MEDICATIONS [facility]ations [facility]. [facility] Medications amLODIPine (NORVASC) 5 MG [...] 0.7 MG IZ IMPL Start Date: RETACRIT 11325 UNIT/ML IJ SOLN Inject as directed Start [...] on filedocumented in this encounter Care Teams Grinder Chipper Relationship Specialty Start Date End Date Damon Orta MD [address] [place] [address] [phone] [place] PCP - General Internal Medicine 12/31/21 documented as of this encounter
--- OUTSIDE RECORDS SUMMARY | 2025-03-01 08:55 | XMS_ITS | Encounter Summary ---
Author Organization [facility] Address [address] [place] [address] Care Team Providers Care Fulfillment Mail Clerk Name Role Phone Jim Lundberg MD Primary Care Provider [phone] Encounter Details Date Type Department Care Team (Latest Contact Info) Description 10/18/2024 Lab Requisition [facility] - Main Lab 299 [facility] [employer] [place] [address] Logan Bautista MD [address] [place] [address] Type 2 diabetes mellitus without complications (CMS/HCC) [...] AM EST) WBC 5.0 4.8 - 10.8 K/[facility] LAB HEMETOLOGY METHOD 10/18/2024 11:46 AM [facility] RBC 2.50(L) 4.50 - 5.50 M/[facility] LAB HEMETOLOGY METHOD 10/18/2024 11:46 AM [facility] Hemoglobin 8.3(L) 13.5 - 17.5 g/dL LAB HEMETOLOGY METHOD 10/18/2024 11:46 AM [facility] LAB Hematocrit 26.2(L) 42.0 - 54.0 % LAB HEMETOLOGY METHOD 10/18/2024 11:46 AM [facility] LAB MCV 103.1(H) 79.0 - 98.0 FL LAB HEMETOLOGY METHOD 10/18/2024 11:46 AM [facility] MCH 32.7(H) 27.0 - 32.0 pcg LAB HEMETOLOGY METHOD 10/18/2024 11:46 AM [facility] MCHC 31.7(L) 32.0 - 37.0 g/dL LAB HEMETOLOGY METHOD 10/18/2024 11:46 AM [facility] RDW 13.8 11.0 - 15.0 % LAB HEMETOLOGY METHOD 10/18/2024 11:46 AM [facility] Platelets 152 130 - 400 K/mcL LAB HEMETOLOGY METHOD 10/18/2024 11:46 AM [facility] MPV 10.5 7.0 - 11.0 FL LAB HEMETOLOGY METHOD 10/18/2024 11:46 AM [facility] NRBC 0.0 <1.0 % LAB HEMETOLOGY METHOD 10/18/2024 11:46 AM [facility] NRBC Absolute 0.00 <0.10 K/mcL LAB HEMETOLOGY METHOD 10/18/2024 11:46 AM [facility] Neutrophils Relative 61.2 % LAB HEMETOLOGY METHOD 10/18/2024 11:46 AM [facility] Lymphocytes Relative 22.1 % LAB HEMETOLOGY METHOD 10/18/2024 11:46 AM [facility] Monocytes Relative 9.9 % LAB HEMETOLOGY METHOD 10/18/2024 11:46 AM [facility] Eosinophils Relative 4.8 % LAB HEMETOLOGY METHOD 10/18/2024 11:46 AM [facility] Basophils Relative 0.6 % LAB HEMETOLOGY METHOD 10/18/2024 11:46 AM [facility] Immature Granulocytes Relative 1.4 % LAB HEMETOLOGY METHOD 10/18/2024 11:46 AM [facility] Neutrophils Absolute 3.04 1.50 - 7.00 K/mcL LAB HEMETOLOGY METHOD 10/18/2024 11:46 AM [facility] Lymphocytes Absolute 1.10 1.00 - 5.00 K/mcL LAB HEMETOLOGY METHOD 10/18/2024 11:46 AM [facility] Monocytes Absolute 0.49 0.20 - 1.00 K/mcL LAB HEMETOLOGY METHOD 10/18/2024 11:46 AM [facility] Eosinophils Absolute 0.24 0.00 - 0.50 K/mcL LAB HEMETOLOGY METHOD 10/18/2024 11:46 AM [facility] Basophils Absolute 0.03 0.00 - 0.20 K/mcL LAB HEMETOLOGY METHOD 10/18/2024 11:46 AM [facility] LAB Immature Granulocytes Absolute 0.07(H) 0.00 - 0.03 K/mcL LAB HEMETOLOGY METHOD 10/18/2024 11:46 AM [facility] Blood Venous blood specimen / Unknown Venipuncture / Unknown 10/18/2024 6:04 AM EST 10/18/2024 11:21 AM EST us Logan Bautista MD LAB BLOOD ORDERABLES Final Res ult [facility] [address] [place] [address], * (ABNORMAL) Basic metabolic panel (10/18/2024 6:04 AM EST) Sodium 129(L) 133 - 145 mmol/L LAB CHEMISTRY METHOD 10/18/2024 3:22 PM EST [facility] LAB Potassium 4.2 3.5 - 5.5 mmol/L LAB CHEMISTRY METHOD 10/18/2024 3:22 PM [facility] Chloride 96 96 - 110 mmol/L LAB CHEMISTRY METHOD 10/18/2024 3:22 PM [facility] CO2 25 21 - 32 mmol/L LAB CHEMISTRY METHOD 10/18/2024 3:22 PM [facility] Anion Gap 8 3 - 11 LAB CHEMISTRY METHOD 10/18/2024 3:22 PM [facility] Glucose 83 70 - 100 mg/dL LAB CHEMISTRY METHOD 10/18/2024 3:22 PM [facility] BUN 51(H) 5 - 25 mg/dL LAB CHEMISTRY METHOD 10/18/2024 3:22 PM [facility] Creatinine 4.87(H) 0.70 - 1.30 mg/dL LAB CHEMISTRY METHOD 10/18/2024 3:22 PM [facility] eGFR 12(L) >=60 mL/min/1. 73m2 LAB CHEMISTRY METHOD 10/18/2024 3:22 PM [facility] Comment:Calculation based on the??Chronic Kidney Disease Epidemiology Collaboration (CKD-EPI) equation refit??without adjustment for race. BUN/Creatinine Ratio 10.5 LAB CHEMISTRY METHOD 10/18/2024 3:22 PM [facility] Calcium 9.7 8.5 - 10.5 mg/dL LAB CHEMISTRY METHOD 10/18/2024 3:22 PM EST [facility] Blood Venous blood specimen / Unknown Venipuncture / Unknown 10/18/2024 6:04 AM EST 10/18/2024 11:21 AM EST us Logan Bautista MD LAB BLOOD ORDERABLES Final Res ult [facility] [address] [place] [address], documented in this encounter Visit Diagnoses Diagnosis Type 2 diabetes mellitus without complications documented in this encounter Care Teams Fulfillment Mail Clerk Relationship Specialty Start Date End Date Jim Lundberg MD [address] [facility] 2[address] Floor [place], [place] PCP - General Pulmonary Disease 02/26/19 documented as of this encounter
--- OUTSIDE RECORDS SUMMARY | 2025-03-01 08:55 | XMS_ITS | Encounter Summary ---
Author Organization [facility] Address [address] [place] [address] Care Team Providers Care Carrier Associate Name Role Phone Jim Lundberg MD Primary Care Provider [phone] Encounter Details Date Type Department Care Team (Late st Contact Info) Description 10/11/[address] [facility] - Main Lab [address] [place] [address] Logan Bautista MD [address] [place] [address] Fusion of spine, cervical region Social History [...] AM EST) WBC 7.8 4.8 - 10.8 K/[facility] LAB HEMETOLOGY METHOD 10/11/2024 1:04 PM EST [facility] RBC 2.60(L) 4.50 - 5.50 M/mcL LAB HEMETOLOGY METHOD 10/11/2024 1:04 PM [facility] Hemoglobin 8.4(L) 13.5 - 17.5 g/dL LAB HEMETOLOGY METHOD 10/11/2024 1:04 PM [facility] Hematocrit 26.5(L) 42.0 - 54.0 % LAB HEMETOLOGY METHOD 10/11/2024 1:04 PM [facility] MCV 102.7(H) 79.0 - 98.0 FL LAB HEMETOLOGY METHOD 10/11/2024 1:04 PM [facility] MCH 32.6(H) 27.0 - 32.0 pcg LAB HEMETOLOGY METHOD 10/11/2024 1:04 PM [facility] MCHC 31.7(L) 32.0 - 37.0 g/dL LAB HEMETOLOGY METHOD 10/11/2024 1:04 PM [facility] RDW 13.5 11.0 - 15.0 % LAB HEMETOLOGY METHOD 10/11/2024 1:04 PM [facility] LAB Platelets 234 130 - 400 K/mcL LAB HEMETOLOGY METHOD 10/11/2024 1:04 PM [facility] MPV 10.0 7.0 - 11.0 FL LAB HEMETOLOGY METHOD 10/11/2024 1:04 PM [facility] NRBC 0.0 <1.0 % LAB HEMETOLOGY METHOD 10/11/2024 1:04 PM [facility] NRBC Absolute 0.00 <0.10 K/mcL LAB HEMETOLOGY METHOD 10/11/2024 1:04 PM [facility] Neutrophils Relative 72.9 % LAB HEMETOLOGY METHOD 10/11/2024 1:04 PM [facility] Lymphocytes Relative 14.0 % LAB HEMETOLOGY METHOD 10/11/2024 1:04 PM [facility] Monocytes Relative 9.0 % LAB HEMETOLOGY METHOD 10/11/2024 1:04 PM [facility] Eosinophils Relative 2.4 % LAB HEMETOLOGY METHOD 10/11/2024 1:04 PM [facility] Basophils Relative 0.3 % LAB HEMETOLOGY METHOD 10/11/2024 1:04 PM [facility] Immature Granulocytes Relative 1.4 % LAB HEMETOLOGY METHOD 10/11/2024 1:04 PM [facility] Neutrophils Absolute 5.67 1.50 - 7.00 K/mcL LAB HEMETOLOGY METHOD 10/11/2024 1:04 PM [facility] Lymphocytes Absolute 1.09 1.00 - 5.00 K/mcL LAB HEMETOLOGY METHOD 10/11/2024 1:04 PM [facility] Monocytes Absolute 0.70 0.20 - 1.00 K/mcL LAB HEMETOLOGY METHOD 10/11/2024 1:04 PM [facility] Eosinophils Absolute 0.19 0.00 - 0.50 K/mcL LAB HEMETOLOGY METHOD 10/11/2024 1:04 PM [facility] Basophils Absolute 0.02 0.00 - 0.20 K/mcL LAB HEMETOLOGY METHOD 10/11/2024 1:04 PM [facility] LAB Immature Granulocytes Absolute 0.11(H) 0.00 - 0.03 K/mcL LAB HEMETOLOGY METHOD 10/11/2024 1:04 PM [facility] Blood Venous blood specimen / Unknown Venipuncture / Unknown 10/11/2024 7:02 AM EST 10/11/2024 12:28 PM EST Logan Bautista MD LAB BLOOD ORDERABLES Final Res ult [facility] [address] [place] [address], * (ABNORMAL) Basic metabolic panel (10/11/2024 7:02 AM EST) Sodium 129(L) 133 - 145 mmol/L LAB CHEMISTRY METHOD 10/11/2024 1:38 PM EST [facility] Potassium 4.2 3.5 - 5.5 mmol/L LAB CHEMISTRY METHOD 10/11/2024 1:38 PM [facility] Chloride 93(L) 96 - 110 mmol/L LAB CHEMISTRY METHOD 10/11/2024 1:38 PM [facility] CO2 26 21 - 32 mmol/L LAB CHEMISTRY METHOD 10/11/2024 1:38 PM EST [facility] Anion Gap 10 3 - 11 LAB CHEMISTRY METHOD 10/11/2024 1:38 PM [facility] Glucose 96 70 - 100 mg/dL LAB CHEMISTRY METHOD 10/11/2024 1:38 PM [facility] BUN 41(H) 5 - 25 mg/dL LAB CHEMISTRY METHOD 10/11/2024 1:38 PM [facility] Creatinine 5.35(H) 0.70 - 1.30 mg/dL LAB CHEMISTRY METHOD 10/11/2024 1:38 PM [facility] LAB eGFR 11(L) >=60 mL/min/1. 73m2 LAB CHEMISTRY METHOD 10/11/2024 1:38 PM [facility] LAB Comment:Calculation based on the??Chronic Kidney Disease Epidemiology Collaboration (CKD-EPI) equation refit??without adjustment for race. BUN/Creatinine Ratio 7.7 LAB CHEMISTRY METHOD 10/11/2024 1:38 PM [facility] Calcium 9.5 8.5 - 10.5 mg/dL LAB CHEMISTRY METHOD 10/11/2024 1:38 PM EST [facility] Blood Venous blood specimen / Unknown Venipuncture / Unknown 10/11/2024 7:02 AM EST 10/11/2024 12:28 PM EST us Logan Bautista MD LAB BLOOD ORDERABLES Final Res ult [facility] [address] [place] [address], documented in this encounter Visit Diagnoses Diagnosis Fusion of spine, cervical region documented in this encounter Care Teams Carrier Associate Relationship Specialty Start Date End Date Jim Lundberg MD 222 [facility] [address] [place], [place] PCP - General Pulmonary Disease 02/26/19 documented as of this encounter
--- OUTSIDE RECORDS SUMMARY | 2025-03-01 08:55 | XMS_ITS | Encounter Summary ---
Author Organization [facility] Address [address] [place] [address] Care Team Providers Care Talent Director Name Role Phone Jim Lundberg MD Primary Care Provider [phone] Encounter Details Date Type Department Care Team (Late st Contact Info) Description 10/21/[address] [facility] - Main Lab [address] [place] [address] Logan Bautista MD [address] [place] [phone] Caisson disease (decompression sickness), initial encounter Social [...] AM EST) WBC 4.7(L) 4.8 - 10.8 K/[facility] LAB HEMETOLOGY METHOD 10/21/2024 10:02 AM [facility] [...] ult [facility] [address] [place] [address], * (ABNORMAL) Basic metabolic panel (10/21/2024 6:38 AM EST) Sodium 133 133 - 145 mmol/L LAB CHEMISTRY METHOD 10/21/2024 10:38 AM EST [facility] LAB Potassium [...] LAB CHEMISTRY METHOD 10/21/2024 10:38 AM EST [facility] LAB Blood Venous blood specimen / Unknown Venipuncture / Unknown 10/21/2024 6:38 AM EST 10/21/2024 8:43 AM EST us Logan Bautista MD LAB BLOOD ORDERABLES Final Res ult [facility] [address] [place] [address], documented in this encounter Visit Diagnoses Diagnosis Caisson disease (decompression sickness), initial encounter documented in this encounter Care Teams Talent Director Relationship Specialty Start Date End Date Jim Lundberg MD 222 [facility] [address] [place], [place] PCP - General Pulmonary Disease 02/26/19 documented as of this encounter
--- OUTSIDE RECORDS SUMMARY | 2025-03-01 08:55 | XMS_ITS | Encounter Summary ---
Author Organization [facility] Address [address] [place] [address] Phone Care Team Providers Care Ring Cutter Lathe Operator Name Role Phone Damon Orta MD Primary Care Provider [phone] Encounter Details Date Type Department Care Team (Late st Contact Info) Description 08/29/2022 Office Communication [facility] [address] [place] [id number] Sherry Villagomez Social History Tobacco Use Types [...] on filedocumented in this encounter Care Teams Ring Cutter Lathe Operator Relationship Specialty Start Date End Date Damon Orta MD [address] JOSE JAIMES PCP - General Internal Medicine 12/31/21 documented as of this encounter
--- OUTSIDE RECORDS SUMMARY | 2025-03-01 08:55 | XMS_ITS | Encounter Summary ---
Author Organization [facility] Address [address] [place] [address] Care Team Providers Care Partner Marketing Manager Name Role Phone Jim Lundberg MD Primary Care Provider [phone] Encounter Details Date Type Department Care Team (Late st Contact Info) Description 10/02/2024 Lab Requisition [facility] - Main Lab [address] [place] [address] Logan Bautista MD [address] [place] [address] Fusion of spine, cervical region Social History [...] LAB CHEMISTRY METHOD 10/02/2024 11:[address] [facility] LAB Blood Venous blood specimen / Unknown Venipuncture / Unknown 10/02/2024 5:15 AM EDT 10/02/2024 9:59 AM EDT Logan Bautista MD LAB BLOOD ORDERABLES Final Res ult Performing Organization Address [facility]/ZIP Co de Phone Number [facility] [address] [place] [address], [place] [phone] * (ABNORMAL) Ferritin (10/02/2024 5:15 AM EDT) Ferritin 965(H) 26 - 388 ng/mL LAB CHEMISTRY METHOD 10/02/2024 11:22 AM EDT [facility] Blood Venous blood specimen / Unknown Venipuncture / Unknown 10/02/2024 5:15 AM EDT 10/02/2024 9:59 AM EDT Logan Bautista MD LAB BLOOD ORDERABLES Final Res ult Performing Organization Address [facility] Co de Phone Number [facility] [address] [place] [address], [place] [phone] * (ABNORMAL) Basic metabolic panel (10/02/2024 5:15 AM EDT) Sodium 131(L) 133 - 145 mmol/L LAB CHEMISTRY METHOD 10/02/2024 11:52 AM EDT [facility] Potassium 3.8 3.5 - 5.5 mmol/L LAB CHEMISTRY METHOD 10/02/2024 11:52 AM EDT [facility] Chloride 93(L) 96 - 110 mmol/L LAB CHEMISTRY METHOD 10/02/2024 11:52 AM EDT [facility] CO2 28 21 - 32 mmol/L LAB CHEMISTRY METHOD 10/02/2024 11:52 AM EDT [facility] Anion Gap 10 3 - 11 LAB CHEMISTRY METHOD 10/02/2024 11:52 AM [facility] Glucose 80 70 - 100 mg/dL LAB CHEMISTRY METHOD 10/02/2024 11:52 AM [facility] BUN 41(H) 5 - 25 mg/dL LAB CHEMISTRY METHOD 10/02/2024 11:52 AM [facility] Creatinine 3.97(H) 0.70 - 1.30 mg/dL LAB CHEMISTRY METHOD 10/02/2024 11:52 AM [facility] LAB Comment:Results verified by repeat testing eGFR 16(L) >=60 mL/min/1. 73m2 LAB CHEMISTRY METHOD 10/02/2024 11:52 AM [facility] Comment:Calculation based on the??Chronic Kidney Disease Epidemiology Collaboration (CKD-EPI) equation refit??without adjustment for race. BUN/Creatinine Ratio 10.3 LAB CHEMISTRY METHOD 10/02/2024 11:52 AM [facility] Calcium 9.0 8.5 - 10.5 mg/dL LAB CHEMISTRY METHOD 10/02/2024 11:52 AM [facility] Blood Venous blood specimen / Unknown Venipuncture / Unknown 10/02/2024 5:15 AM EDT 10/02/2024 9:59 AM EDT us Logan Bauitsta MD LAB BLOOD ORDERABLES Final Res ult [facility] [address] [place] [address], [place] [phone] documented in this encounter Visit Diagnoses Diagnosis Fusion of spine, cervical region documented in this encounter Care Teams Partner Marketing Manager Relationship Specialty Start Date End Date Jim Lundberg MD [address] [facility] [address] [place], [place] PCP - General Pulmonary Disease 02/26/19 documented as of this encounter
--- OUTSIDE RECORDS SUMMARY | 2025-03-01 08:55 | XMS_ITS | Continuity of Care Document ---
Author Organization [facility] Address [address] [address]- Care Team Providers Care Power Saw Mechanic Name Role Phone Odessa CUEVAS, Imtiaz Najera Primary Care Physic steve Encounter [facility] Date(s): 01/24/25 - 02/23/25 [facility] [address] [address]- Encounter Type: Triage Allergies, Adverse Reactions, Alerts No Known Allergies Immunizations Given and Recorded Vaccine Date Status Refusal Reason SARS-CoV-2(COVID-19)mRNA-LNP vac([id number]) 08/21/24 Recorded SARS-CoV-2(COVID-19)mRNA-LNP vac([id number]) 09/05/23 Recorded zoster vaccine, inactivated 04/25/23 Recorded zoster vaccine, inactivated 08/23/22 Recorded [id number] bivalent booster vax 04/25/23 Recorded [id number] bivalent booster vax 08/23/22 Recorded hepatitis B [...] virus vaccine, inactivated 10/28/18 Mazin rded Medications amoxicillin-clavulanate 500 mg-125 mg oral tablet 1 tablet, By Mouth, Every 24 hours, for 14 days, Administer after dialysis on dialysis days, # 14 tablet, 0 Refills, Acute 02/25/25 5:15:00 PM EDT, 02/11/25 5:15:00 PM EDT, Tablet, [facility]/pharmacy #[id number], [facility], this is better option., 167, cm, 02/11/2513:46:00 EDT, Height, 102, kg, 11/24/24 21:52:00 EST, Dry Weight Start Date: 02/11/25 Stop Date: 02/25/25 Status: Ordered Quantity: 14.0 Unit: tablet Repeat number: 1 atorvastatin 20 mg oral tablet 1 tablet [...] Date: 09/13/19 Status: Ordered Repeat number: 1 Post -Op Shoe Post -Op Shoe, See Instructions, # 1 each, Refills 0, Tot. Refills 0, Maintenance, Use as directed by the vascular provider. Right first toe and ray amputation., 02/02/25 3:26:00 PM EST, Supply Start Date: 02/02/25 Status: Ordered Quantity: 1.0 Unit: each Repeat number: 1 Indication: Complete traumatic amputation of one unspecified lesser toe, initial encounter sevelamer carbonate 800 mg oral tablet = [...] Effective Dates Status Health St [facility] Informant End-stage renal disease Confirmed Active Hypotension Confirmed Active Diabetic neuropathy Confirmed Active Obese class I Confirmed Active Type 2 diabetes mellitus Confirmed Active Patient Care team information Care Team Personnel Name: Jaguar CORREA, Therese Santos Position: S RN Member Role: Primary Care Nurse Name: Rebecca Kidd RN Position: [facility] RN Member Role: Primary Care Nurse Name: Massiel Haas RN Position: [facility] RN Member Role: Primary Care Nurse Name: Liberty Alaniz Position: [facility] Outreach Member Role: Lifetime Consulting Physician Name: Mehnaz Carrero Position: [facility] Associate Professional Member Role: Lifetime Consulting Provider Address: [address] [place], [place] [phone] [facility] [address] Telecom: Name: Rusty Puentes MD Position: [facility] Renal MD Member Role: Lifetime Consulting Physician Address: [address] [place], [place] [phone] [facility] [address] Telecom: Name: Mignon Mcdonough RN Position: [facility] RN Member Role: Lifetime Consulting Physician Name: Lilliana Vazquez NP Position: [facility] Associate Professional Member Role: Lifetime Consulting Provider Address: [address] [place] [address] [address] [facility] [place], [place] [address] Telecom: Name: Aysha Figueroa RN Position: [facility] RN Member Role: Primary Care Nurse Name: Maryam Martinez RN Position: [facility] RN Member Role: Primary Care Nurse Name: Maya Mcmahon RN Position: [facility] RN Member Role: Primary Care Nurse Name: Amarilis Colbert RN Position: [facility] RN Member Role: Primary Care Nurse Name: Jonathan Locke MD Position: [facility] Renal MD Member Role: Lifetime Consulting Physician Address: [address] [facility] [address] [facility] [place] [address]- [place] Telecom: Name: Fatou Brasher RN Position: S RN Member Role: Primary Care Nurse Name: Quin Rasmussen RN Position: S RN Member Role: Primary Care Nurse Name: Fiorella Gusman RN Position: S RN Member Role: Primary Care Nurse Name: Brittney Zuleta RN Position: S RN Member Role: Primary Care Nurse Name: Odessa CUEVAS, Imtiaz Najera Position: Reference Physician Member Role: PCP Address: [address] [place] [address]- [place] Telecom: Name: Quentin Pineda RN Position: S RN Member Role: Primary Care Nurse Care Team Related Persons Name: RENATO GHOTRA Insurance Providers Guarantor name: [employer] Health Plan Information #: 1 Payer: MEDICARE PART B OUTPT Member Number: NA Policy Number: NA Group Number: NA Health Plan Information #: 2 Payer: [facility] PLAN Member Number: NA Policy Number: NA Group Number: NA
[2025-03-01 15:01] LABS: Hematocrit 34.2 % (42.0-52.0); Hemoglobin 10.8 g/dl (14.0-18.0); Mean Corpuscular HGB Conc 31.6 g/dl (31.0-36.0); Mean Corpuscular Volume 101.2 fL (80.0-98.0); Platelet Count 132 X10*3/uL (160-400); Red Blood Count 3.38 X10*6/uL (4.60-5.80); Red Cell Distribution Width 15.9 % (11.0-16.0); White Blood Count 5.2 X10*3/uL (4.8-10.8)
[2025-03-01 17:08] LABS: Estimated Average Glucose 100 mg/dL; Hemoglobin A1C 93.4373 umol/L; Hemoglobin A1c % 5.1 % (<6.0); Total Hemoglobin (HGBA1C) 2894.1469 umol/L
[2025-03-01 17:31] LABS: Alanine Aminotransferase 28 U/L (0-40); Albumin Level 3.6 g/dL (3.5-5.0); Alkaline Phosphatase 191 U/L (39-117); Anion Gap 10 (12-20); Aspartate Amino Transferase 47 U/L (5-37); Bilirubin Direct 0.3 mg/dL (0.0-0.5); Bilirubin Total 0.5 mg/dL (0.0-1.0); Blood Urea Nitrogen 41 mg/dL (9-16); Calcium 9.2 mg/dL (8.4-10.2); Carbon Dioxide 31 mmol/L (22-29); Chloride 102 mmol/L (96-108); Cholesterol 104 mg/dL (<200); Estimated Glomerular Filt Rate 18; Glucose Random 83 mg/dL (60-115); HDL Cholesterol 51 mg/dL (>40); LDL Cholesterol Calculated 39 mg/dL (<100); Potassium 4.2 mmol/L (3.3-5.1); Sodium 139 mmol/L (135-145); Total Protein 6.9 g/dL (6.5-8.0); Triglycerides 74 mg/dL (<150)
[2025-03-01 17:35] LABS: Thyroid Stimulating Hormone 2.06 uIU/mL (0.32-4.0)
== END 2025-03-01 08:35 | disposition home or self-care (01) ==
LOC: HO.CHCLDS 08:34
PROVIDERS: Visit Provider Internal Medicine
DX: N18.9 Chronic kidney disease, unspecified (principal); E11.9 Type 2 diabetes mellitus without complications
CPT/HCPCS: 36415; 80048; 80061; 80076; 83036; 84443; 85027

== ENCOUNTER 2025-05-20 11:02 | Outpatient (AMB) | payer MEDICARE, SELFPAY ==
--- NOTE | 2025-05-20 11:05 | A.OFFPC_ITS ---
Vital Signs 05/20/25 11:07 Height 5 ft 6 in Weight 91.1 kg BMI 32.4 Respiration 16 Pulse 64 Pulse Source Pulse Oximeter Temp 97.9 F Temp Source Temporal Artery Scan Pulse Oximetry (%) 99 Oxygen Delivery Method Room Air Intake Visit Reasons: Paper Work ONLY Rounding And Backing Machine Operator Required: No Accompanied by: Self / Same As Patient Allergies No Known Allergies Allergy (Verified 05/20/25 11:07) Medication List - Last Reconciled 05/20/25 by SHWTEA Hudson [AFO brace (L) foot As directed] aspirin 81 mg PO DAILY atorvastatin 20 mg PO DAILY calcium carbonate tabs PO TID cholecalciferol (vitamin D3) 50 mcg (2 x 25 mcg (1,000 unit)) PO DAILY doxycycline monohydrate 100 mg PO BID escitalopram oxalate (Lexapro) 5 mg PO DAILY fluticasone furoate-vilanterol 100-25 mcg/dose (Breo Ellipta) 1 inh inhalation DAILY gabapentin 300 mg PO BID latanoprost 0.005% drps ophthalmic (eye) levothyroxine 100 mcg PO DAILY midodrine 5 mg PO ONCE midodrine 10 mg PO ONCE multivitamin 1 tab PO DAILY nut.tx,impaired renal function (RenaMent) mL PO sevelamer HCl 400 mg PO TID sitagliptin phosphate 100 mg PO DAILY vitamin B complex 1 tab PO DAILY Tobacco use date assessed: 02/21/25 Dental Screening Dental Screen Date: 02/21/25 HPI HPI Comments History of Present Illness Details 69-year-old male with extensive past med ical history presents to the office today for evaluation for admission to assisted living facility and will require paperwork completed in the office today. 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 As a result of these conditions/complications, the patient has significant physiological limitations which will require the assistance of assistive devices such as walker, cane, and wheelchair with long distance. He also requires assistance with showering and with changing dressings/wraps on his feet. He does also wear a brace on the left foot which further limits his ability to ambulate without instability. As a result he is seeking housing in an assisted living facility at the [facility]. He is otherwise independently functional with regard to ADLs. [facility] Medical History (Updated 05/20/25 @ 13:09 by SHWETA Hudson) BPH (benign prostatic hyperplasia) Hypothyroidism AV fistula Diabetic polyneuropathy Venous insufficiency Calcific aortic valve stenosis Orthostatic hypotension ESRD on dialysis Macular edema COVID-19 vaccine series completed History of anesthesia complications Arthritis RBBB Congenital single kidney Localized edema Peripheral neuropathy Elevated cholesterol HTN (hypertension) Diabetes CKD (chronic kidney disease) Surgical History (Updated 05/20/25 @ 13:05 by SHWETA Hudson) S/P transmetatarsal amputation of foot H/O colonoscopy History of lumbar laminectomy Hx of cervical spine surgery Hx of cataract extraction Family History (Updated 02/21/25 @ 14:06 by JERROD Juares) Mother Diabetes Kidney disease Ovarian cancer High blood pressure Father High blood pressure Esophageal cancer Social History (Updated 02/21/25 @ 14:07 by JERROD Juares) Housing: House Are you a primary customer care assistant to a significant other at home: No Do you presently have visiting nurse or other home services: No Alcohol intake: current Alcohol intake frequency: does not drink Patient Tobacco Use Status: Never used Tobacco service: No Current occupational status: retired and disabled Cognitive needs: Yes (cane, walker) Hearing needs: Yes (b/l ear hearing aids) Vision needs: Yes (rx glasses) Questionnaire Thrive Questionnaire Date Thrive assessed: 02/21/25 KERA-7 AMB Questionnaire KERA-7 Date KERA - 7 assessed: 02/21/25 Source: Developed by Drs. Eduardo Miranda, Aiyana Menjivar, Antoine Law and colleagues, with an educational samantha from [employer]. Physical exam (Primary Care) BMI result Body Mass Index 32.4 Tobacco/Smoking Status: Tobacco use Status Tobacco use date assessed 02/21/25 02/21/25 14:07 Patient Tobacco Use Status Never used Tobacco 02/21/25 14:07 Tobacco use type 02/21/25 14:33 Thrive Assessment: Date of Thrive Assessment Date Thrive assessed 02/21/25 02/21/25 14:07 Coding Level of Care Code Est Pt Level 4 (01493) Diagnoses Loss of functional autonomy in activities of daily living (ADLs) Z78.9 Assessment & Plan Assessment & Plan (1) Loss of functional autonomy in activities of daily living (ADLs): Code(s): Z78.9 - Other specified health status Category: Medical Plan: Patient recommended for assisted living given functional limitations as noted requiring assistance while maintaining ability to complete other ADLs as mentioned above. Forms reviewed and completed. Total visit time including, interview with patient, and documentation 35 minutes. Plan Follow up as scheduled.
[2025-05-20 11:07] VITALS: PULSE 64; RESP 16; TEMP 36.6; O2SAT 99; BMI 32.4
--- OUTSIDE RECORDS SUMMARY | 2025-05-20 11:27 | XMS_ITS | Clinical Summary ---
Author Organization [address] [facility] Address [address] [place] [address] Phone Care Team Providers Care Dye And Chemical Coordinator Name Role Phone Jim Lundberg MD Primary Care Provider [phone] Encounters Date Type Department Care Team Description 03/22/2025 Lab Requisition [facility] [address] [place] [phone] Margaret Gil MD Encounter for other general examination 03/18/2025 Lab Requisition [facility] [address] [place] [phone] Margaret Gil MD Encounter for other general examination 03/15/2025 Lab Requisition [facility] [address] [place] [phone] Margaret Gil MD Encounter for other general examination 03/13/2025 Lab Requisition [facility] [address] [place] [phone] Margaret Gil MD Encounter for other general examination from [...] of 2 - PCV) 1976 RSV Immunization Adult Patients (1 - Risk 60-74 years 1-dose series) 2017 Hepatitis B Vaccines (3 of 3 - 19+ 3-dose series) 08/22/2023 03/19/2023, 02/19/2023 Colorectal Cancer Screening: Colonoscopy 01/01/2025 Depression Screening 01/01/2025 Diabetes: Annual Urine Albumin-Creatinine Ratio (uACR) 01/01/2025 Falls Risk Assessment 01/01/2025 Hepatitis C Screening 01/01/2025 Medicare Annual Wellness Visit 01/01/2025 Social Influencers of Health Screening 01/01/2025 COVID-19 Vaccine ( season) 2025 08/21/2024, 09/05/2023, 03/18/2022, Additional history exists Influenza Vaccine (Season Ended) 2025 09/30/2020, 10/28/2018 Diabetes: Blood Sugar Control Test (HGBA1C) 09/01/2025 03/02/2025, 03/02/2025, 01/17/2025, Additional history exists Diabetes: Annual GFR (Glomerular Filtration Rate) 03/22/2026 03/22/2025, 03/18/2025, 03/15/2025, Additional history exists Hypertension/CHF/CAD Annual BMP Blood Test 03/22/2026 03/22/2025, 03/18/2025, 03/15/2025, Additional history exists Cholesterol Screening (Lipid Panel) 03/02/2030 03/02/2025, 01/17/2025, 12/08/2024 DTaP,Tdap,and Td Vaccines (2 - Td or Tdap) 09/13/2032 09/13/2022 Zoster Vaccines Completed 04/25/2023, 08/23/2022 HIB Vaccines [...] age to complete this topic Meningococcal B Vaccine Aged Out No l onger eligible based on patient's age to complete this topic RSV Immunization Patients Under 20 months Aged Out No longer eligible based on patient's age to complete this topic Varicella Vaccines Aged Out No longer eligible based on patient's age to complete this topic Procedures Procedure Name Priority Date/Time Associated Diagnosis Comments CBC WITH AUTO DIFFERENTIAL Routine 03/22/2025 6:05 AM EDT Encounter for other general examination MAGNESIUM Routine 03/22/2025 6:05 AM EDT Encounter for other general examination CBC AND DIFFERENTIAL Routine 03/22/2025 6:05 AM EDT Encounter for other general examination COMPREHENSIVE METABOLIC PANEL Routine 03/22/2025 6:05 AM EDT Encounter for other general examination COMPREHENSIVE METABOLIC PANEL Routine 03/18/2025 5:07 AM EDT Encounter for other general examination CBC WITH AUTO DIFFERENTIAL Routine 03/15/2025 5:45 AM EDT Encounter for other general examination CBC AND DIFFERENTIAL Routine 03/15/2025 5:45 AM EDT Encounter for other general examination COMPREHENSIVE METABOLIC PANEL Routine 03/15/2025 5:45 AM EDT Encounter for other general examination CBC WITH AUTO DIFFERENTIAL Routine 03/13/2025 6:35 AM EDT Encounter for other general examination MAGNESIUM Routine 03/13/2025 6:35 AM EDT Encounter for other general examination CBC AND DIFFERENTIAL Routine 03/13/2025 6:35 AM EDT Encounter for other general examination COMPREHENSIVE METABOLIC PANEL Routine 03/13/2025 6:35 AM EDT Encounter for other general examination from Last 3 Months Results * (ABNORMAL) CBC auto differential (03/22/2025 6:05 AM EDT) Only the most recent of3 resultswithin the time period is included. [facility] WBC 5.9 4.8 - 10.8 K/mcL LAB HEMETOLOGY METHOD 03/22/2025 10:47 AM [facility] RBC 2.90(L) 4.50 - 5.50 M/mcL LAB HEMETOLOGY METHOD 03/22/2025 10:47 AM [facility] Hemoglobin 9.4(L) 13.5 - 17.5 g/dL LAB HEMETOLOGY METHOD 03/22/2025 10:47 AM [facility] Hematocrit 28.9(L) 42.0 - 54.0 % LAB HEMETOLOGY METHOD 03/22/2025 10:47 AM [facility] MCV 100.7(H) 79.0 - 98.0 FL LAB HEMETOLOGY METHOD 03/22/2025 10:47 AM [facility] LAB MCH 32.8(H) 27.0 - 32.0 pcg LAB HEMETOLOGY METHOD 03/22/2025 10:47 AM [facility] LAB MCHC 32.5 32.0 - 37.0 g/dL LAB HEMETOLOGY METHOD 03/22/2025 10:47 AM [facility] RDW 14.6 11.0 - 15.0 % LAB HEMETOLOGY METHOD 03/22/2025 10:47 AM [facility] Platelets 162 130 - 400 K/mcL LAB HEMETOLOGY METHOD 03/22/2025 10:47 AM [facility] MPV 10.6 7.0 - 11.0 FL LAB HEMETOLOGY METHOD 03/22/2025 10:47 AM [facility] NRBC 0.0 <1.0 % LAB HEMETOLOGY METHOD 03/22/2025 10:47 AM [facility] NRBC Absolute 0.00 <0.10 K/mcL LAB HEMETOLOGY METHOD 03/22/2025 10:47 AM [facility] Neutrophils Relative 54.8 % LAB HEMETOLOGY METHOD 03/22/2025 10:47 AM [facility] Lymphocytes Relative 28.0 % LAB HEMETOLOGY METHOD 03/22/2025 10:47 AM [facility] Monocytes Relative 11.5 % LAB HEMETOLOGY METHOD 03/22/2025 10:47 AM [facility] Eosinophils Relative 3.9 % LAB HEMETOLOGY METHOD 03/22/2025 10:47 AM [facility] Basophils Relative 0.8 % LAB HEMETOLOGY METHOD 03/22/2025 10:47 AM [facility] Immature Granulocytes Relative 1.0 % LAB HEMETOLOGY METHOD 03/22/2025 10:47 AM [facility] Neutrophils Absolute 3.25 1.50 - 7.00 K/mcL LAB HEMETOLOGY METHOD 03/22/2025 10:47 AM [facility] Lymphocytes Absolute 1.66 1.00 - 5.00 K/mcL LAB HEMETOLOGY METHOD 03/22/2025 10:47 AM [facility] Monocytes Absolute 0.68 0.20 - 1.00 K/mcL LAB HEMETOLOGY METHOD 03/22/2025 10:47 AM [facility] Eosinophils Absolute 0.23 0.00 - 0.50 K/mcL LAB HEMETOLOGY METHOD 03/22/2025 10:47 AM [facility] Basophils Absolute 0.05 0.00 - 0.20 K/mcL LAB HEMETOLOGY METHOD 03/22/2025 10:47 AM [facility] Immature Granulocytes Absolute 0.06(H) 0.00 - 0.03 K/mcL LAB HEMETOLOGY METHOD 03/22/2025 10:47 AM [facility] Blood Venous blood specimen / Unknown Venipuncture / Unknown 03/22/2025 6:05 AM EDT 03/22/2025 9:30 AM EDT us Margaret Gil MD LAB BLOOD ORDERABLES Final Resu lt Performing Organization Address [facility]/ZIP Co de Phone Number [facility] [address] [place] [address], [place] [phone] * Magnesium (03/22/2025 6:05 AM EDT) Only the most recent of2 resultswithin the time period is included. Pathologist [facility] Magnesium 2.3 1.9 - 2.6 mg/dL LAB CHEMISTRY METHOD 03/22/2025 11:27 AM EDT [facility] Blood Venous blood specimen / Unknown Venipuncture / Unknown 03/22/2025 6:05 AM EDT 03/22/2025 9:30 AM EDT us Margaret Gil MD LAB BLOOD ORDERABLES Final Resu lt Performing Organization Address [facility] de Phone Number [facility] [address] [place] [address], [place] [phone] * (ABNORMAL) Comprehensive metabolic panel (03/22/2025 6:05 AM EDT) Only the most recent of4 resultswithin the time period is included. Sodium 132(L) 133 - 145 mmol/L LAB CHEMISTRY METHOD 03/22/2025 11:30 AM EDT [facility] Potassium 4.4 3.5 - 5.5 mmol/L LAB CHEMISTRY METHOD 03/22/2025 11:30 AM EDT [facility] Chloride 97 96 - 110 mmol/L LAB CHEMISTRY METHOD 03/22/2025 11:30 AM EDT [facility] CO2 25 21 - 32 mmol/L LAB CHEMISTRY METHOD 03/22/2025 11:30 AM [facility] Anion Gap 10 3 - 11 LAB CHEMISTRY METHOD 03/22/2025 11:30 AM [facility] Glucose 80 70 - 100 mg/dL LAB CHEMISTRY METHOD 03/22/2025 11:30 AM [facility] BUN 47(H) 5 - 25 mg/dL LAB CHEMISTRY METHOD 03/22/2025 11:30 AM [facility] Creatinine 4.00(H) 0.70 - 1.30 mg/dL LAB CHEMISTRY METHOD 03/22/2025 11:30 AM [facility] eGFR 16(L) >=60 mL/min/1. 73m2 LAB CHEMISTRY METHOD 03/22/2025 11:30 AM [facility] Comment:Calculation based on the Chronic Kidney Disease Epidemiology Collaboration (CKD-EPI) equation refit without adjustment for race. BUN/Creatinine Ratio 11.8 LAB CHEMISTRY METHOD 03/22/2025 11:30 AM [facility] Calcium 8.8 8.5 - 10.5 mg/dL LAB CHEMISTRY METHOD 03/22/2025 11:30 AM [facility] AST (SGOT) 36 10 - 42 unit/L LAB CHEMISTRY METHOD 03/22/2025 11:30 AM [facility] ALT (SGPT) 15 10 - 60 unit/L LAB CHEMISTRY METHOD 03/22/2025 11:30 AM [facility] Alkaline Phosphatase 265(H) 42 - 121 unit/L LAB CHEMISTRY METHOD 03/22/2025 11:30 AM [facility] Total Protein 6.9 6.0 - 8.0 g/dL LAB CHEMISTRY METHOD 03/22/2025 11:30 AM [facility] Albumin 3.3 3.2 - 5.0 g/dL LAB CHEMISTRY METHOD 03/22/2025 11:30 AM [facility] Total Bilirubin 0.4 0.0 - 1.4 mg/dL LAB CHEMISTRY METHOD 03/22/2025 11:30 AM EDT [facility] Blood Venous blood specimen / Unknown Venipuncture / Unknown 03/22/2025 6:05 AM EDT 03/22/2025 9:30 AM EDT us Margaret Gil MD LAB BLOOD ORDERABLES Final Resu lt [facility] ([facility]) [facility] [address] [place] [address], [place] [phone] from Last 3 Months Insurance [employer] Care Teams D[employer] And [employer] Coordinator Relationship Specialty Start Date End Date Jim Lundberg MD [address] [facility] [address] [place] [address] PCP - General Pulmonary Disease 02/26/19
== END 2025-05-20 11:53 | disposition home or self-care (01) ==
LOC: HO.HMCHD 11:02
PROVIDERS: PCP Internal Medicine; Visit Provider Physician Assistant
DX: Z78.9 Other specified health status (principal)

== ENCOUNTER → 2025-05-20 11:02 | Outpatient (BNVA) | payer MEDICARE, SELFPAY | PROVIDERS: PCP Internal Medicine; Visit Provider Physician Assistant | DX: Z02.79 Encounter for issue of other medical certificate (principal); Z78.9 Other specified health status; E11.22 Type 2 diabetes mellitus with diabetic chronic kidney disease; N18.6 End stage renal disease; E11.42 Type 2 diabetes mellitus with diabetic polyneuropathy; M21.372 Foot drop, left foot; Z89.431 Acquired absence of right foot; Z99.2 Dependence on renal dialysis | CPT/HCPCS: 99212 ==

== ENCOUNTER → 2025-05-20 23:59 | Outpatient (BNV) | payer MEDICARE, SELFPAY | PROVIDERS: PCP Internal Medicine; Visit Provider Internal Medicine | DX: E11.51 Type 2 diabetes mellitus with diabetic peripheral angiopathy without gangrene (principal); E11.40 Type 2 diabetes mellitus with diabetic neuropathy, unspecified | CPT/HCPCS: G0180 ==

== ENCOUNTER 2025-05-23 13:33 | Outpatient (AMB) | payer MEDICARE, SELFPAY ==
[2025-05-23 13:42] VITALS: BP 118/70; PULSE 72; TEMP 36.2; O2SAT 98; BMI 32.3
--- NOTE | 2025-05-23 13:42 | MHC.PC.OV ---
Vital Signs 05/23/25 13:42 Height 5 ft 6 in Weight 200 lb BMI 32.3 BP 118/70 Blood Pressure Location Rt brachial Position Sitting Pulse 72 Pulse Source Pulse Oximeter Temp 97.1 F Temp Source Axillary Pulse Oximetry (%) 98 Oxygen Delivery Method Room Air Intake Visit Reasons: 3 Month F/U - see comments Concrete Buster Operator Required: No Accompanied by: Self / Same As Patient Allergies No Known Allergies Allergy (Verified 05/23/25 13:42) Tobacco use date assessed: 05/23/25 Fall risk assessment: 1 Fall in past year Last assessed Fall Risk: 05/23/25 Dental Screening Dental Screen Date: 05/23/25 Did you have a dental visit in the last 12 months?: Yes Did you have a dental problem in the last 6 months where you did not have access to dental care?: No PFSH Medical History BPH (benign prostatic hyperplasia) Hypothyroidism AV fistula Diabetic polyneuropathy Venous insufficiency Calcific aortic valve stenosis Orthostatic hypotension ESRD on dialysis Macular edema COVID-19 vaccine series completed History of anesthesia complications Arthritis RBBB Congenital single kidney Localized edema Peripheral neuropathy Elevated cholesterol HTN (hypertension) Diabetes CKD (chronic kidney disease) Surgical History S/P transmetatarsal amputation of foot H/O colonoscopy History of lumbar laminectomy Hx of cervical spine surgery Hx of cataract extraction Family History Mother Diabetes Kidney disease Ovarian cancer High blood pressure Father High blood pressure Esophageal cancer Social History Housing: House Are you a primary day care home provider to a significant other at home: No Do you presently have visiting nurse or other home services: No Alcohol intake: current Alcohol intake frequency: does not drink Patient Tobacco Use Status: Former Tobacco user e-Cigarette/Vaping Use: Former Use service: No Current occupational status: retired and disabled Cognitive needs: Yes (cane, walker) Hearing needs: Yes (b/l ear hearing aids) Vision needs: Yes (rx glasses) Questionnaire PHQ-9 Over the last 2 weeks, how often have you been bothered by any of the following problems? 1. Little interest or pleasure in doing things: not at all 2. Feeling down, depressed, or hopeless: nearly every day 3. Trouble falling or staying asleep, or sleeping too much: not at all 4. Feeling tired or having little energy: nearly every day 5. Poor appetite or overeating: not at all 6. Feeling bad about yourself - or that you are a failure or have let yourself or your family down: not at all 7. Trouble concentrating on things, such as reading the newspaper or watching television: not at all 8. Moving or speaking so slowly that other people could have noticed. Or the opposite - being so fidgety or restless that you have been moving around a lot more than usual: not at all 9. Thoughts that you would be better off or of hurting yourself in some way: not at all Total score: 6 Depression Screening Interpretation: Negative Depression Screening Done: Yes Source: Developed by Drs. Eduardo Miranda, Aiyana Menjivar, Antoine Law and colleagues, with an educational samantha from [employer]. Thrive Questionnaire Date Thrive assessed: 05/23/25 I am a: Patient Within the past 12 months, did the food you bought not last and you didn't have the money to get more?: Never true Within the past 12 months, did you worry whether your food would run out before you got money to buy more?: Never true Do you have trouble paying for medicines?: No Do you have trouble getting transportation to medical appointments?: No Do you have trouble paying your heating and electricity bill?: No Do you have trouble taking care of your child, family member or friend?: No Do you have trouble with day-to-day activities such as bathing, preparing meals, shopping, managing finances, etc.?: No Are you currently unemployed and looking for a job?: No Are you interested in more education?: No Currently or been in a relationship where the following occur: No concerns reported THRIVE Score: 0 AUDIT C Alcohol Use Questionnaire (AUDIT-C) 1. How often do you have a drink containing alcohol?: Never 3. How often do you have six or more drinks on one occasion?: Never Total Score: 0 KERA-7 AMB Questionnaire KERA-7 Date KERA - 7 assessed: 05/23/25 Feeling nervous, anxious, or on edge: 3 = Nearly every day Not being able to stop or control worryin = Not at all Worrying too much about different things: 0 = Not at all Trouble relaxin = Not at all Being so restless that it is hard to sit still: 0 = Not at all Becoming easily annoyed or irritable: 0 = Not at all Feeling afraid as if something awful might happen: 0 = Not at all Total KERA-7 score (0-4 normal; 5-9 mild; 10-14 moderate; 15-21 severe): 3 Source: Developed by Drs. Eduardo Miranda, Aiyana Menjivar, Antoine Law and colleagues, with an educational samantha from [employer]. Physical exam (Primary Care) Vital Signs: Last Vital Signs Temp 97.1 F 05/23/25 13:42 Pulse 72 05/23/25 13:42 BP 118/70 05/23/25 13:42 Pulse Ox 98 05/23/25 13:42 Oxygen Delivery Method Room Air 05/23/25 13:42 BMI result Body Mass Index 32.3 Tobacco/Smoking Status: Tobacco use Status Tobacco use date assessed 05/23/25 05/23/25 13:43 Patient Tobacco Use Status Never used Tobacco 05/23/25 13:43 Tobacco use type 02/21/25 14:33 e-Cigarette/Vaping Use Never Used 05/23/25 13:43 PHQ-9: PHQ-9 Score PHQ-9: Total score 0 05/23/25 13:43 Depression Screening Interpretation: Negative Thrive Assessment: Date of Thrive Assessment Date Thrive assessed 05/23/25 05/23/25 13:43 Currently or been in a relationship where the following occur: No concerns reported Advance Care Planning discussion: Exists, not on file Date of discussion: 05/23/25 Forms completed: Health Care Proxy and MOLST Time spent: 1-15 minutes, not on file Actual minutes spent: 5 Coding Level of Care Code Est Pt Level 4 (87821) Complex EM visit Add On G2211 Diagnoses CKD (chronic kidney disease) N18.9 ESRD on dialysis N18.6; Z99.2 Diabetic polyneuropathy E11.42 Additional Codes Vital Signs *Quality* - Advance Care Planning discussion: Exists, not on file ([id number]) Vital Signs *Quality* - Time spent: 1-15 minutes, not on file ([id number]) Assessment & Plan Assessment & Plan (1) CKD (chronic kidney disease): Code(s): N18.9 - Chronic kidney disease, unspecified Category: Medical Plan: Condition is stable. Patient is on dialysis. (2) ESRD on dialysis: Code(s): N18.6 - End stage renal disease; Z99.2 - Dependence on renal dialysis Category: Medical Plan: As above. (3) Diabetic polyneuropathy: Code(s): E11.42 - Type 2 diabetes mellitus with diabetic polyneuropathy Category: Medical Plan: Last A1c is in range. Continue Januvia at current dosage. Plan History of Present Illness - The patient is a 69-year-old male presenting with post-discharge follow-up and quarterly visit. - The patient underwent toe amputation on December 27, followed by the removal of the remaining toes on March 10. - There is tunneling in the wounds on toes 3 and 4, with two openings side by side, which are being managed with Iodiform packing and dressing by visiting nurses. - The patient is experiencing confusion regarding medication dosing, specifically with Midodrine and Vitamin D, which is being addressed with the healthcare team. - The patient has a history of diabetes, with current management involving Januvia, and reports good glycemic control with an A1c that increased when the dosage was reduced. Social History - The patient?s is residing in assisted living at [facility], which has positively impacted his well-being despite the high cost. Review of Systems - Endocrine: Reports good glycemic control with current diabetes management. Physical Exam General: Cooperative and healthy appearing Nutritional Appearance: Well nourished Orientation/consciousness: Patient oriented x3 Limitations: No limitations Head: Normal to inspection General: Appearance normal, both eyes and all related structures Neck: Normal visual inspection Chest: Normal palpation of entire chest wall Respiratory: N ormal respiratory effort Neurology: Patient oriented x3, taking B complex as recommended by neurologist. Results Plan 1. Toe Amputation - Continue wound care with Iodiform packing and dressing changes by visiting nurses. 2. Tunneling Wounds On Toes 3 And 4 - Monitor wound healing and manage with appropriate dressing and care. 3. Medication Dosing Confusion - Clarify dosing instructions for Midodrine and Vitamin D with the healthcare team. 4. Diabetes Management - Maintain current diabetes management regimen with Januvia, ensuring A1c remains controlled. Discussion Notes Patient Instructions - Continue wound care as instructed by visiting nurses. - Follow up with healthcare team to clarify medication dosing. - Maintain current diabetes management regimen and monitor blood sugar levels.
--- OUTSIDE RECORDS SUMMARY | 2025-05-23 14:57 | XMS_ITS | Clinical Summary ---
Author Organization [address] [facility] Address [address] [place] [address] Phone Care Team Providers Care Claims Collector Name Role Phone Jim Lundberg MD Primary Care Provider [phone] Encounters Date Type Department Care Team Description 03/22/2025 Lab Requisition [facility] [address] [place] [phone] Margaret Gil MD Encounter for other general examination 03/18/2025 Lab Requisition [facility] [address] [place] [phone] Margaret Gil MD Encounter for other general examination 03/15/2025 Lab Requisition [facility] [address] [place] [phone] Margaret Gil MD Encounter for other general examination 03/13/2025 Lab Requisition [facility] [address] [place] [phone] Margaret Gil MD Encounter for other general [...] of3 resultswithin the time period is included. [facility] WBC 5.9 4.8 - 10.8 K/mcL LAB HEMETOLOGY METHOD 03/22/2025 10:47 AM [facility] RBC 2.90(L) 4.50 - 5.50 M/mcL LAB HEMETOLOGY METHOD 03/22/2025 10:47 AM [facility] Hemoglobin 9.4(L) 13.5 - 17.5 g/dL LAB HEMETOLOGY METHOD 03/22/2025 10:47 AM [facility] Hematocrit 28.9(L) 42.0 - 54.0 % LAB HEMETOLOGY METHOD 03/22/2025 10:47 AM [facility] MCV 100.7(H) 79.0 - 98.0 FL LAB HEMETOLOGY METHOD 03/22/2025 10:47 AM [facility] MCH 32.8(H) 27.0 - 32.0 pcg LAB HEMETOLOGY METHOD 03/22/2025 10:47 AM [facility] MCHC 32.5 32.0 - 37.0 g/dL LAB HEMETOLOGY METHOD 03/22/2025 10:47 AM [facility] RDW 14.6 11.0 - 15.0 % LAB HEMETOLOGY METHOD 03/22/2025 10:47 AM [facility] Platelets 162 130 - 400 K/mcL LAB HEMETOLOGY METHOD 03/22/2025 10:47 AM [facility] MPV 10.6 7.0 - 11.0 FL LAB HEMETOLOGY METHOD 03/22/2025 10:47 AM [facility] NRBC 0.0 <1.0 % LAB HEMETOLOGY METHOD 03/22/2025 10:47 AM [facility] NRBC Absolute 0.00 <0.10 K/mcL LAB HEMETOLOGY METHOD 03/22/2025 10:47 AM [facility] Neutrophils Relative 54.8 % LAB HEMETOLOGY METHOD 03/22/2025 10:47 AM [facility] Lymphocytes Relative 28.0 % LAB HEMETOLOGY METHOD 03/22/2025 10:47 AM [facility] Monocytes Relative 11.5 % LAB HEMETOLOGY METHOD 03/22/2025 10:47 AM [facility] Eosinophils Relative 3.9 % LAB HEMETOLOGY METHOD 03/22/2025 10:47 AM [facility] Basophils Relative 0.8 % LAB HEMETOLOGY METHOD 03/22/2025 10:47 AM [facility] Immature Granulocytes Relative 1.0 % LAB HEMETOLOGY METHOD 03/22/2025 10:47 AM [facility] Neutrophils Absolute 3.25 1.50 - 7.00 K/mcL LAB HEMETOLOGY METHOD 03/22/2025 10:47 AM [facility] Lymphocytes Absolute 1.66 1.00 - 5.00 K/mcL LAB HEMETOLOGY METHOD 03/22/2025 10:47 AM [facility] Monocytes Absolute 0.68 0.20 - 1.00 K/mcL LAB HEMETOLOGY METHOD 03/22/2025 10:47 AM [facility] Eosinophils Absolute 0.23 0.00 - 0.50 K/mcL LAB HEMETOLOGY METHOD 03/22/2025 10:47 AM [facility] Basophils Absolute 0.05 0.00 - 0.20 K/mcL LAB HEMETOLOGY METHOD 03/22/2025 10:47 AM [facility] Immature Granulocytes Absolute 0.06(H) 0.00 - 0.03 K/mcL LAB HEMETOLOGY METHOD 03/22/2025 10:47 AM [facility] Blood Venous blood specimen / Unknown Venipuncture / Unknown 03/22/2025 6:05 AM EDT 03/22/2025 9:30 AM EDT us Margaret Gil MD LAB BLOOD ORDERABLES Final Resu lt Performing Organization Address [facility]/ZIP Co de Phone Number [facility] [address] [place] [address], [place] [phone] * Magnesium (03/22/2025 6:05 AM EDT) Only the most recent of2 resultswithin the time period is included. Pathologist [facility] Magnesium 2.3 1.9 - 2.6 mg/dL LAB CHEMISTRY METHOD 03/22/2025 11:27 AM EDT [facility] Blood Venous blood specimen / Unknown Venipuncture / Unknown 03/22/2025 6:05 AM EDT 03/22/2025 9:30 AM EDT us Margaret Gil MD LAB BLOOD ORDERABLES Final Resu lt Performing Organization Address [facility] de Phone Number [facility] [address] [place] [address], [place] [phone] * (ABNORMAL) Comprehensive metabolic panel (03/22/2025 6:05 AM EDT) Only the most recent of4 resultswithin the time period is included. Sodium 132(L) 133 - 145 mmol/L LAB CHEMISTRY METHOD 03/22/2025 11:30 AM EDT [facility] Potassium 4.4 3.5 - 5.5 mmol/L LAB CHEMISTRY METHOD 03/22/2025 11:30 AM EDT [facility] Chloride 97 96 - 110 mmol/L LAB CHEMISTRY METHOD 03/22/2025 11:30 AM EDT [facility] CO2 25 21 - 32 mmol/L LAB CHEMISTRY METHOD 03/22/2025 11:30 AM [facility] Anion Gap 10 3 - 11 LAB CHEMISTRY METHOD 03/22/2025 11:30 AM [facility] Glucose 80 70 - 100 mg/dL LAB CHEMISTRY METHOD 03/22/2025 11:30 AM [facility] BUN 47(H) 5 - 25 mg/dL LAB CHEMISTRY METHOD 03/22/2025 11:30 AM [facility] Creatinine 4.00(H) 0.70 - 1.30 mg/dL LAB CHEMISTRY METHOD 03/22/2025 11:30 AM [facility] eGFR 16(L) >=60 mL/min/1. 73m2 LAB CHEMISTRY METHOD 03/22/2025 11:30 AM [facility] Comment:Calculation based on the Chronic Kidney Disease Epidemiology Collaboration (CKD-EPI) equation refit without adjustment for race. BUN/Creatinine Ratio 11.8 LAB CHEMISTRY METHOD 03/22/2025 11:30 AM [facility] Calcium 8.8 8.5 - 10.5 mg/dL LAB CHEMISTRY METHOD 03/22/2025 11:30 AM [facility] AST (SGOT) 36 10 - 42 unit/L LAB CHEMISTRY METHOD 03/22/2025 11:30 AM [facility] ALT (SGPT) 15 10 - 60 unit/L LAB CHEMISTRY METHOD 03/22/2025 11:30 AM [facility] Alkaline Phosphatase 265(H) 42 - 121 unit/L LAB CHEMISTRY METHOD 03/22/2025 11:30 AM [facility] Total Protein 6.9 6.0 - 8.0 g/dL LAB CHEMISTRY METHOD 03/22/2025 11:30 AM [facility] Albumin 3.3 3.2 - 5.0 g/dL LAB CHEMISTRY METHOD 03/22/2025 11:30 AM [facility] Total Bilirubin 0.4 0.0 - 1.4 mg/dL LAB CHEMISTRY METHOD 03/22/2025 11:30 AM EDT [facility] Blood Venous blood specimen / Unknown Venipuncture / Unknown 03/22/2025 6:05 AM EDT 03/22/2025 9:30 AM EDT us Margaret Gil MD LAB BLOOD ORDERABLES Final Resu lt [facility] ([facility]) [facility] [address] [place] [address], [place] [phone] from Last 3 Months Insurance [employer] Care Teams Claims Collector Relationship Specialty Start Date End Date Jim Lundberg MD [address] [facility] [address] [place] [address] PCP - General Pulmonary Disease 02/26/19
== END 2025-05-23 14:16 | disposition home or self-care (01) ==
LOC: HO.HMCHD 13:33
PROVIDERS: PCP Internal Medicine; Visit Provider Internal Medicine
DX: N18.9 Chronic kidney disease, unspecified (principal); N18.6 End stage renal disease; Z99.2 Dependence on renal dialysis; E11.42 Type 2 diabetes mellitus with diabetic polyneuropathy; Z00.00 Encounter for general adult medical examination without abnormal findings

== ENCOUNTER → 2025-05-23 13:33 | Outpatient (BNVA) | payer MEDICARE, SELFPAY | PROVIDERS: PCP Internal Medicine; Visit Provider Internal Medicine | DX: E11.42 Type 2 diabetes mellitus with diabetic polyneuropathy (principal); N18.6 End stage renal disease; Z99.2 Dependence on renal dialysis | CPT/HCPCS: 99212 ==

== ENCOUNTER 2025-06-20 11:35 | Outpatient (AMB) | payer MEDICARE, SELFPAY ==
--- OUTSIDE RECORDS SUMMARY | 2023-09-04 12:20 | XMS_ITS | Encounter Summary ---
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 Name Role Phone Damon Orta MD Primary Care Provider Encounter Details Date Type Department Care Team (Late st Contact Info) Description 09/04/2023 12:20 PM EDT Hospital Encounter [facility] [address] [place] [id number] Azalia Duenas FNP [address] [place] [id number] [email or web address] Social History Tobacco Use Types Packs/Day Years Used Date Smoking Tobacco: Never Smokeless Tobacco: Never Alcohol Use Standard Drinks/Week Comments Not Currently 0 (1 standard drink = 0.6 oz pur e alcohol) Education Answer Date Recorded Are you interested in more education? Not on karmen e 04/13/2023 Are you concerned about learning? Not on file 04/13/2023 No 04/13/2023 No 04/13/2023 Digital Access Answer Date Recorded No 04/27/2023 No 04/27/2023 Reliable internet access at home? Not on file 04/27/2023 Device with a working camera? Not on file Sex and Gender Information Value Date Recorded Sex Assigned at Not on file Legal Sex Male 5:25 PM EST Gender Identity Not on file Sexual Orientation Not on file documented as of this encounter Plan of Treatment Not on file documented as of this encounter Procedures Procedure Name Priority Date/Time Associated Diagnosis Comments XR SHOULDER 2 VIEWS (LEFT) Urgent/patient waiting 09/04/2023 12:28 PM EDT Left shoulder strain, initial encounter documented in this encounter Results * XR SHOULDER 2 VIEWS (LEFT) (09/04/2023 12:28 PM EDT) Anatomical Region Laterality Modality Shoulder Left Computed Radiogr aphy 09/04/2023 12:5 2 PM EDT Impressions 09/04/2023 12:57 PM EDT 1. No displaced fracture. 2. Degenerative changes of the shoulder and AC joint. 3. Calcification along the greater tuberosity can be seen in calcific tendinopathy/enthesopathy. Narrative 09/04/2023 12:57 PM EDT XR SHOULDER 2 OR MORE VIEWS (LEFT) COMPARISON: None. FINDINGS: No displaced fracture. Normal glenohumeral alignment with mild joint space narrowing and prominent marginal osteophytes. Moderate AC joint arthropathy. Calcification along the greater tuberosity. Diffuse vascular calcifications.Partially distended surgical clips project over lower neck. Low lung volumes with left Basilar atelectasis. Degenerative changes of the spine. Procedure Note Anh Ervin MD - 09/04/2023 XR SHOULDER 2 OR MORE VIEWS (LEFT) COMPARISON: None. FINDINGS: No displaced fracture. Normal glenohumeral alignment with mild joint spacenarrowing and prominent marginal osteophytes. Moderate AC jointarthropathy. Calcification along the greater tuberosity. Diffuse vascularcalcifications.Partially distended surgical clips project over lower neck.Low lung volumes with left Basilar atelectasis. Degenerative changes of the spine. IMPRESSION: 1. No displaced fracture. 2. Degenerative changes of the shoulder and AC joint. 3. Calcification along the greater tuberosity can be seen in calcifictendinopathy/enthesopathy. us Azalia Duenas JAVA MANAGER IMG XR UPPER EXTREMITY [place] l Result documented in this encounter Visit Diagnoses Not on filedocumented in this encounter Care Teams Breakdown Mill Operator Relationship Specialty Start Date End Date Damon Orta MD [address] [place] [address] [place] [address] PCP - General Internal Medicine 09/13/22 documented as of this encounter Additional Source Comments The information contained in this document represents components of the legal health record. It is not the complete legal health record.[facility]
[2025-06-20 11:09] VITALS: BP 120/70; PULSE 72; TEMP 36.2; O2SAT 99; BMI 31.5
--- NOTE | 2025-06-20 11:09 | MHC.PC.OV ---
Vital Signs 06/20/25 11:09 Height 5 ft 6 in Weight 195 lb BMI 31.5 BP 120/70 Blood Pressure Location Lt brachial Position Sitting Pulse 72 Pulse Source Pulse Oximeter Temp 97.1 F Temp Source Axillary Pulse Oximetry (%) 99 Oxygen Delivery Method Room Air Intake Visit Reasons: mobility assessment & medication questions Credit Card Control Clerk Required: No Accompanied by: Self / Same As Patient Allergies No Known Allergies Allergy (Verified 06/20/25 19:47) Medication List - Last Reconciled 06/20/25 by Imtiaz Saxena MD [AFO brace (L) foot As directed] aspirin 81 mg PO DAILY atorvastatin 40 mg PO DAILY B complex-vitamin C-folic acid 0.8 mg (Precious-Farhat) 1 tab PO DAILY calcium carbonate tabs PO TID cholecalciferol (vitamin D3) 50 mcg (2 x 25 mcg (1,000 unit)) PO DAILY [diabetic shoes with inserts As directed] escitalopram oxalate 5 mg PO DAILY fluticasone furoate-vilanterol 100-25 mcg/dose (Breo Ellipta) 1 inh inhalation DAILY gabapentin 300 mg PO BID latanoprost 0.005% drps ophthalmic (eye) levothyroxine 100 mcg PO DAILY midodrine 5 mg PO ONCE midodrine 10 mg PO ONCE nut.tx,impaired renal function (RenaMent) mL PO sevelamer carbonate 800 mg PO TID sitagliptin phosphate 100 mg PO DAILY Tobacco use date assessed: 06/20/25 Fall risk assessment: No Falls in past year Last assessed Fall Risk: 06/20/25 Dental Screening Dental Screen Date: 06/20/25 Did you have a dental visit in the last 12 months?: Yes Did you have a dental problem in the last 6 months where you did not have access to dental care?: No PFSH Medical History BPH (benign prostatic hyperplasia) Hypothyroidism AV fistula Diabetic polyneuropathy Venous insufficiency Calcific aortic valve stenosis Orthostatic hypotension ESRD on dialysis Macular edema COVID-19 vaccine series completed History of anesthesia complications Arthritis RBBB Congenital single kidney Localized edema Peripheral neuropathy Elevated cholesterol HTN (hypertension) Diabetes CKD (chronic kidney disease) Surgical History S/P transmetatarsal amputation of foot H/O colonoscopy History of lumbar laminectomy Hx of cervical spine surgery Hx of cataract extraction Family History Mother Diabetes Kidney disease Ovarian cancer High blood pressure Father High blood pressure Esophageal cancer Social History Housing: House Are you a primary manager of care to a significant other at home: No Do you presently have visiting nurse or other home services: No Alcohol intake: current Alcohol intake frequency: does not drink Patient Tobacco Use Status: Former Tobacco user e-Cigarette/Vaping Use: Former Use service: No Current occupational status: retired and disabled Cognitive needs: Yes (cane, walker) Hearing needs: Yes (b/l ear hearing aids) Vision needs: Yes (rx glasses) Questionnaire PHQ-9 Over the last 2 weeks, how often have you been bothered by any of the following problems? 1. Little interest or pleasure in doing things: not at all 2. Feeling down, depressed, or hopeless: not at all 3. Trouble falling or staying asleep, or sleeping too much: not at all 4. Feeling tired or having little energy: not at all 5. Poor appetite or overeating: not at all 6. Feeling bad about yourself - or that you are a failure or have let yourself or your family down: not at all 7. Trouble concentrating on things, such as reading the newspaper or watching television: not at all 8. Moving or speaking so slowly that other people could have noticed. Or the opposite - being so fidgety or restless that you have been moving around a lot more than usual: not at all 9. Thoughts that you would be better off or of hurting yourself in some way: not at all Total score: 0 Source: Developed by Drs. Eduardo Miranda, Aiyana Menjivar, Antoine aLw and colleagues, with an educational samantha from [employer]. Thrive Questionnaire Date Thrive assessed: 06/20/25 I am a: Patient Within the past 12 months, did the food you bought not last and you didn't have the money to get more?: Never true Within the past 12 months, did you worry whether your food would run out before you got money to buy more?: Never true Do you have trouble paying for medicines?: No Do you have trouble getting transportation to medical appointments?: No Do you have trouble paying your heating and electricity bill?: No Do you have trouble taking care of your child, family member or friend?: No Do you have trouble with day-to-day activities such as bathing, preparing meals, shopping, managing finances, etc.?: No Are you currently unemployed and looking for a job?: No Are you interested in more education?: No THRIVE Score: 0 AUDIT C Alcohol Use Questionnaire (AUDIT-C) 1. How often do you have a drink containing alcohol?: Never 3. How often do you have six or more drinks on one occasion?: Never Total Score: 0 KERA-7 AMB Questionnaire KERA-7 Date KERA - 7 assessed: 06/20/25 Feeling nervous, anxious, or on edge: 0 = Not at all Not being able to stop or control worryin = Not at all Worrying too much about different things: 0 = Not at all Trouble relaxin = Not at all Being so restless that it is hard to sit still: 0 = Not at all Becoming easily annoyed or irritable: 0 = Not at all Feeling afraid as if something awful might happen: 0 = Not at all Total KERA-7 score (0-4 normal; 5-9 mild; 10-14 moderate; 15-21 severe): 0 Source: Developed by Drs. Eduardo Miranda, Aiayna Menjivar, Antoine Law and colleagues, with an educational samantha from [employer]. Physical exam (Primary Care) Vital Signs: Last Vital Signs Temp 97.1 F 06/20/25 11:09 Pulse 72 06/20/25 11:09 BP 120/70 06/20/25 11:09 Pulse Ox 99 06/20/25 11:09 Oxygen Delivery Method Room Air 06/20/25 11:09 BMI result Body Mass Index 31.5 Tobacco/Smoking Status: Tobacco use Status Tobacco use date assessed 06/20/25 06/20/25 11:11 Patient Tobacco Use Status Former Tobacco user 06/20/25 11:11 Tobacco use type 02/21/25 14:33 e-Cigarette/Vaping Use Former Use 06/20/25 11:11 PHQ-9: PHQ-9 Score PHQ-9: Total score 0 06/20/25 11:42 Thrive Assessment: Date of Thrive Assessment Date Thrive assessed 06/20/25 06/20/25 11:11 Coding Level of Care Code Est Pt Level 4 (00342) Complex EM visit Add On G2211 Diagnoses CKD (chronic kidney disease) N18.9 Assessment & Plan Assessment & Plan (1) CKD (chronic kidney disease): Code(s): N18.9 - Chronic kidney disease, unspecified Category: Medical Plan: History of Present Illness - The patient is a 69-year-old male presenting with a mobility assessment for a power wheelchair. - The patient is considering a power wheelchair to aid mobility in an assisted living facility due to the distance between his apartment and the dining room. - A demonstration with a wheelchair company has been conducted, and paperwork is being handled by the physical therapist. - The patient has experienced hypotension, with morning blood pressure readings below 100 mmHg systolic on non-dialysis days. - He takes midodrine 5 mg on non-dialysis days and 10 mg on dialysis days. - The patient reports no specific symptoms related to hypotension, aside from general lethargy. - The patient's A1c is 4.8, potentially affected by anemia, with hemoglobin at 11 g/dL. - The patient is applying for Januvia through [facility] and receives periodic iron supplementation during dialysis. - A prescription for diabetic shoes is requested due to changes in foot size. - The patient is considering tapering off Lexapro due to perceived lack of efficacy. Social History Review of Systems - Cardiovascular: Reports hypotension with systolic blood pressure below 100 mmHg on non-dialysis days. Denies dizziness or syncope. - General: Reports general lethargy. Denies specific symptoms related to hypotension. Physical Exam General: Cooperative and healthy appearing Nutritional Appearance: Well nourished Orientation/consciousness: Patient oriented x3 Limitations: No limitations Head: Normal to inspection General: Appearance normal, both eyes and all related structures Neck: Normal visual inspection Chest: Normal palpation of entire chest wall Respiratory: N ormal respiratory effort Neurology: Patient oriented x3, reports general lethargy but no dizziness or other specific symptoms. Results - Labs: Hemoglobin 11 g/dL, indicating mild anemia. - Labs: A1c 4.8, potentially affected by anemia. Plan 1. Hypotension - Continue current midodrine regimen: 5 mg on non-dialysis days and 10 mg on dialysis days. - Monitor blood pressure regularly, especially on non-dialysis days. 2. Diabetes Mellitus - Continue application for Januvia through [facility]. - Monitor A1c levels, considering potential impact of anemia. 3. Anemia - Continue periodic iron supplementation during dialysis sessions. - Monitor hemoglobin levels to assess anemia status. 4. Preventative Care: Mobility Assessment For Power Wheelchair - Proceed with the process for obtaining a power wheelchair, as recommended by the physical therapist. 5. Preventative Care: Prescription For Diabetic Shoes - Provide prescription for diabetic shoes due to changes in foot size. 6. Lexapro Tapering - Initiate tapering of Lexapro by switching to every other day for a couple of weeks, then reduce to three days a week. Discussion Notes I discussed the need for a power wheelchair with the patient, emphasizing the benefits for mobility in an assisted living facility. We reviewed the process for obtaining the wheelchair, including the role of the physical therapist and Medicare paperwork. I also addressed the patient's concerns about hypotension, advising continued monitoring and current medication regimen. We discussed the patient's diabetes management, including the application for Januvia and the impact of anemia on A1c levels. I provided a prescription for diabetic shoes due to changes in foot size and discussed the tapering plan for Lexapro, highlighting the importance of a gradual reduction to avoid withdrawal symptoms. Patient Instructions - Continue taking midodrine as prescribed: 5 mg on non-dialysis days and 10 mg on dialysis days. - Monitor your blood pressure regularly, especially on non-dialysis days. - Follow up with the physical therapist regarding the power wheelchair process. - Apply for Januvia through [facility] and monitor A1c levels. - Continue receiving iron supplementation during dialysis sessions. - Use the prescription for diabetic shoes to address changes in foot size. - Begin tapering Lexapro by taking it every other day for a couple of weeks, then reduce to three days a week.
--- OUTSIDE RECORDS SUMMARY | 2025-06-20 12:42 | XMS_ITS | Clinical Summary ---
Author Organization [address] [facility] Address [address] [place] [address] Phone Care Team Providers Care Associate Pathologist Name Role Phone Jim Lundberg MD Primary Care Provider [phone] Encounters Date Type Department Care Team Description 03/22/2025 Lab Requisition [facility] - Main Lab [address] [facility] [place] [address] Margaret Gil MD Encounter for other general [...] - 19+ 3-dose series) 08/22/2023 03/19/2023, 02/19/2023 Depression Screening 12/01/2024 Colorectal Cancer Screening: Colonoscopy 01/01/2025 Diabetes: Annual Urine Albumin-Creatinine Ratio (uACR) 01/01/2025 Falls Risk Assessment 01/01/2025 Hepatitis C Screening 01/01/2025 Medicare Annual Wellness Visit 01/01/2025 Social Influencers of Health Screening 01/01/2025 COVID-19 Vaccine ( season) 2025 08/21/2024, 09/05/2023, 03/18/2022, Additional history exists Influenza Vaccine (#1) 2025 09/30/2020, 2017 Diabetes: Blood Sugar Control Test (HGBA1C) 09/01/2025 [...] CBC auto differential (03/22/2025 6:05 AM EDT) [facility] WBC 5.9 4.8 - 10.8 K/mcL LAB HEMETOLOGY METHOD 03/22/2025 10:47 AM [facility] RBC 2.90(L) 4.50 - 5.50 M/mcL LAB HEMETOLOGY METHOD 03/22/2025 10:47 AM [facility] Hemoglobin 9.4(L) 13.5 - 17.5 g/dL LAB HEMETOLOGY METHOD 03/22/2025 10:47 AM [facility] Hematocrit 28.9(L) 42.0 - 54.0 % LAB HEMETOLOGY METHOD 03/22/2025 10:47 AM [facility] MCV 100.7(H) 79.0 - 98.0 FL LAB HEMETOLOGY METHOD 03/22/2025 10:47 AM [facility] MCH 32.8(H) 27.0 - 32.0 pcg LAB HEMETOLOGY METHOD 03/22/2025 10:47 AM [facility] MCHC 32.5 32.0 - 37.0 g/dL LAB HEMETOLOGY METHOD 03/22/2025 10:47 AM [facility] RDW 14.6 11.0 - 15.0 % LAB HEMETOLOGY METHOD 03/22/2025 10:47 AM [facility] Platelets 162 130 - 400 K/mcL LAB HEMETOLOGY METHOD 03/22/2025 10:47 AM [facility] MPV 10.6 7.0 - 11.0 FL LAB HEMETOLOGY METHOD 03/22/2025 10:47 AM [facility] NRBC 0.0 <1.0 % LAB HEMETOLOGY METHOD 03/22/2025 10:47 AM [facility] NRBC Absolute 0.00 <0.10 K/mcL LAB HEMETOLOGY METHOD 03/22/2025 10:47 AM [facility] Neutrophils Relative 54.8 % LAB HEMETOLOGY METHOD 03/22/2025 10:47 AM [facility] Lymphocytes Relative 28.0 % LAB HEMETOLOGY METHOD 03/22/2025 10:47 AM [facility] Monocytes Relative 11.5 % LAB HEMETOLOGY METHOD 03/22/2025 10:47 AM [facility] Eosinophils Relative 3.9 % LAB HEMETOLOGY METHOD 03/22/2025 10:47 AM [facility] Basophils Relative 0.8 % LAB HEMETOLOGY METHOD 03/22/2025 10:47 AM [facility] Immature Granulocytes Relative 1.0 % LAB HEMETOLOGY METHOD 03/22/2025 10:47 AM [facility] Neutrophils Absolute 3.25 1.50 - 7.00 K/mcL LAB HEMETOLOGY METHOD 03/22/2025 10:47 AM [facility] Lymphocytes Absolute 1.66 1.00 - 5.00 K/mcL LAB HEMETOLOGY METHOD 03/22/2025 10:47 AM [facility] Monocytes Absolute 0.68 0.20 - 1.00 K/mcL LAB HEMETOLOGY METHOD 03/22/2025 10:47 AM [facility] Eosinophils Absolute 0.23 0.00 - 0.50 K/mcL LAB HEMETOLOGY METHOD 03/22/2025 10:47 AM [facility] Basophils Absolute 0.05 0.00 - 0.20 K/mcL LAB HEMETOLOGY METHOD 03/22/2025 10:47 AM EDT [facility] Immature Granulocytes Absolute 0.06(H) 0.00 - 0.03 K/mcL LAB HEMETOLOGY METHOD 03/22/2025 10:47 AM EDT [facility] Blood Venous blood specimen / Unknown Venipuncture / Unknown 03/22/2025 6:05 AM EDT 03/22/2025 9:30 AM EDT Margaret Gil MD LAB BLOOD ORDERABLES Final Resu lt [facility] [address] [place] [address], [place] [phone] * Magnesium (03/22/2025 6:05 AM EDT) Magnesium 2.3 1.9 - 2.6 mg/dL LAB CHEMISTRY METHOD 03/22/2025 11:27 AM EDT [facility] Blood Venous blood specimen / Unknown Venipuncture / Unknown 03/22/2025 6:05 AM EDT 03/22/2025 9:30 AM EDT Margaret Gil MD LAB BLOOD ORDERABLES Final Resu lt [facility] [address] [place] [address], [place] [phone] * (ABNORMAL) Comprehensive metabolic panel (03/22/2025 6:05 AM EDT) Sodium 132(L) 133 - 145 mmol/L LAB CHEMISTRY METHOD 03/22/2025 11:30 AM EDT [facility] Potassium 4.4 3.5 - 5.5 mmol/L LAB CHEMISTRY METHOD 03/22/2025 11:30 AM EDT [facility] Chloride 97 96 - 110 mmol/L LAB CHEMISTRY METHOD 03/22/2025 11:30 AM [facility] CO2 25 21 - 32 mmol/L LAB CHEMISTRY METHOD 03/22/2025 11:30 AM [facility] Anion Gap 10 3 - 11 LAB CHEMISTRY METHOD 03/22/2025 11:30 AM [facility] Glucose 80 70 - 100 mg/dL LAB CHEMISTRY METHOD 03/22/2025 11:30 AM [facility] BUN 47(H) 5 - 25 mg/dL LAB CHEMISTRY METHOD 03/22/2025 11:30 AM [facility] Creatinine 4.00(H) 0.70 - 1.30 mg/dL LAB CHEMISTRY METHOD 03/22/2025 11:30 AM [facility] eGFR 16(L) >=60 mL/min/1. 73m2 LAB CHEMISTRY METHOD 03/22/2025 11:30 AM [facility] Comment:Calculation based on the Chronic Kidney Disease Epidemiology Collaboration (CKD-EPI) equation refit without adjustment for race. BUN/Creatinine Ratio 11.8 LAB CHEMISTRY METHOD 03/22/2025 11:30 AM [facility] Calcium 8.8 8.5 - 10.5 mg/dL LAB CHEMISTRY METHOD 03/22/2025 11:30 AM [facility] AST (SGOT) 36 10 - 42 unit/L LAB CHEMISTRY METHOD 03/22/2025 11:30 AM [facility] ALT (SGPT) 15 10 - 60 unit/L LAB CHEMISTRY METHOD 03/22/2025 11:30 AM [facility] Alkaline Phosphatase 265(H) 42 - 121 unit/L LAB CHEMISTRY METHOD 03/22/2025 11:30 AM [facility] Total Protein 6.9 6.0 - 8.0 g/dL LAB CHEMISTRY METHOD 03/22/2025 11:30 AM [facility] Albumin 3.3 3.2 - 5.0 g/dL LAB CHEMISTRY METHOD 03/22/2025 11:30 AM EDT [facility] Total Bilirubin 0.4 0.0 - 1.4 mg/dL LAB CHEMISTRY METHOD 03/22/2025 11:30 AM EDT [facility] Blood Venous blood specimen / Unknown Venipuncture / Unknown 03/22/2025 6:05 AM EDT 03/22/2025 9:30 AM EDT us Margaret Gil MD LAB BLOOD ORDERABLES Final Resu lt [facility] ([facility] [address] [place] [address], from Last 3 Months Insurance [employer] Care Teams Associate Pathologist Relationship Specialty Start Date End Date Jim Lundberg MD [address] [facility] [address] [place] [address] PCP - General Pulmonary Disease 02/26/19
--- OUTSIDE RECORDS SUMMARY | 2025-06-20 12:42 | XMS_ITS | Encounter Summary ---
Author Organization [facility] Address [address] [place] [address] Phone Care Team Providers Care Inspection Clerk Name Role Phone Damon Orta MD Primary Care Provider [phone] Encounter Details Date Type Department Care Team (Late st Contact Info) Description 12/18/2023 Office Communication [facility] [address] [place] [phone] Sherry Schuster, RN [address] [place] [phone] Social History Tobacco Use Types Packs/Day Years [...] on filedocumented in this encounter Care Teams Inspection Clerk Relationship Specialty Start Date End Date Damon Orta MD [id number] [place] PCP - General Internal Medicine 12/31/21 documented as of this encounter
== END 2025-06-20 11:59 | disposition home or self-care (01) ==
LOC: HO.HMCHD 11:35
PROVIDERS: PCP Internal Medicine; Visit Provider Internal Medicine
DX: N18.9 Chronic kidney disease, unspecified (principal)

== ENCOUNTER → 2025-06-20 11:35 | Outpatient (BNVA) | payer MEDICARE, SELFPAY | PROVIDERS: PCP Internal Medicine; Visit Provider Internal Medicine | DX: N18.9 Chronic kidney disease, unspecified (principal) | CPT/HCPCS: 99212 ==

== ENCOUNTER → 2025-07-29 23:59 | Outpatient (BNV) | payer MEDICARE, OTHER, SELFPAY | PROVIDERS: PCP Internal Medicine; Visit Provider Internal Medicine | DX: I12.0 Hypertensive chronic kidney disease with stage 5 chronic kidney disease or end stage renal disease (principal); E11.22 Type 2 diabetes mellitus with diabetic chronic kidney disease; N18.6 End stage renal disease | CPT/HCPCS: G0179 ==